=== PATIENT | male | born 1955 | race Caucasian/White ===

== ENCOUNTER 2023-04-24 08:08 | Day surgery (SDC) | payer OTHER, SELFPAY ==
[2023-04-24 08:24] VITALS: BP 100/82; PULSE 66; RESP 16; O2SAT 96
[2023-04-24] MEDS: BESIFLOXACIN HCL 100 DROP DROPS.SUSP OP ×4 (08:33→08:53)
[2023-04-24] MEDS: PHENYLEPHRINE HCL 2.5% OP SOL 40 DROP/2 ML BOTTLE OP ×4 (08:34→08:54)
[2023-04-24] MEDS: DIAZEPAM 5 MG TABLET PO (08:34)
[2023-04-24] MEDS: TROPICAMIDE 1% OP SOL 300 DROP/15 ML BOTTLE OP ×4 (08:34→08:54)
[2023-04-24] MEDS: CYCLOPENTOLATE HCL 1% OP SOL 40 DROP/2 ML BOTTLE OP ×4 (08:34→08:54)
[2023-04-24] MEDS: LIDOCAINE 2% JELLY 10 ML UR (09:55)
[2023-04-24] MEDS: BETADINE POVIDONE-IODINE 5% OP SOL 30 ML BOTTLE OP (09:55)
[2023-04-24 09:59] VITALS: BP 91/76; PULSE 102; RESP 18; O2SAT 98
--- NOTE | 2023-04-24 10:00 | OP_ITS ---
OPERATION DATE: ??04/24/2023 SURGEON:? Pedro Patel M.D. PREOPERATIVE DIAGNOSIS:? Nuclear sclerotic cataract right eye. POSTOPERATIVE DIAGNOSIS:? Nuclear sclerotic cataract right eye. PROCEDURE:? Cataract extraction with intraocular lens placement for the right eye. ANESTHESIA:? Topical. ESTIMATED BLOOD LOSS:? Zero. COMPLICATIONS:? None. PROCEDURE:? The patient was brought to the operating room in supine position.? After proper identification, the right eye was prepped and draped in a sterile ophthalmic fashion.? A paracentesis was created at the 11 o'clock position.? Approximately 1 cc of unpreserved Xylocaine was injected into the anterior chamber followed by Amvisc Plus.? Using a 2.6 mm Keratome blade, a clear corneal incision was created at the 9 o'clock limbus.? A cystotome was then used to begin a curvilinear capsulorrhexis that was continued for 360 degrees with the Utrata forceps.? BSS on a 26 gauge cannula was injected beneath the anterior capsule to hydrodissect as well as hydrodelineate the lens.? After ensuring mobility, phacoemulsification was performed in a tozhnaw-fje-denbxf-type fashion.? After all nuclear material had been removed from the eye, IA was introduced and all residual cortical material was cleaned up.? Additional Amvisc Plus was injected into the posterior bag and a lens model MX60, 21.5 diopters was then injected and dialed into position.? After ensuring centration, IA was reintroduced into the anterior chamber and all residual Amvisc Plus was removed from the eye.?? BSS on a 30 gauge cannula was injected into the stroma of both the clear corneal incision as well as the paracentesis to hydrate the wounds.? Additional BSS was injected into the anterior chamber to pressurize the eye at approximately 20 to 22 mmHg by finger tension.? 0.1 cc of antibiotic was injected into the anterior chamber and Weck-Guadalupe sponges were used to check the wounds to be watertight.? One drop of Apraclonidine and one drop of prednisolone acetate were placed into the eye and a shield was placed over top. The patient was then sent to the postoperative area in satisfactory condition to follow up the following day for postoperative care. [facility]
[2023-04-24] MEDS: HYALURONATE SODIUM 16 MG/ML SYRINGE EYE-RIGHT (10:04)
[2023-04-24] MEDS: LIDOCAINE HCL 1% PF 20 MG/2 ML VIAL 1 ML INJ (10:05)
[2023-04-24] MEDS: PREDNISOLONE ACETATE OP 1% SUSP 100 DROPS/5 ML 1 DROP OP (10:07)
[2023-04-24] MEDS: APRACLONIDINE HCL 100 DROP/5 ML BOTTLE OP (10:07)
[2023-04-24] MEDS: PHENYLEPHRINE/KETOROLAC 1-0.3% ML VIAL 4 ML IRR (10:07)
[2023-04-24 10:13] VITALS: BP 99/78; PULSE 95; RESP 20; O2SAT 100
== END 2023-04-24 10:25 | disposition home or self-care (01) ==
PROVIDERS: PCP Internal Medicine; Visit Provider Ophthalmology
PROC: (CPT 66984; principal; 2023-04-24 09:30)
DX: H25.11 Age-related nuclear cataract, right eye (principal); I10 Essential (primary) hypertension; E78.00 Pure hypercholesterolemia, unspecified; I25.10 Atherosclerotic heart disease of native coronary artery without angina pectoris; Z79.01 Long term (current) use of anticoagulants; Z79.899 Other long term (current) drug therapy
CPT/HCPCS: 66984; V2630

== ENCOUNTER 2023-06-05 08:35 | Outpatient (OUT) | payer OTHER, SELFPAY ==
--- NOTE | 2023-06-05 08:51 | MR_ITS ---
The [address] [address] Patient Name: CHEYANNE FLORES MRN: [id number] date: 1955 Sex: M Assigned Patient Location: MRI Current Patient Location: Accession/Order Number: [id number] Exam Date: 06/05/2023 09:55 Report Date: 06/06/2023 07:20 At the request of: MELL PICKETT Procedure: MR head/brain wo con EXAMINATION: MR head/brain wo con HISTORY: Memory Loss R41.3 COMPARISON: No relevant comparison available. TECHNIQUE: A variety of imaging planes and parameters were utilized for visualization of suspected pathology. Images were performed without contrast. FINDINGS: CEREBRUM: No edema, hemorrhage, mass, acute infarction, or inappropriate atrophy. CEREBELLUM: No edema, hemorrhage, mass, acute infarction, or inappropriate atrophy. BRAINSTEM: No edema, hemorrhage, mass, acute infarction, or inappropriate atrophy. CSF SPACES: Ventricles, cisterns, and sulci are appropriate for age. No hydrocephalus, subarachnoid hemorrhage, or mass. SKULL: No mass or other significant visible lesion. SINUSES: Limited views demonstrate no significant mucosal thickening or fluid. ORBITS: Limited views are unremarkable. OTHER: Negative. MR/MR head/brain wo con IMPRESSION: 1. No abnormal or suspicious findings to account for patient's symptoms. 2. Age consistent mild atrophy. Electronically authenticated by: ALEX DAWN Date: 06/06/2023 07:20
--- NOTE | 2023-06-05 08:52 | US_ITS ---
[address] [address] Patient Name: CHEYANNE FLORES MRN: [id number] date: 1955 Sex: M Assigned Patient Location: MRI Current Patient Location: MRI Accession/Order Number: [id number] Exam Date: 06/05/2023 10:45 Report Date: 06/05/2023 14:30 At the request of: MELL PICKETT Procedure: US carotid duplex BI EXAMINATION: US carotid duplex BI HISTORY: Atrial Fibrillation I48.19 , hypertension, hypercholesterolemia COMPARISON: No relevant comparison available. TECHNIQUE: Duplex Doppler ultrasound analysis of carotid and vertebral arteries. . Bilateral carotid arterial duplex examination was performed using B-mode, color flow and spectral analysis. Carotid stenosis is reported according to validated velocity parameters, similar to NASCET criteria. FINDINGS: RIGHT CAROTID ARTERY: No visible stenosis or significant plaque. RIGHT VERTEBRAL: Antegrade flow. Subclavian: PSV: 62.8 cm/s EDV: 0.0 cm/s CCA: Prox: PSV: 63.8 cm/s EDV: 12.9 cm/s Mid: PSV: 55.9 cm/s EDV: 18.1 cm/s Distal: PSV: 53.3 cm/s EDV: 16.8 cm/s BULB: PSV: 34.8 cm/s EDV: 8.6 cm/s ICA: Prox: PSV: 52.3 cm/s EDV: 18.2 cm/s Mid: PSV: 61.0 cm/s EDV: 25.2 cm/s Distal: PSV: 62.7 cm/s EDV: 27.8 cm/s ECA: PSV: 77.4 cm/s EDV: 9.5 cm/s VERTEBRAL: PSV: 24.3 cm/s EDV: 12.1 cm/s ICA/CCA ratio: PSV: 1.2 EDV: 1.7 LEFT CAROTID ARTERY: Mild atherosclerotic plaque within bulb and proximal external carotid artery without significant stenosis. LEFT VERTEBRAL: Antegrade flow. Subclavian: PSV: 74.1 cm/s EDV: 0.0 cm/s CCA: Prox: PSV: 85.4 cm/s EDV: 22.4 cm/s Mid: PSV: 61.2 cm/s EDV: 24.1 cm/s Distal: PSV: 56.3 cm/s EDV: 16.0 cm/s BULB: PSV: 40.2 cm/s EDV: 16.0 cm/s ICA: Prox: PSV: 53.1 cm/s EDV: 27.3 cm/s Mid: PSV: 66.0 cm/s EDV: 27.3 cm/s Distal: PSV: 80.6 cm/s EDV: 37.0 cm/s ECA: PSV: 58.0 cm/s EDV: 0.0 cm/s VERTEBRAL: PSV: 31.3 cm/s EDV: 13.0 cm/s ICA/CCA ratio: PSV: 1.4 EDV: 2.3 US/US carotid duplex BI IMPRESSION: 1. Irregular heartbeat throughout the study. 2. 0-49% flow stenosis and mild atherosclerotic plaque within the left bulb/proximal ECA. 3. Unremarkable right carotid arteries. Electronically authenticated by: ALEX DAWN Date: 06/05/2023 14:30
== END 2023-06-05 08:36 | disposition home or self-care (01) ==
LOC: MRI 08:37
PROVIDERS: PCP Internal Medicine; Visit Provider Internal Medicine
DX: I48.19 Other persistent atrial fibrillation (principal); R41.3 Other amnesia; R68.89 Other general symptoms and signs; R09.89 Other specified symptoms and signs involving the circulatory and respiratory systems
CPT/HCPCS: 70551; 93880

== ENCOUNTER 2023-11-12 11:38 | Outpatient (OUT) | payer OTHER, SELFPAY ==
[2023-11-12 12:19] LABS: Estimated Average Glucose 140 mg/dL; Glycohemoglobin A1C 6.5 % (4.5-6.2)
[2023-11-12 12:27] LABS: Anion Gap 13.3; Calcium 8.9 mg/dL (8.5-10.1); Carbon Dioxide 29.5 mmol/L (21.0-32.0); Chloride 100 mmol/L (98-107); Estimated GFR (African America 58 (>=60); Estimated GFR (Non-African Ame 48 (>=60); Glucose 114 mg/dL (74-106); Potassium 3.8 mmol/L (3.5-5.1); Sodium 139 mmol/L (136-145)
== END 2023-11-12 11:39 | disposition home or self-care (01) ==
LOC: LAB 11:41
PROVIDERS: PCP Internal Medicine; Visit Provider Internal Medicine
DX: I50.22 Chronic systolic (congestive) heart failure (principal); I42.8 Other cardiomyopathies; E11.65 Type 2 diabetes mellitus with hyperglycemia
CPT/HCPCS: 36415; 80048; 83036; 83880

== ENCOUNTER 2024-02-09 11:41 | Outpatient (OUT) | payer OTHER, SELFPAY ==
--- OUTSIDE RECORDS SUMMARY | 2024-02-09 12:05 | XMS_ITS | CCD ---
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 Name Role Phone Anibal Gonzales Unavailable Unavailable Unavailable Cheyanne Knowles II Referring Unav ailable Flaco LIN, Cheyanne De Leon Attending Unav ailable Anibal Gonzales Primary Care Unavailabl e Anibal Gonzales Primary Care Unavaileileen e McGuinjusten LIN, Cheyanne De Leon Referring Unav ailable Flaco LIN, Cheyanne De Leon Attending Unav ailable Anibal Gonzales Unavailable CHRISTIAN, DR MONTE Attending Unavailable CHRISTIAN, DR MONTE Admitting Unavailable CHRISTIAN, DR MONTE Primary Care Unavailable CHRISTIAN, DR MONTE Consulting Unavailable CHRISTIAN, DR MONTE Attending Unavailable CHRISTIAN, DR MONTE Admitting Unavailable CHRISTIAN, DR MONTE Primary Care Unavailable CHRISTIAN, DR MONTE Consulting Unavailable CHRISTIAN, DR MONTE Consulting Unavailable CHRISTIAN, DR MONTE Attending Unavailable CHRISTIAN, DR MONTE Admitting Unavailable CHRISTIAN, DR MONTE Primary Care Unavailable ZIEBSHAE, DR ALEX Luis Consulting Unavailable CHRISTIAN, DR MONTE Primary Care Unavailable RASHEEDA SANCHEZ Admitting Unavailable RASHEEDA SANCHEZ Attending Unavailable Anibal Gonzales DO Primary Care Provider CHEYANNE KNOWLES Attending Unavailable ANIBAL GONZALES Primary Care Unavailable Medications Current Medications Medication Drug Class(es) Dates Sig (Normalized) Sig (Original) allopurinol 300 mg oral tablet (20 sources) Xanthine Oxidase Inhibitor Allopurinol 300 mg TAKE ONE TABLET BY MOUTH ONCE DAILY Orally Once a day for 90 days Active apixaban 5 mg oral tablet (20 sources) Factor Xa Inhibitor Start: 12-02-2023 End: 12-01-2024 take 1 tablet by mouth twice daily apixaban (Eliquis) 5 mg tablet Indications: Paroxysmal atrial fibrillation (CMS/HCC) Take 1 tablet (5 mg) by mouth 2 times a day. 180 tablet 3 12/02/2023 12/01/2024 Active atorvastatin 20 mg oral tablet (20 sources) HMG-CoA Reductase Inhibitor Start: 12-02-2023 End: 12-01-2024 take 1 tablet by mouth once daily at bedtime atorvastatin (Lipitor) 20 mg tablet Indications: Mixed hyperlipidemia Take 1 tablet (20 mg) by mouth once daily at bedtime. 90 tablet 3 12/02/2023 12/01/2024 Active furosemide 20 mg oral tablet (20 sources) Loop Diuretic Start: 12-02-2023 End: 12-01-2024 take 1 tablet by mouth once daily furosemide (Lasix) 20 mg tablet Indications: Primary hypertension Take 1 tablet (20 mg) by mouth once daily. 90 tablet 3 12/02/2023 12/01/2024 Active Start: 05-01-2023 take 1 tablet by gena th every twenty-four hours Furosemide 40 MG 1 tablet Orally Once a day for 90 days Apr, Active Start: 05-01-2023 take 1 tablet by gena th every other day Furosemide 40 MG 1 tablet Orally every other day Apr, Active take 1 tablet by mouth twice suzy ly Furosemide 20 MG Oral Tablet TAKE 1 TABLETS TWICE DAILY Quantity: 0 Refills: 0 Ordered: 06-Dec-2022 DO Active take 1 tablet by gena th every twenty-four hours Furosemide 40 MG 1 tablet Orally Once a day for 30 days stop furosemide 20 Active losartan potassium 25 mg oral tablet (20 sources) Angiotensin 2 Receptor Carlos Start: 01-06-2023 take 1 tablet by mouth every twenty-four hours Losartan Potassium 25 MG 1 tablet Orally Once a day for 90 days Dec, Active Start: 12-06-2022 End: 12-01-2024 take 1 tablet by mouth once daily losartan (Cozaar) 50 mg tablet Indications: Primary hypertension Take 1 tablet (50 mg) by mouth once daily. 90 tablet 3 12/02/2023 12/01/2024 Active 24 hr metoprolol succinate 50 mg extended release oral tablet (20 sources) beta-Adrenergic Carlos Start: 05-01-2023 take 1 tablet by mouth every twenty-four hours Metoprolol Succinate ER 200 MG 1 tablet Orally Once a day Apr, Active Start: 01-08-2023 End: 12-01-2024 take 1 tablet by mouth once daily metoprolol succinate XL (Toprol-XL) 50 mg 24 hr tablet Indications: Paroxysmal atrial fibrillation (CMS/HCC) , Primary hypertension Take 1 tablet (50 mg) by mouth once daily. 90 tablet 3 12/02/2023 12/01/2024 Active Start: 01-08-2023 Metoprolol Suc cinate ER 100 MG 2 Orally Once a day Stop Metoprolol 50 15 Dec, 2022 Active potassium chloride 10 meq extended release oral tablet (20 sources) Start: 12-03-2022 End: 12-01-2024 take 1 tablet by mouth once daily potassium chloride CR 10 mEq ER tablet Indications: Non-ischemic cardiomyopathy (CMS/HCC) , Paroxysmal atrial fibrillation (CMS/HCC) , Primary hypertension Take 1 tablet (10 mEq) by mouth once daily. Do not crush, chew, or split. 90 tablet 3 12/02/2023 12/01/2024 Active spironolactone 25 mg oral tablet (20 sources) Aldosterone Antagonist Start: 09-24-2021 End: 12-01-2024 take 1 tablet by mouth once daily spironolactone (Aldactone) 25 mg tablet Indications: Primary hypertension Take 1 tablet (25 mg) by mouth once daily. 90 tablet 3 12/02/2023 12/01/2024 Active Completed/Discontinued Medications Medication Drug Class(es) Dates Sig (Normalized) Sig (Original) amiodarone hydrochloride 400 mg oral tablet (4 sources) Antiarrhythmic take 1 tablet by mouth once daily Amiodarone HCl - 400 MG Oral Tablet TAKE 1 TABLET DAILY. Quantity: 0 Refills: 0 Ordered: 24-Sep-2021 DO Active lisinopril 5 mg oral tablet (9 sources) Angiotensin Converting Enzyme Inhibitor take 0.5 tablet by mouth once daily Lisinopril 5 MG Oral Tablet TAKE 1/2 TABLET DAILY. Quantity: 45 Refills: 3 Ordered: 15-Apr-2022 Cheyanne Knowles MD Active take 1 tablet by mouth once sid y Lisinopril 5 MG Oral Tablet TAKE 1 TABLET DAILY. Quantity: 0 Refills: 0 Ordered: 24-Sep-2021 DO Active Problems Active Problems Problem Classification Problem Date Documented Da te Episodic/Chronic Cardiac dysrhythmias (20 sources) Persistent atrial fibrillation; 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: [Atrial fibrillation] Onset: 11-12-2023 12-02-2023 Chronic Chronic kidney disease (20 sources) Chronic kidney disease stage 3A ; 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: [Stage 3a chronic kidney disease] Chronic Congestive heart failure; nonhypertensive (20 sources) Chronic systolic heart failure; 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: [Chronic systolic (congestive) heart failure] Onset: 11-08-2022 Chronic Diabetes mellitus with complications (20 sources) Hyperglycemia due to type 2 diabetes mellitus; 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: [Type 2 diabetes mellitus with hyperglycemia] Onset: 04-12-2023 Chronic Diabetes mellitus without complication (20 sources) Type 2 diabetes mellitus; 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: [Diabetes mellitus without mention of complication, type II or unspecified type, not stated as uncontrolled] Onset: 11-12-2023 11-12-2023 Chronic Disorders of lipid metabolism (20 sources) Hyperlipidemia; 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: [Other and unspecified hyperlipidemia] Onset: 04-12-2023 Chronic Essential hypertension (20 sources) Hypertensive disorder; 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: [Unspecified essential hypertension] Onset: 11-12-2023 Chronic Fluid and electrolyte disorders (1 source) Hypokalemia Episodic Gout and other crystal arthropathies (20 sources) Primary gout; 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: [Idiopathic gout, unspecified site] Chronic Hyperplasia of prostate (20 sources) Benign prostatic hyperplasia; 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: [Hypertrophy (benign) of prostate without urinary obstruction and other lower urinary tract symptom (LUTS)] Onset: 11-12-2023 Chronic Hypertension with complications and secondary hypertension (4 sources) Hypertensive heart and chronic kidney disease with heart failure and stage 1 through stage 4 chronic kidney disease, or unspecified chronic kidney disease; 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: [HTN HRT CKD W/HF STAGE 1-4/UNS CKD] Onset: 04-08-2023 Chronic Other diseases of veins and lymphatics (10 sources) Venous hypertension of lower limb; 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: [Chronic venous hypertension (idiopathic) with inflammation of bilateral lower extremity] Chronic Other diseases of veins and lymphatics (20 sources) Peripheral venous insufficiency; 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: [Venous insufficiency (chronic) (peripheral)] Episodic Other diseases of veins and lymphatics (4 sources) Venous insufficiency (chronic) (peripheral) Episodic Other lower respiratory disease (7 sources) Dyspnea; 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: [Other respiratory abnormalities] Episodic Other nutritional; endocrine; and metabolic disorders (14 sources) Body mass index 40+ - severely obese; 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: [Morbid obesity] Chronic Other nutritional; endocrine; and metabolic disorders (20 sources) Morbid obesity; 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: [Morbid (severe) obesity due to excess calories] Chronic Other nutritional; endocrine; and metabolic disorders (2 sources) Morbid (severe) obesity due to excess calories Chronic Other screening for suspected conditions (not mental disorders or infectious disease) (3 sources) Encounter for screening for malignant neoplasm of prostate; 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: [ENC SCREEN MALIG NEOPLASM PROSTATE] Onset: 04-12-2023 Episodic Marycruz-; endo-; and myocarditis; cardiomyopathy (except that caused by tuberculosis or sexually transmitted disease) (20 sources) Cardiomyopathy; 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: [Other primary cardiomyopathies] Onset: 11-12-2023 Chronic Residual codes; unclassified (20 sources) Obstructive sleep apnea syndrome; 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: [Obstructive sleep apnea (adult)(pediatric)] Onset: 11-12-2023 11-12-2023 Chronic Residual codes; unclassified (3 sources) Obstructive sleep apnea (adult) (pediatric) Chronic Residual codes; unclassified (7 sources) Amnesia; 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: [Other amnesia] Episodic Residual codes; unclassified (1 source) Other amnesia Episodic Residual codes; unclassified (1 source) Other general symptoms and signs Episodic Screening and history of mental health and substance abuse codes (12 sources) Ex-smoker; 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: [Personal history of tobacco use] Episodic Comment on above: quit smoking approx 40 years ago; Past or Other Problems Problem Classification Problem Date Documented Da te Episodic/Chronic Chronic kidney disease (6 sources) Chronic kidney disease; 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: [CHRONIC KIDNEY DISEASE STAGE 3A] Onset: 04-12-2023 Immunizations and screening for infectious disease (12 sources) Patient encounter status; 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: [Other specified vaccination] Resolved: 12-06-2022 Episodic Other lower respiratory disease (5 sources) H/O: respiratory disease; 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: [Personal history of other diseases of respiratory system] Resolved: 04-12-2022 Episodic Unclassified (13 sources) Other persistent atrial fibrillation; 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: [OTHR PERSISTENT ATRIAL FIBRILLATION] Onset: 01-10-2023 Unclassified (1 source) Onset: 12-02-2023 12-02-2023 Results Test Name Value Interpretation Reference Range Facility B-Type Natriuretic Peptideon 04-08-2023 B-Type Natriuretic Peptide see note [facility] Other B-Type Natriuretic Peptide 3094.0 pg/ml Critically high <=900.0 pg/ml [facility] Other BNPon 04-08-2023 Natriuretic peptide B (Bld) [Mass/Vol] 3094.0 pg/mL Critically high <=900.0 [facility] Comment on above: Performed By: #### B MP, BNP, LIPID #### [facility] [address] [address] [address] Braxton Aly Basic Metabolic Panelon 03-24 Calcium [Mass/Vol] 8.9330904 mg/dL 8.5-10 .1 mg/dL [facility] Other CO2 [Moles/Vol] 34.60836400 mmol/L Critically high 21. 0-32.0 mmol/L [facility] Other Creatinine [Mass/Vol] 1.57952168 mg/dL Critically high 0.70-1.30 mg/dL [facility] Other Potassium [Moles/Vol] 4.87976835 mmol/L 3.5-5.1 mmol/L [facility] Other Urea nitrogen [Mass/Vol] 25.5673992 mg/dL Critically high 7.0-18.0 mg/dL [facility] Other Basic Metabolic Panel 140 mmol/L 136-145 mmol/L [facility] Other Basic Metabolic Panel 148 mg/dL Critically high 74-106 mg/dL [facility] Other Basic Metabolic Panel 40 mL/min/1.73m2 Critically low >=60 mL/min/1.73m2 [facility] Other Basic Metabolic Panel 49 mL/min/1.73m2 Critically low >=60 mL/min/1.73m2 [facility] Other CBC AUTO DIFFon 04-08-2023 BASO # 0.1 103/ul Normal 0.0-0.1 [facility] Comment on above: Performed By: #### C BC #### [facility] [address] [place] [address] Dr. Braxton Aly Basophils/100 WBC (Bld) 0.6 % Normal 0.2-2.0 [facility] Comment on above: Performed By: #### C BC #### [facility] [address] [place] [address] Dr. Braxton Aly EO # 0.1 103/ul Normal 0.0-0.7 [facility] Comment on above: Performed By: #### C BC #### [facility] [address] [place] [address] Dr. Braxton Aly Eosinophils/100 WBC (Bld) 1.3 % Normal 0.9-7.0 [facility] Comment on above: Performed By: #### C BC #### [facility] [address] [place] [address] Dr. Braxton Aly Erythrocyte distribution width (RBC) [Ratio] 14.6 % Normal 11.0-15.0 [facility] Comment on above: Performed By: #### C BC #### [facility] [address] [place] [address] Dr. Braxton Aly Hematocrit (Bld) [Volume fraction] 44.2 % Normal 42.0-54.0 [facility] Comment on above: Performed By: #### C BC #### [facility] [address] [place] [address] Dr. Braxton Aly Hemoglobin (Bld) [Mass/Vol] 13.5 g/dL Critically low 14.0-18.0 [facility] Comment on above: Performed By: #### C BC #### [facility] [address] [place] [address] Dr. Braxton Aly IG # 0.03 10e3/ul Normal 0.00-0.03 [facility] Comment on above: Performed By: #### C BC #### [facility] [address] [place] [address] Dr. Braxton Aly IG % 0.3 % Normal 0.0-0.5 [facility] Comment on above: Performed By: #### C BC #### [facility] [address] [place] [address] Dr. Braxton Aly LYMPH # 1.3 103/ul Normal 1.2-3.8 [facility] Comment on above: Performed By: #### C BC #### [facility] [address] [place] [address] Dr. Braxton Aly Lymphocytes/100 WBC (Bld) 15.0 % Critically low 20.5-60.0 [facility] Comment on above: Performed By: #### C BC #### [facility] [address] [place] [address] Dr. Braxton Aly MANUAL DIFF REQ NO Normal [facility] Comment on above: Performed By: #### C BC #### [facility] [address] [place] [address] Dr. Braxton Aly MCH (RBC) [Entitic mass] 29.1 pg Normal 25.9-34.0 [facility] Comment on above: Performed By: #### C BC #### [facility] [address] [place] [address] Dr. Braxton Aly MCHC (RBC) [Mass/Vol] 30.5 g/dL Normal 29.9-35.2 [facility] Comment on above: Performed By: #### C BC #### [facility] [address] [place] [address] Dr. Braxton Aly MCV (RBC) [Entitic vol] 95.3 fL Critically high 80.0-94.0 [facility] Comment on above: Performed By: #### C BC #### [facility] [address] [place] [address] Dr. Braxton Aly MONO # 0.6 103/ul Normal 0.3-0.8 [facility] Comment on above: Performed By: #### C BC #### [facility] [address] [place] [address] Dr. Braxton Aly Monocytes/100 WBC (Bld) 6.7 % Normal 1.7-12.0 [facility] Comment on above: Performed By: #### C BC #### [facility] [address] [place] [address] Dr. Braxton Aly NEUT # 6.7 103/ul Critically high 1.4-6.5 [facility] Comment on above: Performed By: #### C BC #### [facility] [address] [address] [address] Braxton Aly Neutrophils/100 WBC (Bld) 76.1 % Critically high 43.0-75.0 [facility] Comment on above: Performed By: #### C BC #### [facility] [address] [address] [address] Braxton Aly Platelet mean volume (Bld) [Entitic vol] 9.4 fL Critically low 9.5-13.5 [facility] Comment on above: Performed By: #### C BC #### [facility] [address] [place] [address] Dr. Braxton Aly PLT 272 103/ul Normal 150-450 [facility] Comment on above: Performed By: #### C BC #### [facility] [address] [address] [address] Braxton Aly RBC 4.64 106/ul Critically low 4.70-6.10 [facility] Comment on above: Performed By: #### C BC #### [facility] [address] [address] [address] Braxton Aly WBC 8.8 103/ul Normal 4.0-11.0 [facility] Comment on above: Performed By: #### C BC #### [facility] [address] [address] [address] Braxton Aly Complete Blood Count and Dif diony 04-08-2023 Anisocytosis Ql (Bld) [facility] Other Basophilic stippling LM Ql (Bld) [facility] Other RBC morphology finding Nom (Bld) [facility] Other GLYCOHEMOGLOBIN A1Con 2022 ADA RECOMMENDATION SEE BELOW Normal [facility] Comment on above: Result Comment: ADA RECOMMENDED LIMIT 4.0 - 6.0 ADA THERAPEUTIC TARGET < 7.0 ACTION SUGGESTED > 7.0 Performed By: #### A 1C #### [facility] [address] [place], [place] [address] Dr. Braxton Aly Glucose [Mass/Vol] 143 mg/dL Normal [facility] Comment on above: Performed By: #### A 1C #### [facility] [address] [place], [place] [address] Dr. Braxton Aly HbA1c (Bld) [Mass fraction] 6.6 % Critically high 4.5-6.2 [facility] Comment on above: Performed By: #### A 1C #### [facility] [id number] Braxton Aly Hemoglobin A1C ([facility])on 0 04-08-2023 Hemoglobin A1C ([facility]) [facility] Other LIPID PROFILEon 04-08-2023 CHOL-HDL RATIO NORM SEE BELOW Normal [facility] Comment on above: Result Comment: 3.3 - 4.4 LOW RISK 4.4 - 7.1 AVERAGE RISK 7.1 - 11.0 MODERATE RISK >11.0 HIGH RISK Performed By: #### B MP, BNP, LIPID #### [facility] [address] [address] [address] Braxton Aly Cholesterol [Mass/Vol] 119 mg/dL <=200 mg/dL [facility] Comment on above: Performed By: #### B MP, BNP, LIPID #### [facility] [address] [address] [address] Braxton Aly Cholesterol in HDL [Mass/Vol] 36 mg/dL Critically low 40-60 mg/dL [facility] Comment on above: Performed By: #### B MP, BNP, LIPID #### [facility] [address] [address] [address] Braxton Aly Cholesterol in LDL [Mass/Vol] 67.8 mg/dL Normal [facility] Comment on above: Performed By: #### B MP, BNP, LIPID #### [facility] [address] [address] [address] Braxton Aly Cholesterol.total/Ch olesterol in HDL [Mass ratio] 3.3 {ratio} [facility] Comment on above: Performed By: #### B MP, BNP, LIPID #### [facility] [address] [address] [address] Braxton Aly HDL NORMAL > or = 60 mg/dl - LOW CARDIOVASCULAR RISK <40 mg/dl - HIGH CARDIOVASCULAR RISK Normal [facility] Comment on above: Performed By: #### B MP, BNP, LIPID #### [facility] [address] [address] [address] Braxton Aly LDL CALC NORMAL SEE BELOW Normal [facility] Comment on above: Result Comment: <100 mg/dl OPTIMAL 100 - 129 mg/dl NEAR OR ABOVE OPTIMAL 130 - 159 mg/dl BORDERLINE HIGH 160 - 189 mg/dl HIGH >190 mg/dl VERY HIGH Performed By: #### B MP, BNP, LIPID #### [facility] [address] [place] [address] Dr. Braxton Aly Triglyceride [Mass/Vol] 76 mg/dL <=150 mg/dL [facility] Comment on above: Performed By: #### B MP, BNP, LIPID #### [facility] [address] [address] [address] Braxton Aly VLDL CALC 15.2 mg/dL Normal [facility] Comment on above: Performed By: #### B MP, BNP, LIPID #### [facility] [address] [address] [address] Braxton Aly Lipid Panelon 04-08-2023 Lipid Panel > or = 60 mg/dl - LOW CARDIOVASCULAR RISK <40 mg/dl - HIGH CARDIOVASCULAR RISK [facility] Other Lipid Panel SEE BELOW [facility] Other Lipid Panel 67.8 mg/dL [facility] Other Lipid Panel 15.2 mg/dL [facility] Other PROF CHEM 8 (BAS METB)on Anion gap [Moles/Vol] 9.4 mmol/L [facility] Comment on above: Performed By: #### B MP, BNP, LIPID #### [facility] [address] [address] [address] Braxton Aly Calcium [Mass/Vol] 8.9 mg/dL Normal 8.5-10.1 [facility] Comment on above: Performed By: #### B MP, BNP, LIPID #### [facility] [address] [address] [address] Braxton Aly Chloride [Moles/Vol] 100 mmol/L 98-107 mmol/L [facility] Comment on above: Performed By: #### B MP, BNP, LIPID #### [facility] [address] [address] [address] Braxton Aly CO2 [Moles/Vol] 34.7 mmol/L Critically high 21.0-32.0 [facility] Comment on above: Performed By: #### B MP, BNP, LIPID #### [facility] [address] [place] [address] Dr. Braxton Aly Creatinine [Mass/Vol] 1.71 mg/dL Critically high 0.70-1.30 [facility] Comment on above: Performed By: #### B MP, BNP, LIPID #### [facility] [address] [address] [address] Braxton Aly EGFR-AF UGANDAN 49 mL/min/1.73m2 Critically low >=60 [facility] Comment on above: Performed By: #### B MP, BNP, LIPID #### [facility] [address] [address] [address] Braxton Aly EGFR-NON AF UGANDAN 40 mL/min/1.73m2 Critically low >=60 [facility] Comment on above: Performed By: #### B MP, BNP, LIPID #### [facility] [address] [address] [address] Braxton Aly Glucose [Mass/Vol] 148 mg/dL Critically high 74-106 [facility] Comment on above: Performed By: #### B MP, BNP, LIPID #### [facility] [address] [address] [address] Braxton Aly Potassium [Moles/Vol] 4.1 mmol/L Normal 3.5-5.1 [facility] Comment on above: Performed By: #### B MP, BNP, LIPID #### [facility] [address] [address] [address] Braxton Aly Sodium [Moles/Vol] 140 mmol/L Normal 136-145 [facility] Comment on above: Performed By: #### B MP, BNP, LIPID #### [facility] [address] [address] [address] Braxton Aly Urea nitrogen [Mass/Vol] 25.0 mg/dL Critically high 7.0-18.0 [facility] Comment on above: Performed By: #### B MP, BNP, LIPID #### [facility] [address] [address] [address] Braxton Aly Urea nitrogen/Creatinine [Mass ratio] 14.6 mg/mg [facility] Comment on above: Performed By: #### B MP, BNP, LIPID #### [facility] [address] [address] [address] Braxton Aly Basic Metabolic Panelon 12-25 Calcium [Mass/Vol] 8.4052945 mg/dL 8.5-10 .1 mg/dL [facility] Other CO2 [Moles/Vol] 31.73714136 mmol/L 21.0-3 2.0 mmol/L [facility] Other Creatinine [Mass/Vol] 1.04621628 mg/dL Critically high 0.70-1.30 mg/dL [facility] Other Potassium [Moles/Vol] 3.56457960 mmol/L Critically low 3.5-5.1 mmol/L [facility] Other Urea nitrogen [Mass/Vol] 15.4941336 mg/dL 7.0-18.0 mg/dL [facility] Other Basic Metabolic Panel see note [facility] Other Basic Metabolic Panel 141 mmol/L 136-145 mmol/L [facility] Other Basic Metabolic Panel 157 mg/dL Critically high 74-106 mg/dL [facility] Other Basic Metabolic Panel 52 mL/min/1.73m2 Critically low >=60 mL/min/1.73m2 [facility] Other Basic Metabolic Panel >60 mL/min/1.73m2 >=60 mL/min/1.73m2 [facility] Other Anion gap [Moles/Vol] 11.6 mmol/L Normal [place] [facility] Other Comment on above: Performed By: #### B MP #### [facility] [address] [place] [address] Dr. Braxton Aly Chloride [Moles/Vol] 101 mmol/L Normal 98-107 [facility] Other Comment on above: Performed By: #### B MP #### [facility] [address] [place] [address] Dr. Braxton Aly Urea nitrogen/Creatinine [Mass ratio] 11.0 mg/mg Normal [place] [facility] Other Comment on above: Performed By: #### B MP #### [facility] [address] [place] [address] Dr. Braxton Aly PROF CHEM 8 (BAS METB)on Calcium [Mass/Vol] 8.8 mg/dL Normal 8.5-10.1 [facility] Comment on above: Performed By: #### B MP #### [facility] [address] [place] [address] Dr. Braxton Aly CO2 [Moles/Vol] 31.7 mmol/L Normal 21.0-32.0 [facility] Comment on above: Performed By: #### B MP #### [facility] [address] [place] [address] Dr. Braxton Aly Creatinine [Mass/Vol] 1.36 mg/dL Critically high 0.70-1.30 [facility] Comment on above: Performed By: #### B MP #### [facility] [address] [place] [address] Dr. Braxton Aly EGFR-AF UGANDAN >60 Normal >=60 [facility] Comment on above: Performed By: #### B MP #### [facility] [address] [place], [place] [address] Dr. Braxton Aly EGFR-NON AF UGANDAN 52 mL/min/1.73m2 Critically low >=60 [facility] Comment on above: Performed By: #### B MP #### [facility] [address] [address] [address] Braxton Aly Glucose [Mass/Vol] 157 mg/dL Critically high 74-106 T [facility] Comment on above: Performed By: #### B MP #### [facility] [address] [address] [address] Braxton Aly Potassium [Moles/Vol] 3.3 mmol/L Critically low 3.5-5.1 [facility] Comment on above: Performed By: #### B MP #### [facility] [address] [address] [address] Braxton Aly Sodium [Moles/Vol] 141 mmol/L Normal 136-145 [facility] Comment on above: Performed By: #### B MP #### [facility] [id number] Braxton Aly Urea nitrogen [Mass/Vol] 15.0 mg/dL Normal 7.0-18.0 [facility] Comment on above: Performed By: #### B MP #### [facility] [id number] Braxton Aly Office Visit (Cardiology)on 12-06-2022 Follow-up visit Diagnoses/Problems Assessed Hyperlipidemia (272.4) (E78.5) Hypertension (401.9) (I10) Non-ischemic cardiomyopathy (425.4) (I42.8) Paroxysmal atrial fibrillation (427.31) (I48.0) Type 2 diabetes mellitus (250.00) (E11.9) Morbid obesity with BMI of 45.0-49.9, adult (278.01,V85.42) (E66.01,Z68.42) Former smoker (V15.82) (Z87.891) quit smoking approx 40 years ago Orders Hypertension Start: Losartan Potassium 50 MG Oral Tablet; TAKE 1 TABLET DAILY Morbid obesity with BMI of 45.0-49.9, adult Healthy Weight Tips; Status:Complete - Retrospective Authorization; Done: 06Dec2022 Some eating tips that can help you lose weight.; Status:Complete - Retrospective Authorization; Done: 06Dec2022 SocHx: Former smoker Tobacco Use Screening; Status:Complete; Done: 06Dec2022 Unlinked Stop: Lisinopril 10 MG Oral Tablet Patient Instructions Please bring all medicines, vitamins, and herbal supplements with you when you come to the office. Prescriptions will not be filled unless you are compliant with your follow up appointments or have a follow up appointment scheduled as per instruction of your physician. Refills should be requested at the time of your visit. Follow up in 1 year. Chief Complaint CHEYANNE GIBBS is being seen for 9-12 month follow up. History of Present Illness Returns in follow-up of problems as noted. In the interim he has done well. Control and/or management of hyperlipidemia and hypertension is reviewed and control is adequate and appropriate. We note increased body mass index and the merits of diet exercise and weight loss and its favorable impact on his blood pressure as well as diabetes mellitus was advocated he understands our recommendation. He believes he has had no paroxysms of atrial fibrillation and auscultation demonstrates a regular rhythm. He is protected against stroke because he is on antithrombotic therapy because of all the above we suggest continued therapy as before without change. We did emphasize on warm them on occasion the merits of diet and weight loss. Active Problems Problems BPH (benign prostatic hyperplasia) (600.00) (N40.0) Former smoker (V15.82) (Z87.891) quit smoking approx 40 years ago Hyperlipidemia (272.4) (E78.5) Hypertension (401.9) (I10) Non-ischemic cardiomyopathy (425.4) (I42.8) KOFI on CPAP (327.23,V46.8) (G47.33,Z99.89) Paroxysmal atrial fibrillation (427.31) (I48.0) Type 2 diabetes mellitus (250.00) (E11.9) Past Medical History Problems History of Encounter for immunization (V03.89) (Z23) History of dyspnea (V12.69) (Z87.898) Resolved Date: 12 Apr 2022 Current Meds Medication NameInstruction Allopurinol 300 MG Oral TabletTAKE 1 TABLET DAILY. Atorvastatin Calcium 20 MG Oral TabletTAKE 1 TABLET AT BEDTIME Eliquis 5 MG Oral TabletTake 1 tablet twice daily Furosemide 20 MG Oral TabletTAKE 1 TABLETS TWICE DAILY Lisinopril 10 MG Oral TabletTAKE 1 TABLET DAILY DIRECTED. Metoprolol Succinate ER 50 MG Oral Tablet Extended Release 24 H[place] 1 1/2 tablet daily. Potassium Chloride ER 10 MEQ Oral Tablet Extended ReleaseTAKE 1 TABLET DAILY WITH FOOD. Spironolactone 25 MG Oral TabletTAKE ONE TABLET BY MOUTH DAILY Patient brought in medication bottles. Kymberly Nova MA Allergies Medication No Known Drug Allergies Recorded By: Mariana Caro; 09/21/2021 12:43:20 PM Social History Problems Caffeine use (V49.89) (Z78.9) soda Former smoker (V15.82) (Z87.891) quit smoking approx 40 years ago No alcohol use No illicit drug use Review of Systems Constitutional: not feeling tired. Cardiovascular: no intermittent leg claudication and as noted in HPI. Respiratory: no cough and no shortness of breath. Gastrointestinal: no change in bowel habits and no blood in stools. Integumentary: no skin rashes. Neurological: no seizures and no frequent falls. All other systems have been reviewed and are negative for complaint. Vitals Vital Signs Recorded: 06Dec2022 08:23AM Heart Rate60, R Radial Teufgpbc431, RUE, Sitting Ljwozoqml62, RUE, Sitting Height5 ft 9 in Wxglhe443 lb BMI Nlfqbwonyj04.81 kg/m2 BSA Calculated2.51 Tobacco Useb) No PHQ-2 #1. Over the last 2 weeks have you felt down, depressed or hopeless? (If yes, answer PHQ-9 below)No PHQ-2 #2. Over the last 2 weeks have you felt little interest or pleasure in doing things? (If yes, answer PHQ-9 below)No Falls Screening (Age 18+)a) No falls within the last year Physical Exam Constitutional: alert and in no acute distress. Eyes: no erythema, swelling or discharge from the eye . Neck: neck is supple, symmetric, trachea midline, no masses and no thyromegaly . Pulmonary: no increased work of breathing or signs of respiratory distress and lungs clear to auscultation. Cardiovascular: carotid pulses 2+ bilaterally with no bruit , JVP was normal, no thrills , regular rhythm, normal S1 and S2, no murmurs , pedal pulses 2+ bilaterally and no edema . Abdomen: abdomen (more content not included)... Normal [employer] Tobacco Screening.on 023 Adult depression screening assessment No MP-Cardiolo gy-S [place] 250 DO Work Phone: Fall risk assessment a) No falls within the last year SA[facility] [place] 250 DO Work Phone: Tobacco use status CPHS b) No OL-Yjqajuypdl-U [place] 250 DO Work Phone: BNPon 11-08-2022 Natriuretic peptide B (Bld) [Mass/Vol] 2323.0 pg/mL Critically high <=900.0 [facility] Comment on above: Performed By: #### B DIRECTOR OF SOCIAL SERVICES, BMP #### [facility] [address] [place] [address] Dr. Braxton Aly PROF CHEM 8 (BAS METB)on Anion gap [Moles/Vol] 7.5 mmol/L Normal [facility] Comment on above: Performed By: #### B DIRECTOR OF SOCIAL SERVICES, BMP #### [facility] [address] [place] [address] Dr. Braxton Aly Calcium [Mass/Vol] 8.8 mg/dL Normal 8.5-10.1 [facility] Comment on above: Performed By: #### B DIRECTOR OF SOCIAL SERVICES, BMP #### [facility] [address] [place] [address] Dr. Braxton Aly Chloride [Moles/Vol] 100 mmol/L Normal 98-107 [facility] Comment on above: Performed By: #### B DIRECTOR OF SOCIAL SERVICES, BMP #### [facility] [address] [place] [address] Dr. Braxton Aly CO2 [Moles/Vol] 37.5 mmol/L Critically high 21.0-32.0 [facility] Comment on above: Performed By: #### B DIRECTOR OF SOCIAL SERVICES, BMP #### [facility] [address] [address] [address] Braxton Aly Creatinine [Mass/Vol] 1.38 mg/dL Critically high 0.70-1.30 [facility] Comment on above: Performed By: #### B DIRECTOR OF SOCIAL SERVICES, BMP #### [facility] [address] [place] [address] Dr. Braxton Aly EGFR-AF UGANDAN >60 Normal >=60 [facility] Comment on above: Performed By: #### B DIRECTOR OF SOCIAL SERVICES, BMP #### [facility] [address] [address] [address] Braxton Aly EGFR-NON AF UGANDAN 51 mL/min/1.73m2 Critically low >=60 [facility] Comment on above: Performed By: #### B DIRECTOR OF SOCIAL SERVICES, BMP #### [facility] [address] [place] [address] Dr. Braxton Aly Glucose [Mass/Vol] 141 mg/dL Critically high 74-106 T [facility] Comment on above: Performed By: #### B DIRECTOR OF SOCIAL SERVICES, BMP #### [facility] [address] [place] [address] Dr. Braxton Aly Potassium [Moles/Vol] 3.0 mmol/L Critically low 3.5-5.1 [facility] Comment on above: Performed By: #### B DIRECTOR OF SOCIAL SERVICES, BMP #### [facility] [address] [place] [address] Dr. Braxton Aly Sodium [Moles/Vol] 142 mmol/L Normal 136-145 [facility] Comment on above: Performed By: #### B DIRECTOR OF SOCIAL SERVICES, BMP #### [facility] [address] [place] [address] Dr. Braxton Aly Urea nitrogen [Mass/Vol] 16.0 mg/dL Normal 7.0-18.0 [facility] Comment on above: Performed By: #### B DIRECTOR OF SOCIAL SERVICES, BMP #### [facility] [address] [place] [address] Dr. Braxton Aly Urea nitrogen/Creatinine [Mass ratio] 11.6 mg/mg Normal [facility] Comment on above: Performed By: #### B DIRECTOR OF SOCIAL SERVICES, BMP #### [facility] [id number] Braxton Aly XR CHEST 2 Von 11-08-2022 XR CHEST 2 V EXAMINATION: XR CHEST 2 V HISTORY: Systolic heart failure ; acute shortness of breath COMPARISON: XR chest 07/19/2021 FINDINGS: LUNGS: Unexpanded lungs with mild opacity blunting the right lateral costophrenic angle. VASCULATURE: No increased pulmonary vasculature. PLEURA: No pneumothorax, effusion, or pleural thickening. CARDIAC: Partially obscuring by diaphragms; cannot assess size. MEDIASTINUM: No visible mass or adenopathy. BONES: No fracture or visible bone lesion. OTHER: Negative. IMPRESSION: 1. Low lung volume examination with mild right basilar infiltrates versus small pleural effusion. Electronically authenticated by: ALEX DAWN Date: 2022-11-08 13:38 Normal [facility] Office Visit (Cardiology)on 04-12-2022 Follow-up visit Diagnoses/Problems Assessed Hyperlipidemia (272.4) (E78.5) Hypertension (401.9) (I10) Non-ischemic cardiomyopathy (425.4) (I42.8) Type 2 diabetes mellitus (250.00) (E11.9) Morbid obesity with BMI of 40.0-44.9, adult (278.01,V85.41) (E66.01,Z68.41) Former smoker (V15.82) (Z87.891) quit smoking approx 40 years ago Paroxysmal atrial fibrillation (427.31) (I48.0) Orders Morbid obesity with BMI of 40.0-44.9, adult Healthy Weight Tips; Status:Complete - Retrospective Authorization; Done: 12Apr2022 Non-ischemic cardiomyopathy Changed: From Lisinopril 5 MG Oral Tablet TAKE 1 TABLET DAILY To Lisinopril 5 MG Oral Tablet TAKE 1/2 TABLET DAILY SocHx: Former smoker Tobacco Use Screening; Status:Complete; Done: 12Apr2022 Patient Instructions By signing my name below, Katelyn Ravi RN,Scribe Please bring all medicines, vitamins, and herbal supplements with you when you come to the office. Prescriptions will not be filled unless you are compliant with your follow up appointments or have a follow up appointment scheduled as per instruction of your physician. Refills should be requested at the time of your visit. Follow up in [9 ] months Chief Complaint CHEYANNE GIBBS is being seen for Follow up Echo results. History of Present Illness attended cousins in [place] Patient returns in follow-up of problems as noted. He is doing well from a cardiac standpoint. He has no manifestations of heart failure and/or cardiomyopathy such as orthopnea PND or dyspnea with exertion. He has no edema or JVD. Treatment of risk factors including hyperlipidemia and hypertension are reviewed as well as diabetes and they are all adequately managed. He has had no recurrent paroxysms of atrial fibrillation and is adequately protected with anticoagulant therapy because of this we suggest continued therapy as before. We did emphasize the merits of diet exercise and weight loss and he understands our recommendation. Surgical History Problems History of Appendectomy History of Cardioversion History of Cataract surgery History of Colonoscopy 2020 History of Knee replacement History of Tonsillectomy Past Medical History Problems History of dyspnea (V12.69) (Z87.09) Resolved Date: 12 Apr 2022 Current Meds Medication NameInstruction Allopurinol 300 MG Oral TabletTAKE 1 TABLET DAILY. Atorvastatin Calcium 20 MG Oral TabletTAKE 1 TABLET AT BEDTIME Eliquis 5 MG Oral TabletTake 1 tablet twice daily Furosemide 20 MG Oral TabletTAKE 1 TABLET DAILY. Lisinopril 5 MG Oral TabletTAKE 1 TABLET DAILY. Metoprolol Succinate ER 50 MG Oral Tablet Extended Release 24 HourTAKE 1 TABLET DAILY. Spironolactone 25 MG Oral TabletTAKE 1 TABLET DAILY. Allergies Medication No Known Drug Allergies Recorded By: Mariana Caro; 09/21/2021 12:43:20 PM Social History Problems Caffeine use (V49.89) (Z78.9) soda Former smoker (V15.82) (Z87.891) quit smoking approx 40 years ago No alcohol use No illicit drug use Review of Systems Constitutional: not feeling tired. Eyes: no eyesight problems. ENT: no hearing loss and no nosebleeds. Cardiovascular: no intermittent leg claudication and as noted in HPI. Respiratory: no chronic cough and no shortness of breath. Gastrointestinal: no change in bowel habits and no blood in stools. Genitourinary: no urinary frequency and no hematuria. Skin: no skin rashes. Neurological: no seizures and no frequent falls. Psychiatric: no depression and not suicidal. All other systems have been reviewed and are negative for complaint. Vitals Vital Signs Recorded: 12Apr2022 01:22PM Heart Rate60, R Radial Tbkhakhs626, LUE, Sitting Qpqshmhvn33, LUE, Sitting Height5 ft 9 in Roebgg614 lb BMI Kruvefrzod66.75 kg/m2 BSA Calculated2.46 Tobacco Useb) No PHQ-2 #1. Over the last 2 weeks have you felt down, depressed or hopeless? (If yes, answer PHQ-9 below)No PHQ-2 #2. Over the last 2 weeks have you felt little interest or pleasure in doing things? (If yes, answer PHQ-9 below)No Fall Screeninga) No falls within the last year Physical Exam Constitutional: alert and in no acute distress. Eyes: no erythema, swelling or discharge from the eye . Neck: neck is supple, symmetric, trachea midline, no masses and no thyromegaly . Pulmonary: no increased work of breathing or signs of respiratory distress and lungs clear to auscultation. Cardiovascular: carotid pulses 2+ bilaterally with no bruit , JVP was normal, no thrills , regular rhythm, normal S1 and S2, no murmurs , pedal pulses 2+ bilaterally and no edema . Abdomen: abdomen non-tender, no masses and no hepatomegaly . Skin: skin warm and dry, normal skin turgor . Psychiatric judgment and insight is normal and oriented to person, place and time . Signatures Electronically signed by : Cheyanne Knowles MD; Apr 12 2022 2:25PM EST (Author) [employer] Tobacco Screening.on 022 Adult depression screening assessment No [facility] [employer] 250 DO Work Phone: Fall risk assessment a) No falls within the last year [facility] [employer] 250 DO Work Phone: Tobacco use status CP b) No [facility] 250 DO Work Phone: Echocardiogramon 03-18-[address], [address] [place] [address] TRANSTHORACIC ECHOCARDIOGRAM REPORT Patient Name: CHEYANNE Virgen Physician: Mel Knowles MD Study Date: 03/18/2022 Referring Physician: Mel KNOWLES MRN/PID: [id number] PCP: Anibal Gonzales Accession/Order#: [id number] Department Location: [facility] Date of : 1955 Fellow: Gender: M Nurse: Admit Date: [employer] Pinner: Makenna John RDCS, RVT Height: 175.26 cm CC Report to: Weight: 138.35 kg Study Type: Echocardiogram BSA: 2.47 m2 Blood Pressure: 112 /70 mmHg Diagnosis/ICD: 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; 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 Indication: Diabetes, Dyspnea, HTN, Hyperlipidemia, Former Smoker, Morbid Obesity Procedure/CPT: Echo Complete w Full [id number] Study Detail: The following Echo studies were performed: 2D, M-Mode, Doppler and color flow. Optison used as a contrast agent for endocardial border definition. Total contrast used for this procedure was 0.7 mL via IV push. PHYSICIAN INTERPRETATION: Left Ventricle: The left ventricular systolic function is low normal. There are no regional wall motion abnormalities. The left ventricular cavity size is normal. The left ventricular septal wall thickness is mildly increased. There is normal left ventricular posterior wall thickness. Spectral Doppler shows an impaired relaxation pattern of left ventricular diastolic filling. Left Atrium: The left atrium is normal in size. Right Ventricle: The right ventricle is normal in size. There is normal right ventricular global systolic function. Right Atrium: The right atrium is normal in size. Aortic Valve: The aortic valve appears structurally normal. There is no evidence of aortic valve regurgitation. The peak instantaneous gradient of the aortic valve is 3.8 mmHg. The mean gradient of the aortic valve is 2.0 mmHg. Mitral Valve: The mitral valve is normal in structure. There is no evidence of mitral valve regurgitation. Tricuspid Valve: The tricuspid valve was not well visualized. No evidence of tricuspid regurgitation. Pulmonic Valve: The pulmonic valve is not well visualized. There is no indication of pulmonic valve regurgitation. Pericardium: There is no pericardial effusion noted. Aorta: The aortic root is normal. CONCLUSIONS: 1. The left ventricular systolic function is low normal. 2. Spectral Doppler shows an impaired relaxation pattern of left ventricular diastolic filling. QUANTITATIVE DATA SUMMARY: 2D MEASUREMENTS: Normal Ranges: Ao Root d: 3.00 cm (2.0-3.7cm) LAs: 3.30 cm (2.7-4.0cm) IVSd: 1.20 cm (0.6-1.1cm) LVPWd: 0.90 cm (0.6-1.1cm) LVIDd: 4.70 cm (3.9-5.9cm) LVIDs: 3.60 cm LV Mass Index: 71.1 g/m2 LV % FS 23.4 % LV DIASTOLIC FUNCTION: Normal Ranges: MV Peak E: 1.13 m/s (0.7-1.2 m/s) MITRAL VALVE: Normal Ranges: MV Vmax: 1.13 m/s (<1.3m/s) MV peak P.1 mmHg (<5mmHg) MV mean P.3 mmHg (<48mmHg) AORTIC VALVE: Normal Ranges: AoV Vmax: 0.97 m/s (<1.7m/s) AoV Peak P.8 mmHg (<20mmHg) AoV Mean P.0 mmHg (1.7-11.5mmHg) LVOT Max Marty: 0.63 m/s (<1.1m/s) AoV VTI: 17.30 cm (18-25cm) LVOT VTI: 9.31 cm LVOT Diameter: 2.20 cm (1.8-2.4cm) AoV Area, VTI: 2.05 cm2 (2.5-5.5cm2) AoV Area,Vmax: 2.46 cm2 (2.5-4.5cm2) AoV Dimensionless Index: 0.54 PULMONIC VALVE: Normal Ranges: PV Max Marty: 0.6 m/s (0.6-0.9m/s) PV Max P.3 mmHg 16032 Cheyanne Knowles MD Electronically signed on 03/18/2022 at 5:02:50 PM Final Normal [facility] Tobacco Screening.on 022 Fall risk assessment b) One or more falls in the last year [facility] [employer] 250 DO Work Phone: Tobacco use status CP b) No [facility] 250 DO Work Phone: ECG 12 lead ECGon 11-07-2021 ECG 12 lead ECG [facility] Main [address] [address] Electrocardiograph Report Signed Patient: Cheaynne Gibbs MR#: [id number] : 1955 Acct:[id number] Age/Sex: 66 / M ADM Date: 11/07/21 Loc: EL Room: Type: [facility] Attending Dr: Cheyanne Knowles MD Ordering Provider: Cheyanne Knowles MD Date of Service: 11/07/21 ECG/ECG 12 lead ECG: Pre-cardioversion rhythm assessment Copies to: Test Reason : Blood Pressure : / mmHG Vent. Rate : 096 BPM Atrial Rate : 340 BPM P-R Int : 000 ms QRS Dur : 080 ms QT Int : 368 ms P-R-T Axes : 000 041 030 degrees QTc Int : 464 ms Atrial fibrillation Abnormal ECG When compared with ECG of 12-SEP-2021 09:06, Atrial fibrillation has replaced Sinus rhythm Nonspecific T wave abnormality no longer evident in Anterolateral leads QT has shortened Confirmed by PARDEEP GREEN MD ([id number]) on 11/07/2021 9:55:55 PM Referred By: Electronically Signed By:PARDEEP GREEN MD Transcribed By: MUS Signed By Pardeep Green MD 1474 Normal [facility] ECG post procedureon ECG post procedure [facility] Main [address] [address] Electrocardiograph Report Signed Patient: Cheyanne Gibbs MR#: [id number] : 1955 Acct:[id number] Age/Sex: 66 / M ADM Date: 11/07/21 Loc: EL Room: Type: [facility] Attending Dr: Cheyanne Knowles MD Ordering Provider: Cheyanne Knowles MD Date of Service: 11/07/21/ ECG/ECG post procedure: post cardioversion Copies to: Test Reason : Blood Pressure : 104/068 mmHG Vent. Rate : 062 BPM Atrial Rate : 062 BPM P-R Int : 190 ms QRS Dur : 080 ms QT Int : 442 ms P-R-T Axes : 030 037 037 degrees QTc Int : 448 ms Sinus rhythm with premature atrial complexes Otherwise normal ECG When compared with ECG of 07-NOV-2021 07:50, (Unconfirmed) Sinus rhythm has replaced Atrial fibrillation Vent. rate has decreased BY 34 BPM Confirmed by PARDEEP GREEN MD ([id number]) on 11/07/2021 9:56:10 PM Referred By: Electronically Signed By:PARDEEP GREEN MD Transcribed By: MUS Signed By Padreep Green MD 2156 Normal [facility] Electrolyteson 11-07-2021 Chloride [Moles/Vol] 98 mmol/L Normal 95-114 [facility] Comment on above: Performed By: #### L YTES #### [facility] [address] [place] [address] CO2 [Moles/Vol] 31.8 mmol/L High 22.0-30.0 [facility] Comment on above: Result Comment: PERF ORMED BY: [facility] [address] [place] [address] PATHOLOGIST FLY MAKER SARA GROSSMAN M.D. Performed By: #### L YTES #### [facility] [address] [id number] [facility] Potassium [Moles/Vol] 4.1 mmol/L Normal 3.5-5.1 [facility] Comment on above: Performed By: #### L YTES #### [facility] [address] [place], [place] [id number] [facility] Sodium [Moles/Vol] 138 mmol/L Normal 136-146 [facility] Comment on above: Performed By: #### L YTES #### [facility] [address] [place] [address] No Panel Informationon 11-07 31.8\S\31.8 above high threshold 22.0-30.0 [facility] 250 DO Work Phone: Comment on above: PERFORMED BY:[facility] [facility] H[facility]ITALJess[place], [place] [id number] MEDICAL DIRECTORSARA GROSSMAN M.D. 98\S\98 Normal 95-114 [facility] 250 DO Work Phone: 4.1\S\4.1 Normal 3.5-5.1 -[facility] [employer] 250 DO Work Phone: 138\S\138 Normal 136-146 -[facility] 250 DO Work Phone: COVID-19 Antigenon 1 COVID-19 Antigen Healthcare Worker?: N Kym Reference -- Kym Reference Negative SARS-CoV+SARS-CoV-2 (COVID-19) Ag [Presence] in Respiratory specimen by Rapid immunoassay Negative for SARS Antigen by ROMEL COVID19 Blank Space Kym Disclaimer Negative results, from patients with symptom Kym Disclaimer onset beyond five days, should be treated as Kym Disclaimer presumptive and confirmation with a molecular Kym Disclaimer assay, if necessary, for patient management, Kym Disclaimer may be performed. Negative results do not rule Kym Disclaimer out COVID-19 and should not be used as the sole Kym Disclaimer basis for treatment or patient management Kym Disclaimer decisions, including infection control decisions. Kym Disclaimer Negative results should be considered in the Kym Disclaimer context of a patient's recent exposures, history Kym Disclaimer and the presence of clinical signs and symptoms Kym Disclaimer consistent with COVID-19. COVID19 Blank Space Kym Disclaimer The Kym SARS Antigen ROMEL does not differentiate Kym Disclaimer between SARS-CoV and SARS-CoV-2. COVID19 Blank Space Kym Disclaimer This test was developed and its performance Kym Disclaimer characteristic determined by [employer] and Kym Disclaimer validated at [facility]. This Kym Disclaimer test has not been FDA cleared or approved. This Kym Disclaimer test has been authorized by FDA under an Emergency Use Kym Disclaimer Authorization (EUA). This test has been validated Kym Disclaimer in accordance with the FDA's Guidance Document (Policy Kym Disclaimer for Diagnostics Testing in Laboratories Certified to Kym Disclaimer Perform High Complexity Testing under CLIA prior to Kym Disclaimer Emergency Use Authorization for Coronavirus Kym Disclaimer is during the Public Health Emergency) Kym Disclaimer issued on February 24, 2020. This test is only authorized Kym Disclaimer for the duration of time the declaration that Kym Disclaimer circumstances exist justifying the authorization of Kym Disclaimer the emergency use of in vitro diagnostic tests for Kym Disclaimer detection of SARS-CoV-2 virus and/or diagnosis of Kym Disclaimer COVID-19 infection under section 564(b)(1) of the Kym Disclaimer Act, 21 U.S.C. 360bbb-3(b)(1), unless the Kym Disclaimer authorization is terminated or revoked sooner. PERFORMED BY: [facility] [address] [place] [address] PATHOLOGIST FLY MAKER SARA GROSSMAN M.D. [facility] Comment on above: Performed By: #### C OVID-19 KYM, SOFIANEG #### [facility] [address] Laboratory - Microbiology an d Antimicrobial susceptibilityon 11-05-2021 SARS-CoV-2 (COVID-19) RNA NILAM+probe Ql (Unsp spec) MP-[facility] 250 DO Work Phone: No Panel Informationon 11-05 Negative Normal Negative -[facility] 250 DO Work Phone: Comment on above: This is a duplicate Kym SARS Antigen (ROMEL) result to be used for statistical tracking purpose only.PERFORMED BY:[facility] [facility] [facility] [place] [phone] MEDICAL DIRECTORSARA GROSSMAN M.D. Kym Ag Negativeon 11-05-20 21 Kym Ag Negative Negative Normal Negative [facility] Comment on above: Result Comment: This is a duplicate Kym SARS Antigen (ROMEL) result to be used for statistical tracking purpose only. PERFORMED BY: [facility] [address] [place] [address] PATHOLOGIST FLY MAKER SARA GROSSMAN M.D. Performed By: #### C OVID-19 KYM, SOFIANEG #### [address] Amiodarone (Cordarone), Seru mon 09-24-2021 Amiodarone, Serum 586 ng/mL Low [id number] [facility] Comment on above: Order Comment: PT IS NON FASTING Performed By: #### B MP #### [address] #### AMIODARONE #### [facility] , Noramiodarone, Serum 478 ng/mL Normal . [facility] Comment on above: Order Comment: PT IS NON FASTING Result Comment: Note : To convert from ng/ml to ug/ml, divide the result by 1000. Reference range (amiodarone): 1.00-2.50 ug/mL. This test was developed and its performance characteristics determined by [facility]. It has not been cleared or approved by the Food and Drug Administration. Performed at: [facility] [employer] [address] [place] [address] [id number] Outside Medical Sales Representative: Adina Reis [facility], Phone: [phone] PERFORMED BY: [address] [place] [id number] PATHOLOGIST FLY MAKER SARA GROSSMAN M.D. Performed By: #### B MP #### [address] #### AMIODARONE #### [facility] , Basic Metabolic Panelon 11-0 Calcium [Mass/Vol] 8.5 mg/dL Normal 8.2-10.2 [facility] Comment on above: Order Comment: PT IS NON FASTING Result Comment: PERF ORMED BY: [place] [address] PATHOLOGIST FLY MAKER SARA GROSSMAN M.D. Performed By: #### B MP #### [facility] [address] [place] [address] #### AMIODARONE #### [facility] , Chloride [Moles/Vol] 100 mmol/L Normal 95-114 [facility] Comment on above: Order Comment: PT IS NON FASTING Performed By: #### B MP #### [facility] [address] [place] [address] #### AMIODARONE #### [facility] , CO2 [Moles/Vol] 31.6 mmol/L High 22.0-30.0 [facility] Comment on above: Order Comment: PT IS NON FASTING Performed By: #### B MP #### [facility] [address] [place] [address] #### AMIODARONE #### [facility] , Creatinine [Mass/Vol] 1.51 mg/dL High 0.64-1.27 [facility] Comment on above: Order Comment: PT IS NON FASTING Performed By: #### B MP #### [facility] [address] [place] [address] [place] #### AMIODARONE #### [facility] , Estimated GFR ( Yaima 56 Normal [facility] Comment on above: Order Comment: PT IS NON FASTING Result Comment: GFR estimated reference range: According to KDOQI guidelines, <60 ml/min/1.73m2 is sufficient to diagnose a patient with chronic kidney disease. Performed By: #### B MP #### [facility] [address] [place] [address] #### AMIODARONE #### [facility] , Estimated GFR (Non- Am 46 Normal [facility] Comment on above: Order Comment: PT IS NON FASTING Performed By: #### B MP #### [address] #### AMIODARONE #### [facility] , Glucose [Mass/Vol] 124 mg/dL High 70-100 [facility] Comment on above: Order Comment: PT IS NON FASTING Result Comment: [facility] Glucose Reference Range is dependent on time and content of last meal. Glucose of more than 200 mg/dL in a nonstressed, ambulatory subject supports the diagnosis of Diabetes Mellitus. ADA recommended reference range Performed By: #### B MP #### [address] #### AMIODARONE #### [facility] , Potassium [Moles/Vol] 4.2 mmol/L Normal 3.5-5.1 [facility] Comment on above: Order Comment: PT IS NON FASTING Performed By: #### B MP #### [facility] [address] [place] [address] #### AMIODARONE #### [facility] , Sodium [Moles/Vol] 141 mmol/L Normal 136-146 [facility] Comment on above: Order Comment: PT IS NON FASTING Performed By: #### B MP #### [facility] [address] [place] [address] [place] #### AMIODARONE #### [facility] , Urea nitrogen [Mass/Vol] 20 mg/dL Normal 9-23 [facility] Comment on above: Order Comment: PT IS NON FASTING Performed By: #### B MP #### [facility] [address] [place] [address] [place] #### AMIODARONE #### [facility] , IO EKG Electrocardiogram- 12 Leadon 11-01-2021 IO EKG Electrocardiogram- 12 Lead See Scanned Document -[facility] 250 DO Work Phone: No Panel Informationon 09-24 8.5\S\8.5 Normal 8.2-10.2 [facility] 250 DO Work Phone: Comment on above: PERFORMED BY:[place] [address] [address] [place], [place] [phone] MEDICAL DIRECTORSARA GROSSMAN M.D. 31.6\S\31.6 above high threshold 22.0-30.0 [facility] 250 DO Work Phone: 100\S\100 Normal 95-114 [facility] 250 DO Work Phone: 4.2\S\4.2 Normal 3.5-5.1 [facility] 250 DO Work Phone: 141\S\141 Normal 136-146 [facility] 250 DO Work Phone: 56\S\56 Normal [facility] 250 DO Work Phone: Comment on above: GFR estimated refere nce range: According to KDOQI guidelines, <60 ml/min/1.73m2 is sufficient to diagnose a patient with chronic kidney disease. 46\S\46 Normal [facility] 250 DO Work Phone: 1.51\S\1.51 above high threshold 0.64-1.27 [facility] 250 DO Work Phone: 20\S\20 Normal 9-23 [facility] 250 DO Work Phone: 124\S\124 above high threshold 70-100 [facility] 250 DO Work Phone: Comment on above: Random Glucose Refer ence Range is dependent on time and content of last meal. Glucose of more than 200 mg/dL in a nonstressed, ambulatory subject supports the diagnosis of Diabetes Mellitus. ADA recommended reference range 478\S\478 Normal . [facility] 250 DO Work Phone: Comment on above: Note: To convert fro m ng/ml to ug/ml, divide the result by 1000. Reference range (amiodarone): 1.00-2.50 ug/mL. This test was developed and its performance characteristics determined by [employer]. It has not been cleared or approved by the Food and Drug Administration. Performed at: [facility] [address] [place] [address] [id number] Outside Medical Sales Representative: Adina Reis [facility], Phone: [phone] BY:[address] [phone] MEDICAL DIRECTORSARA GROSSMAN M.D. 586\S\586 below low threshold [phone] [facility] Reppler DO Work Phone: Tobacco Screening.on 021 Fall risk assessment a) No falls within the last year [facility] 250 DO Work Phone: Tobacco use status CPHS b) No [facility] 250 DO Work Phone: ECG 12 lead ECGon 09-12-2021 ECG 12 lead ECG [facility] Main [facility] [address] [place] [address] Electrocardiograph Report Signed Patient: Cheyanne Gibbs MR#: [id number] : 1955 Acct:[id number] Age/Sex: 66 / M ADM Date: 09/12/21 Loc: Room: Type: [facility] Attending Dr: Cheyanne Knowles MD Ordering Provider: Cheyanne Knowles MD Date of Service: 09/12/21 ECG/ECG 12 lead ECG: Pre-cardioversion rhythm assessment Copies to: Test Reason : Blood Pressure : / mmHG Vent. Rate : 109 BPM Atrial Rate : 113 BPM P-R Int : 000 ms QRS Dur : 078 ms QT Int : 278 ms P-R-T Axes : 000 048 023 degrees QTc Int : 374 ms Atrial fibrillation with rapid ventricular response Low voltage QRS Nonspecific T wave abnormality Abnormal ECG No previous ECGs available Confirmed by BRIDGER HEADLEY MD ([id number]) on 09/12/2021 10:12:19 AM Referred By: Electronically Signed By:BRIDGER HEADLEY MD Transcribed By: MUS Signed By Bridger Headley MD 1 1012 [facility] ECG post procedureon 021 ECG post procedure [facility] Main [facility] [address] [place] [address] Electrocardiograph Report Signed Patient: Cheyanne Gibbs MR#: [id number] : 1955 Acct:[id number] Age/Sex: 66 / M ADM Date: 09/12/21 Loc: Room: Type: [facility] Attending Dr: Cheyanne Knowles MD Ordering Provider: Cheyanne Knowles MD Date of Service: 09/12/21/ ECG/ECG post procedure: post cardioversion Copies to: Test Reason : Blood Pressure : 099/060 mmHG Vent. Rate : 066 BPM Atrial Rate : 066 BPM P-R Int : 184 ms QRS Dur : 078 ms QT Int : 498 ms P-R-T Axes : 034 043 017 degrees QTc Int : 522 ms Sinus rhythm with occasional premature ventricular complexes and premature atrial complexes Low voltage QRS Nonspecific T wave abnormality Abnormal ECG When compared with ECG of 12-SEP-2021 08:07, Sinus rhythm has replaced Atrial fibrillation Vent. rate has decreased BY 43 BPM QT has lengthened Confirmed by BRIDGER HEADLEY MD ([id number]) on 09/13/2021 9:53:40 AM Referred By: Electronically Signed By:BRIDGER HEADLEY MD Transcribed By: MUS Signed By Bridger Headley MD 1 0953 [facility] Electrolyteson 09-12-2021 Chloride [Moles/Vol] 100 mmol/L Normal 95-114 [facility] Comment on above: Performed By: #### L YTES #### [facility] [address] [place] [id number] [place] CO2 [Moles/Vol] 32.1 mmol/L High 22.0-30.0 [facility] Comment on above: Result Comment: PERF ORMED BY: [facility] [address] [place] [address] PATHOLOGIST FLY MAKER SARA GROSSMAN M.D. Performed By: #### L YTES #### [facility] [address] Potassium [Moles/Vol] 4.5 mmol/L Normal 3.5-5.1 [facility] Comment on above: Performed By: #### L YTES #### [facility] [address] Sodium [Moles/Vol] 140 mmol/L Normal 136-146 [facility] Comment on above: Performed By: #### L YTES #### [facility] [address] No Panel Informationon 09-12 [facility] 250 DO Work Phone: 32.1\S\32.1 above high threshold 22.0-30.0 [facility] 250 DO Work Phone: Comment on above: PERFORMED BY:[facility] [place] [address] [id number] MEDICAL DIRECTORSARA GROSSMAN M.D. 100\S\100 Normal 95-114 [facility] 250 DO Work Phone: 4.5\S\4.5 Normal 3.5-5.1 [facility] 250 DO Work Phone: 140\S\140 Normal 136-146 [facility] 250 DO Work Phone: COVID-19 FRMCon 09-10-2021 SARS-CoV-2 (COVID-19) RNA NILAM+probe Ql (Unsp spec) Negative Normal Negative [facility] Comment on above: Order Comment: Healt hcare Worker?: N Result Comment: Testing for SARS-CoV-2 by RT-PCR This test was developed and its performance characteristics determined by [employer] and validated at the [facility]. This test has not been FDA cleared or approved. This test has been authorized by FDA under an Emergency Use Authorization (EUA). This test has been validated in accordance with the FDA's Guidance Document (Policy for Diagnostics Testing in Laboratories Certified to Perform High Complexity Testing under CLIA prior to Emergency Use Authorization for Coronavirus Disease-2019 during the Public Health Emergency) issued on February 24, 2020. This test is only authorized for the duration of time the declaration that circumstances exist justifying the authorization of the emergency use of in vitro diagnostic tests for detection of SARS-CoV-2 virus and/or diagnosis of COVID-19 infection under section 564(b)(1) of the Act, 21 U.S.C. 360bbb-3(b)(1), unless the authorization is terminated or revoked sooner. PERFORMED BY: [place] [address] PATHOLOGIST FLY MAKER SARA GROSSMAN M.D. Performed By: #### C OVID 19 [facility] #### [address] Vital Signs Date Time Vital Sign Value Performing Clinician Facility 12-02-2023 10:36-0500 Body height 177.8 cm Cheyanne Knowles MD Work Phone: [facility] 12-02-2023 10:36-0500 Body mass index (BMI) [Ratio] 47.35 kg/m2 Cheyanne Knowles MD Work Phone: [facility] 12-02-2023 10:36-0500 Body weight 149.69 kg Cheyanne Knowles MD Work Phone: [facility] 12-02-2023 10:36-0500 Diastolic blood pressure 74 mm[Hg] Cheyanne Knowles MD Work Phone: [facility] 12-02-2023 10:36-0500 Heart rate 64 /min Cheyanne Knowles MD Work Phone: [facility] 12-02-2023 10:36-0500 Systolic blood pressure 112 mm[Hg] Cheyanne Knowles MD Work Phone: [facility] 07-08-2023 13:45-0400 Body height 172.72 cm Anibal Ball Other [facility] Other 07-08-2023 13:45-0400 Body mass index (BMI) [Ratio] 49.11 kg/m2 Anibal Ball Other [facility] Other 07-08-2023 13:45-0400 Body weight 146.51 kg Anibal Ball Other [facility] Other 07-08-2023 13:45-0400 Diastolic blood pressure 69 mm[Hg] Anibal Ball Other [facility] Other 07-08-2023 13:45-0400 Respiratory rate 20 /min Anibal Ball Other [facility] Other 07-08-2023 13:45-0400 Systolic blood pressure 93 mm[Hg] Anibal Ball Other [facility] Other 05-15-2023 10:18-0400 Body height 172.72 cm Anibal Ball Other [facility] Other 05-15-2023 10:18-0400 Body mass index (BMI) [Ratio] 50.02 kg/m2 Anibal Ball Other [facility] Other 05-15-2023 10:18-0400 Body weight 149.23 kg Anibal Ball Other [facility] Other 05-15-2023 10:18-0400 Diastolic blood pressure 75 mm[Hg] Anibal Ball Other [facility] Other 05-15-2023 10:18-0400 Systolic blood pressure 114 mm[Hg] Anibal Ball Other [facility] Other 04-07-2023 10:30-0400 Body height 172.72 cm Anibal Ball Other [facility] Other 04-07-2023 10:30-0400 Body mass index (BMI) [Ratio] 50.54 kg/m2 Anibal Ball Other [facility] Other 04-07-2023 10:30-0400 Body weight 150.78 kg Anibal Ball Other [facility] Other 04-07-2023 10:30-0400 Diastolic blood pressure 64 mm[Hg] Anibal Ball Other [facility] Other 04-07-2023 10:30-0400 Respiratory rate 12 /min Anibal Ball Other [facility] Other 04-07-2023 10:30-0400 Systolic blood pressure 91 mm[Hg] Anibal Ball Other [facility] Other 04-07-2023 09:30-0400 Body height 172.72 cm Anibal Ball Other [facility] Other 04-07-2023 09:30-0400 Body mass index (BMI) [Ratio] 50.54 kg/m2 Anibal Ball Other [facility] Other 04-07-2023 09:30-0400 Body weight 150.78 kg Anibal Ball Other [facility] Other 04-07-2023 09:30-0400 Diastolic blood pressure 64 mm[Hg] Anibal Ball Other [facility] Other 04-07-2023 09:30-0400 Respiratory rate 12 /min Anibal Ball Other [facility] Other 04-07-2023 09:30-0400 Systolic blood pressure 91 mm[Hg] Anibal Ball Other [facility] Other 01-06-2023 11:30-0500 Body height 172.72 cm Anibal Ball Other [facility] Other 01-06-2023 11:30-0500 Body mass index (BMI) [Ratio] 49.93 kg/m2 Anibal Ball Other [facility] Other 01-06-2023 11:30-0500 Body weight 148.96 kg Anibal Ball Other [facility] Other 01-06-2023 11:30-0500 Diastolic blood pressure 76 mm[Hg] Anibal Ball Other [facility] Other 01-06-2023 11:30-0500 Respiratory rate 16 /min Anibal Ball Other [facility] Other 01-06-2023 11:30-0500 Systolic blood pressure 122 mm[Hg] Anibal Ball Other [facility] Other 12-06-2022 08:23-0500 Body height 175.26 cm Anibal E Ball Work Phone: [facility]Opsldjgdas-Eeiihc [place] 250 DO Work Phone: 12-06-2022 08:23-0500 Body mass index (BMI) [Ratio] 46.81 kg/m2 Anibal E Ball Work Phone: [facility]-Hihbkzqqml-Bewqcb [place] 250 DO Work Phone: 12-06-2022 08:23-0500 Body surface area Derived from formula 2.51 m2 Anibal E Ball Work Phone: AK-Kugzzkmnxt-Wfkdde [place] 250 DO Work Phone: 12-06-2022 08:23-0500 Body weight 143.79 kg Anibal E Ball Work Phone: XW-Jllylscznu-Ewonmj [place] 250 DO Work Phone: 12-06-2022 08:23-0500 Diastolic blood pressure 62 mm[Hg] Anibal E Ball Work Phone: MV-Muypzsflal-Vhvtrk elvis 250 DO Work Phone: 12-06-2022 08:23-0500 Heart rate 60 /min Anibal E Ball Work Phone: VP-Ptrpnwwtij-Yrifeh [place]vis 250 DO Work Phone: 12-06-2022 08:23-0500 Systolic blood pressure 110 mm[Hg] Anibal Melendez Ball Work Phone: RS-Eqnikvwgqz-Fqspab [place]vis 250 DO Work Phone: 12-05-2022 11:30-0500 Body height 172.72 cm Anibal Ball Other [facility] Other 12-05-2022 11:30-0500 Body mass index (BMI) [Ratio] 48.32 kg/m2 Anibal Ball Other [facility] Other 12-05-2022 11:30-0500 Body weight 144.15 kg Anibal Ball Other [facility] Other 12-05-2022 11:30-0500 Diastolic blood pressure 72 mm[Hg] Anibal Ball Other [employer] Other 01-12-2023 11:30-0500 Respiratory rate 16 /min Anibal Ball Other [facility] [employer] Other 12-05-2022 11:30-0500 Systolic blood pressure 122 mm[Hg] Anibal Ball Other [facility] Other 04-12-2022 13:22-0400 Body height 175.26 cm Anibal E Ball Work Phone: [facility] 250 DO Work Phone: 04-12-2022 13:22-0400 Body mass index (BMI) [Ratio] 44.75 kg/m2 Anibal E Ball Work Phone: [facility] 250 DO Work Phone: 04-12-2022 13:22-0400 Body surface area Derived from formula 2.46 m2 Anibal E Ball Work Phone: [facility] 250 DO Work Phone: 04-12-2022 13:22-0400 Body weight 137.44 kg Anibal E Ball Work Phone: [facility] 250 DO Work Phone: 04-12-2022 13:22-0400 Diastolic blood pressure 70 mm[Hg] Anibal E Ball Work Phone: [facility] 250 DO Work Phone: 04-12-2022 13:22-0400 Heart rate 60 /min Anibal E Ball Work Phone: [facility] 250 DO Work Phone: 04-12-2022 13:22-0400 Systolic blood pressure 110 mm[Hg] Anibal E Ball Work Phone: [facility] 250 DO Work Phone: 03-18-2022 08:45-0400 60 1 Anibal E Ball Work Phone: [facility] 250A [place] Work Phone: Comment on above: [id number] 12-03-2021 11:02-0500 Body height 175.26 cm Anibal E Ball Work Phone: [facility] 250 DO Work Phone: 12-03-2021 11:02-0500 Body mass index (BMI) [Ratio] 45.04 kg/m2 Anibal E Ball Work Phone: [facility] 250 DO Work Phone: 12-03-2021 11:02-0500 Body surface area Derived from formula 2.47 m2 Anibal E Ball Work Phone: [facility] 250 DO Work Phone: 12-03-2021 11:02-0500 Body weight 138.35 kg Anibal E Ball Work Phone: [facility] 250 DO Work Phone: 12-03-2021 11:02-0500 Diastolic blood pressure 68 mm[Hg] Anibal E Ball Work Phone: [facility] 250 DO Work Phone: 12-03-2021 11:02-0500 Heart rate 91 /min Anibal E Ball Work Phone: [facility] 250 DO Work Phone: 12-03-2021 11:02-0500 Systolic blood pressure 109 mm[Hg] Anibal E Ball Work Phone: [facility] 250 DO Work Phone: 09-24-2021 10:36-0400 Body height 175.26 cm Anibal E Ball Work Phone: [facility] 250 DO Work Phone: 09-24-2021 10:36-0400 Body mass index (BMI) [Ratio] 52.57 kg/m2 Anibal Gonzales Work Phone: [facility] [employer] 250 DO Work Phone: 09-24-2021 10:36-0400 Body surface area Derived from formula 2.64 m2 Anibal Gonzales Work Phone: [facility] 250 DO Work Phone: 09-24-2021 10:36-0400 Body weight 161.48 kg Anibal Gonzales Work Phone: [facility] 250 DO Work Phone: 09-24-2021 10:36-0400 Diastolic blood pressure 70 mm[Hg] Anibal Gonzales Work Phone: [facility] [employer] 250 DO Work Phone: 09-24-2021 10:36-0400 Heart rate 130 /min Anibal Gonzales Work Phone: [facility] [employer] 250 DO Work Phone: 09-24-2021 10:36-0400 Systolic blood pressure 104 mm[Hg] Anibal Gonzales Work Phone: [facility] [employer] 250 DO Work Phone: Encounters Encounter Date Encounter Type Care Provider Facility Start: 12-11-2023 End: 12-11-2023 ambulatory Anibal Gonzales Other [facility] [employer] Other Start: 12-11-2023 Telephone encounter [facility] Start: 12-02-2023 End: 12-02-2023 ambulatory CHEYANNE KNOWLES [facility] Start: 12-02-2023 End: 12-02-2023 Office outpatient visit 25 minutes Cheyanne Knowles MD Work Phone: [facility] Comment on above: Non-ischemic cardiom yopathy (CMS/HCC) (Primary Dx); Paroxysmal atrial fibrillation (CMS/HCC); Primary hypertension; Mixed hyperlipidemia Start: 09-04-2023 End: 09-04-2023 ambulatory Anibal Gonzales Other [employer] Other Start: 09-04-2023 Telephone encounter Anibal Gonzales [facility] Start: 07-09-2023 Rx Renewal Anibal London l Work Phone: [facility] 250 DO Work Phone: Start: 07-08-2023 End: 07-08-2023 ambulatory Anibal Gonzales Other [employer] Other Start: 07-08-2023 Office outpatient vi sit 25 minutes Anibal Gonzales [facility] Start: 06-06-2023 End: 06-06-2023 ambulatory Anibal Gonzales Other [facility] Other Start: 06-06-2023 Telephone encounter Anibal Gonzales [facility] Start: 05-15-2023 End: 05-15-2023 ambulatory Anibal Gonzales Other [facility] Other Start: 05-15-2023 Telephone encounter Anibal Gonzales [facility] Start: 05-07-2023 End: 05-07-2023 ambulatory Anibal Gonzales Other [facility] Other Start: 05-07-2023 Telephone encounter Anibal Gonzales [facility] Start: 04-25-2023 End: 04-25-2023 ambulatory Anibal Gonzales Other [facility] Other Start: 04-25-2023 Telephone encounter Anibal Gonzales [facility] Start: 04-24-[address] ANIBAL GONZALES Facili ty:[facility] Start: 04-08-2023 End: 04-09-[address] ANIBAL GONZALES Facility:[facility] Start: 04-07-2023 End: 04-07-2023 ambulatory Anibal Gonzales Other [employer] Other Start: 04-07-2023 Patient encounter procedure Anibal Gonzales [facility] Start: 02-24-2023 End: 02-24-2023 ambulatory Anibal Gonzales Other [facility] Other Start: 02-24-2023 Telephone encounter Anibal JONES [facility] Start: 02-11-2023 End: 02-11-2023 ambulatory Anibal Gonzales Other [facility] Other Start: 02-11-2023 Telephone encounter Anibal JONES [facility] Start: 01-10-2023 Telephone encounter Anibal JONES [facility] Start: 01-10-2023 End: 01-11-[address] ANIBAL GONZALES [facility] Other Start: 01-08-2023 End: 01-08-2023 ambulatory Anibal Gonzales Other [employer] Other Start: 01-08-2023 Telephone encounter Anibal JONES [facility] Start: 01-06-2023 End: 01-06-2023 ambulatory Anibal Gonzales Other [employer] Other Start: 01-06-2023 Office outpatient vi sit 25 minutes Anibal Gonzales [facility] Start: 12-25-2022 End: 12-25-2022 ambulatory Anibal Gonzales Other [employer] Other Start: 12-25-2022 Telephone encounter Anibal JONES [facility] Start: 12-06-2022 ambulatory Cheyanne Knowles II Facility: Start: 12-06-2022 Office outpatient vi sit 25 minutes Anibal Gonzales Work Phone: [facility] 250 DO Work Phone: Start: 12-05-2022 End: 12-05-2022 ambulatory Anibal Gonzales Other [employer] Other Start: 12-05-2022 Office outpatient vi sit 25 minutes Anibal Gonzales [facility] Start: 12-03-2022 End: 12-03-2022 ambulatory Anibal Gonzales Other [facility] [employer] Other Start: 12-03-2022 Telephone encounter [facility] Start: 11-08-2022 End: 11-09-[address] ANIBAL GONZALES Facility: Start: 08-07-2022 Rx Renewal Anibal felder Work Phone: [facility] DO Work Phone: Start: 04-12-2022 Office outpatient vi sit 25 minutes Anibal Gonzales Work Phone: [facility] DO Work Phone: Start: 04-12-2022 ambulatory Anibal Gonzales Facility: Start: 03-18-2022 Patient encounter procedure Anibal Gonzales Work Phone: [facility] [place] Work Phone: Start: 12-03-2021 Office outpatient vi sit 25 minutes Anibal Gonzales Work Phone: [facility] 250 DO Work Phone: Start: 11-07-2021 Chart Update Anibal felder Work Phone: [facility] DO Work Phone: Start: 10-05-2021 Chart Update Anibal felder Work Phone: [facility] DO Work Phone: Start: 09-24-2021 Chart Update Anibal felder Work Phone: [facility] 250 DO Work Phone: Start: 09-24-2021 Patient encounter procedure Anibal Gonzales Work Phone: [facility] DO Work Phone: Start: 09-14-2021 Chart Update Cheyanne campuzano MD Work Phone: [facility] DO Work Phone: Start: 09-13-2021 Chart Update Cheyanne campuzano MD Work Phone: [facility] DO Work Phone: Procedures Date Procedure Procedure Detail Performing Clinician Start: 04-08-2023 End: 04-08-[address] ANIBAL GONZALES Comment on above: Performed By: #### [facility] #### [facility] [address] [place] [address] Dr. Braxton Aly Start: 03-18-2022 Echocardiography Benjam in E Ball Work Phone: Appendectomy Anibal Gonzales Work Phone: Arthroplasty of knee Benjami n E Ball Work Phone: Cardioversion Anibal E Bal l Work Phone: Cataract surgery Anibal E Christian Work Phone: Colonoscopy Anibal E Christian Work Phone: Comment on above: 2020; Tonsillectomy Anibal E Bal l Work Phone: Plan of Treatment Date Care Activity Detail Author Start: 12-14-2024 End: 12-14-2024 Patient encounter procedure 12/14/2024 10:40 AM EST Office Visit [facility] [address] [address] Cheyanne Knowles MD 703 [facility] [address], [address] [address] [facility] Start: 12-02-2023 FUV, Provider: Cheyanne Knowles, Status: Pen, Time: 10:40 AM FUV, Provider: Cheyanne Knowles, Status: Pen, Time: 10:40 AM [facility]lo-Nsclc[facility] y 250 DO Work Phone: Start: 07-25-2023 Influenza vaccination Influenza Vaccine (#1) [facility] Start: 11-29-2022 FUV, Provider: Cheyanne Knowles, Status: Pen, Time: 2:40 PM FUV, Provider: Cheyanne Knowles, Status: Pen, Time: 2:40 PM -[facility] DO Work Phone: Start: 04-12-2022 FUV, Provider: Cheyanne Knowles, Status: Pen, Time: 1:30 PM FUV, Provider: Cheyanne Knowles, Status: Pen, Time: 1:30 PM -[facility] 250 DO Work Phone: Start: 12-03-2021 FUV, Provider: Cheyanne Knowles, Status: Pen, Time: 11:20 AM FUV, Provider: Cheyanne Knowles, Status: Pen, Time: 11:20 AM -[facility] 250 DO Work Phone: Start: 11-05-2021 FUV, Provider: Cheyanne Knowles, Status: Pen, Time: 8:00 AM FUV, Provider: Cheyanne Knowles, Status: Pen, Time: 8:00 AM -[facility] 250 DO Work Phone: Start: 09-24-2021 FUV, Provider: Cheyanne Knowles, Status: Pen, Time: 10:20 AM FUV, Provider: Cheyanne Knowles, Status: Pen, Time: 10:20 AM -[facility] 250 DO Work Phone: Start: 06-07-2021 COVID-19 Vaccine (2 - Booster for Sandor series) COVID-19 Vaccine (2 - Booster for Sandor series) [facility] Start: 2020 Abdominal aortic aneurysm screening Abdominal Aortic Aneurysm (AAA) Screening [facility] Start: 2005 Zoster Vaccines (1 of 2) Zoster Vaccines (1 of 2) [facility] Start: 1977 DTaP/Tdap/Td Vaccines (1 - Tdap) DTaP/Tdap/Td Vaccines (1 - Tdap) [facility] Start: 1974 Urine screening for protein Diabetes: Urine Protein Screening [facility] Start: 1973 Hepatitis C screening Hepatitis C Screening [facility] Start: 1965 Diabetic foot examination Diabetes: Foot Exam [facility] Start: 1965 Glaucoma screening Diabetes: Retinopathy Screening [facility] Start: 1961 Pneumococcal Vaccine: 65+ Years (1 - PCV) Pneumococcal Vaccine: 65+ Years (1 - PCV) [facility] Start: 1955 Hemoglobin A1c measurement Diabetes: Hemoglobin A1C [facility] Start: 1955 Lipid panel Lipid Panel [facility] Start: 1955 Medicare Annual Wellness Visit Medicare Annual Wellness Visit (AWV) [facility] Start: 1955 Screening for malignant neoplasm of colon [facility] Immunizations Immunization Date Immunization Notes Care Provider Fa cility 04-18-2021 COVID-19 Vaccine Sandor - Documentation Purposes Only Aniabl Gonzales Other [facility] [employer] Other 04-12-2021 Sandor COVID-19 Vaccine 0.5 ML Intramuscular Suspension Anibal Gonzales Work Phone: -[facility] 250 DO Work Phone: Comment on above: Series: Payers Date Payer Category Payer Unknown 2021 Unknown [id number] 1959 Medicare [id number] 1955 Unknown [id number] [id number] 1955 Unknown [id number] 2.16. [id number] 1955 Unknown [id number] 2.16.84 [id number] 1955 Unknown [id number] 2.16.84 [id number] 1955 Unknown [id number] 2.16.84 [id number] 1955 Unknown [id number] 2.16.84 [id number] 1955 Unknown [id number] 2.16.8 [id number] Social History Date Type Detail Facility Start: 12-02-2023 No alcohol use No alcohol use -[facility] 250 DO Work Phone: Comment on above: quit smoking approx 40 years ago; soda; Start: 12-02-[address] [facility] [employer] Other Start: 12-02-2023 Tobacco smoking status NHIS Ex-smoker [facility] History of tobacco use Current smoker [facility] Work Phone: History of tobacco use Cigarette Smoker [facility] Work Phone: Start: 12-02-2023 Tobacco use and exposure Smokeless tobacco non-user [facility] Work Phone: Start: 12-02-2023 Alcohol intake Ex-drinker (finding) [facility] Work Phone: Start: 1955 [facility] Start: 11-22-2023 End: 12-02-2023 Exposure to SARS-CoV-2 (event) Not sure [facility] Clinical Notes 09-12-2021 to 12-11-2023 Note Date & Type Note Facility 12-11-2023 Evaluation note Encounter Date Diagnosis Assessment Notes Nov, Atrial fibrillation, persistent (ICD-10 - I48.19) Nov, Hyperlipidemia type II (ICD-10 - E78.01) Nov, Chronic HFrEF (heart failure with reduced ejection fraction) (ICD-10 - I50.22) Echo: LVEF 25-30%, Mild MR,and AI, RVSP - 2020 [facility] [employer] Other 01-09-2024 History of Present illness Narrative* Cheyanne Knowles MD - 12/02/2023 10:40 AM EST Subjective Cheyanne Gibbs is a 68 y.o. male Chief Complaint Annual Exam HPI Episodes of cough syncope Patient returns in follow-up of problems as noted. In the interim he is done well and he denies orthopnea PND or dyspnea on exertion. On rare occasions he has intractable coughing with a sensation ofimpending syncope and or near syncope. No injury. No other episodes of lightheadedness or dizzinessunder any other circumstances. In regards to his atrial arrhythmia it appears adequately addressed with anticoagulant therapy and rate control. Today he is in sinus rhythm. Other matters including hypertension and hyperlipidemia appear adequately addressed and because of this no adjustments are made. Review of Systems All other systems reviewed and are negative. Visit Vitals BP 112/74 (BP Location: Left arm, Patient Position: Sitting) Pulse 64 Ht 1.778 m (5' 10 ) Wt 150 kg (330 lb) BMI 47.35 kg/m Smoking Status Former BSA 2.72 m Objective Physical Exam Constitutional: Appearance: Normal appearance. He is normal weight. HENT: Nose: Nose normal. Neck: Vascular: No carotid bruit. Cardiovascular: Rate and Rhythm: Normal rate. Pulses: Normal pulses. Heart sounds: Normal heart sounds. Pulmonary: Effort: Pulmonary effort is normal. Abdominal: General: Bowel sounds are normal. Palpations: Abdomen is soft. Genitourinary: Rectum: Normal. Musculoskeletal: General: Normal range of motion. Cervical back: Normal range of motion. Right lower leg: No edema. Left lower leg: No edema. Skin: General: Skin is warm and dry. Neurological: General: No focal deficit present. Mental Status: He is alert. Psychiatric: Mood and Affect: Mood normal. Behavior: Behavior normal. Thought Content: Thought content normal. Judgment: Judgment normal. Current Medications Current Outpatient Medications: allopurinol (Zyloprim) 300 mg tablet, Take 1 tablet (300 mg) by mouth once daily., Disp: , Rfl: apixaban (Eliquis) 5 mg tablet, Take 1 tablet (5 mg) by mouth 2 times a day., Disp: , Rfl: atorvastatin (Lipitor) 20 mg tablet, Take 1 tablet (20 mg) by mouth once daily at bedtime., Disp: ,Rfl: furosemide (Lasix) 20 mg tablet, Take 1 tablet (20 mg) by mouth once daily., Disp: , Rfl: losartan (Cozaar) 50 mg tablet, Take 1 tablet (50 mg) by mouth once daily., Disp: , Rfl: metoprolol succinate XL (Toprol-XL) 50 mg 24 hr tablet, Take 1 tablet (50 mg) by mouth once daily.,Disp: , Rfl: potassium chloride CR 10 mEq ER tablet, Take 1 tablet (10 mEq) by mouth once daily. Do not crush, chew, or split., Disp: , Rfl: spironolactone (Aldactone) 25 mg tablet, Take 1 tablet (25 mg) by mouth once daily., Disp: , Rfl: Assessment/Plan 1. Non-ischemic cardiomyopathy (CMS/HCC) Functional class I and no manifestations of dyspnea orthopnea or PND. Recent assessment of ejectionfraction was normal 2. Paroxysmal atrial fibrillation (CMS/HCC) No recurrence clinically or on by examination. He is protected with anticoagulant therapy. 3. Primary hypertension Good control on current therapy. Review demonstrates no need for changes. 4. Mixed hyperlipidemia Good control on current therapy. Review demonstrates no need for changes. Scribe Attestation By signing my name below, I, Dulce MARTÍNEZ , Scribe attest that this documentation has been prepared under the direction and in the presence of Ava Knowles MD. [facility] Work Phone: 1(638) 477-478501-09-2024 Instructions* Patient Instructions* Jordan Quiñonez MA - 12/02/2023 10:40 AM EST Please bring all medicines, vitamins, and herbal supplements with you when you come to the office. Prescriptions will not be filled unless you are compliant with your follow up appointments or have a follow up appointment scheduled as per instruction of your physician. Refills should be requested at the time of your visit. [facility] Work Phone: 1(619) 177-397508-15-2023 Evaluation note* Encounter Date Diagnosis Assessment Notes Treatment Notes Treatment Clinical Notes Jun, Nonischemic cardiomyopathy (ICD-10 - I42.8) Continue healthy, low fat diet. Instructed on daily weights and to notify office w/ unexpected increase in weight > 3lbs/day. Light exercise daily: walking, biking Jun, Chronic HFrEF (heart failure with reduced ejection fraction) (ICD-10 - I50.22) Instructed on low salt diet, exercise and daily weights. Instructed to notify office for any unexpected weight gain > 3lbs and/or increased dyspnea, difficulty breathing during sleep, worsening lower extremity swelling, chest pain or lightheadedness. Reviewed GDMT w/ beta blockers, RAMAKRISHNA/ARB/ARNI, MRA Jun, Type 2 diabetes mellitus with hyperglycemia, without long-term current use of insulin (ICD-10 - E11.65) This patient is following a comprehensive diabetic treatment plan. They are checking their feet daily for calluses and nonhealing ulcers. They are being seen for yearly dilated eye examinations. Goals: SBP less than 130, LDL less than 100, FBS less than 140, AC and A1C less than 7%. They are checking their BS daily, will which are reviewed at the office visit. Continue regular routine monitoring of A1C,] Microalbumin, Dilated eye exam and Foot exam Jun, Primary hypertension (ICD-10 - I10) This patient is instructed to consume a healthy, low-fat, low-salt diet. They are also encouraged to continue exercise to achieve/maintain a normal BMI. Jun, Hyperlipidemia type II (ICD-10 - E78.01) Instructed on diet and exercise with continued statin therapy.Discussed the beneficial effects of lowering cholesterol in reducing the risk for cerebrovascular and cardiovascular disease. Jun, Stage 3a chronic kidney disease (ICD-10 - N18.31) The patient is instructed on adequate control of hypertension and diabetes, if appropriate. They are also educated on the associated risks of NSAIDs and PPI use with kidney disease. They were instructed on adequate fluid balance and to avoid dehydration. Jun, Obstructive sleep apnea (adult) (pediatric) (ICD-10 - G47.33) This patient is aware of the benefits associated with KOFI: With continued use, the patient reduces the risk for AZ, CVA, HTN, cardiac dysrhythmias and sudden cardiac deaths.The patient is also aware of the association between KOFI and morning headaches, daytime somnolence, fatigue and obesity, which also has been improved with continued use.The patient is compliant with treatment, wearing the equipment every night for greater than 4 hours.The patient is instructed to continue use of the CPAP for KOFI treatment. Jun, Chronic venous insufficiency (ICD-10 - I87.2) Avoid salt and elevate lower extremities, support stockings, inspect legs and feet daily for blisters and ulcerations. [employer] Other 06-14-2023 Evaluation note* Encounter Date Diagnosis Assessment Notes Treatment Notes Treatment Clinical Notes Apr, Atrial fibrillation, persistent (ICD-10 - I48.19) [employer] Other 06-02-2023 Evaluation note* Encounter Date Diagnosis Assessment Notes Treatment Notes Treatment Clinical Notes Apr, Atrial fibrillation, persistent (ICD-10 - I48.19) [employer] Other 05-15-2023 Evaluation note* Encounter Date Diagnosis Assessment Notes Treatment Notes Treatment Clinical Notes March, Medicare annual wellness visit, subsequent (ICD-10 - Z00.00) Personalized health advice was given to the beneficiary including a written plan for screenings discussed and provided. Advanced care planning reviewed and/or information given as requested. Additional counseling was provided here today in regards to, [ ]. The above visit was performed by [ ], under direct supervision of [ ]. Document reviewed and amended by provider signed below. Healthy diet and exercise. Reviewed age-appropriate preventive testing recommended. March, Dilated cardiomyopathy (ICD-10 - I42.0) Low salt diet, exercise and keep active. Daily weights and monitor edema March, Chronic HFrEF (heart failure with reduced ejection fraction) (ICD-10 - I50.22) Optimize GDMT - BB, ARB, MRA and diuretic. - holding on SGLT-2 for now. March, Essential (primary) hypertension (ICD-10 - I10) This patient is instructed to consume a healthy, low-fat, low-salt diet. They are also encouraged to continue exercise to achieve/maintain a normal BMI. March, Hyperlipidemia type II (ICD-10 - E78.01) Instructed on diet and exercise with continued statin therapy.Discussed the beneficial effects of lowering cholesterol in reducing the risk for cerebrovascular and cardiovascular disease. March, Stage 3a chronic kidney disease (ICD-10 - N18.31) The patient is instructed on adequate control of hypertension and diabetes, if appropriate. They are also educated on the associated risks of NSAIDs and PPI use with kidney disease. They were instructed on adequate fluid balance and to avoid dehydration. March, Atrial fibrillation, persistent (ICD-10 - I48.19) This patient is rate controlled. This patient is anticoagulated to prevent thromboembolic events. They are maintaining regular scheduled appts with their naturalist. Tachycardic w/o symptoms of lightheadedeness. Continues BAEZ w/ cough. No bleeding complications March, Benign prostatic hyperplasia with lower urinary tract symptoms (ICD-10 - N40.1) Symptoms tolerable March, Type 2 diabetes mellitus with hyperglycemia, without long-term current use of insulin (ICD-10 - E11.65) Healthy diet, keep active, weight loss. A1C every 6 mo. March, Chronic venous insufficiency (ICD-10 - I87.2) Avoid salt and elevate lower extremities, support stockings, inspect legs and feet daily for blisters and ulcerations. March, Screening PSA (prostate specific antigen) (ICD-10 - Z12.5) [employer] Other 02-17-2023 Evaluation note* Encounter Date Diagnosis Assessment Notes Treatment Notes Treatment Clinical Notes Dec, Hypokalemia (ICD-10 - E87.6) [employer] Other 02-15-2023 Evaluation note* Encounter Date Diagnosis Assessment Notes Treatment Notes Treatment Clinical Notes Dec, Dilated cardiomyopathy (ICD-10 - I42.0) [employer] Other 02-15-2023 Evaluation note* Encounter Date Diagnosis Assessment Notes Treatment Notes Treatment Clinical Notes Dec, Atrial fibrillation, persistent (ICD-10 - I48.19) [employer] Other 02-13-2023 Evaluation note* Encounter Date Diagnosis Assessment Notes Treatment Notes Treatment Clinical Notes Dec, Dilated cardiomyopathy (ICD-10 - I42.0) Continue GDMT for now. His weight has increased, instructed on salt restriction. May have gained body weight w/o water weight. Dec, Chronic systolic heart failure (ICD-10 - I50.22) Continue GDMT: - change Toprol to Coreg? - continue ARB - continue MRA - consider SGLT-2 Daily weights, increase diuretic for > 3lbs weight gain, increased edema or SOB Dec, Type 2 diabetes mellitus with hyperglycemia, without long-term current use of insulin (ICD-10 - E11.65) This patient is following a comprehensive diabetic treatment plan. They are checking their feet daily for calluses and nonhealing ulcers. They are being seen for yearly dilated eye examinations. Goals: SBP less than 130, LDL less than 100, FBS less than 140, AC and A1C less than 7%. They are checking their BS daily, will which are reviewed at the office visit. Dec, Stage 3a chronic kidney disease (ICD-10 - N18.31) The patient is instructed on adequate control of hypertension and diabetes, if appropriate. They are also educated on the associated risks of NSAIDs and PPI use with kidney disease. They were instructed on adequate fluid balance and to avoid dehydration. Dec, Atrial fibrillation, persistent (ICD-10 - I48.19) This patient is in NSR or rate controlled. This patient is anticoagulated to prevent thromboembolic events. They are maintaining regular scheduled appts with their naturalist. Dec, Obstructive sleep apnea (adult) (pediatric) (ICD-10 - G47.33) This patient is aware of the benefits associated with KOFI: With continued use, the patient reduces the risk for AZ, CVA, HTN, cardiac dysrhythmias and sudden cardiac deaths.The patient is also aware of the association between KOFI and morning headaches, daytime somnolence, fatigue and obesity, which also has been improved with continued use.The patient is compliant with treatment, wearing the equipment every night for greater than 4 hours.The patient is instructed to continue use of the CPAP for KOFI treatment. Dec, Morbid (severe) obesity due to excess calories (ICD-10 - E66.01) This patient has been instructed on a low-fat, high-fiber diet. They are instructed to reduce calories, portion sizes and snacks. It is recommended that they exercise for 30 minutes, 3-5 times weekly. Dec, Chronic venous insufficiency (ICD-10 - I87.2) Avoid salt and elevate lower extremities, support stockings, inspect legs and feet daily for blisters and ulcerations. [employer] Other 01-12-2023 Evaluation note* Encounter Date Diagnosis Assessment Notes Treatment Notes Treatment Clinical Notes Nov, Dilated cardiomyopathy (ICD-10 - I42.0) Continue w/ goal directed medical therapy: - Metoprolol, Lisinopril, Aldactone - continue to monitor weights daily w/ instructions to take additional diuretic for > 3lbs weight gain f/u Cardiology Nov, Heart failure with reduced ejection fraction (ICD-10 - I50.20) Continue GDMT. f/u Cardiology, requires improved rate control - instructed to increase Metoprolol to 75mg qd Nov, Atrial fibrillation, persistent (ICD-10 - I48.19) Rate control not adequate, titrate BB until resting HR < 80. AC w/ DOAC to prevent thromboembolic events. 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 They are checking their feet daily for calluses and nonhealing ulcers. They are being seen for yearly dilated eye examinations. Goals: SBP less than 130, LDL less than 100, FBS less than 140, AC and A1C less than 7%. They are checking their BS daily, will which are reviewed at the office visit. A1C: <7% Nov, Stage 3a chronic kidney disease (ICD-10 - N18.31) The patient is instructed on adequate control of hypertension and diabetes, if appropriate. They are also educated on the associated risks of NSAIDs and PPI use with kidney disease. They were instructed on adequate fluid balance and to avoid dehydration. Nov, Obstructive sleep apnea (adult) (pediatric) (ICD-10 - G47.33) This patient is aware of the benefits associated with KOFI: With continued use, the patient reduces the risk for AZ, CVA, HTN, cardiac dysrhythmias and sudden cardiac deaths. The patient is also aware of the association between KOFI and morning headaches, daytime somnolence, fatigue and obesity, which also has been improved with continued use. The patient is compliant with treatment, wearing the equipment every night for greater than 4 hours. The patient is instructed to continue use of the CPAP for KOFI treatment. Nov, Essential (primary) hypertension (ICD-10 - I10) This patient is instructed to consume a healthy, low-fat, low-salt diet. They are also encouraged to continue exercise to achieve/maintain a normal BMI. Nov, Morbid (severe) obesity due to excess calories (ICD-10 - E66.01) This patient has been instructed on a low-fat, high-fiber diet. They are instructed to reduce calories, portion sizes and snacks. It is recommended that they exercise for 30 minutes, 3-5 times weekly. [employer] Other 10-20-2021 [id number]:[facility] [place] [facility] 250 DO Work Phone: 1(123) 145-368910-20-2021 [id number]:[facility] Procedure [facility] 250 DO Work Phone: 1(379) 542-215110-20-2021 [id number]:[facility] [place] Procedure [facility] 250 DO Work Phone: 1(105) 885-542310-20-2021 [id number]:[facility] -[facility] [facility] DO Work Phone: Evaluation noteNo InformationNosouthpo[facility] AMVONET Other Evaluation noteEZMove Other Evaluation note* Diagnosis Non-ischemic cardiomyopathy (CMS/HCC)- Primary Other primary cardiomyopathies Paroxysmal atrial fibrillation (CMS/HCC) Atrial fibrillation Primary hypertension Unspecified essential hypertension Mixed hyperlipidemia documented in this encounter [facility] Work Phone: History general Narrative - Reported* Type Description Date Medical History cardiomyopathy Medical History hypokalemia Medical History heart failure with reduced eject ion fraction Medical History morbid obesity Medical History hype 2 diabetes Medical History obstructive sleep apnea Medical History hypertension Medical History hyperlipidemia Medical History chronic venous hyper tension with inflammation involving both sides Medical History persistent atrial fibrillation Medical History benign prostatic hyperplasia wit h nocturia Medical History chronic systolic heart failure Medical History idiopathic gout Surgical History APPENDECTOMY Surgical History ARTHROSCOPY Surgical History LEFT TKA Surgical History COLONOSCOPY Hospitalization History SEE SURGICAL HX [facility] [employer] Other History [facility] - [facility] Other History general [facility]ative - [facility] Other History of Present illness Narrative* Patient returns for follow-up of problems as noted. He states she is doing well. Unfortunately wentthat he is out of rhythm again. Despite aggressive amiodarone loading and several cardioversions wecannot maintain sinus rhythm. I advised him that his only other option would be ablation therapy and this was explained in detail and he is not interested because he states basically he cannot tell if and/or when he is out of rhythm. I concur with his assessment of the situation. * He does note, though, significant improvement in his aerobic capacity and sense of wellbeing since consultation. He is now on guideline directed therapy and although there may be further opportunity for improvement such as switching to carvedilol and/or the addition of an SGLT2 inhibitor we suggest for now he continue current therapy as is but stop amiodarone because it has no benefit in all risk. The reason for this was explained and he understands and agrees to do so. * I suggested we reassess his ejection fraction in the spring and make final recommendations regarding management of his cardiomyopathy including the possibility of device implantation if in fact his ejection fraction does not improve [facility] DO Work Phone: History of Present illness Narrative* Patient returns for follow-up of problems as noted. He states she is doing well. Unfortunately wentthat he is out of rhythm again. Despite aggressive amiodarone loading and several cardioversions wecannot maintain sinus rhythm. I advised him that his only other option would be ablation therapy and this was explained in detail and he is not interested because he states basically he cannot tell if and/or when he is out of rhythm. I concur with his assessment of the situation. * He does note, though, significant improvement in his aerobic capacity and sense of wellbeing since consultation. He is now on guideline directed therapy and although there may be further opportunity for improvement such as switching to carvedilol and/or the addition of an SGLT2 inhibitor we suggest for now he continue current therapy as is but stop amiodarone because it has no benefit in all risk. The reason for this was explained and he understands and agrees to do so. * I suggested we reassess his ejection fraction in the spring and make final recommendations regarding management of his cardiomyopathy including the possibility of device implantation if in fact his ejection fraction does not improve [facility] Work Phone: History of Present illness Narrative* attended cousins in [place] * Patient returns in follow-up of problems as noted. He is doing well from a cardiac standpoint. He has no manifestations of heart failure and/or cardiomyopathy such as orthopnea PND or dyspnea with exertion. He has no edema or JVD. Treatment of risk factors including hyperlipidemia and hypertension a re reviewed as well as diabetes and they are all adequately managed. He has had no recurrent paroxysms of atrial fibrillation and is adequately protected with anticoagulant therapy because of this wesuggest continued therapy as before. We did emphasize the merits of diet exercise and weight loss and he understands our recommendation. [facility] 250 DO Work Phone: History of Present illness Narrative* attended [employer] [facility] in [place] * Patient returns in follow-up of problems as noted. He is doing well from a cardiac standpoint. He has no manifestations of heart failure and/or cardiomyopathy such as orthopnea PND or dyspnea with exertion. He has no edema or JVD. Treatment of risk factors including hyperlipidemia and hypertension a re reviewed as well as diabetes and they are all adequately managed. He has had no recurrent paroxysms of atrial fibrillation and is adequately protected with anticoagulant therapy because of this wesuggest continued therapy as before. We did emphasize the merits of diet exercise and weight loss and he understands our recommendation. [facility] 600 DO Work Phone: History of Present illness NarrativeReturns in follow- up of problems as noted. In the interim he has done well. Control and/or management of hyperlipidemia and hypertension is reviewed and control is adequate and appropriate. We note increased body mass index and the merits of diet exercise and weight loss and its favorable impact onhis blood pressure as well as diabetes mellitus was advocated he understands our recommendation. He believes he has had no paroxysms of atrial fibrillation and auscultation demonstrates a regular rhythm. He is protected against stroke because he is on antithrombotic therapy because of all the abovewe suggest continued therapy as before without change. We did emphasize on warm them on occasion the merits of diet and weight loss.[facility] DO Work Phone: Reason for referral (narrative)* Consultation (Routine) - Authorized Specialty Diagnoses / Procedures Referred By Contac t Referred To Contact Cardiology Diagnoses Non-ischemic cardiomyopathy (CMS/HCC) Paroxysmal atrial fibrillation (CMS/HCC) Primary hypertension Mixed hyperlipidemia Procedures Follow Up In Cardiology Cheyanne Knowles MD [facility] [address], [address] [address] Cheyanne Knowles MD [address] [place], [place] [address]er [facility] [address], [address] [address] Referral ID Status Reason Start Date Expiration Date V isits Requested Visits Authorized [id number] Authorized 12/02/2023 12/01/2024 1 1 [facility] Work Phone: Chief Complaint Follow up DCC.HCEYANNE GIBBS is being seen for DCC F/U.CHEYANNE GIBBS is being seen for DCC F/U.CHEYANNE GIBBS is being seen for Follow up Echo results.CHEYANNE GIBBS is being seen for Follow up Echo results.CHEYANNE GIBBS is being seen for 9-12 month follow up. Family History Unknown Family Member Name Dates Details Family history of congestive heart failure: Mother(V17.49, Z82.49) Status:Active Family history of malignant neoplasm: Mother(V16.9, Z80.9) Status:Active Unknown Family Member Name Dates Details Family history of congestive heart failure: Mother(V17.49, Z82.49) Status:Active Family history of malignant neoplasm: Mother(V16.9, Z80.9) Status:Active Unknown Family Member Name Dates Details Family history of congestive heart failure: Mother(V17.49, Z82.49) Status:Active Family history of malignant neoplasm: Mother(V16.9, Z80.9) Status:Active Unknown Family Member Name Dates Details Family history of congestive heart failure: Mother(V17.49, Z82.49) Status:Active Family history of malignant neoplasm: Mother(V16.9, Z80.9) Status:Active Unknown Family Member Name Dates Details Family history of congestive heart failure: Mother(V17.49, Z82.49) Status:Active Family history of malignant neoplasm: Mother(V16.9, Z80.9) Status:Active Unknown Family Member Name Dates Details Family history of malignant neoplasm: Mother(V16.9, Z80.9) Status:Active Family history of congestive heart failure: Mother(V17.49, Z82.49) Status:Active Unknown Family Member Name Dates Details Family history of congestive heart failure: Mother(V17.49, Z82.49) Status:Active Family history of malignant neoplasm: Mother(V16.9, Z80.9) Status:Active Unknown Family Member Name Dates Details Family history of congestive heart failure: Mother(V17.49, Z82.49) Status:Active Family history of malignant neoplasm: Mother(V16.9, Z80.9) Status:Active Unknown Family Member Name Dates Details Family history of congestive heart failure: Mother(V17.49, Z82.49) Status:Active Family history of malignant neoplasm: Mother(V16.9, Z80.9) Status:Active Unknown Family Member Name Dates Details Family history of congestive heart failure: Mother(V17.49, Z82.49) Status:Active Family history of malignant neoplasm: Mother(V16.9, Z80.9) Status:Active Unknown Family Member Name Dates Details Family history of congestive heart failure: Mother(V17.49, Z82.49) Status:Active Family history of malignant neoplasm: Mother(V16.9, Z80.9) Status:Active Unknown Family Member Name Dates Details Family history of congestive heart failure: Mother(V17.49, Z82.49) Status:Active Family history of malignant neoplasm: Mother(V16.9, Z80.9) Status:Active Summary Purpose Advance Directives No Advanced Directives Records FoundNo Advanced Directives Records FoundNo Advanced Directives Records FoundNo Advanced Directives Records FoundNo Advanced Directives Records FoundNo Advanced Directives Records Found Additional Source Comments (unrecognized sect ion and content) No Status Records FoundNo Status Records FoundNo Status Records FoundNo Status Records FoundNo Status Records FoundNo Status Records Found INFORMATION SOURCE (unrecogn ized section and content) DATE CREATED AUTHOR 12/18/2021 [facility] DATE CREATED AUTHOR AUTHOR'S ORGANIZ ATION 03/22/2022 [facility] DATE CREATED AUTHOR AUTHOR'S ORGANIZ ATION 12/06/2022 [employer] DATE CREATED AUTHOR AUTHOR'S ORGANIZ ATION 12/10/2022 [facility] [place] [facility] DATE CREATED AUTHOR AUTHOR'S ORGANIZ ATION 05/02/2023 [facility] DATE CREATED AUTHOR AUTHOR'S ORGANIZ ATION 12/06/2023 [facility] REASON FOR VISIT (unrecogniz ed section and content) New Pharmacy-Prescriptions Reason Comments Annual Exam Care Teams (unrecognized sec tion and content) 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 This clinical summary was aggregated from multiple sources. Caution should be exercised in using it in the provision of clinical care. This summary normalizes information from multiple sources, and as a consequence, information in this document may materially change the coding, format and clinical context of patient data. In addition, data may be omitted in some cases. CLINICAL DECISIONS SHOULD BE BASED ON THE PRIMARY CLINICAL RECORDS. [facility] [employer] [facility] provides no warranty or guarantee of the accuracy or completeness of information in this document.
[2024-02-09 12:30] LABS: Basophils Absolute Auto 0.1 10^3/uL (0.0-0.1); Basophils Percent Auto 0.6 % (0.2-2.0); Eosinophils Absolute Auto 0.1 10^3/uL (0.0-0.7); Eosinophils Percent Auto 1.1 % (0.9-7.0); Hematocrit 40.9 % (42.0-54.0); Hemoglobin 12.2 g/dL (14.0-18.0); Immature Granulocytes Abs Auto 0.03 10^3/uL (0.00-0.03); Immature Granulocytes Pct Auto 0.3 % (0.0-0.5); Lymphocytes Absolute Auto 1.3 10^3/uL (1.2-3.8); Lymphocytes Percent Auto 11.7 % (20.5-60.0); Mean Corpuscular HGB Conc 29.8 g/dL (29.9-35.2); Mean Corpuscular Hemoglobin 28.4 pg (25.9-34.0); Mean Corpuscular Volume 95.3 fL (80.0-94.0); Mean Platelet Volume 10.3 fL (9.5-13.5); Monocytes Absolute Auto 0.9 10^3/uL (0.3-0.8); Monocytes Percent Auto 8.1 % (1.7-12.0); Neutrophils Absolute Auto 8.5 10^3/uL (1.4-6.5); Neutrophils Percent Auto 78.2 % (43.0-75.0); Platelet Count 328 10^3/uL (150-450); Red Blood Count 4.29 10^6/uL (4.70-6.10); Red Cell Distribution Width 13.6 % (11.0-15.0); White Blood Count 10.9 10^3/uL (4.0-11.0)
[2024-02-09 12:56] LABS: Alanine Aminotransferase 19 U/L (16-63); Albumin Globulin Ratio 0.7; Albumin Level 2.8 g/dL (3.4-5.0); Alkaline Phosphatase 107 U/L (46-116); Anion Gap 13.8; Aspartate Amino Transferase 14 U/L (15-37); BUN Creatinine Ratio 11.2; Bilirubin Total 0.9 mg/dL (0.2-1.0); C Reactive Protein 2.52 mg/dL (<=0.50); Calcium 8.9 mg/dL (8.5-10.1); Carbon Dioxide 26.7 mmol/L (21.0-32.0); Chloride 103 mmol/L (98-107); Estimated GFR (African America >60 (>=60); Estimated GFR (Non-African Ame >60 (>=60); Globulin 4.1 g/dL; Glucose 102 mg/dL (74-106); Potassium 3.5 mmol/L (3.5-5.1); Sodium 140 mmol/L (136-145); Total Protein 6.9 g/dL (6.4-8.2)
== END 2024-02-09 11:42 | disposition home or self-care (01) ==
LOC: LAB 11:44
PROVIDERS: PCP Internal Medicine; Visit Provider Internal Medicine
DX: R19.7 Diarrhea, unspecified (principal); N18.31 Chronic kidney disease, stage 3a; I10 Essential (primary) hypertension; E11.65 Type 2 diabetes mellitus with hyperglycemia
CPT/HCPCS: 36415; 80053; 85025; 86140

== ENCOUNTER 2024-02-10 12:45 | Outpatient (REF) | payer OTHER, SELFPAY ==
[2024-02-10 15:59] LABS: C. Difficile PCR NEGATIVE (NEGATIVE)
== END 2024-02-10 12:46 | disposition home or self-care (01) ==
LOC: LAB 12:45
PROVIDERS: PCP Internal Medicine; Visit Provider Internal Medicine
DX: R19.7 Diarrhea, unspecified (principal); N18.31 Chronic kidney disease, stage 3a; E11.65 Type 2 diabetes mellitus with hyperglycemia; I12.9 Hypertensive chronic kidney disease with stage 1 through stage 4 chronic kidney disease, or unspecified chronic kidney disease
CPT/HCPCS: 87045; 87046; 87427; 87493

== ENCOUNTER 2024-05-07 08:35 | Outpatient (OUT) | payer OTHER, SELFPAY ==
--- OUTSIDE RECORDS SUMMARY | 2024-05-07 08:48 | XMS_ITS ---
Patient Summarization (C-CDA 2.1 CCD) Created on: May 07, 2024 Cheyanne Gibbs : 1955 Sex: Male Author Organization Sample organization Care Team Providers [facility] Name Role Phone Anibal Gonzales Unavailable Unavailable Unavailable Cheyanne Knowles II Referring Unav ailable McGuinn II, Cheyanne De Leon Attending Unav ailable Anibal Gonzales Primary Care Unavailabl e Anibal Gonzales Primary Care Unavailabl e McGuinjusten II, Cheyanne De Leon Referring Unav ailable Rosieuinn II, Cheyanne De Leon Attending Unav ailable Anibal [...] Unavailable CHRISTIAN, DR MONTE Primary Care Unavailable ZIEBSHEA, DR ALEX Luis Consulting Unavailable CHRISTIAN, DR MONTE Primary Care Unavailable ZACAR, RASHEEDA Admitting Unavailable RASHEEDA SANCHEZ Attending Unavailable Anibal Gonzales DO Primary Care Provider CHEYANNE KNOWLES Attending Unavailable ANIBAL GONZALES Primary Care Unavailable Encounters Encounter Date Encounter Type Care Provider Facility Start: 05-06-2024 End: 05-06-2024 ambulatory [facility] Work Phone: Start: 05-06-2024 End: 05-06-2024 Patient encounter procedure [facility] Work Phone: Start: 02-10-2024 Non-patient / Non-visit [facility] Work Phone: Start: 02-09-2024 Non-patient / Non-visit [facility] Work Phone: Start: 02-06-2024 End: 02-06-2024 ambulatory [facility] Work Phone: Start: 02-06-2024 End: 02-06-2024 Patient encounter procedure [facility] Work Phone: Start: 12-11-2023 End: 12-11-2023 ambulatory Anibal Gonzales Other [facility] [employer] Other Start: 12-11-2023 Telephone encounter Anibal JONES [facility] Start: 12-02-2023 End: 12-02-2023 ambulatory CHEYANNE KNOWLES [facility] Start: 12-02-2023 End: 12-02-2023 Office outpatient visit 25 minutes Cheyanne Knowles MD Work Phone: [facility] Comment on above: Non-ischemic cardiom yopathy (CMS/HCC) (Primary Dx); Paroxysmal atrial fibrillation (CMS/HCC); Primary hypertension; Mixed hyperlipidemia Start: 09-04-2023 End: 09-04-2023 ambulatory Anibal Gonzales Other [facility] [employer] Other Start: 09-04-2023 Telephone encounter Anibal JONES [facility] Start: 07-09-2023 Rx Renewal Anibal felder Work Phone: [facility] DO Work Phone: Start: 07-08-2023 End: 07-08-2023 ambulatory Anibal Gonzales Other [employer] Other Start: 07-08-2023 Office outpatient vi sit 25 minutes Anibal Gonzales [facility] Start: 06-06-2023 End: 06-06-2023 ambulatory Anibal Gonzales Other [place] [employer] Other Start: 06-06-2023 Telephone encounter Anibal JONES [facility] Start: 05-15-2023 End: 05-15-2023 ambulatory Anibal Gonzales Other [employer] Other Start: 05-15-2023 Telephone encounter Anibal Gonzales [facility] Start: 05-07-2023 End: 05-07-2023 ambulatory Anibal Gonzales Other [employer] Other Start: 05-07-2023 Telephone encounter Anibal Gonzales [facility] Start: 04-25-2023 End: 04-25-2023 ambulatory Anibal Gonzales Other [employer] Other Start: 04-25-2023 Telephone encounter Anibal Gonzales [facility] Start: 04-24-[address] ANIBAL GONZALES Facili ty:[facility] Start: 04-08-2023 End: 04-09-[address] ANIBAL GONZALES Facility:[facility] Start: 04-07-2023 End: 04-07-2023 ambulatory Anibal Gonzales Other [employer] Other Start: 04-07-2023 Patient encounter procedure Anibal Gonzales [facility] Start: 02-24-2023 End: 02-24-2023 ambulatory Anibal Christian Other [employer] Other Start: 02-24-2023 Telephone encounter Anibal Gonzales [facility] Start: 02-11-2023 End: 02-11-2023 ambulatory Anibal Gonzales Other [employer] Other Start: 02-11-2023 Telephone encounter Anibal Christian [facility] Start: 01-10-2023 Telephone encounter Anibal Gonzales [facility] Start: 01-10-2023 End: 01-11-[address] ANIBAL GONZALES [employer] Other Start: 01-08-2023 End: 01-08-2023 ambulatory Anibal Gonzales Other [employer] Other Start: 01-08-2023 Telephone encounter Anibal Gonzales [facility] Start: 01-06-2023 End: 01-06-2023 ambulatory Anibal Gonzales Other [employer] Other Start: 01-06-2023 Office outpatient vi sit 25 minutes Anibal Gonzales [facility] Start: 12-25-2022 End: 12-25-2022 ambulatory Anibal Gonzales Other [employer] Other Start: 12-25-2022 Telephone encounter Anibal JONES Lexus Gonzales [facility] Start: 12-06-2022 ambulatory Cheyanne Jensen april Knowles II Facility: Start: 12-06-2022 Office outpatient vi sit 25 minutes Anibal Gonzales Work Phone: [facility] 250 DO Work Phone: Start: 12-05-2022 End: 12-05-2022 ambulatory Anibal Gonzales Other [employer] Other Start: 12-05-2022 Office outpatient vi sit 25 minutes Anibal Gonzales [facility] Start: 12-03-2022 End: 12-03-2022 ambulatory Anibal Gonzales Other [employer] Other Start: 12-03-2022 Telephone encounter Anibal JONES [facility] Start: 11-08-2022 End: 11-09-[address] ANIBAL GONZALES Facility: Start: 08-07-2022 Rx Renewal Anibal felder Work Phone: [facility] DO Work Phone: Start: 04-12-2022 Office outpatient vi sit 25 minutes Anibal Gonzales Work Phone: [facility] DO Work Phone: Start: 04-12-2022 ambulatory Anibal Gonzales Facility: Start: 03-18-2022 Patient encounter procedure Anibal Gonzales Work Phone: [facility] [place] Work Phone: Start: 12-03-2021 Office outpatient vi sit 25 minutes Anibal Gonzales Work Phone: [facility] DO Work Phone: Start: 11-07-2021 Chart Update Anibal felder Work Phone: [facility] DO Work Phone: Start: 10-05-2021 Chart Update Anibal felder Work Phone: [facility] DO Work Phone: Start: 09-24-2021 Chart Update Anibal felder Work Phone: [facility] DO Work Phone: Start: 09-24-2021 Patient encounter procedure Anibal Gonzales Work Phone: [facility] DO Work Phone: Start: 09-14-2021 Chart Update Cheyanne campuzano MD Work Phone: [facility] DO Work Phone: Start: 09-13-2021 Chart Update Cheyanne campuzano MD Work Phone: [facility] DO Work Phone: Immunizations Immunization Date Immunization Notes Care Provider Bruce good 04-18-2021 COVID-19 Vaccine Brad ssen - Documentation Purposes Only Anibal Gonzales Other [facility] 04-12-2021 Sandor COVID-19 Vac cine 0.5 ML Intramuscular Suspension Anibal Gonzales Work Phone: [facility] DO Work Phone: Comment on above: Series: Medications Current Medications Medication Drug Class(es) Dates Sig (Normalized) Sig (Original) allopurinol 300 mg oral tablet (20 sources) Xanthine Oxidase Inhibitor Start: 10-07-2017 take 300 mg by mouth once daily Allopurinol Active 300 MG PO Daily October 07, 2017 1:00am apixaban 5 mg oral tablet (20 sources) Factor Xa Inhibitor Start: 09-11-2021 End: 12-01-2024 take 1 tablet by mouth twice daily Apixaban (Eliquis) 5 mg Tablet Active 5 MG PO Twice daily September 11, 2021 12:00am atorvastatin 20 mg oral tablet (20 sources) HMG-CoA Reductase Inhibitor Start: 10-07-2017 End: 12-01-2024 take 20 mg by mouth once daily Atorvastatin Active 20 MG PO Daily October 07, 2017 1:00am furosemide 20 mg oral tablet (20 sources) Loop Diuretic Start: 02-04-2024 take 40 mg by mouth once daily Furosemide Active 40 MG PO Daily February 04, 2024 3:17pm Start: 05-01-2023 take 1 tablet by gena th every twenty-four hours Furosemide 40 MG 1 tablet Orally Once a day for 90 days Apr, Active Start: 05-01-2023 take 1 tablet by gena th every other day Furosemide 40 MG 1 tablet Orally every other day Apr, Active Start: 09-11-2021 End: 12-01-2024 take 20 mg by mouth once daily Furosemide Discontinued 20 MG PO Daily September 11, 2021 12:00am February 04, 2024 3:20pm take 1 tablet by gena th twice daily Furosemide 20 MG Oral Tablet TAKE 1 TABLETS TWICE DAILY Quantity: 0 Refills: 0 Ordered: 06-Dec-2022 DO Active take 1 tablet by gena th every twenty-four hours Furosemide 40 MG 1 tablet Orally Once a day for 30 days stop furosemide 20 Active losartan potassium 25 mg oral tablet (20 sources) Angiotensin 2 Receptor Carlos Start: 05-06-2024 take 25 mg by mouth once daily Losartan Active 25 MG PO Daily May 06, 2024 12:00am Start: 01-06-2023 take 1 tablet by gena th every twenty-four hours Losartan Potassium 25 MG [...] oral tablet (20 sources) beta-Adrenergic Carlos Start: 02-04-2024 take 200 mg by mouth once daily Metoprolol Succinate Active 200 MG PO Daily February 04, 2024 3:18pm Start: 05-01-2023 take 1 tablet by gena th every twenty-four hours Metoprolol Succinate ER 200 MG 1 tablet Orally Once a day Apr, Active Start: 01-08-2023 Metoprolol Suc cinate ER 100 MG 2 Orally Once a day Stop Metoprolol 50 15 Dec, 2022 Active Start: 09-11-2021 End: 12-01-2024 take 50 mg by mouth once daily Metoprolol Succinate Di scontinued 50 MG PO Daily September 11, 2021 12:00am February 04, 2024 3:20pm potassium chloride 10 meq extended release oral tablet (20 sources) Start: 12-03-2022 End: 12-01-2024 take 10 mEq by mouth once daily Potassium Chloride Active 10 MEQ PO Daily May 06, 2024 12:00am spironolactone 25 mg oral tablet (20 sources) Aldosterone Antagonist Start: 09-24-2021 End: 12-01-2024 take 25 mg by mouth once daily Spironolactone Active 25 MG PO Daily November 06, 2021 1:00am Completed/Discontinued Medications Medication Drug Class(es) Dates Sig (Normalized) Sig (Original) amiodarone hydrochloride 400 mg oral tablet (6 sources) Antiarrhythmic Start: 09-11-2021 End: 02-04-2024 take 400 mg by mouth once daily Amiodarone Discontinued 400 MG PO Daily September 11, 2021 12:00am February 04, 2024 3:17pm carvedilol 12.5 mg oral tablet (2 sources) alpha-Adrenergic Carlos, beta-Adrenergic Carlos Start: 10-07-2017 End: 09-12-2021 take 12.5 mg by mouth once daily Carvedilol Discontinued 12.5 MG PO Daily October 07, 2017 1:00am September 12, 2021 8:25am lisinopril 5 mg oral tablet (11 sources) Angiotensin Converting Enzyme Inhibitor Start: 09-11-2021 End: 02-04-2024 take 5 mg by mouth once daily Lisinopril Discontinued 5 MG PO Daily September 11, 2021 12:00am February 04, 2024 3:17pm take 0.5 tablet by mouth once da raina Lisinopril 5 MG Oral Tablet TAKE 1/2 TABLET DAILY. Quantity: 45 Refills: 3 Ordered: 15-Apr-2022 Cheyanne Knowles MD Active Payers Date Payer Category Payer Unknown 2021 Unknown [id number] 1959 Medicare [id number] 1955 Unknown [id number] 1955 Unknown [id number] 2.16. [id number] 1955 Unknown [id number] 2.16.84 [id number] 1955 Unknown [id number] 2.16.84 [id number] 1955 Unknown [id number] 2.16.84 [id number] 1955 Unknown [id number] 2.16.84 [id number] 1955 Unknown [id number] [id number] Self-pay Self Pay [id number] Unknown [employer] [id number] Plan of Treatment Date Care Activity Detail Author Start: 12-14-2024 End: 12-14-2024 Patient encounter procedure 12/14/2024 10:40 AM EST Office Visit [facility] [address] [facility] [address] [place] [address] Cheyanne Knowles MD [address] [facility] [address] [place] [address] [facility] Start: 12-02-2023 FUV, Provider: Cheyanne Knowles, Status: Pen, Time: 10:40 AM FUV, Provider: Cheyanne Knowles, Status: Pen, Time: 10:40 AM [id number] 250 DO Work Phone: Start: 07-25-2023 Influenza vaccination Influenza Vaccine (#1) [facility] Start: 11-29-2022 FUV, Provider: Cheyanne Knowles, Status: Pen, Time: 2:40 PM FUV, Provider: Cheyanne Knowles, Status: Pen, Time: 2:40 PM [facility] Work Phone: Start: 04-12-2022 FUV, Provider: Cheyanne Knowles, Status: Pen, Time: 1:30 PM FUV, Provider: Cheyanne Knowles, Status: Pen, Time: 1:30 PM [facility] DO Work Phone: Start: 12-03-2021 FUV, Provider: Cheyanne Knowles, Status: Pen, Time: 11:20 AM FUV, Provider: Cheyanne Knowles, Status: Pen, Time: 11:20 AM [facility] DO Work Phone: Start: 11-05-2021 FUV, Provider: Cheyanne Knowles, Status: Pen, Time: 8:00 AM FUV, Provider: Cheyanne Knowles, Status: Pen, Time: 8:00 AM [facility] DO Work Phone: Start: 09-24-2021 FUV, Provider: Cheyanne Knowles, Status: Pen, Time: 10:20 AM FUV, Provider: Cheyanne Knowles, Status: Pen, Time: 10:20 AM [facility] DO Work Phone: Start: 06-07-2021 COVID-19 Vaccine (2 - Booster for Sandor series) COVID-19 Vaccine (2 - Booster for Sandor series) [facility] Start: 2020 Abdominal aortic aneurysm screening Abdominal Aortic Aneurysm (AAA) Screening [facility] Start: 2005 Zoster Vaccines (1 of 2) Zoster Vaccines (1 of 2) [facility] Start: 1977 DTaP/Tdap/Td Vaccines (1 - Tdap) DTaP/Tdap/Td Vaccines (1 - Tdap) [facility] Start: 1974 Urine screening for protein Diabetes: Urine Protein Screening [facility] Start: 1973 Hepatitis C screening Hepatitis C Screening [facility] Start: 1965 Diabetic foot examination Diabetes: Foot Exam [facility] Start: 1965 Glaucoma screening Diabetes: Retinopathy Screening [facility] Start: 1961 Pneumococcal Vaccine: 65+ Years (1 - PCV) Pneumococcal Vaccine: 65+ Years (1 - PCV) [facility] Start: 1955 Hemoglobin A1c measurement Diabetes: Hemoglobin A1C [facility] Start: 1955 Lipid panel Lipid Panel [facility] Start: 1955 Medicare Annual Wellness Visit Medicare Annual Wellness Visit (AWV) [facility] Start: 1955 Screening for malignant neoplasm of colon [facility] Bacteria identified in Stool by Culture [facility] Comprehensive metabo lic 1999 panel - Serum or Plasma [facility] Comprehensive metabo lic 1999 panel - Serum or Plasma [facility] Microalbumin [Mass/volume] in Urine [facility] Problems Active Problems Problem Classification Problem Date Documented Da te Episodic/Chronic Cardiac dysrhythmias (20 sources) Persistent atrial fibrillation; 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: [Atrial fibrillation] Onset: 11-12-2023 12-02-2023 Chronic Chronic kidney disease (20 sources) Chronic kidney disease stage 3A ; 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: [Stage 3a chronic kidney disease] 02-04-2024 Chronic Congestive heart failure; nonhypertensive (20 sources) [...] W/HF STAGE 1-4/UNS CKD] Onset: 04-08-2023 Chronic Immunizations and screening for infectious disease (15 sources) Patient encounter status; 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: [Other specified vaccination] Resolved: 12-06-2022 10-07-2017 Episodic Other diseases of veins and lymphatics (10 sources) Venous hypertension of lower limb; 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: [Chronic venous hypertension (idiopathic) with inflammation of bilateral lower extremity] Chronic Other diseases of veins and lymphatics (20 sources) Peripheral venous insufficiency; 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: [Venous insufficiency (chronic) (peripheral)] 02-04-2024 Episodic Other diseases of veins and lymphatics (7 sources) Venous insufficiency (chronic) (peripheral); 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: [Venous (peripheral) insufficiency, unspecified] Episodic Other gastrointestinal disorders (2 sources) Diarrhea; 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: [Diarrhea, unspecified] 02-06-2024 Episodic Other gastrointestinal disorders (1 source) Diarrhea, unspecified; 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: [Diarrhea] 02-06-2024 Episodic Other lower respiratory disease (7 sources) Dyspnea; 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: [Other respiratory abnormalities] Episodic Other nutritional; endocrine; and metabolic disorders (16 sources) Body mass index 40+ - severely obese; 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: [Morbid obesity] 02-04-2024 Chronic Other nutritional; endocrine; and metabolic disorders (20 sources) Morbid obesity; 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: [Morbid (severe) obesity due to excess calories] Chronic Other nutritional; endocrine; and metabolic disorders (2 sources) Morbid (severe) obesity due to excess calories Chronic Other screening for suspected conditions (not mental disorders or infectious disease) (4 sources) Encounter for screening for malignant neoplasm of prostate; 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: [Screening for malignant neoplasms of prostate] Onset: 04-12-2023 Episodic Marycruz-; endo-; and myocarditis; cardiomyopathy (except that caused by tuberculosis or sexually transmitted disease) (20 sources) Cardiomyopathy; 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: [Other primary cardiomyopathies] Onset: 11-12-2023 Chronic Residual codes; unclassified (20 sources) Obstructive sleep apnea syndrome; 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: [Obstructive sleep apnea (adult)(pediatric)] Onset: 11-12-2023 11-12-2023 Chronic Residual codes; unclassified (6 sources) Obstructive sleep apnea (adult) (pediatric); 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: [Obstructive sleep apnea (adult)(pediatric)] Chronic Residual codes; unclassified (7 sources) Amnesia; [...] [CHRONIC KIDNEY DISEASE STAGE 3A] Onset: 04-12-2023 Other lower respiratory disease (5 sources) H/O: respiratory disease; 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: [Personal history of other diseases of respiratory system] Resolved: 04-12-2022 Episodic Unclassified (13 sources) Other persistent atrial fibrillation; 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: [OTHR PERSISTENT ATRIAL FIBRILLATION] Onset: 01-10-2023 Unclassified (1 source) Onset: 12-02-2023 12-02-2023 Procedures Date Procedure Procedure Detail Performing Clinician Start: 02-10-2024 E coli Shiga Toxin EIA Start: 02-10-2024 Salmonella/Shigella Screen Start: 04-08-2023 End: 04-08-[address] ANIBAL GONZALES Comment on above: Performed By: #### P [facility] #### [facility] [address] [address] [address] Braxton Aly Start: 03-18-2022 Echocardiography Benjam in E Ball Work Phone: Appendectomy Anibal E Ball Work Phone: Arthroplasty of knee Benjami n E Ball Work Phone: Cardioversion Anibal E Bal l Work Phone: Cataract surgery Anibal E Ball Work Phone: Colonoscopy Anibal E Ball Work Phone: Comment on above: 2020; Tonsillectomy Anibal Melendez Bal l Work Phone: Results Test Name Value Interpretation Reference Range Facility No Panel Informationon 02-09 Clostridium difficile (PCR)(LAB) Negative NEGATIVE [facility] Miscellaneous Test Comment See comment [facility] Comment on above: Specimen Source: ST - Stool - Stool - 700.100 Stool Campylobacter Culture Res 1 See comment [facility] Comment on above: [facility], No Panel InformationOrdered By: Anibal Gonzales on 02-10-2024 E coli Shiga Toxin EIA Fi [facility] Salmonella/Shigella Screen [facility] Basophils Auto (Bld) [#/Vol] on 02-09-2024 Basophils (Bld) [#/Vol] 0.1 10 3/uL 0.0-0.1 [facility] Basophils/100 WBC Auto (Bld) on 02-09-2024 Basophils/100 WBC (Bld) 0.6 % 0.2-2.0 [facility] Eosinophils/100 WBC Auto (Bl d)on 02-09-2024 Eosinophils/100 WBC (Bld) 1.1 % 0.9-7.0 [facility] Erythrocyte distribution wid th Auto (RBC) [Ratio]on 02-09-2024 Erythrocyte distribution width (RBC) [Ratio] 13.6 % 11.0-15.0 [facility] Estimated glomerular filtrat ion rate (GFR) non- Americanon 02-09-2024 GFR/1.73 sq M.predicted among non-blacks MDRD (S/P/Bld) [Vol rate/Area] mL/min/{1.73_m2} >=60 [facility] Globulin Calc (S) [Mass/Vol] on 02-09-2024 Globulin (S) [Mass/Vol] 4.1 g/dL [facility] Hematocrit Auto (Bld) [Volum e fraction]on 02-09-2024 Hematocrit (Bld) [Volume fraction] 40.9 % 42.0-54.0 [facility] Hemoglobin [Mass/volume] in Bloodon 02-09-2024 Hemoglobin (Bld) [Mass/Vol] 12.2 g/dL 14.0-18.0 [facility] Laboratory - Chemistry and C hemistry - challengeon 02-09-2024 Albumin [Mass/Vol] 2.8 g/dL 3.4-5.0 [facility] ALP [Catalytic activity/Vol] 107 U/L 46-116 [facility] ALT [Catalytic activity/Vol] 19 U/L 16-63 [facility] AST [Catalytic activity/Vol] 14 U/L 15-37 [facility] Bilirubin [Mass/Vol] 0.9 mg/dL 0.2-1.0 [facility] Calcium [Mass/Vol] 8.9 mg/dL 8.5-10.1 [facility] Chloride [Moles/Vol] 103 mmol/L 98-107 [facility] CO2 [Moles/Vol] 26.7 mmol/L 21.0-32.0 [facility] Creatinine [Mass/Vol] 1.07 mg/dL 0.70-1.30 [facility] GFR/1.73 sq M.predicted MDRD (S/P/Bld) [Vol rate/Area] mL/min/{1.73_m2} >=60 [facility] Glucose [Mass/Vol] 102 mg/dL 74-106 [facility] Potassium [Moles/Vol] 3.5 mmol/L 3.5-5.1 [facility] Protein [Mass/Vol] 6.9 g/dL 6.4-8.2 [facility] Sodium [Moles/Vol] 140 mmol/L 136-145 [facility] Urea nitrogen [Mass/Vol] 12.0 mg/dL 7.0-18.0 [facility] Urea nitrogen/Creatinine [Mass ratio] 11.2 mg/mg [facility] - Hematology and Cell countson 02-09-2024 Immature granulocytes/100 WBC (Bld) 0.3 % 0.0-0.5 [facility] Leukocytes [#/volume] correc delmi for nucleated erythrocytes in Blood by Automated counon 02-09-2024 WBC corrected for nucl RBC Auto (Bld) [#/Vol] 10.9 10 3/uL 4.0-11.0 [facility] Lymphocytes Auto (Bld) [#/Vo l]on 02-09-2024 Lymphocytes (Bld) [#/Vol] 1.3 10 3/uL 1.2-3.8 [facility] Lymphocytes/100 WBC Auto (Bl d)on 02-09-2024 Lymphocytes/100 WBC (Bld) 11.7 % 20.5-60.0 [facility] MCH Auto (RBC) [Entitic mass ]on 02-09-2024 MCH (RBC) [Entitic mass] 28.4 pg 25.9-34.0 [facility] MCHC Auto (RBC) [Mass/Vol]on 02-09-2024 MCHC (RBC) [Mass/Vol] 29.8 g/dL 29.9-35.2 [facility] MCV Auto (RBC) [Entitic vol] on 02-09-2024 MCV (RBC) [Entitic vol] 95.3 fL 80.0-94.0 [facility] Monocytes Auto (Bld) [#/Vol] on 02-09-2024 Monocytes (Bld) [#/Vol] 0.9 10 3/uL 0.3-0.8 [facility] Monocytes/100 WBC Auto (Bld) on 02-09-2024 Monocytes/100 WBC (Bld) 8.1 % 1.7-12.0 [facility] Neutrophils Auto (Bld) [#/Vo l]on 02-09-2024 Neutrophils (Bld) [#/Vol] 8.5 10 3/uL 1.4-6.5 [facility] Neutrophils/100 WBC Auto (Bl d)on 02-09-2024 Neutrophils/100 WBC (Bld) 78.2 % 43.0-75.0 [facility] No Panel Informationon 02-08 C-Reactive Protein, Quantitative 2.52 mg/dL <=0.50 [facility] Eosinophils # (Auto) 0.1 10 3/uL 0.0-0.7 [facility] Immature Granulocyte # (Auto) 0.03 10 3/uL 0.00-0.03 [facility] Platelet mean volume Auto (B ld) [Entitic vol]on 02-09-2024 Platelet mean volume (Bld) [Entitic vol] 10.3 fL 9.5-13.5 [facility] Platelets Auto (Bld) [#/Vol] on 02-09-2024 Platelets (Bld) [#/Vol] 328 10 3/uL 150-450 [facility] RBC Auto (Bld) [#/Vol]on RBC (Bld) [#/Vol] 4.29 10 6/uL 4.70-6.10 [facility] Serum or plasma albumin/glob ulin mass ratioon 02-09-2024 Albumin/Globulin [Mass ratio] 0.7 {ratio} [facility] Serum or plasma anion gap de terminationon 02-09-2024 Anion gap [Moles/Vol] 13.8 mmol/L [facility] B-Type Natriuretic Peptideon 04-08-2023 B-Type Natriuretic Peptide see note [employer] Other B-Type Natriuretic Peptide 3094.0 pg/ml Critically high <=900.0 pg/ml [employer] [facility] [employer] Other BNPon 04-08-2023 Natriuretic peptide B (Bld) [Mass/Vol] 3094.0 pg/mL Critically high <=900.0 [facility] Comment on above: Performed By: #### B MP, BNP, LIPID #### [facility] [address] [place] [address] Dr. Braxton Aly Basic Metabolic Panelon 03-24 Calcium [Mass/Vol] 8.0612499 mg/dL 8.5-10 .1 mg/dL [employer] Other CO2 [Moles/Vol] 34.81425687 mmol/L Critically high 21. 0-32.0 mmol/L [employer] Other Creatinine [Mass/Vol] 1.50345709 mg/dL Critically high 0.70-1.30 mg/dL [employer] Other Potassium [Moles/Vol] 4.42080322 mmol/L 3 .5-5.1 mmol/L [employer] Other Urea nitrogen [Mass/Vol] 25.7052697 mg/dL Critically high 7.0-18.0 mg/dL [employer] Other Basic Metabolic Panel 140 mmol/L 136-14 5 mmol/L [employer] Other Basic Metabolic Panel 148 mg/dL Critically high 74-106 mg /dL [employer] Other Basic Metabolic Panel 40 mL/min/1.73m2 Critically low >=60 mL/min/1.73m 2 [employer] Other Basic Metabolic Panel 49 mL/min/1.73m2 Critically low >=60 mL/min/1.73m 2 [employer] Other CBC AUTO DIFFon 04-08-2023 BASO # 0.1 103/ul Normal 0.0-0.1 [facility] Comment on above: Performed By: #### C BC #### [facility] [address] [address] [address] Braxton Aly Basophils/100 WBC (Bld) 0.6 % Normal 0.2-2.0 [facility] Comment on above: Performed By: #### C BC #### [facility] [address] [address] [address] Braxton Aly EO # 0.1 103/ul Normal 0.0-0.7 [facility] Comment on above: Performed By: #### C BC #### [facility] [address] [place] [address] Dr. Braxton Aly Eosinophils/100 WBC (Bld) 1.3 % Normal 0.9-7.0 [facility] Comment on above: Performed By: #### C BC #### [facility] [address] [place] [address] Dr. Braxton Aly Erythrocyte distribution width (RBC) [Ratio] 14.6 % Normal 11.0-15.0 [facility] Comment on above: Performed By: #### C BC #### [facility] [address] [place] [address] Dr. Braxton Aly Hematocrit (Bld) [Volume fraction] 44.2 % Normal 42.0-54.0 [facility] Comment on above: Performed By: #### C BC #### [facility] [address] [place] [address] Dr. Braxton Aly Hemoglobin (Bld) [Mass/Vol] 13.5 g/dL Critically low 14.0-18.0 [facility] Comment on above: Performed By: #### C BC #### [facility] [address] [place] [address] Dr. Braxton Aly IG # 0.03 10e3/ul Normal 0.00-0.03 [facility] Comment on above: Performed By: #### C BC #### [facility] [address] [place] [address] Dr. Braxton Aly IG % 0.3 % Normal 0.0-0.5 [facility] Comment on above: Performed By: #### C BC #### [facility] [address] [place] [address] Dr. Braxton Aly LYMPH # 1.3 103/ul Normal 1.2-3.8 [facility] Comment on above: Performed By: #### C BC #### [facility] [address] [place] [address] Dr. Braxton Aly Lymphocytes/100 WBC (Bld) 15.0 % Critically low 20.5-60.0 [facility] Comment on above: Performed By: #### C BC #### [facility] [address] [place] [address] Dr. Braxton Aly MANUAL DIFF REQ NO Normal [facility] Comment on above: Performed By: #### C BC #### [facility] [address] [place] [address] Dr. Braxton Aly MCH (RBC) [Entitic mass] 29.1 pg Normal 25.9-34.0 [facility] Comment on above: Performed By: #### C BC #### [facility] [address] [place] [address] Dr. Braxton Aly MCHC (RBC) [Mass/Vol] 30.5 g/dL Normal 29.9-35.2 [facility] Comment on above: Performed By: #### C BC #### [facility] [address] [place] [address] Dr. Braxton Aly MCV (RBC) [Entitic vol] 95.3 fL Critically high 80.0-94.0 [facility] Comment on above: Performed By: #### C BC #### [facility] [address] [place] [address] Dr. Braxton Aly MONO # 0.6 103/ul Normal 0.3-0.8 [facility] Comment on above: Performed By: #### C BC #### [facility] [address] [place] [address] Dr. Braxton Aly Monocytes/100 WBC (Bld) 6.7 % Normal 1.7-12.0 [facility] Comment on above: Performed By: #### C BC #### [facility] [address] [place] [address] Dr. Braxton Aly NEUT # 6.7 103/ul Critically high 1.4-6.5 [facility] Comment on above: Performed By: #### C BC #### [facility] [address] [place] [address] Dr. Braxton Aly Neutrophils/100 WBC (Bld) 76.1 % Critically high 43.0-75.0 [facility] Comment on above: Performed By: #### C BC #### [facility] [address] [address] [address] Braxton Aly Platelet mean volume (Bld) [Entitic vol] 9.4 fL Critically low 9.5-13.5 [facility] Comment on above: Performed By: #### C BC #### [facility] [address] [address] [address] Braxton Aly PLT 272 103/ul Normal 150-450 [facility] Comment on above: Performed By: #### C BC #### [facility] [address] [address] [address] Braxton Aly RBC 4.64 106/ul Critically low 4.70-6.10 [facility] Comment on above: Performed By: #### C BC #### [facility] [address] [address] [address] Braxton Aly WBC 8.8 103/ul Normal 4.0-11.0 [facility] Comment on above: Performed By: #### C BC #### [facility] [address] [address] [address] Braxton Aly Complete Blood Count and Dif diony 04-08-2023 Anisocytosis Ql (Bld) [facility] [employer] Other Basophilic stippling LM Ql (Bld) [facility] [employer] Other RBC morphology finding Nom (Bld) [facility] [employer] Other GLYCOHEMOGLOBIN A1Con 2022 ADA RECOMMENDATION SEE BELOW Normal [facility] Comment on above: Result Comment: ADA RECOMMENDED LIMIT 4.0 - 6.0 ADA THERAPEUTIC TARGET < 7.0 ACTION SUGGESTED > 7.0 Performed By: #### A 1C #### [facility] [address] [place] [address] Dr. Braxton Aly Glucose [Mass/Vol] 143 mg/dL Normal [facility] Comment on above: Performed By: #### A 1C #### [facility] [address] [address] [address] Braxton Aly HbA1c (Bld) [Mass fraction] 6.6 % Critically high 4.5-6.2 [facility] Comment on above: Performed By: #### A 1C #### [facility] [address] [address] [address] Braxton Aly Hemoglobin A1C ([facility])on 0 04-08-2023 Hemoglobin A1C ([facility]) [employer] Other LIPID PROFILEon 04-08-2023 CHOL-HDL RATIO NORM SEE BELOW Normal [facility] Comment on above: Result Comment: 3.3 - 4.4 LOW RISK 4.4 - 7.1 AVERAGE RISK 7.1 - 11.0 MODERATE RISK >11.0 HIGH RISK Performed By: #### B MP, BNP, LIPID #### [facility] [address] [place] [address] Dr. Braxton Aly Cholesterol [Mass/Vol] 119 mg/dL <=200 mg/dL T [facility] Comment on above: Performed By: #### B MP, BNP, LIPID #### [facility] [address] [place] [address] Dr. Braxton Aly Cholesterol in HDL [Mass/Vol] 36 mg/dL Critically low 40-60 mg/dL [facility] Comment on above: Performed By: #### B MP, BNP, LIPID #### [facility] [address] [place] [address] Dr. Braxton Aly Cholesterol in LDL [Mass/Vol] 67.8 mg/dL Normal [facility] Comment on above: Performed By: #### B MP, BNP, LIPID #### [facility] [address] [place] [address] Dr. Braxton Aly Cholesterol.total/Chol esterol in HDL [Mass ratio] 3.3 {ratio} [facility] Comment on above: Performed By: #### B MP, BNP, LIPID #### [facility] [address] [place] [address] Dr. Braxton Aly HDL NORMAL > or = 60 mg/dl - LOW CARDIOVASCULAR RISK <40 mg/dl - HIGH CARDIOVASCULAR RISK Normal [facility] Comment on above: Performed By: #### B MP, BNP, LIPID #### [facility] [address] [address] [address] Braxton Aly LDL CALC NORMAL SEE BELOW Normal [facility] Comment on above: Result Comment: <100 mg/dl OPTIMAL 100 - 129 mg/dl NEAR OR ABOVE OPTIMAL 130 - 159 mg/dl BORDERLINE HIGH 160 - 189 mg/dl HIGH >190 mg/dl VERY HIGH Performed By: #### B MP, BNP, LIPID #### [facility] [address] [address] [address] Braxton Aly Triglyceride [Mass/Vol] 76 mg/dL <=150 mg/dL [facility] Comment on above: Performed By: #### B MP, BNP, LIPID #### [facility] [address] [address] [address] Braxton Aly VLDL CALC 15.2 mg/dL Normal [facility] Comment on above: Performed By: #### B MP, BNP, LIPID #### [facility] [address] [address] [address] Braxton Aly Lipid Panelon 04-08-2023 Lipid Panel > or = 60 mg/dl - LOW CARDIOVASCULAR RISK <40 mg/dl - HIGH CARDIOVASCULAR RISK [employer] Other Lipid Panel SEE BELOW [employer] Other Lipid Panel 67.8 mg/dL [employer] Other Lipid Panel 15.2 mg/dL [employer] Other PROF CHEM 8 (BAS METB)on Anion gap [Moles/Vol] 9.4 mmol/L [facility] Comment on above: Performed By: #### B MP, BNP, LIPID #### [facility] [address] [address] [address] Braxton Aly Calcium [Mass/Vol] 8.9 mg/dL Normal 8.5-10.1 [facility] Comment on above: Performed By: #### B MP, BNP, LIPID #### [facility] [address] [address] [address] Braxton Aly Chloride [Moles/Vol] 100 mmol/L 98-107 mmol/L [facility] Comment on above: Performed By: #### B MP, BNP, LIPID #### [facility] [address] [place] [address] Dr. Braxton Aly CO2 [Moles/Vol] 34.7 mmol/L Critically high 21.0-32.0 [facility] Comment on above: Performed By: #### B MP, BNP, LIPID #### [facility] [address] [place] [address] Dr. Braxton Aly Creatinine [Mass/Vol] 1.71 mg/dL Critically high 0.70-1.30 [facility] Comment on above: Performed By: #### B MP, BNP, LIPID #### [facility] [address] [place] [address] Dr. Braxton Aly EGFR-AF BRAZILIAN 49 mL/min/1.73m2 Critically low >=60 [facility] Comment on above: Performed By: #### B MP, BNP, LIPID #### [facility] [address] [place] [address] Dr. Braxton Aly EGFR-NON AF BRAZILIAN 40 mL/min/1.73m2 Critically low >=60 [facility] Comment on above: Performed By: #### B MP, BNP, LIPID #### [facility] [address] [place] [address] Dr. Braxton Aly Glucose [Mass/Vol] 148 mg/dL Critically high 74-106 T [facility] Comment on above: Performed By: #### B MP, BNP, LIPID #### [facility] [address] [place] [address] Dr. Braxton Aly Potassium [Moles/Vol] 4.1 mmol/L Normal 3.5-5.1 [facility] Comment on above: Performed By: #### B MP, BNP, LIPID #### [facility] [address] [place] [address] Dr. Braxton Aly Sodium [Moles/Vol] 140 mmol/L Normal 136-145 [facility] Comment on above: Performed By: #### B MP, BNP, LIPID #### [facility] [address] [place], [place] [address] Dr. Braxton Ayl Urea nitrogen [Mass/Vol] 25.0 mg/dL Critically high 7.0-18.0 [facility] Comment on above: Performed By: #### B MP, BNP, LIPID #### [facility] [address] [place], [place] [address] Dr. Braxton Aly Urea nitrogen/Creatinine [Mass ratio] 14.6 mg/mg [facility] Comment on above: Performed By: #### B MP, BNP, LIPID #### [facility] [address] [place], [place] [address] Dr. Braxton Aly Basic Metabolic Panelon 12-25 Anion gap [Moles/Vol] 11.6 mmol/L Normal No [facility] [employer] Other Comment on above: Performed By: #### B MP #### [facility] [address] [place], [place] [address] Dr. Braxton Aly Calcium [Mass/Vol] 8.9188915 mg/dL 8.5-10 .1 mg/dL [employer] Other Chloride [Moles/Vol] 101 mmol/L Normal 98-107 [facility] [employer] Other Comment on above: Performed By: #### B MP #### [facility] [id number] Braxton Aly CO2 [Moles/Vol] 31.02526647 mmol/L 21.0-3 2.0 mmol/L [employer] Other Creatinine [Mass/Vol] 1.63875964 mg/dL Critically high 0.70-1.30 mg/dL [employer] Other Potassium [Moles/Vol] 3.04482677 mmol/L Critically low 3.5-5.1 mmol/L [employer] Other Urea nitrogen [Mass/Vol] 15.6567457 mg/dL 7.0-18.0 mg/dL [employer] Other Urea nitrogen/Creatinine [Mass ratio] 11.0 mg/mg Normal [facility] [employer] Other Comment on above: Performed By: #### B MP #### [facility] [address] [address] [address] Braxton Aly Basic Metabolic Panel see note Nor [employer] Other Basic Metabolic Panel 141 mmol/L 136-14 5 mmol/L [facility] [employer] Other Basic Metabolic Panel 157 mg/dL Critically high 74-106 mg /dL [facility] [employer] Other Basic Metabolic Panel 52 mL/min/1.73m2 Critically low >=60 mL/min/1.73m [address] [facility] [employer] Other Basic Metabolic Panel >60 mL/min/1.73m2 > =60 mL/min/1.73m [address] [facility] [employer] Other PROF CHEM 8 (BAS METB)on Calcium [Mass/Vol] 8.8 mg/dL Normal 8.5-10.1 [facility] Comment on above: Performed By: #### B MP #### [facility] [address] [address] [address] Braxton Aly CO2 [Moles/Vol] 31.7 mmol/L Normal 21.0-32.0 [facility] Comment on above: Performed By: #### B MP #### [facility] [address] [address] [address] Braxton Aly Creatinine [Mass/Vol] 1.36 mg/dL Critically high 0.70-1.30 [facility] Comment on above: Performed By: #### B MP #### [facility] [address] [address] [address] Braxton Aly EGFR-AF BRAZILIAN >60 Normal >=60 [facility] Comment on above: Performed By: #### B MP #### [facility] [address] [address] [address] Braxton Aly EGFR-NON AF BRAZILIAN 52 mL/min/1.73m2 Critically low >=60 [facility] Comment on above: Performed By: #### B MP #### [facility] [address] [place], [place] [address] Dr. Braxton Aly Glucose [Mass/Vol] 157 mg/dL Critically high 74-106 T [facility] Comment on above: Performed By: #### B MP #### [facility] [address] [place], [place] [address] Dr. Braxton Aly Potassium [Moles/Vol] 3.3 mmol/L Critically low 3.5-5.1 [facility] Comment on above: Performed By: #### B MP #### [facility] [address] [place], [place] [address] Dr. Braxton Aly Sodium [Moles/Vol] 141 mmol/L Normal 136-145 [facility] Comment on above: Performed By: #### B MP #### [facility] [address] [place], [place] [address] Dr. Braxton Aly Urea nitrogen [Mass/Vol] 15.0 mg/dL Normal 7.0-18.0 [facility] Comment on above: Performed By: #### B MP #### [facility] [address] [place], [place] [address] Dr. Braxton Aly Office Visit (Cardiology)on 12-06-2022 [...] Former smoker Tobacco Use Screening; Status:Complete; Done: [id number] Unlinked Stop: Lisinopril 10 MG Oral Tablet [...] Recorded: 06Dec2022 08:23AM Heart Rate60, R Radial Cgkktpcc531, RUE, Sitting Xuzdqyuby31, RUE, Sitting Height5 ft 9 in Cjcrmy142 lb BMI Aykcwehsng37.81 kg/m2 BSA Calculated2.51 Tobacco Useb) No PHQ-2 [...] Abdomen: abdomen (more content not included)... Normal [employer] Tobacco Screening.on 023 Adult depression screening assessment No MP-Cardiolo gy-S [place] 250 DO Work Phone: Fall risk assessment a) No falls within the last year XA-Kbefddnpyq-C [place] 250 DO Work Phone: Tobacco use status CPHS b) No VZ-Vyvpftpzni-E [place] 250 DO Work Phone: BNPon 11-08-2022 Natriuretic peptide B (Bld) [Mass/Vol] 2323.0 pg/mL Critically high <=900.0 [facility] Comment on above: Performed By: #### B NURSING STAFF DEVELOPMENT COORDINATOR, BMP #### [facility] [address] [place] [address] Dr. Braxton Aly PROF CHEM 8 (BAS METB)on Anion gap [Moles/Vol] 7.5 mmol/L Normal [facility] Comment on above: Performed By: #### B NURSING STAFF DEVELOPMENT COORDINATOR, BMP #### [facility] [address] [place] [address] Dr. Braxton Aly Calcium [Mass/Vol] 8.8 mg/dL Normal 8.5-10.1 [facility] Comment on above: Performed By: #### B NURSING STAFF DEVELOPMENT COORDINATOR, BMP #### [facility] [address] [address] [address] Braxton Aly Chloride [Moles/Vol] 100 mmol/L Normal 98-107 [facility] Comment on above: Performed By: #### B NURSING STAFF DEVELOPMENT COORDINATOR, BMP #### [facility] [address] [address] [address] Braxton Aly CO2 [Moles/Vol] 37.5 mmol/L Critically high 21.0-32.0 [facility] Comment on above: Performed By: #### B NURSING STAFF DEVELOPMENT COORDINATOR, BMP #### [facility] [address] [address] [address] Braxton Aly Creatinine [Mass/Vol] 1.38 mg/dL Critically high 0.70-1.30 [facility] Comment on above: Performed By: #### B NURSING STAFF DEVELOPMENT COORDINATOR, BMP #### [facility] [address] [place] [address] Dr. Braxton Aly EGFR-AF BRAZILIAN >60 Normal >=60 [facility] Comment on above: Performed By: #### B NURSING STAFF DEVELOPMENT COORDINATOR, BMP #### [facility] [address] [address] [address] Braxton Aly EGFR-NON AF BRAZILIAN 51 mL/min/1.73m2 Critically low >=60 [facility] Comment on above: Performed By: #### B NURSING STAFF DEVELOPMENT COORDINATOR, BMP #### [facility] [address] [address] [address] Braxton Aly Glucose [Mass/Vol] 141 mg/dL Critically high 74-106 [facility] Comment on above: Performed By: #### B NURSING STAFF DEVELOPMENT COORDINATOR, BMP #### [facility] [address] [address] [address] Braxton Aly Potassium [Moles/Vol] 3.0 mmol/L Critically low 3.5-5.1 [facility] Comment on above: Performed By: #### B NURSING STAFF DEVELOPMENT COORDINATOR, BMP #### [facility] [address] [address] [address] Braxton Aly Sodium [Moles/Vol] 142 mmol/L Normal 136-145 [facility] Comment on above: Performed By: #### B NURSING STAFF DEVELOPMENT COORDINATOR, BMP #### [facility] [address] [address] [address] Braxton Aly Urea nitrogen [Mass/Vol] 16.0 mg/dL Normal 7.0-18.0 [facility] Comment on above: Performed By: #### B NURSING STAFF DEVELOPMENT COORDINATOR, BMP #### [facility] [address] [address] [address] Braxton Aly Urea nitrogen/Creatinine [Mass ratio] 11.6 mg/mg Normal [facility] Comment on above: Performed By: #### B NURSING STAFF DEVELOPMENT COORDINATOR, BMP #### [facility] [address] [address] [address] Braxton Aly XR CHEST 2 Von [...] ALEX DAWN Date: 2022-11-08 13:38 Normal [facility] Office Visit (Cardiology)on 04-12-2022 Follow-up visit [...] Patient Instructions By signing my name below, IKatelyn RN,Scribe Please bring all medicines, vitamins, and [...] History of Present Illness attended cousins in [place] Patient returns in follow-up of problems as [...] negative for complaint. Vitals Vital Signs Recorded: [id number] 01:22PM Heart Rate60, R Radial Bndghoqw025, LUE, Sitting Xvxbjtkzr82, LUE, Sitting Height5 ft 9 in Sfawds570 lb BMI Cduihegody62.75 kg/m2 BSA Calculated2.46 Tobacco Useb) No PHQ-2 [...] Apr 12 2022 2:25PM EST (Author) Normal [employer] Tobacco Screening.on 022 Adult depression screening assessment No [facility] [employer] 250 DO Work Phone: Fall risk assessment a) No falls within the last year [facility] 250 DO Work Phone: Tobacco use status CPHS b) No [facility] [employer] 250 DO Work Phone: Echocardiogramon 03-18-[address], [place] [address] TRANSTHORACIC ECHOCARDIOGRAM REPORT Patient Name: CHEYANNE GIBBS Reading Physician: [id number] Knowles MD Study Date: 03/18/2022 Referring Physician: Mel KNOWLES MRN/PID: [id number] PCP: Anibal Gonzales Accession/Order#: [id number] Department Location: [facility] Date of : 1955 Fellow: Gender: M Nurse: Admit Date: Daycare Director: Makenna John RDCS, RVT Height: 175.26 cm CC Report to: Weight: 138.35 kg Study Type: Echocardiogram BSA: 2.47 m2 Blood Pressure: 112 /70 mmHg Diagnosis/ICD: 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; 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 Indication: Diabetes, Dyspnea, HTN, Hyperlipidemia, Former Smoker, Morbid Obesity Procedure/CPT: Echo Complete w Full Doppler-[id number] Study Detail: The following Echo studies were [...] 0.6 m/s (0.6-0.9m/s) PV Max P.3 mmHg [id number] Cheyanne Knowles MD Electronically signed on 03/18/2022 at 5:02:50 PM Final Normal [facility] Tobacco Screening.on 022 Fall risk assessment b) One or more falls in the last year [facility] 250 DO Work Phone: Tobacco use status [facility] b) No [facility] 250 DO Work Phone: ECG 12 lead ECGon 11-07-2021 ECG 12 lead ECG [facility] [address] [address] Electrocardiograph Report Signed Patient: Cheyanne Gibbs MR#: [id number] : 1955 Acct:[id number] Age/Sex: 66 / M ADM Date: 11/07/21 Loc: Room: Type: [facility] Attending Dr: Cheyanne Knowles MD Ordering Provider: [...] has shortened Confirmed by PARDEEP GREEN MD ([id number]) on 11/07/2021 9:55:55 PM Referred By: Electronically Signed By:PARDEEP GREEN MD Transcribed By: MUS Signed By Pardeep Green MD [address] [facility] ECG post procedureon ECG post procedure [facility] [place] [place] [address] Electrocardiograph Report Signed Patient: Cheyanne Gibbs MR#: [id number] : 1955 Acct:[id number] Age/Sex: 66 / M ADM Date: 11/07/21 Loc: Room: Type: [facility] Attending Dr: Cheyanne Knowlse MD Ordering Provider: Cheyanne Knowles MD Date [...] 34 BPM Confirmed by PARDEEP GREEN MD ([id number]) on 11/07/2021 9:56:10 PM Referred By: Electronically Signed By:PARDEEP GREEN MD Transcribed By: MUS Signed By Pardeep Green MD [address] [facility] Electrolyteson 11-07-2021 Chloride [Moles/Vol] 98 mmol/L Normal 95-114 [facility] Comment on above: Performed By: #### L YTES #### [facility] [address] CO2 [Moles/Vol] 31.8 mmol/L High 22.0-30.0 [facility] Comment on above: Result Comment: PERF ORMED BY: [facility] [address] [place] [address] PATHOLOGIST ELECTRO MECHANICAL DESIGNER SARA GROSSMAN M.D. Performed By: #### L YTES #### [facility] [address] Potassium [Moles/Vol] 4.1 mmol/L Normal 3.5-5.1 [facility] Comment on above: Performed By: #### L YTES #### [facility] [address] Sodium [Moles/Vol] 138 mmol/L Normal 136-146 [facility] Comment on above: Performed By: #### L YTES #### [facility] [address] No Panel Informationon 11-07 31.8\S\31.8 above high threshold 22.0-30.0 [facility] 250 DO Work Phone: Comment on above: PERFORMED BY:[facility] [facility] [place] [phone] MEDICAL DIRECTORSARA GROSSMAN M.D. 98\S\98 Normal 95-114 [facility] 250 DO Work Phone: 4.1\S\4.1 Normal 3.5-5.1 [facility] 250 DO Work Phone: 138\S\138 Normal 136-146 [facility] 250 DO Work Phone: COVID-19 Antigenon 1 [...] its performance Kym Disclaimer characteristic determined by [employer] and Kym Disclaimer validated at [facility]. This Kym Disclaimer test has not [...] Kym Disclaimer Emergency Use Authorization for Coronavirus Ykm Disclaimer iseas during the Public Health Emergency) Kym Disclaimer [...] is terminated or revoked sooner. PERFORMED BY: [facility] [address] [place] [address] PATHOLOGIST ELECTRO MECHANICAL DESIGNER SARA GROSSMAN M.D. Normal [facility] Comment on above: Performed By: #### C OVID-19 KYM, SOFIANEG #### [place] [id number] [facility] Laboratory - Microbiology an d Antimicrobial susceptibilityon 11-05-2021 SARS-CoV-2 (COVID-19) RNA NILAM+probe Ql (Unsp spec) [facility] 250 DO Work Phone: No Panel Informationon 11-05 Negative Normal Negative [facility] 250 DO Work Phone: Comment on above: This is a duplicate [employer] SARS Antigen (ROMEL) result to be used for statistical tracking purpose only.PERFORMED BY:[address] [place], [place] [phone] MEDICAL DIRECTORSARA GROSSMAN M.D. Kym Ag Negativeon 11-05-20 21 Kym Ag Negative Negative Normal Negative [facility] Comment on above: Result Comment: This is a duplicate Kym SARS Antigen (ROMEL) result to be used for statistical tracking purpose only. PERFORMED BY: [place] [address] PATHOLOGIST ELECTRO MECHANICAL DESIGNER SARA GROSSMAN M.D. Performed By: #### C OVID-19 KYM, SOFIANEG #### [address] Amiodarone (Cordarone), Seru mon 09-24-2021 Amiodarone, Serum 586 ng/mL Low 8519-2044 [facility] Comment on above: Order Comment: PT IS NON FASTING Performed By: #### B MP #### [address] #### AMIODARONE #### [facility] , Noramiodarone, Serum 478 ng/mL Normal . [facility] Comment on above: Order Comment: PT IS NON FASTING Result Comment: Note : To convert from ng/ml to ug/ml, divide the result by 1000. Reference range (amiodarone): 1.00-2.50 ug/mL. This test was developed and its performance characteristics determined by [facility]. It has not been cleared or approved by the Food and Drug Administration. Performed at: [employer] [address] [id number] Salesperson Neckties: Adina Reis [facility], Phone: [phone] PERFORMED BY: [place] [address] PATHOLOGIST ELECTRO MECHANICAL DESIGNER SARA GROSSMAN M.D. Performed By: #### B MP #### [address] #### AMIODARONE #### [facility] , Basic Metabolic Panelon 11-0 Calcium [Mass/Vol] 8.5 mg/dL Normal 8.2-10.2 [facility] Comment on above: Order Comment: PT IS NON FASTING Result Comment: PERF ORMED BY: [place] [address] PATHOLOGIST ELECTRO MECHANICAL DESIGNER SARA GROSSMAN M.D. Performed By: #### B MP #### [facility] [address] [place] [address] #### AMIODARONE #### [facility] , Chloride [Moles/Vol] 100 mmol/L Normal 95-114 [facility] Comment on above: Order Comment: PT IS NON FASTING Performed By: #### B MP #### [facility] [address] [place] [address] #### AMIODARONE #### [facility] , CO2 [Moles/Vol] 31.6 mmol/L High 22.0-30.0 [facility] Comment on above: Order Comment: PT IS NON FASTING Performed By: #### B MP #### [facility] [address] [place] [address] #### AMIODARONE #### [facility] , Creatinine [Mass/Vol] 1.51 mg/dL High 0.64-1.27 [facility] Comment on above: Order Comment: PT IS NON FASTING Performed By: #### B MP #### [facility] [address] [place] [address] #### AMIODARONE #### [facility] , Estimated GFR ( Yaima 56 [facility] Comment on above: Order Comment: PT IS NON FASTING Result Comment: GFR estimated reference range: According to KDOQI guidelines, <60 ml/min/1.73m2 is sufficient to diagnose a patient with chronic kidney disease. Performed By: #### B MP #### [facility] [address] [place] [address] [place] #### AMIODARONE #### [facility] , Estimated GFR (Non- Am 46 [facility] Comment on above: Order Comment: PT IS NON FASTING Performed By: #### B MP #### [facility] [address] [place] [address] [place] #### AMIODARONE #### [facility] , Glucose [Mass/Vol] 124 mg/dL High 70-100 [facility] Comment on above: Order Comment: PT IS NON FASTING Result Comment: [place] Glucose Reference Range is dependent on time and content of last meal. Glucose of more than 200 mg/dL in a nonstressed, ambulatory subject supports the diagnosis of Diabetes Mellitus. ADA recommended reference range Performed By: #### B MP #### [facility] [address] [place] [address] [place] #### AMIODARONE #### [facility] , Potassium [Moles/Vol] 4.2 mmol/L Normal 3.5-5.1 [facility] Comment on above: Order Comment: PT IS NON FASTING Performed By: #### B MP #### [facility] [address] [place] [address] #### AMIODARONE #### [facility] , Sodium [Moles/Vol] 141 mmol/L Normal 136-146 [facility] Comment on above: Order Comment: PT IS NON FASTING Performed By: #### B MP #### [facility] [address] [place] [address] [place] #### AMIODARONE #### [facility] , Urea nitrogen [Mass/Vol] 20 mg/dL Normal 9-23 [facility] Comment on above: Order Comment: PT IS NON FASTING Performed By: #### B MP #### [facility] [address] [place] [address] [place] #### AMIODARONE #### [facility] , IO EKG Electrocardiogram- 12 Leadon 09-24-2021 IO EKG Electrocardiogram- 12 Lead See Scanned Document -[facility] [address] DO Work Phone: No Panel Informationon 09-24 8.5\S\8.5 Normal 8.2-10.2 -[facility] DO Work Phone: Comment on above: PERFORMED BY:[facility] [place] [phone] MEDICAL DIRECTORSARA GROSSMAN M.D. 31.6\S\31.6 above high threshold 22.0-30.0 [facility] 250 DO Work Phone: 100\S\100 Normal 95-114 [facility] 250 DO Work Phone: 4.2\S\4.2 Normal 3.5-5.1 [facility] 250 DO Work Phone: 141\S\141 Normal 136-146 [facility] 250 DO Work Phone: 56\S\56 Normal [facility] 250 DO Work Phone: Comment on above: GFR estimated refere nce range: According to KDOQI guidelines, <60 ml/min/1.73m2 is sufficient to diagnose a patient with chronic kidney disease. 46\S\46 Normal [facility] 250 DO Work Phone: 1.51\S\1.51 above high threshold 0.64-1.27 [facility] 250 DO Work Phone: 20\S\20 Normal 9-23 [facility] 250 DO Work Phone: 124\S\124 above high threshold 70-100 [facility] 250 DO Work Phone: Comment on above: Random Glucose Refer ence Range is dependent on time and content of last meal. Glucose of more than 200 mg/dL in a nonstressed, ambulatory subject supports the diagnosis of Diabetes Mellitus. ADA recommended reference range 478\S\478 Normal . [facility] DO Work Phone: Comment on above: Note: To convert fro m ng/ml to ug/ml, divide the result by 1000. Reference range (amiodarone): 1.00-2.50 ug/mL. This test was developed and its performance characteristics determined by [employer]. It has not been cleared or approved by the Food and Drug Administration. Performed at: [employer] [address] [id number] Salesperson Neckties: Adina Reis [facility], Phone: [phone] BY:[address] [phone] MEDICAL DIRECTORSARA GROSSMAN M.D. 586\S\586 below low threshold 2216-4859 [facility] 250 DO Work Phone: Tobacco Screening.on 021 Fall risk assessment a) No falls within the last year [facility] 250 DO Work Phone: Tobacco use status CPHS b) No [facility] 250 DO Work Phone: ECG 12 lead ECGon 09-12-2021 ECG 12 lead ECG [facility] [place] [address] [place] [id number] Electrocardiograph Report Signed Patient: Cheyanne Gibbs MR#: [id number] : 1955 Acct:[id number] Age/Sex: 66 / M ADM Date: 09/12/21 Loc: Room: Type: [facility] Attending Dr: Cheyanne Knowles MD Ordering Provider: [...] Signed By Bridger Headley MD 1 1012 [facility] ECG post procedureon 021 ECG post procedure [facility] [address] [place] [address] [place] [address] Electrocardiograph Report Signed Patient: Cheyanne Gibbs MR#: [id number] : 1955 Acct:[id number] Age/Sex: 66 / M ADM Date: 09/12/21 Loc: Room: Type: [facility] Attending Dr: Cheyanne Knowles MD Ordering Provider: [...] has lengthened Confirmed by BRIDGER HEADLEY MD ([facility]) on 09/13/2021 9:53:40 AM Referred By: Electronically Signed By:BRIDGER HEADLEY MD Transcribed By: MUS Signed By Bridger Headley MD 1 0953 [facility] Electrolyteson 09-12-2021 Chloride [Moles/Vol] 100 mmol/L Normal 95-114 [facility] Comment on above: Performed By: #### L TAMIKOES #### [address] CO2 [Moles/Vol] 32.1 mmol/L High 22.0-30.0 [facility] Comment on above: Result Comment: PERF ORMED BY: [facility] [address] [place] [address] PATHOLOGIST ELECTRO MECHANICAL DESIGNER SARA GROSSMAN M.D. Performed By: #### L YTES #### [facility] [address] [place] [id number] [facility] Potassium [Moles/Vol] 4.5 mmol/L Normal 3.5-5.1 [facility] Comment on above: Performed By: #### L YTES #### [facility] [address] [place] [id number] [facility] Sodium [Moles/Vol] 140 mmol/L Normal 136-146 [facility] Comment on above: Performed By: #### L YTES #### [facility] [address] [place] [id number] [facility] No Panel Informationon 09-12 [facility] 250 DO Work Phone: 32.1\S\32.1 above high threshold 22.0-30.0 [facility] 250 DO Work Phone: Comment on above: PERFORMED BY:[facility] [place] [address] [phone] MEDICAL DIRECTORSARA GROSSMAN M.D. 100\S\100 Normal 95-114 [facility] 250 DO Work Phone: 4.5\S\4.5 Normal 3.5-5.1 [facility] 250 DO Work Phone: 140\S\140 Normal 136-146 [facility] 250 DO Work Phone: COVID-19 FRMCon 09-10-2021 SARS-CoV-2 (COVID-19) RNA NILAM+probe Ql (Unsp spec) Negative Normal Negative [facility] Comment on above: Order Comment: Healt hcare Worker?: N Result Comment: Testing for SARS-CoV-2 by RT-PCR This test was developed and its performance characteristics determined by [employer] and validated at the [facility]. This test has not been FDA [...] is terminated or revoked sooner. PERFORMED BY: [place] [address] PATHOLOGIST ELECTRO MECHANICAL DESIGNER SARA GROSSMAN M.D. Performed By: #### C OVID 19 [facility] #### [address] Social History Date Type Detail Facility Start: 02-04-2024 Tobacco smoking status [facility] Never smoked tobacco (finding) [facility] Start: 12-02-2023 No alcohol use No alcohol use -[place] [address] DO Work Phone: Comment on above: quit smoking approx 40 years ago; soda; Start: 12-02-2023 Sex Assigned At [facility] [employer] Other Start: 12-02-2023 Tobacco smoking status NHIS Ex-smoker [facility] Start: 12-02-2023 Tobacco use and exposure Smokeless tobacco non-user [facility] Work Phone: Start: 12-02-2023 Alcohol intake Ex-drinker (finding) [facility] Work Phone: Start: 11-22-2023 End: 12-02-2023 Exposure to SARS-CoV-2 (event) Not sure [facility] Start: 1955 Sex Assigned At Not on file [facility] Work Phone: Start: 1955 Sex Assigned At Male F [facility] History of tobacco use Current smoker [facility] Work Phone: History of tobacco use Cigarette Smoker [facility] Work Phone: Vital Signs Date Time Vital Sign Value Performing Clinician Facility 05-06-2024 11:02-0400 Body height 172.72 cm [facility] 05-06-2024 11:02-0400 Body mass index (BMI) [Ratio] 46 kg/m2 [facility] 05-06-2024 11:02-0400 Body weight 137.49 kg [facility] 05-06-2024 11:02-0400 Diastolic blood pressure 68 mm[Hg] [facility] 05-06-2024 11:02-0400 Heart rate 106 /min [facility] 05-06-2024 11:02-0400 Respiratory rate 16 /min [facility] 05-06-2024 11:02-0400 Systolic blood pressure 93 mm[Hg] [facility] 02-06-2024 11:12-0400 Body height 172.72 cm [facility] 02-06-2024 11:12-0400 Body mass index (BMI) [Ratio] 48.8 kg/m2 [facility] 02-06-2024 11:12-0400 Body weight 145.6 kg [facility] 02-06-2024 11:12-0400 Diastolic blood pressure 75 mm[Hg] [facility] 02-06-2024 11:12-0400 Heart rate 92 /min [facility] 02-06-2024 11:12-0400 Respiratory rate 16 /min [facility] 02-06-2024 11:12-0400 Systolic blood pressure 124 mm[Hg] [facility] 12-02-2023 10:36-0500 Body height 177.8 cm Cheyanne Knowles MD Work Phone: [facility] 12-02-2023 10:36-0500 Body mass index (BMI) [Ratio] 47.35 kg/m2 Cheyanne Knowles MD Work Phone: [facility] 12-02-2023 10:36-0500 Body weight 149.69 kg Cheyanne Knowles MD Work Phone: [facility] 12-02-2023 10:36-0500 Diastolic blood pressure 74 mm[Hg] Cheyanne Knowles MD Work Phone: [facility] 12-02-2023 10:36-0500 Heart rate 64 /min Cheyanne Knowles MD Work Phone: [facility] 12-02-2023 10:36-0500 Systolic blood pressure 112 mm[Hg] Cheyanne Knowles MD Work Phone: [facility] 07-08-2023 13:45-0400 Body height 172.72 cm Anibal Ball Other [employer] Other 07-08-2023 13:45-0400 Body mass index (BMI) [Ratio] 49.11 kg/m2 Anibal Ball Other [employer] Other 07-08-2023 13:45-0400 Body weight 146.51 kg Anibal Ball Other [employer] Other 07-08-2023 13:45-0400 Diastolic blood pressure 69 mm[Hg] Anibal Ball Other [employer] Other 07-08-2023 13:45-0400 Respiratory rate 20 /min Anibal Ball Other [employer] Other 07-08-2023 13:45-0400 Systolic blood pressure 93 mm[Hg] Anibal Ball Other [employer] Other 05-15-2023 10:18-0400 Body height 172.72 cm Anibal Ball Other [employer] Other 05-15-2023 10:18-0400 Body mass index (BMI) [Ratio] 50.02 kg/m2 Anibal Ball Other [employer] Other 05-15-2023 10:18-0400 Body weight 149.23 kg Anibal Ball Other [employer] Other 05-15-2023 10:18-0400 Diastolic blood pressure 75 mm[Hg] Anibal Ball Other [employer] Other 05-15-2023 10:18-0400 Systolic blood pressure 114 mm[Hg] Anibal Ball Other [employer] Other 04-07-2023 10:30-0400 Body height 172.72 cm Anibal Ball Other [employer] Other 04-07-2023 10:30-0400 Body mass index (BMI) [Ratio] 50.54 kg/m2 Anibal Ball Other [employer] Other 04-07-2023 10:30-0400 Body weight 150.78 kg Anibal Ball Other [employer] Other 04-07-2023 10:30-0400 Diastolic blood pressure 64 mm[Hg] Anibal Ball Other [employer] Other 04-07-2023 10:30-0400 Respiratory rate 12 /min Anibal Ball Other [employer] Other 04-07-2023 10:30-0400 Systolic blood pressure 91 mm[Hg] Anibal Ball Other [employer] Other 01-06-2023 11:30-0500 Body height 172.72 cm Anibal Ball Other [employer] Other 01-06-2023 11:30-0500 Body mass index (BMI) [Ratio] 49.93 kg/m2 Anibal Ball Other [employer] Other 01-06-2023 11:30-0500 Body weight 148.96 kg Anibal Ball Other [employer] Other 01-06-2023 11:30-0500 Diastolic blood pressure 76 mm[Hg] Anibal Ball Other [employer] Other 01-06-2023 11:30-0500 Respiratory rate 16 /min Anibal Ball Other [employer] Other 01-06-2023 11:30-0500 Systolic blood pressure 122 mm[Hg] Anibal Ball Other [employer] Other 12-06-2022 08:23-0500 Body height 175.26 cm Anibal E Ball Work Phone: [facility] [place] 250 DO Work Phone: 12-06-2022 08:23-0500 Body mass index (BMI) [Ratio] 46.81 kg/m2 Anibal E Ball Work Phone: [facility] [place] 250 DO Work Phone: 12-06-2022 08:23-0500 Body surface area Derived from formula 2.51 m2 Anibal E Ball Work Phone: [facility]jlsk[facility]dc[facility] [place] 250 DO Work Phone: 12-06-2022 08:23-0500 Body weight 143.79 kg Anibal E Ball Work Phone: TC-Zqwkunugrw-S[facility] [place] 250 DO Work Phone: 12-06-2022 08:23-0500 Diastolic blood pressure 62 mm[Hg] Anibal E Ball Work Phone: AE[facility]Feqmninroy-Naum[facility] [place] 250 DO Work Phone: 12-06-2022 08:23-0500 Heart rate 60 /min Anibal E Ball Work Phone: Y[facility]Fucadplyiw-Ncbymn [place] 250 DO Work Phone: 12-06-2022 08:23-0500 Systolic blood pressure 110 mm[Hg] Anibal E Ball Work Phone: [facility]-Citvqrlmoi-Fhhwsi [place] 250 DO Work Phone: 12-05-2022 11:30-0500 Body height 172.72 cm Anibal Ball Other [employer] Other 12-05-2022 11:30-0500 Body mass index (BMI) [Ratio] 48.32 kg/m2 Anibal Ball Other [employer] Other 12-05-2022 11:30-0500 Body weight 144.15 kg Anibal Ball Other [facility] [employer] Other 12-05-2022 11:30-0500 Diastolic blood pressure 72 mm[Hg] Anibal Ball Other [facility] [employer] Other 12-05-2022 11:30-0500 Respiratory rate 16 /min Anibal Ball Other [place] [employer] Other 12-05-2022 11:30-0500 Systolic blood pressure 122 mm[Hg] Anibal Ball Other [place] [employer] Other 04-12-2022 13:22-0400 Body height 175.26 cm Anibal E Ball Work Phone: [facility] 250 DO Work Phone: 04-12-2022 13:22-0400 Body mass index (BMI) [Ratio] 44.75 kg/m2 Anibal E Ball Work Phone: [facility] 250 DO Work Phone: 04-12-2022 13:22-0400 Body surface area Derived from formula 2.46 m2 Anibal E Ball Work Phone: [facility] 250 DO Work Phone: 04-12-2022 13:22-0400 Body weight 137.44 kg Anibal E Ball Work Phone: [facility] 250 DO Work Phone: 04-12-2022 13:22-0400 Diastolic blood pressure 70 mm[Hg] Anibal E Ball Work Phone: [facility] 250 DO Work Phone: 04-12-2022 13:22-0400 Heart rate 60 /min Anibal E Ball Work Phone: [facility] 250 DO Work Phone: 04-12-2022 13:22-0400 Systolic blood pressure 110 mm[Hg] Anibal E Ball Work Phone: [facility] 250 DO Work Phone: 03-18-2022 08:45-0400 60 1 Anibal E Ball Work Phone: [facility] [address] [place] Work Phone: Comment on above: [id number] 12-03-2021 11:02-0500 Body height 175.26 cm Anibal E Ball Work Phone: [facility] 250 DO Work Phone: 12-03-2021 11:02-0500 Body mass index (BMI) [Ratio] 45.04 kg/m2 Anibal E Ball Work Phone: [facility] 250 DO Work Phone: 12-03-2021 11:02-0500 Body surface area Derived from formula 2.47 m2 Anibal E Ball Work Phone: [facility] 250 DO Work Phone: 12-03-2021 11:02-0500 Body weight 138.35 kg Anibal E Ball Work Phone: [facility] 250 DO Work Phone: 12-03-2021 11:02-0500 Diastolic blood pressure 68 mm[Hg] Anibal E Ball Work Phone: [facility] 250 DO Work Phone: 12-03-2021 11:02-0500 Heart rate 91 /min Anibal E Ball Work Phone: [facility] 250 DO Work Phone: 12-03-2021 11:02-0500 Systolic blood pressure 109 mm[Hg] Anibal E Ball Work Phone: [facility] 250 DO Work Phone: 09-24-2021 10:36-0400 Body height 175.26 cm Anibal E Ball Work Phone: [facility] [employer] 250 DO Work Phone: 09-24-2021 10:36-0400 Body mass index (BMI) [Ratio] 52.57 kg/m2 Anibal E Ball Work Phone: [facility] 250 DO Work Phone: 09-24-2021 10:36-0400 Body surface area Derived from formula 2.64 m2 Anibal E Ball Work Phone: [facility] 250 DO Work Phone: 09-24-2021 10:36-0400 Body weight 161.48 kg Anibal E Ball Work Phone: [facility] 250 DO Work Phone: 09-24-2021 10:36-0400 Diastolic blood pressure 70 mm[Hg] Anibal E Ball Work Phone: [facility] [employer] 250 DO Work Phone: 09-24-2021 10:36-0400 Heart rate 130 /min Anibal Gonzales Work Phone: [facility] 250 DO Work Phone: 09-24-2021 10:36-0400 Systolic blood pressure 104 mm[Hg] Anibal Gonzales Work Phone: [facility]dala 250 DO Work Phone: Clinical Notes 09-12-2021 to 12-11-2023 Note Date & Type Note Facility 12-11-2023 Evaluation note Encounter Date Diagnosis Assessment Notes Nov, Atrial fibrillation, persistent (ICD-10 - I48.19) Nov, Hyperlipidemia type II (ICD-10 - E78.01) Nov, Chronic HFrEF (heart failure with reduced ejection fraction) (ICD-10 - I50.22) Echo: LVEF 25-30%, Mild MR,and AI, RVSP normal - 2020 [employer] Other 01-09-2024 History of Present illness Narrative* [...] Scribe Attestation By signing my name below, IDulce LPN , [place] attest that this documentation has been prepared under the direction and in the presence of Ava Knowles MD. [facility] Work Phone: 1(249) 744-341701-09-2024 Instructions* Patient Instructions* Jordan Quiñonez MA - [...] time of your visit. [facility] Work Phone: 1(837) 501-488208-15-2023 Evaluation note* Encounter Date Diagnosis Assessment Notes [...] use, the patient reduces the risk for ID, CVA, HTN, cardiac dysrhythmias and sudden cardiac [...] and feet daily for blisters and ulcerations. [employer] Other 06-14-2023 Evaluation note* Encounter Date Diagnosis Assessment Notes Treatment Notes Treatment Clinical Notes Apr, Atrial fibrillation, persistent (ICD-10 - I48.19) [employer] Other 06-02-2023 Evaluation note* Encounter Date Diagnosis Assessment Notes Treatment Notes Treatment Clinical Notes Apr, Atrial fibrillation, persistent (ICD-10 - I48.19) [employer] Other 05-15-2023 Evaluation note* Encounter Date Diagnosis [...] are maintaining regular scheduled appts with their box spinner. Tachycardic w/o symptoms of lightheadedeness. Continues BAEZ [...] PSA (prostate specific antigen) (ICD-10 - Z12.5) [employer] Other 02-17-2023 Evaluation note* Encounter Date Diagnosis Assessment Notes Treatment Notes Treatment Clinical Notes Dec, Hypokalemia (ICD-10 - E87.6) [employer] Other 02-15-2023 Evaluation note* Encounter Date Diagnosis Assessment Notes Treatment Notes Treatment Clinical Notes Dec, Dilated cardiomyopathy (ICD-10 - I42.0) [employer] Other 02-15-2023 Evaluation note* Encounter Date Diagnosis Assessment Notes Treatment Notes Treatment Clinical Notes Dec, Atrial fibrillation, persistent (ICD-10 - I48.19) [employer] Other 02-13-2023 Evaluation note* Encounter Date Diagnosis [...] are maintaining regular scheduled appts with their box spinner. Dec, Obstructive sleep apnea (adult) (pediatric) (ICD-10 - G47.33) This patient is aware of the benefits associated with KOFI: With continued use, the patient reduces the risk for ID, CVA, HTN, cardiac dysrhythmias and sudden cardiac [...] and feet daily for blisters and ulcerations. [employer] Other 01-12-2023 Evaluation note* Encounter Date Diagnosis [...] 2 diabetes mellitus with hyperglycemia, unspecified whether senior care insulin use (ICD-10 - E11.65) This patient [...] use, the patient reduces the risk for ID, CVA, HTN, cardiac dysrhythmias and sudden cardiac [...] exercise for 30 minutes, 3-5 times weekly. [employer] Other 10-20-2021 [id number]:[facility] ECG Post Procedure -[facility] 250 DO Work Phone: 1(737) 180-382610-20-2021 [id number]:[facility] ECG Post Procedure -[facility] 250 DO Work Phone: 1(134) 987-147410-20-2021 [id number]:[facility] ECG Post Procedure -[facility] 250 DO Work Phone: 1(236) 693-538610-20-2021 [id number]:[facility] ECG Post Procedure -[facility] 250 DO Work Phone: Evaluation noteNo InformationNochildren[facility] [employer] Other Evaluation [employer] Other Evaluation note* Diagnosis Non-ischemic cardiomyopathy (CMS/HCC)- Primary Other primary cardiomyopathies Paroxysmal atrial fibrillation (CMS/HCC) Atrial fibrillation Primary hypertension Unspecified essential hypertension Mixed hyperlipidemia documented in this encounter [facility] Work Phone: Evaluation note* Diagnosis Onset Date Resolution Status Atrial fibrillation, persistent acute Chronic HFrEF (heart failure with reduced ejection fraction) acute Chronic venous insufficiency acute Nonischemic cardiomyopathy a cute Obstructive sleep apnea (adult) (pediatric) acute Primary hypertension acute Stage 3a chronic kidney disease acute Type 2 diabetes mellitus with hyperglycemia acute [facility] Work Phone: Evaluation note* Diagnosis Onset Date Resolution Status Atrial fibrillation, persistent acute Chronic HFrEF (heart failure with reduced ejection fraction) acute Chronic venous insufficiency acute Diarrhea acute Nonischemic cardiomyopathy a cute Obstructive sleep apnea (adult) (pediatric) acute Primary hypertension acute Stage 3a chronic kidney disease acute Type 2 diabetes mellitus with hyperglycemia acute Atrial fibrillation, persistent acute Chronic HFrEF (heart failure with reduced ejection fraction) acute Chronic venous insufficiency acute Nonischemic cardiomyopathy a cute Obstructive sleep apnea (adult) (pediatric) acute Primary hypertension acute Screening PSA (prostate specific antigen) acute Stage 3a chronic kidney disease acute Type 2 diabetes mellitus with hyperglycemia acute Medicare annual wellness visit, subsequent noneactive [facility] Work Phone: History general Narrative - Reported* [...] History COLONOSCOPY Hospitalization History SEE SURGICAL HX [facility] [employer] Other History [facility] - [facility] [employer] Other History [facility] - [facility] [employer] Other History of Present illness Narrative* Patient [...] fact his ejection fraction does not improve [facility] 250 DO Work Phone: History [...] fact his ejection fraction does not improve [facility] Work Phone: History of Present illness Narrative* attended [place] in [place] * Patient returns in follow-up of problems [...] weight loss and he understands our recommendation. -[facility] 250 DO Work Phone: History of Present illness Narrative* [facility] [place] * Patient returns in follow-up of problems [...] weight loss and he understands our recommendation. -[employer] 600 DO Work Phone: History of Present [...] occasion the merits of diet and weight loss.[id number] 250 DO Work Phone: Reason for referral (narrative)* Consultation (Routine) - Authorized Specialty Diagnoses / Procedures Referred By Contac t Referred To Contact Cardiology Diagnoses Non-ischemic cardiomyopathy (CMS/HCC) Paroxysmal atrial fibrillation (CMS/HCC) Primary hypertension Mixed hyperlipidemia Procedures Follow Up In Cardiology Cheyanne Knowles MD [address] [place] [address], [address] [address] Cheyanne Knowles MD [address] [place] [address], [address] [address] Referral ID Status Reason Start Date Expiration Date V isits Requested Visits Authorized [id number] Authorized 12/02/2023 12/01/2024 1 1 [facility] Work Phone: Chief Complaint Follow up [facility].CHEYANNE GIBBS is being seen for [facility] F/U.CHEYANNE GIBBS is being seen for [facility] F/U.CHEYANNE GIBBS is being seen for Follow [...] Mother(V16.9, Z80.9) Status:Active Summary Purpose Advance Directives Advance Directive Response Recorded Date/ Time Advance Directives No September 12:38pm Chief Complaint and Reason for Visit Chief Complaint 3 month follow up Reason for Visit Atrial fibrillation, persistent Chronic HFrEF (heart failure with reduced ejection fraction) Chronic venous insufficiency Nonischemic cardiomyopathy Obstructive sleep apnea (adult) (pediatric) Primary hypertension Stage 3a chronic kidney disease Type 2 diabetes mellitus with hyperglycemia Chief Complaint 3 month follow up 3 month follow up Reason for Visit Atrial fibrillation, persistent Chronic HFrEF (heart failure with reduced ejection fraction) Chronic venous insufficiency Diarrhea Nonischemic cardiomyopathy Obstructive sleep apnea (adult) (pediatric) Primary hypertension Stage 3a chronic kidney disease Type 2 diabetes mellitus with hyperglycemia Atrial fibrillation, persistent Chronic HFrEF (heart failure with reduced ejection fraction) Chronic venous insufficiency Nonischemic cardiomyopathy Obstructive sleep apnea (adult) (pediatric) Primary hypertension Screening PSA (prostate specific antigen) Stage 3a chronic kidney disease Type 2 diabetes mellitus with hyperglycemia Medicare annual wellness visit, subsequent Additional Source Comments (unrecognized sect ion and content) No Status Records FoundNo Status Records FoundNo Status Records FoundNo Status Records FoundNo Status Records FoundNo Status Records Found INFORMATION SOURCE (unrecogn ized section and content) DATE CREATED AUTHOR 12/18/2021 [facility] DATE CREATED AUTHOR AUTHOR'S ORGANIZ ATION 03/22/2022 [facility] DATE CREATED AUTHOR AUTHOR'S ORGANIZ ATION 12/06/2022 [employer] DATE CREATED AUTHOR AUTHOR'S ORGANIZ ATION 12/10/2022 [facility] DATE CREATED AUTHOR AUTHOR'S ORGANIZ ATION 05/02/2023 [facility] DATE CREATED AUTHOR AUTHOR'S ORGANIZ ATION 12/06/2023 [facility] REASON FOR VISIT (unrecogniz ed section and content) Reason Comments Annual Exam Care Teams (unrecognized sec tion and content) [facility] Specialty Start Date End Date Anibal Gonzales [place] [address] PCP - General Internal Medicine 12/02/23 Team Status: Active Member Role Status Dates Anibal Gonzales DO Primary Care Provider Active Team Status: Inactive Member Role Status Dates Anibal Gonzales DO Primary Care Provide r, Attending Provider Active Start: February 06, 2024 End: February 06, 2024 Team Status: Active Member Role Status Dates Anibal Gonzales DO Primary Care Provide r, Attending Provider Active Start: February 09, 2024 Team Status: Active Member Role Status Dates Anibal Gonzales , Primary Care Provide r, Attending Provider Active Start: February 10, 2024 Team Status: Inactive Member Role Status Dates Anibal Gonzales , Primary Care Provide r, Attending Provider Active Start: May 06, 2024 End: May 06, 2024 Goals (unrecognized section and content) Goals may be documented in a n alternate section FOR RECORDS PERTAINING TO PATIENTS WHO ARE [...] BE BASED ON THE PRIMARY CLINICAL RECORDS. [facility] [employer] [facility]. provides no warranty or guarantee of the accuracy or completeness of information in this document.
[2024-05-07 09:26] LABS: Basophils Absolute Auto 0.1 10^3/uL (0.0-0.1); Basophils Percent Auto 0.6 % (0.2-2.0); Eosinophils Absolute Auto 0.1 10^3/uL (0.0-0.7); Eosinophils Percent Auto 1.2 % (0.9-7.0); Hematocrit 43.4 % (42.0-54.0); Hemoglobin 12.9 g/dL (14.0-18.0); Immature Granulocytes Abs Auto 0.03 10^3/uL (0.00-0.03); Immature Granulocytes Pct Auto 0.3 % (0.0-0.5); Lymphocytes Absolute Auto 1.2 10^3/uL (1.2-3.8); Lymphocytes Percent Auto 11.9 % (20.5-60.0); Mean Corpuscular HGB Conc 29.7 g/dL (29.9-35.2); Mean Corpuscular Hemoglobin 27.3 pg (25.9-34.0); Mean Corpuscular Volume 91.8 fL (80.0-94.0); Mean Platelet Volume 9.6 fL (9.5-13.5); Monocytes Absolute Auto 0.7 10^3/uL (0.3-0.8); Monocytes Percent Auto 6.9 % (1.7-12.0); Neutrophils Absolute Auto 7.6 10^3/uL (1.4-6.5); Neutrophils Percent Auto 79.1 % (43.0-75.0); Platelet Count 334 10^3/uL (150-450); Red Blood Count 4.73 10^6/uL (4.70-6.10); Red Cell Distribution Width 14.8 % (11.0-15.0); White Blood Count 9.6 10^3/uL (4.0-11.0)
[2024-05-07 09:42] LABS: Estimated Average Glucose 140 mg/dL; Glycohemoglobin A1C 6.5 % (4.5-6.2)
[2024-05-07 09:47] LABS: Alanine Aminotransferase 14 U/L (16-63); Albumin Globulin Ratio 0.7; Alkaline Phosphatase 104 U/L (46-116); Aspartate Amino Transferase 12 U/L (15-37); BUN Creatinine Ratio 11.3; Bilirubin Total 1.1 mg/dL (0.2-1.0); Calcium 9.1 mg/dL (8.5-10.1); Chloride 100 mmol/L (98-107); Chol HDL Ratio 3.3; Cholesterol 118 mg/dL (<=200); Estimated GFR (African America >60 (>=60); Estimated GFR (Non-African Ame 50 (>=60); Globulin 4.5 g/dL; Glucose 107 mg/dL (74-106); HDL Cholesterol 36 mg/dL (40-60); Sodium 138 mmol/L (136-145); Total Protein 7.5 g/dL (6.4-8.2); Triglycerides 88 mg/dL (<=150); VLDL CHOLESTEROL 17.6 mg/dL
[2024-05-07 10:34] LABS: Prostate Specific Antigen Scrn 0.25 ng/mL (<=4.00)
[2024-05-07 12:48] LABS: Microalbumin Urine Random 21.2 mg/dL (<=30.0)
== END 2024-05-07 08:36 | disposition home or self-care (01) ==
LOC: LAB 08:39
PROVIDERS: PCP Internal Medicine; Visit Provider Internal Medicine
DX: E78.01 Familial hypercholesterolemia (principal); I48.19 Other persistent atrial fibrillation; E11.65 Type 2 diabetes mellitus with hyperglycemia; I50.22 Chronic systolic (congestive) heart failure; I87.2 Venous insufficiency (chronic) (peripheral); I11.0 Hypertensive heart disease with heart failure; Z12.5 Encounter for screening for malignant neoplasm of prostate
CPT/HCPCS: 36415; 80053; 80061; 82043; 83036; 85025; G0103

== ENCOUNTER 2024-06-08 09:20 | Outpatient (OUT) | payer OTHER, SELFPAY ==
--- OUTSIDE RECORDS SUMMARY | 2024-06-08 09:26 | XMS_ITS | CCD ---
Author Organization [facility] Care Team Providers Care Director Of Retail Analytics Name Role Phone Anibal Gonzales Unavailable Unavailable Unavailable Cheyanne Knowles II Referring Unav ailable McGuinn II, Cheyanne De Leon Attending Unav ailable Anibal Gonzales Primary Care Unavailabl e Anibal Gonzales Primary Care Unavailabl e Rosieuinjusten II, Cheyanne De Leon Referring Unav ailable McGuinn DELIA, Cheyanne De Leon Attending Unav Anibal Linares Unavailable CHRISTIAN, DR MONTE Attending Unavailable CHRISTIAN, [...] Unavailable CHRISTIAN, DR MONTE Primary Care Unavailable ZIEBER, DR ALEX Luis Consulting Unavailable CHRISTIAN, DR MONTE Primary Care Unavailable ZAHLSHEA, RASHEEDA Admitting Unavailable ZACAR, RASHEEDA Attending Unavailable Anibal Gonzales DO Primary Care [...] 3 Ordered: 15-Apr-2022 Cheyanne Knowles MD Active Problems Active Problems Problem Classification Problem [...] Informationon 02-09 Clostridium difficile (PCR)(LAB) Negative NEGATIVE [facility] Miscellaneous Test Comment See comment [facility] Comment on above: Specimen Source: ST - Stool - Stool - 700.100 Stool Campylobacter Culture Res 1 See comment [facility] Comment on above: [facility], No Panel InformationOrdered By: Anibal Gonzales on 02-10-2024 E coli Shiga Toxin EIA [facility] Salmonella/Shigella Screen [facility] Basophils Auto (Bld) [#/Vol] on 02-09-2024 Basophils (Bld) [#/Vol] 0.1 10 3/uL 0.0-0.1 [facility] Basophils/100 WBC Auto (Bld) on 02-09-2024 Basophils/100 WBC (Bld) 0.6 % 0.2-2.0 [facility] Eosinophils/100 WBC Auto (Bl d)on 02-09-2024 Eosinophils/100 WBC (Bld) 1.1 % 0.9-7.0 [facility] Erythrocyte distribution wid th Auto (RBC) [Ratio]on 02-09-2024 Erythrocyte distribution width (RBC) [Ratio] 13.6 % 11.0-15.0 [facility] Estimated glomerular filtrat ion rate (GFR) non- Americanon 02-09-2024 GFR/1.73 sq M.predicted among non-blacks MDRD (S/P/Bld) [Vol rate/Area] mL/min/{1.73_m2} >=60 [facility] Globulin Calc (S) [Mass/Vol] on 02-09-2024 Globulin (S) [Mass/Vol] 4.1 g/dL [facility] Hematocrit Auto (Bld) [Volum e fraction]on 02-09-2024 Hematocrit (Bld) [Volume fraction] 40.9 % 42.0-54.0 [facility] Hemoglobin [Mass/volume] in Bloodon 02-09-2024 Hemoglobin (Bld) [Mass/Vol] 12.2 g/dL 14.0-18.0 [facility] Laboratory - Chemistry and C hemistry - challengeon 02-09-2024 Albumin [Mass/Vol] 2.8 g/dL 3.4-5.0 [facility] ALP [Catalytic activity/Vol] 107 U/L 46-116 [facility] ALT [Catalytic activity/Vol] 19 U/L 16-63 [facility] AST [Catalytic activity/Vol] 14 U/L 15-37 [facility] Bilirubin [Mass/Vol] 0.9 mg/dL 0.2-1.0 [facility] Calcium [Mass/Vol] 8.9 mg/dL 8.5-10.1 [facility] Chloride [Moles/Vol] 103 mmol/L 98-107 [facility] CO2 [Moles/Vol] 26.7 mmol/L 21.0-32.0 [facility] Creatinine [Mass/Vol] 1.07 mg/dL 0.70-1.[address] [facility] GFR/1.73 sq M.predicted MDRD (S/P/Bld) [Vol rate/Area] mL/min/{1.73_m2} >=60 [facility] Glucose [Mass/Vol] 102 mg/dL 74-106 [facility] Potassium [Moles/Vol] 3.5 mmol/L 3.5-5.[address] [facility] Protein [Mass/Vol] 6.9 g/dL 6.4-8.2 [facility] Sodium [Moles/Vol] 140 mmol/L 136-145 [facility] Urea nitrogen [Mass/Vol] 12.0 mg/dL 7.0-18.0 [facility] Urea nitrogen/Creatinine [Mass ratio] 11.2 mg/mg [facility] Laboratory - Hematology and Cell countson 02-09-2024 Immature granulocytes/100 WBC (Bld) 0.3 % 0.0-0.5 [facility] Leukocytes [#/volume] correc delmi for nucleated erythrocytes in Blood by Automated counon 02-09-2024 WBC corrected for nucl RBC Auto (Bld) [#/Vol] 10.9 10 3/uL 4.0-11.0 [facility] Lymphocytes Auto (Bld) [#/Vo l]on 02-09-2024 Lymphocytes (Bld) [#/Vol] 1.3 10 3/uL 1.2-3.8 [facility] Lymphocytes/100 WBC Auto (Bl d)on 02-09-2024 Lymphocytes/100 WBC (Bld) 11.7 % 20.5-60.0 [facility] MCH Auto (RBC) [Entitic mass ]on 02-09-2024 MCH (RBC) [Entitic mass] 28.4 pg 25.9-34.0 [facility] MCHC Auto (RBC) [Mass/Vol]on 02-09-2024 MCHC (RBC) [Mass/Vol] 29.8 g/dL 29.9-35.[address] [facility] MCV Auto (RBC) [Entitic vol] on 02-09-2024 MCV (RBC) [Entitic vol] 95.3 fL 80.0-94.0 [facility] Monocytes Auto (Bld) [#/Vol] on 02-09-2024 Monocytes (Bld) [#/Vol] 0.9 10 3/uL 0.3-0.8 [facility] Monocytes/100 WBC Auto (Bld) on 02-09-2024 Monocytes/100 WBC (Bld) 8.1 % 1.7-12.0 [facility] Neutrophils Auto (Bld) [#/Vo l]on 02-09-2024 Neutrophils (Bld) [#/Vol] 8.5 10 3/uL 1.4-6.5 [facility] Neutrophils/100 WBC Auto (Bl d)on 02-09-2024 Neutrophils/100 WBC (Bld) 78.2 % 43.0-75.0 [facility] No Panel Informationon 02-08 C-Reactive Protein, Quantitative 2.52 mg/dL <=0.50 [facility] Eosinophils # (Auto) 0.1 10 3/uL 0.0-0.[address] [facility] Immature Granulocyte # (Auto) 0.03 10 3/uL 0.00-0.03 [facility] Platelet mean volume Auto (B ld) [Entitic vol]on 02-09-2024 Platelet mean volume (Bld) [Entitic vol] 10.3 fL 9.5-13.5 [facility] Platelets Auto (Bld) [#/Vol] on 02-09-2024 Platelets (Bld) [#/Vol] 328 10 3/uL 150-450 [facility] RBC Auto (Bld) [#/Vol]on RBC (Bld) [#/Vol] 4.29 10 6/uL 4.70-6.10 [facility] Serum or plasma albumin/glob ulin mass ratioon 02-09-2024 Albumin/Globulin [Mass ratio] 0.7 {ratio} [facility] Serum or plasma anion gap de terminationon 02-09-2024 Anion gap [Moles/Vol] 13.8 mmol/L [facility] B-Type Natriuretic Peptideon 04-08-2023 B-Type Natriuretic Peptide see note [employer] Other B-Type Natriuretic Peptide 3094.0 pg/ml Critically high <=900.0 pg/ml [employer] Other BNPon 04-08-2023 Natriuretic peptide B (Bld) [Mass/Vol] 3094.0 pg/mL Critically high <=900.0 [facility] Comment on above: Performed By: #### B MP, BNP, LIPID #### [facility] [address] [address] [address] Braxton Aly Basic Metabolic Panelon 03-24 Calcium [Mass/Vol] 8.5068339 mg/dL 8.5-10 .1 mg/dL [employer] Other CO2 [Moles/Vol] 34.77668312 mmol/L Critically high 21. 0-32.0 mmol/L [employer] Other Creatinine [Mass/Vol] 1.23055512 mg/dL Critically high 0.70-1.30 mg/dL [employer] Other Potassium [Moles/Vol] 4.24266130 mmol/L 3 .5-5.1 mmol/L [employer] Other Urea nitrogen [Mass/Vol] 25.2501498 mg/dL Critically high 7.0-18.0 mg/dL [employer] Other Basic Metabolic Panel 140 mmol/L 136-14 5 mmol/L [employer] Other Basic Metabolic Panel 148 mg/dL Critically high 74-106 mg /dL [employer] Other Basic Metabolic Panel 40 mL/min/1.73m2 Critically low >=60 mL/min/1.73m 2 [employer] Other Basic Metabolic Panel 49 mL/min/1.73m2 Critically low >=60 mL/min/1.73m 2 [employer] Other CBC AUTO DIFFon 04-08-2023 BASO # 0.1 103/ul Normal 0.0-0.1 [facility] Comment on above: Performed By: #### C BC #### [facility] [address] [place] [address] Dr. Braxton Aly Basophils/100 WBC (Bld) 0.6 % Normal 0.2-2.0 [facility] Comment on above: Performed By: #### C BC #### [facility] [address] [place] [address] Dr. Braxton Aly EO # 0.1 103/ul Normal 0.0-0.7 [facility] Comment on above: Performed By: #### C BC #### [facility] [address] [place] [address] Dr. Braxton Aly Eosinophils/100 WBC (Bld) 1.3 % Normal 0.9-7.0 [facility] Comment on above: Performed By: #### C BC #### [facility] [address] [place] [address] Dr. Braxton Aly Erythrocyte distribution width (RBC) [Ratio] 14.6 % Normal 11.0-15.0 [facility] Comment on above: Performed By: #### C BC #### [facility] [address] [place] [address] Dr. Braxton Aly Hematocrit (Bld) [Volume fraction] 44.2 % Normal 42.0-54.0 [facility] Comment on above: Performed By: #### C BC #### [facility] [address] [place] [address] Dr. Braxton Aly Hemoglobin (Bld) [Mass/Vol] 13.5 g/dL Critically low 14.0-18.0 [facility] Comment on above: Performed By: #### C BC #### [facility] [address] [place] [address] Dr. Braxton Aly IG # 0.03 10e3/ul Normal 0.00-0.03 [facility] Comment on above: Performed By: #### C BC #### [facility] [address] [place] [address] Dr. Braxton Aly IG % 0.3 % Normal 0.0-0.5 [facility] Comment on above: Performed By: #### C BC #### [facility] [address] [place] [address] Dr. Braxton Aly LYMPH # 1.3 103/ul Normal 1.2-3.8 [facility] Comment on above: Performed By: #### C BC #### [facility] [address] [place] [address] Dr. Braxton Aly Lymphocytes/100 WBC (Bld) 15.0 % Critically low 20.5-60.0 [facility] Comment on above: Performed By: #### C BC #### [facility] [address] [place] [address] Dr. Braxton Aly MANUAL DIFF REQ NO Normal [facility] Comment on above: Performed By: #### C BC #### [facility] [address] [place] [address] Dr. Braxton Aly MCH (RBC) [Entitic mass] 29.1 pg Normal 25.9-34.0 [facility] Comment on above: Performed By: #### C BC #### [facility] [address] [address] [address] Braxton Aly MCHC (RBC) [Mass/Vol] 30.5 g/dL Normal 29.9-35.2 [facility] Comment on above: Performed By: #### C BC #### [facility] [address] [address] [address] Braxton Aly MCV (RBC) [Entitic vol] 95.3 fL Critically high 80.0-94.0 [facility] Comment on above: Performed By: #### C BC #### [facility] [address] [address] [address] Braxton Aly MONO # 0.6 103/ul Normal 0.3-0.8 [facility] Comment on above: Performed By: #### C BC #### [facility] [address] [address] [address] Braxton Aly Monocytes/100 WBC (Bld) 6.7 % Normal 1.7-12.0 [facility] Comment on above: Performed By: #### C BC #### [facility] [address] [address] [address] Braxton Aly NEUT # 6.7 103/ul Critically high 1.4-6.5 [facility] Comment on above: Performed By: #### C BC #### [facility] [address] [address] [address] Braxton Aly Neutrophils/100 WBC (Bld) 76.1 % Critically high 43.0-75.0 [facility] Comment on above: Performed By: #### C BC #### [facility] [address] [address] [address] Braxton Aly Platelet mean volume (Bld) [Entitic vol] 9.4 fL Critically low 9.5-13.5 [facility] Comment on above: Performed By: #### C BC #### [facility] [address] [address] [address] Braxton Aly PLT 272 103/ul Normal 150-450 [facility] Comment on above: Performed By: #### C BC #### [facility] [address] [address] [address] Braxton Aly RBC 4.64 106/ul Critically low 4.70-6.10 [facility] Comment on above: Performed By: #### C BC #### [facility] [address] [address] [address] Braxton Aly WBC 8.8 103/ul Normal 4.0-11.0 [facility] Comment on above: Performed By: #### C BC #### [facility] [address] [address] [address] Braxton Aly Complete Blood Count and Dif diony 04-08-2023 Anisocytosis Ql (Bld) [facility] [employer] Other Basophilic stippling LM Ql (Bld) [place] Other RBC morphology finding Nom (Bld) [place] Other GLYCOHEMOGLOBIN A1Con 2022 ADA RECOMMENDATION SEE BELOW Normal [facility] Comment on above: Result Comment: ADA RECOMMENDED LIMIT 4.0 - 6.0 ADA THERAPEUTIC TARGET < 7.0 ACTION SUGGESTED > 7.0 Performed By: #### A 1C #### [facility] [address] [place] [address] Dr. Braxton Aly Glucose [Mass/Vol] 143 mg/dL Normal [facility] Comment on above: Performed By: #### A 1C #### [facility] [address] [address] [address] Braxton Aly HbA1c (Bld) [Mass fraction] 6.6 % Critically high 4.5-6.2 [facility] Comment on above: Performed By: #### A 1C #### [facility] [address] [address] [address] Braxton Aly Hemoglobin A1C ([facility])on 0 04-08-2023 Hemoglobin A1C ([facility]) [place] Other LIPID PROFILEon 04-08-2023 CHOL-HDL RATIO NORM SEE BELOW Normal [facility] Comment on above: Result Comment: 3.3 - 4.4 LOW RISK 4.4 - 7.1 AVERAGE RISK 7.1 - 11.0 MODERATE RISK >11.0 HIGH RISK Performed By: #### B MP, BNP, LIPID #### [facility] [address] [address] [address] Braxton Aly Cholesterol [Mass/Vol] 119 mg/dL <=200 mg/dL [facility] Comment on above: Performed By: #### B MP, BNP, LIPID #### [facility] [address] [place] [address] Dr. Braxton Aly Cholesterol in HDL [Mass/Vol] 36 mg/dL Critically low 40-60 mg/dL [facility] Comment on above: Performed By: #### B MP, BNP, LIPID #### [facility] [address] [place] [address] Dr. Braxton Aly Cholesterol in LDL [Mass/Vol] 67.8 mg/dL Normal [facility] Comment on above: Performed By: #### B MP, BNP, LIPID #### [facility] [address] [place] [address] Dr. Braxton Aly Cholesterol.total/Chol esterol in HDL [Mass ratio] 3.3 {ratio} [facility] Comment on above: Performed By: #### B MP, BNP, LIPID #### [facility] [address] [place] [address] Dr. Braxton Aly HDL NORMAL > or = 60 mg/dl - LOW CARDIOVASCULAR RISK <40 mg/dl - HIGH CARDIOVASCULAR RISK Normal [facility] Comment on above: Performed By: #### B MP, BNP, LIPID #### [facility] [address] [place] [address] Dr. Braxton Aly LDL CALC NORMAL SEE BELOW Normal [facility] Comment on above: Result Comment: <100 mg/dl OPTIMAL 100 - 129 mg/dl NEAR OR ABOVE OPTIMAL 130 - 159 mg/dl BORDERLINE HIGH 160 - 189 mg/dl HIGH >190 mg/dl VERY HIGH Performed By: #### B MP, BNP, LIPID #### [facility] [address] [place] [address] Dr. Braxton Aly Triglyceride [Mass/Vol] 76 mg/dL <=150 mg/dL [facility] Comment on above: Performed By: #### B MP, BNP, LIPID #### [facility] [address] [place] [address] Dr. Braxton Aly VLDL CALC 15.2 mg/dL Normal [facility] Comment on above: Performed By: #### B MP, BNP, LIPID #### [facility] [address] [address] [address] Braxton Aly Lipid Panelon 04-08-2023 Lipid Panel > or = 60 mg/dl - LOW CARDIOVASCULAR RISK <40 mg/dl - HIGH CARDIOVASCULAR RISK [employer] Other Lipid Panel SEE BELOW [employer] Other Lipid Panel 67.8 mg/dL [employer] Other Lipid Panel 15.2 mg/dL [employer] Other PROF CHEM 8 (BAS METB)on Anion gap [Moles/Vol] 9.4 mmol/L [facility] Comment on above: Performed By: #### B MP, BNP, LIPID #### [facility] [address] [place] [address] Dr. Braxton Aly Calcium [Mass/Vol] 8.9 mg/dL Normal 8.5-10.1 [facility] Comment on above: Performed By: #### B MP, BNP, LIPID #### [facility] [address] [address] [address] Braxton Aly Chloride [Moles/Vol] 100 mmol/L 98-107 mmol/L [facility] Comment on above: Performed By: #### B MP, BNP, LIPID #### [facility] [address] [place] [address] Dr. Braxton Aly CO2 [Moles/Vol] 34.7 mmol/L Critically high 21.0-32.0 [facility] Comment on above: Performed By: #### B MP, BNP, LIPID #### [facility] [address] [place] [address] Dr. Braxton Aly Creatinine [Mass/Vol] 1.71 mg/dL Critically high 0.70-1.30 [facility] Comment on above: Performed By: #### B MP, BNP, LIPID #### [facility] [address] [address] [address] Braxton Aly EGFR-AF CANADIAN 49 mL/min/1.73m2 Critically low >=60 [facility] Comment on above: Performed By: #### B MP, BNP, LIPID #### [facility] [address] [place] [address] Dr. Braxton Aly EGFR-NON AF CANADIAN 40 mL/min/1.73m2 Critically low >=60 [facility] Comment on above: Performed By: #### B MP, BNP, LIPID #### [facility] [address] [place] [address] Dr. Braxton Aly Glucose [Mass/Vol] 148 mg/dL Critically high 74-106 [facility] Comment on above: Performed By: #### B MP, BNP, LIPID #### [facility] [address] [place] [address] Dr. Braxton Aly Potassium [Moles/Vol] 4.1 mmol/L Normal 3.5-5.1 [facility] Comment on above: Performed By: #### B MP, BNP, LIPID #### [facility] [address] [place] [address] Dr. Braxton Aly Sodium [Moles/Vol] 140 mmol/L Normal 136-145 [facility] Comment on above: Performed By: #### B MP, BNP, LIPID #### [facility] [address] [place] [address] Dr. Braxton Aly Urea nitrogen [Mass/Vol] 25.0 mg/dL Critically high 7.0-18.0 [facility] Comment on above: Performed By: #### B MP, BNP, LIPID #### [facility] [address] [address] [address] Braxton Aly Urea nitrogen/Creatinine [Mass ratio] 14.6 mg/mg [facility] Comment on above: Performed By: #### B MP, BNP, LIPID #### [facility] [address] [address] [address] Braxton Aly Basic Metabolic Panelon 12-25 Calcium [Mass/Vol] 8.7433390 mg/dL 8.5-10 .1 mg/dL [employer] Other CO2 [Moles/Vol] 31.07933383 mmol/L 21.0-3 2.0 mmol/L [employer] Other Creatinine [Mass/Vol] 1.82777162 mg/dL Critically high 0.70-1.30 mg/dL [employer] Other Potassium [Moles/Vol] 3.25250959 mmol/L Critically low 3.5-5.1 mmol/L [employer] Other Urea nitrogen [Mass/Vol] 15.4622538 mg/dL 7.0-18.0 mg/dL [employer] Other Basic Metabolic Panel see note [facility] [employer] Other Basic Metabolic Panel 141 mmol/L 136-14 5 mmol/L [employer] Other Basic Metabolic Panel 157 mg/dL Critically high 74-106 mg /dL [employer] Other Basic Metabolic Panel 52 mL/min/1.73m2 Critically low >=60 mL/min/1.73m 2 [employer] Other Basic Metabolic Panel >60 mL/min/1.73m2 > =60 mL/min/1.73m 2 [employer] Other Anion gap [Moles/Vol] 11.6 mmol/L Normal No [facility] [employer] Other Comment on above: Performed By: #### B MP #### [facility] [address] [address] [address] Braxton Aly Chloride [Moles/Vol] 101 mmol/L Normal 98-107 [facility] [employer] Other Comment on above: Performed By: #### B MP #### [facility] [id number] Braxton Aly Urea nitrogen/Creatinine [Mass ratio] 11.0 mg/mg Normal [employer] Other Comment on above: Performed By: #### B MP #### [facility] [address] [address] [address] Braxton Aly PROF CHEM 8 (BAS METB)on Calcium [Mass/Vol] 8.8 mg/dL Normal 8.5-10.1 [facility] Comment on above: Performed By: #### B MP #### [facility] [address] [address] [address] Braxton Aly CO2 [Moles/Vol] 31.7 mmol/L Normal 21.0-32.0 [facility] Comment on above: Performed By: #### B MP #### [facility] [address] [address] [address] Braxton Aly Creatinine [Mass/Vol] 1.36 mg/dL Critically high 0.70-1.30 [facility] Comment on above: Performed By: #### B MP #### [facility] [address] [address] [address] Braxton Aly EGFR-AF CANADIAN >60 Normal >=60 [facility] Comment on above: Performed By: #### B MP #### [facility] [address] [address] [address] Braxton Aly EGFR-NON AF CANADIAN 52 mL/min/1.73m2 Critically low >=60 [facility] Comment on above: Performed By: #### B MP #### [facility] [id number] Braxton Aly Glucose [Mass/Vol] 157 mg/dL Critically high 74-106 [facility] Comment on above: Performed By: #### B MP #### [facility] [address] [address] [address] Braxton Aly Potassium [Moles/Vol] 3.3 mmol/L Critically low 3.5-5.1 [facility] Comment on above: Performed By: #### B MP #### [facility] [address] [place], [place] [address] Dr. Braxton Aly Sodium [Moles/Vol] 141 mmol/L Normal 136-145 [facility] Comment on above: Performed By: #### B MP #### [facility] [address] [place], [place] [address] Dr. Braxton Aly Urea nitrogen [Mass/Vol] 15.0 mg/dL Normal 7.0-18.0 [facility] Comment on above: Performed By: #### B MP #### [facility] [address] [place], [place] [address] Dr. Braxton Aly Office Visit (Cardiology)on 12-06-2022 [...] Recorded: 06Dec2022 08:23AM Heart Rate60, R Radial [id number], RUE, Sitting [id number], RUE, Sitting Height5 ft 9 in Nrbcob520 lb BMI Yqpirisbmz54.81 kg/m2 BSA Calculated2.51 Tobacco Useb) No PHQ-2 [...] Abdomen: abdomen (more content not included)... Normal [employer] Tobacco Screening.on 023 Adult depression screening assessment No MP-Cardiolo gy-[place] 250 DO Work Phone: Fall risk assessment a) No falls within the last year QM-Vkiyelcckt-[place] 250 DO Work Phone: Tobacco use status CPHS b) No VI-Xbqwilkxac-F [place] 250 DO Work Phone: BNPon 11-08-2022 Natriuretic peptide B (Bld) [Mass/Vol] 2323.0 pg/mL Critically high <=900.0 [facility] Comment on above: Performed By: #### B VEST TAILOR, BMP #### [facility] [address] [address] [address] Braxton Aly PROF CHEM 8 (BAS METB)on Anion gap [Moles/Vol] 7.5 mmol/L Normal [facility] Comment on above: Performed By: #### B VEST TAILOR, BMP #### [facility] [address] [place] [address] Dr. Braxton Aly Calcium [Mass/Vol] 8.8 mg/dL Normal 8.5-10.1 [facility] Comment on above: Performed By: #### B VEST TAILOR, BMP #### [facility] [address] [place] [address] Dr. Braxton Aly Chloride [Moles/Vol] 100 mmol/L Normal 98-107 [facility] Comment on above: Performed By: #### B VEST TAILOR, BMP #### [facility] [address] [place] [address] Dr. Braxton Aly CO2 [Moles/Vol] 37.5 mmol/L Critically high 21.0-32.0 [facility] Comment on above: Performed By: #### B VEST TAILOR, BMP #### [facility] [address] [place] [address] Dr. Braxton Aly Creatinine [Mass/Vol] 1.38 mg/dL Critically high 0.70-1.30 [facility] Comment on above: Performed By: #### B VEST TAILOR, BMP #### [facility] [address] [place] [address] Dr. Barxton Aly EGFR-AF CANADIAN >60 Normal >=60 [facility] Comment on above: Performed By: #### B VEST TAILOR, BMP #### [facility] [address] [place] [address] Dr. Braxton Aly EGFR-NON AF CANADIAN 51 mL/min/1.73m2 Critically low >=60 [facility] Comment on above: Performed By: #### B VEST TAILOR, BMP #### [facility] [address] [place] [address] Dr. Braxton Aly Glucose [Mass/Vol] 141 mg/dL Critically high 74-106 [facility] Comment on above: Performed By: #### B VEST TAILOR, BMP #### [facility] [address] [place] [address] [address] Braxton Aly Potassium [Moles/Vol] 3.0 mmol/L Critically low 3.5-5.1 [facility] Comment on above: Performed By: #### B VEST TAILOR, BMP #### [facility] [address] [place] [address] Dr. Braxton Aly Sodium [Moles/Vol] 142 mmol/L Normal 136-145 [facility] Comment on above: Performed By: #### B VEST TAILOR, BMP #### [facility] [address] [place] [address] Dr. Braxton Aly Urea nitrogen [Mass/Vol] 16.0 mg/dL Normal 7.0-18.0 [facility] Comment on above: Performed By: #### B VEST TAILOR, BMP #### [facility] [address] [place] [address] Dr. Braxton Aly Urea nitrogen/Creatinine [Mass ratio] 11.6 mg/mg Normal [facility] Comment on above: Performed By: #### B VEST TAILOR, BMP #### [facility] [address] [place] [address] Dr. Braxton Aly XR CHEST 2 Von [...] ALEX DAWN Date: 2022-11-08 13:38 Normal [facility] Office Visit (Cardiology)on 04-12-2022 Follow-up visit [...] Echo results. [facility] [place] Patient returns in follow-up of problems as [...] negative for complaint. Vitals Vital Signs Recorded: [id number] 01:22PM Heart Rate60, R Radial Xsdkarjo162, LUE, Sitting Qxwyhbjts84, LUE, Sitting Height5 ft 9 in Wymgei366 lb BMI Dpesxxzjpz34.75 kg/m2 BSA Calculated2.46 Tobacco Useb) No PHQ-2 [...] Apr 12 2022 2:25PM EST (Author) Normal [facility] Tobacco Screening.on 022 Adult depression screening assessment No [facility] [employer] 250 DO Work Phone: Fall risk assessment a) No falls within the last year [facility] 250 DO Work Phone: Tobacco use status CPHS b) No [facility] DO Work Phone: Echocardiogramon 03-18-[address], [place] [address] TRANSTHORACIC ECHOCARDIOGRAM REPORT Patient Name: CHEYANNE GIBBS Reading Physician: [id number] Knowles MD Study Date: 03/18/2022 Referring Physician: Mel KNOWLES MRN/PID: [id number] PCP: Anibal Gonzales Accession/Order#: [id number] Department Location: [facility] Date of : 1955 Fellow: Gender: M Nurse: Admit Date: Security Specialist: Makenna John [facility], [facility] Height: 175.26 cm CC Report to: Weight: 138.35 kg Study Type: Echocardiogram BSA: 2.47 m2 Blood Pressure: 112 /70 mmHg Diagnosis/ICD: 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; 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 Indication: Diabetes, Dyspnea, HTN, Hyperlipidemia, Former Smoker, Morbid Obesity Procedure/CPT: Echo Complete w Full Doppler-[id number] Study Detail: The following Echo studies were [...] 0.6 m/s (0.6-0.9m/s) PV Max P.3 mmHg [id number] Cheyanne Knowles MD Electronically signed on 03/18/2022 at 5:02:50 PM Final Normal [facility] Tobacco Screening.on 022 Fall risk assessment b) One or more falls in the last year [facility] 250 DO Work Phone: Tobacco use status CPHS b) No [facility] 250 DO Work Phone: ECG 12 lead ECGon 11-07-2021 ECG 12 lead ECG [facility] [address] [place] [address] [place] [address] Electrocardiograph Report Signed Patient: Cheyanne Gibbs MR#: [id number] 2832 : 1955 Acct:[id number] Age/Sex: 66 / M ADM Date: 11/07/21 Loc: Room: Type: [facility] Attending Dr: Cheyanne Knowles MD Ordering Provider: [...] MUS Signed By Pardeep Green MD [address] [facility] ECG post procedureon ECG post procedure [facility] [address] [place] [address] [place] [address] Electrocardiograph Report Signed Patient: Cheyanne Gibbs MR#: [id number] 2832 : 1955 Acct:[id number] Age/Sex: 66 / M ADM Date: 11/07/21 Loc: Room: Type: [facility] Attending Dr: Cheyanne Knowles MD Ordering Provider: [...] MUS Signed By Pardeep Green MD [address] [facility] Electrolyteson 11-07-2021 Chloride [Moles/Vol] 98 mmol/L Normal 95-114 [facility] Comment on above: Performed By: #### L TAMIKOES #### [address] CO2 [Moles/Vol] 31.8 mmol/L High 22.0-30.0 [facility] Comment on above: Result Comment: PERF ORMED BY: [facility] [address] [place] [address] PATHOLOGIST PLASMA TABLE OPERATOR SARA GROSSMAN M.D. Performed By: #### L YTES #### [facility] [address] [place] [id number] [facility] Potassium [Moles/Vol] 4.1 mmol/L Normal 3.5-5.[address] [facility] Comment on above: Performed By: #### L YTES #### [facility] [address] [place] [id number] [facility] Sodium [Moles/Vol] 138 mmol/L Normal 136-146 [facility] Comment on above: Performed By: #### L YTES #### [facility] [address] No Panel Informationon 11-07 31.8\S\31.8 above high threshold 22.0-30.0 [facility] 250 DO Work Phone: Comment on above: PERFORMED BY:[facility] [place] [address] [id number] MEDICAL DIRECTORSARA GROSSMAN M.D. 98\S\98 Normal 95-114 [facility] 250 DO Work Phone: 4.1\S\4.1 Normal 3.5-5.1 [facility] 250 DO Work Phone: 138\S\138 Normal 136-146 [facility] 250 DO Work Phone: COVID-19 Antigenon 1 [...] its performance Kym Disclaimer characteristic determined by [employer] and Kym Disclaimer validated at [facility]. This Kym Disclaimer test has not been [...] Emergency Use Authorization for Coronavirus Kym Disclaimer iseas during the Public Health Emergency) [...] is terminated or revoked sooner. PERFORMED BY: [facility] [address] [facility] [place] [address] PATHOLOGIST PLASMA TABLE OPERATOR SARA GROSSMAN M.D. Normal [facility] Comment on above: Performed By: #### C OVID-19 KYM, SOFIANEG #### [facility] [address] [place] [address] Laboratory - Microbiology an d Antimicrobial susceptibilityon 11-05-2021 SARS-CoV-2 (COVID-19) RNA NILAM+probe Ql (Unsp spec) -[facility] 250 DO Work Phone: No Panel Informationon 11-05 Negative Normal Negative [facility] 250 DO Work Phone: Comment on above: This is a duplicate Kym SARS Antigen (ROMEL) result to be used for statistical tracking purpose only.PERFORMED BY:[facility] [facility] [place] [id number] MEDICAL DIRECTORSARA GROSSMAN M.D. Kym Ag Negativeon 11-05-20 21 Kym Ag Negative Negative Normal Negative [facility] Comment on above: Result Comment: This is a duplicate Kym SARS Antigen (ROMEL) result to be used for statistical tracking purpose only. PERFORMED BY: [facility] [address] [facility] [place] [address] PATHOLOGIST PLASMA TABLE OPERATOR SARA GROSSMAN M.D. Performed By: #### C OVID-19 KYM, SOFIANEG #### [facility] [address] [place] [address] [facility] Amiodarone (Cordarone), Seru mon 09-24-2021 Amiodarone, Serum 586 ng/mL Low [id number] [facility] Comment on above: Order Comment: PT IS NON FASTING Performed By: #### B MP #### [address] #### AMIODARONE #### [facility] , Noramiodarone, Serum 478 ng/mL Normal . [facility] Comment on above: Order Comment: PT IS NON FASTING Result Comment: Note : To convert from ng/ml to ug/ml, divide the result by 1000. Reference range (amiodarone): 1.00-2.50 ug/mL. This test was developed and its performance characteristics determined by [facility]. It has not been cleared or approved by the Food and Drug Administration. Performed at: [facility] [address] [id number] Slot Technician: Adina Reis [facility], Phone: [phone] PERFORMED BY: [place] [address] PATHOLOGIST PLASMA TABLE OPERATOR SARA GROSSMAN M.D. Performed By: #### B MP #### [address] #### AMIODARONE #### [facility] , Basic Metabolic Panelon 11-0 Calcium [Mass/Vol] 8.5 mg/dL Normal 8.2-10.2 [facility] Comment on above: Order Comment: PT IS NON FASTING Result Comment: PERF ORMED BY: [place] [address] PATHOLOGIST PLASMA TABLE OPERATOR SARA GROSSMAN M.D. Performed By: #### B MP #### [facility] [address] [place] [address] [place] #### AMIODARONE #### [facility] , Chloride [Moles/Vol] 100 mmol/L Normal 95-114 [facility] Comment on above: Order Comment: PT IS NON FASTING Performed By: #### B MP #### [address] #### AMIODARONE #### [facility] , CO2 [Moles/Vol] 31.6 mmol/L High 22.0-30.0 [facility] Comment on above: Order Comment: PT IS NON FASTING Performed By: #### B MP #### [facility] [address] [place] [address] #### AMIODARONE #### [facility] , Creatinine [Mass/Vol] 1.51 mg/dL High 0.64-1.[address] [facility] Comment on above: Order Comment: PT IS NON FASTING Performed By: #### B MP #### [address] #### AMIODARONE #### [facility] , Estimated GFR ( Yaima 56 [facility] Comment on above: Order Comment: PT IS NON FASTING Result Comment: GFR estimated reference range: According to KDOQI guidelines, <60 ml/min/1.73m2 is sufficient to diagnose a patient with chronic kidney disease. Performed By: #### B MP #### [facility] [address] [place] [address] #### AMIODARONE #### [facility] , Estimated GFR (Non- Am 46 [facility] Comment on above: Order Comment: PT IS NON FASTING Performed By: #### B MP #### [address] #### AMIODARONE #### [facility] , Glucose [Mass/Vol] 124 mg/dL High 70-100 [facility] Comment on above: Order Comment: PT IS NON FASTING Result Comment: [place] om Glucose Reference Range is dependent on time and content of last meal. Glucose of more than 200 mg/dL in a nonstressed, ambulatory subject supports the diagnosis of Diabetes Mellitus. ADA recommended reference range Performed By: #### B MP #### [address] [place] [address] [place] #### AMIODARONE #### [facility] , Potassium [Moles/Vol] 4.2 mmol/L Normal 3.5-5.[address] [facility] Comment on above: Order Comment: PT IS NON FASTING Performed By: #### B MP #### [facility] [address] [place] [address] [place] #### AMIODARONE #### [facility] , Sodium [Moles/Vol] 141 mmol/L Normal 136-146 [facility] Comment on above: Order Comment: PT IS NON FASTING Performed By: #### B MP #### [facility] [address] [place] [address] [place] #### AMIODARONE #### [facility] , Urea nitrogen [Mass/Vol] 20 mg/dL Normal 9-23 [facility] Comment on above: Order Comment: PT IS NON FASTING Performed By: #### B MP #### [facility] [address] [place] [address] [place] #### AMIODARONE #### [facility] , IO EKG Electrocardiogram- 12 Leadon 09-24-2021 IO EKG Electrocardiogram- 12 Lead See Scanned Document [facility] 250 DO Work Phone: No Panel Informationon 09-24 8.5\S\8.5 Normal 8.2-10.2 [facility] 250 DO Work Phone: Comment on above: PERFORMED BY:[place] [address] [address] [place], [place] [id number] MEDICAL DIRECTORSARA GROSSMAN M.D. 31.6\S\31.6 above high threshold 22.0-30.0 [facility] 250 DO Work Phone: 100\S\100 Normal 95-114 [facility] 250 DO Work Phone: 4.2\S\4.2 Normal 3.5-5.1 [facility] 250 DO Work Phone: 141\S\141 Normal 136-146 [facility] 250 DO Work Phone: 56\S\56 Normal [facility] 250 DO Work Phone: Comment on above: GFR estimated refere nce range: According to KDOQI guidelines, <60 ml/min/1.73m2 is sufficient to diagnose a patient with chronic kidney disease. 46\S\46 Normal [facility] 250 DO Work Phone: 1.51\S\1.51 above high threshold 0.64-1.27 [facility] 250 DO Work Phone: 20\S\20 Normal 9-23 [facility] 250 DO Work Phone: 124\S\124 above high threshold 70-100 [facility] 250 DO Work Phone: Comment on above: Random Glucose Refer ence Range is dependent on time and content of last meal. Glucose of more than 200 mg/dL in a nonstressed, ambulatory subject supports the diagnosis of Diabetes Mellitus. ADA recommended reference range 478\S\478 Normal . [facility] 250 DO Work Phone: Comment on above: Note: To convert fro m ng/ml to ug/ml, divide the result by 1000. Reference range (amiodarone): 1.00-2.50 ug/mL. This test was developed and its performance characteristics determined by [employer] [facility] [employer]. It has not been cleared or approved by the Food and Drug Administration. Performed at: [facility] [address] [id number] Slot Technician: Adina Reis [facility], Phone: [phone] BY:[place] [address] [address] [place], [place] [id number] MEDICAL DIRECTORSARA GROSSMAN M.D. 586\S\586 below low threshold [id number] [facility] 250 DO Work Phone: Tobacco Screening.on 021 Fall risk assessment a) No falls within the last year [facility] 250 DO Work Phone: Tobacco use status CPHS b) No [facility] 250 DO Work Phone: ECG 12 lead ECGon 09-12-2021 ECG 12 lead ECG [facility] Main [address] [address] Electrocardiograph Report Signed Patient: Cheyanne Gibbs MR#: [id number] 2832 : 1955 Acct:[id number] Age/Sex: 66 / M ADM Date: 09/12/21 Loc: Room: Type: [facility] Attending Dr: Cheyanne Knowles MD Ordering Provider: [...] Signed By Bridger Headley MD 1 1012 Normal [facility] ECG post procedureon 021 ECG post procedure [facility] Main [address] [address] Electrocardiograph Report Signed Patient: Cheyanne Gibbs MR#: [id number] 2832 : 1955 Acct:[id number] Age/Sex: 66 / M ADM Date: 09/12/21 Loc: Room: Type: [facility] Attending Dr: Cheyanne Knowles MD Ordering Provider: [...] Signed By Bridger Headley MD 1 0953 Normal [facility] Electrolyteson 09-12-2021 Chloride [Moles/Vol] 100 mmol/L Normal 95-114 [facility] Comment on above: Performed By: #### L YTES #### [facility] [address] [place] [address] CO2 [Moles/Vol] 32.1 mmol/L High 22.0-30.0 [facility] Comment on above: Result Comment: PERF ORMED BY: [place] [address] PATHOLOGIST PLASMA TABLE OPERATOR SARA GROSSMAN M.D. Performed By: #### L YTES #### [facility] [address] [place] [address] Potassium [Moles/Vol] 4.5 mmol/L Normal 3.5-5.[address] [facility] Comment on above: Performed By: #### L YTES #### [facility] [address] [place] [address] [place] Sodium [Moles/Vol] 140 mmol/L Normal 136-146 [facility] Comment on above: Performed By: #### L YTES #### [facility] [address] [place] [address] [facility] No Panel Informationon 09-12 [facility] 250 DO Work Phone: 32.1\S\32.1 above high threshold 22.0-30.0 [facility] 250 DO Work Phone: Comment on above: PERFORMED BY:[facility] [facility], [place] [phone] MEDICAL DIRECTORSARA GROSSMAN M.D. 100\S\100 Normal 95-114 [place] [address] DO Work Phone: 4.5\S\4.5 Normal 3.5-5.1 [facility] 250 DO Work Phone: 140\S\140 Normal 136-146 [facility] 250 DO Work Phone: COVID-19 FRMCon 09-10-2021 SARS-CoV-2 (COVID-19) RNA NILAM+probe Ql (Unsp spec) Negative Normal Negative [facility] Comment on above: Order Comment: Healt hcare Worker?: N Result Comment: Testing for SARS-CoV-2 by RT-PCR This test was developed and its performance characteristics determined by [employer] and validated at the [facility]. This test has not been FDA cleared [...] is terminated or revoked sooner. PERFORMED BY: [facility] [address] [place] [id number] PATHOLOGIST PLASMA TABLE OPERATOR SARA GROSSMAN M.D. Performed By: #### C OVID 19 [facility] #### [place] [id number] [facility] Vital Signs Date Time Vital Sign Value Performing Clinician Facility 05-06-2024 11:02-0400 Body height 172.72 cm [facility] 05-06-2024 11:02-0400 Body mass index (BMI) [Ratio] 46 kg/m2 [facility] 05-06-2024 11:02-0400 Body weight 137.49 kg [facility] 05-06-2024 11:02-0400 Diastolic blood pressure 68 mm[Hg] [facility] 05-06-2024 11:02-0400 Heart rate 106 /min [facility] 05-06-2024 11:02-0400 Respiratory rate 16 /min [facility] 05-06-2024 11:02-0400 Systolic blood pressure 93 mm[Hg] [facility] 02-06-2024 11:12-0400 Body height 172.72 cm [facility] 02-06-2024 11:12-0400 Body mass index (BMI) [Ratio] 48.8 kg/m2 [facility] 02-06-2024 11:12-0400 Body weight 145.6 kg [facility] 02-06-2024 11:12-0400 Diastolic blood pressure 75 mm[Hg] [facility] 02-06-2024 11:12-0400 Heart rate 92 /min [facility] 02-06-2024 11:12-0400 Respiratory rate 16 /min [facility] 02-06-2024 11:12-0400 Systolic blood pressure 124 mm[Hg] [facility] 12-02-2023 10:36-0500 Body height 177.8 cm Cheyanne Knowles MD Work Phone: [facility] 12-02-2023 10:36-0500 Body mass index (BMI) [Ratio] 47.35 kg/m2 Cheyanne Knowles MD Work Phone: [facility] 12-02-2023 10:36-0500 Body weight 149.69 kg Cheyanne Knowles MD Work Phone: [facility] 12-02-2023 10:36-0500 Diastolic blood pressure 74 mm[Hg] Cheyanne Knowles MD Work Phone: [facility] 12-02-2023 10:36-0500 Heart rate 64 /min Cheyanne Knowles MD Work Phone: [facility] 12-02-2023 10:36-0500 Systolic blood pressure 112 mm[Hg] Cheyanne Knowles MD Work Phone: [facility] 07-08-2023 13:45-0400 Body height 172.72 cm Anibal Ball Other [employer] Other 07-08-2023 13:45-0400 Body mass index (BMI) [Ratio] 49.11 kg/m2 Anibal Ball Other [employer] Other 07-08-2023 13:45-0400 Body weight 146.51 kg Anibal Ball Other [employer] Other 07-08-2023 13:45-0400 Diastolic blood pressure 69 mm[Hg] Anibal Ball Other [employer] Other 07-08-2023 13:45-0400 Respiratory rate 20 /min Anibal Ball Other [employer] Other 07-08-2023 13:45-0400 Systolic blood pressure 93 mm[Hg] Anibal Ball Other [employer] Other 05-15-2023 10:18-0400 Body height 172.72 cm Anibal Ball Other [employer] Other 05-15-2023 10:18-0400 Body mass index (BMI) [Ratio] 50.02 kg/m2 Anibal Ball Other [employer] Other 05-15-2023 10:18-0400 Body weight 149.23 kg Anibal Ball Other [employer] Other 05-15-2023 10:18-0400 Diastolic blood pressure 75 mm[Hg] Anibal Ball Other [employer] Other 05-15-2023 10:18-0400 Systolic blood pressure 114 mm[Hg] Anibal Ball Other [employer] Other 04-07-2023 10:30-0400 Body height 172.72 cm Anibal Ball Other [employer] Other 04-07-2023 10:30-0400 Body mass index (BMI) [Ratio] 50.54 kg/m2 Anibal Ball Other [employer] Other 04-07-2023 10:30-0400 Body weight 150.78 kg Anibal Ball Other [employer] Other 04-07-2023 10:30-0400 Diastolic blood pressure 64 mm[Hg] Anibal Ball Other [employer] Other 04-07-2023 10:30-0400 Respiratory rate 12 /min Anibal Ball Other [employer] Other 04-07-2023 10:30-0400 Systolic blood pressure 91 mm[Hg] Anibal Ball Other [employer] Other 04-07-2023 09:30-0400 Body height 172.72 cm Anibal Ball Other [employer] Other 04-07-2023 09:30-0400 Body mass index (BMI) [Ratio] 50.54 kg/m2 Anibal Ball Other [employer] Other 04-07-2023 09:30-0400 Body weight 150.78 kg Anibal Ball Other [employer] Other 04-07-2023 09:30-0400 Diastolic blood pressure 64 mm[Hg] Anibal Ball Other [employer] Other 04-07-2023 09:30-0400 Respiratory rate 12 /min Anibal Ball Other [employer] Other 04-07-2023 09:30-0400 Systolic blood pressure 91 mm[Hg] Anibal Ball Other [employer] Other 01-06-2023 11:30-0500 Body height 172.72 cm Anibal Ball Other [employer] Other 01-06-2023 11:30-0500 Body mass index (BMI) [Ratio] 49.93 kg/m2 Anibal Ball Other [employer] Other 01-06-2023 11:30-0500 Body weight 148.96 kg Anibal Ball Other [employer] Other 01-06-2023 11:30-0500 Diastolic blood pressure 76 mm[Hg] Anibal Ball Other [employer] Other 01-06-2023 11:30-0500 Respiratory rate 16 /min Anibal Ball Other [employer] Other 01-06-2023 11:30-0500 Systolic blood pressure 122 mm[Hg] Anibal Ball Other [employer] Other 12-06-2022 08:23-0500 Body height 175.26 cm Anibal E Ball Work Phone: CG[facility]Hthnxb[facility]jkf-Ireacp [place] 250 DO Work Phone: 12-06-2022 08:23-0500 Body mass index (BMI) [Ratio] 46.81 kg/m2 Anibal E Ball Work Phone: LT-Eyeeabxgma-Byivdr [place] 250 DO Work Phone: 12-06-2022 08:23-0500 Body surface area Derived from formula 2.51 m2 Anibal E Ball Work Phone: QD-Mxzdwclnoa-Shpvfi [place] 250 DO Work Phone: 12-06-2022 08:23-0500 Body weight 143.79 kg Anibal E Ball Work Phone: CM-Wifutgwrvn-[place] 250 DO Work Phone: 12-06-2022 08:23-0500 Diastolic blood pressure 62 mm[Hg] Anibal E Ball Work Phone: KY-Ebcivlcmzt-Zfkxxh [place] 250 DO Work Phone: 12-06-2022 08:23-0500 Heart rate 60 /min Anibal E Ball Work Phone: FP-Dfmakboeqm-Pfzjce [place] 250 DO Work Phone: 12-06-2022 08:23-0500 Systolic blood pressure 110 mm[Hg] Anibal E Ball Work Phone: MP-Xvaakfetih-Mzxdsn [place] 250 DO Work Phone: 12-05-2022 11:30-0500 Body height 172.72 cm Anibal Ball Other [employer] Other 12-05-2022 11:30-0500 Body mass index (BMI) [Ratio] 48.32 kg/m2 Anibal Ball Other [employer] Other 12-05-2022 11:30-0500 Body weight 144.15 kg Anibal Ball Other [employer] Other 12-05-2022 11:30-0500 Diastolic blood pressure 72 mm[Hg] Anibal Ball Other [employer] Other 12-05-2022 11:30-0500 Respiratory rate 16 /min Anibal Ball Other [facility] [employer] Other 12-05-2022 11:30-0500 Systolic blood pressure 122 mm[Hg] Anibal Ball Other [facility] [employer] Other 04-12-2022 13:22-0400 Body height 175.26 cm Anibal E Ball Work Phone: [facility] 250 DO Work Phone: 04-12-2022 13:22-0400 Body mass index (BMI) [Ratio] 44.75 kg/m2 Anibal E Ball Work Phone: [facility] 250 DO Work Phone: 04-12-2022 13:22-0400 Body surface area Derived from formula 2.46 m2 Anibal E Ball Work Phone: [facility] 250 DO Work Phone: 04-12-2022 13:22-0400 Body weight 137.44 kg Anibal E Ball Work Phone: [facility] 250 DO Work Phone: 04-12-2022 13:22-0400 Diastolic blood pressure 70 mm[Hg] Anibal E Ball Work Phone: [facility] 250 DO Work Phone: 04-12-2022 13:22-0400 Heart rate 60 /min Anibal E Ball Work Phone: [facility] 250 DO Work Phone: 04-12-2022 13:22-0400 Systolic blood pressure 110 mm[Hg] Anibal E Ball Work Phone: [facility] 250 DO Work Phone: 03-18-2022 08:45-0400 60 1 Anibal E Ball Work Phone: [facility] [place] Work Phone: Comment on above: [id number] 12-03-2021 11:02-0500 Body height 175.26 cm Anibal E Ball Work Phone: [facility] 250 DO Work Phone: 12-03-2021 11:02-0500 Body mass index (BMI) [Ratio] 45.04 kg/m2 Anibal E Ball Work Phone: [facility] 250 DO Work Phone: 12-03-2021 11:02-0500 Body surface area Derived from formula 2.47 m2 Anibal E Ball Work Phone: [facility] 250 DO Work Phone: 12-03-2021 11:02-0500 Body weight 138.35 kg Anibal E Ball Work Phone: [facility] 250 DO Work Phone: 12-03-2021 11:02-0500 Diastolic blood pressure 68 mm[Hg] Anibal E Ball Work Phone: [facility] 250 DO Work Phone: 12-03-2021 11:02-0500 Heart rate 91 /min Anibal E Ball Work Phone: [facility] 250 DO Work Phone: 12-03-2021 11:02-0500 Systolic blood pressure 109 mm[Hg] Anibal E Ball Work Phone: [facility] 250 DO Work Phone: 09-24-2021 10:36-0400 Body height 175.26 cm Anibal E Ball Work Phone: [facility] 250 DO Work Phone: 09-24-2021 10:36-0400 Body mass index (BMI) [Ratio] 52.57 kg/m2 Anibal E Ball Work Phone: [facility] 250 DO Work Phone: 09-24-2021 10:36-0400 Body surface area Derived from formula 2.64 m2 Anibal E Ball Work Phone: [facility] 250 DO Work Phone: 09-24-2021 10:36-0400 Body weight 161.48 kg Anibal E Ball Work Phone: [facility] 250 DO Work Phone: 09-24-2021 10:36-0400 Diastolic blood pressure 70 mm[Hg] Anibal E Ball Work Phone: [facility] 250 DO Work Phone: 09-24-2021 10:36-0400 Heart rate 130 /min Anibal E Ball Work Phone: [facility] 250 DO Work Phone: 09-24-2021 10:36-0400 Systolic blood pressure 104 mm[Hg] Anibal E Ball Work Phone: [facility] 250 DO Work Phone: Encounters Encounter Date Encounter Type Care Provider Facility Start: 05-06-2024 End: 05-06-2024 [facility] Work Phone: Start: 05-06-2024 End: 05-06-2024 Patient encounter procedure [facility] Work Phone: Start: 02-10-2024 Non-patient / Non-visit [facility] Work Phone: Start: 02-09-2024 Non-patient / Non-visit [facility] Work Phone: Start: 02-06-2024 End: 02-06-2024 ambulatory [facility] Work Phone: Start: 02-06-2024 End: 02-06-2024 Patient encounter procedure [facility] Work Phone: Start: 12-11-2023 End: 12-11-2023 ambulatory Anibal Gonzales Other [facility] Other Start: 12-11-2023 Telephone encounter Anibal JONES [facility] Start: 12-02-2023 End: 12-02-2023 ambulatory CHEYANNE KNOWLES [facility] Start: 12-02-2023 End: 12-02-2023 Office outpatient visit 25 minutes Cheyanne Knowles MD Work Phone: [facility] Comment on above: Non-ischemic cardiom yopathy (CMS/HCC) (Primary Dx); Paroxysmal atrial fibrillation (CMS/HCC); Primary hypertension; Mixed hyperlipidemia Start: 09-04-2023 End: 09-04-2023 ambulatory Anibal Gonzales Other [facility] Other Start: 09-04-2023 Telephone encounter Anibal JONES [facility] Start: 07-09-2023 Rx Renewal Anibal felder Work Phone: [facility] 250 DO Work Phone: Start: 07-08-2023 End: 07-08-2023 ambulatory Anibal Gonzales Other [employer] Other Start: 07-08-2023 Office outpatient vi sit 25 minutes Anibal Christian [facility] Start: 06-06-2023 End: 06-06-2023 ambulatory Anibal Gonzales Other [employer] Other Start: 06-06-2023 Telephone encounter Anibal Gonzales [facility] Start: 05-15-2023 End: 05-15-2023 ambulatory Anibal Gonzales Other [employer] Other Start: 05-15-2023 Telephone encounter Anibal Gonzales [facility] Start: 05-07-2023 End: 05-07-2023 ambulatory Anibal Gonzales Other [employer] Other Start: 05-07-2023 Telephone encounter Anibal Gonzales [facility] Start: 04-25-2023 End: 04-25-2023 ambulatory Anibal Gonzales Other [employer] Other Start: 04-25-2023 Telephone encounter Anibal Gonzales [facility] Start: 04-24-[address] ANIBAL GONZALES Facili ty:[facility]1 Start: 04-08-2023 End: 04-09-[address] ANIBAL GONZALES Facility:[facility] Start: 04-07-2023 End: 04-07-2023 ambulatory Anibal Gonzales Other [employer] Other Start: 04-07-2023 Patient encounter procedure Anibal Gonzales [facility] Start: 02-24-2023 End: 02-24-2023 ambulatory Anibal Gonzales Other [employer] Other Start: 02-24-2023 Telephone encounter Anibal Christian [facility] Start: 02-11-2023 End: 02-11-2023 ambulatory Anibal Gonzales Other [employer] Other Start: 02-11-2023 Telephone encounter Anibal Ball [facility] Start: 01-10-2023 Telephone encounter Anibal Ball [facility] Start: 01-10-2023 End: 01-11-[address] ANIBAL GONZALES [facility] Other Start: 01-08-2023 End: 01-08-2023 ambulatory Anibal Gonzales Other [employer] Other Start: 01-08-2023 Telephone encounter Anibal JONES [facility] Start: 01-06-2023 End: 01-06-2023 ambulatory Anibal Gonzales Other [employer] Other Start: 01-06-2023 Office outpatient vi sit 25 minutes Anibal Gonzales [facility] Start: 12-25-2022 End: 12-25-2022 ambulatory Anibal Gonzales Other [employer] Other Start: 12-25-2022 Telephone encounter Anibal JONES [facility] Start: 12-06-2022 ambulatory Cheyanne Knowles II Facility: Start: 12-06-2022 Office outpatient vi sit 25 minutes Anibal Gonzales Work Phone: [facility] 250 DO Work Phone: Start: 12-05-2022 End: 12-05-2022 ambulatory Anibal Gonzales Other [employer] Other Start: 12-05-2022 Office outpatient vi sit 25 minutes Anibal Gonzales [facility] Start: 12-03-2022 End: 12-03-2022 ambulatory Anibal Gonzales Other [employer] Other Start: 12-03-2022 Telephone encounter Anibal JONES [facility] Start: 11-08-2022 End: 11-09-[address] ANIBAL GONZALES Facility:[facility]1 Start: 08-07-2022 Rx Renewal Anibal Melendez Bal l Work Phone: [facility] 250 DO Work Phone: Start: 04-12-2022 Office outpatient vi sit 25 minutes Anibal Gonzales Work Phone: [facility] DO Work Phone: Start: 04-12-2022 ambulatory Anibal Gonzales Facility: Start: 03-18-2022 Patient encounter procedure Anibal Gonzales Work Phone: [facility] [place] Work Phone: Start: 12-03-2021 Office outpatient vi sit 25 minutes Anibal Gonzales Work Phone: [facility] 250 DO Work Phone: Start: 11-07-2021 Chart Update Anibal Al London l Work Phone: [facility] 250 DO Work Phone: Start: 10-05-2021 Chart Update Anibal Al London l Work Phone: [facility] 250 DO Work Phone: Start: 09-24-2021 Chart Update Anibal Al felder Work Phone: [facility] 250 DO Work Phone: Start: 09-24-2021 Patient encounter procedure Anibal Gonzales Work Phone: [facility] 250 DO Work Phone: Start: 09-14-2021 Chart Update Cheyanne campuzano MD Work Phone: [facility] 250 DO Work Phone: Start: 09-13-2021 Chart Update Cheyanne campuzano MD Work Phone: [facility] 250 DO Work Phone: Procedures Date Procedure Procedure Detail Performing Clinician Start: 02-10-2024 E coli Shiga Toxin EIA Start: 02-10-2024 Salmonella/Shigella Screen Start: 04-08-2023 End: 04-08-[address] ANIBAL GONZALES Comment on above: Performed By: #### P [facility] #### [facility] [address] [address] [address] Braxton Aly Start: 03-18-2022 Echocardiography Benjam [...] procedure 12/14/2024 10:40 AM EST Office Visit [facility] [address] [address] Cheyanne Knowles MD 703 [facility] 2, [address] [address] [facility] Start: 12-02-2023 FUV, Provider: Cheyanne Knowles, Status: Pen, Time: 10:40 AM FUV, Provider: Cheyanne Knowles, Status: Pen, Time: 10:40 AM [id number] 250 DO Work Phone: Start: 07-25-2023 Influenza vaccination Influenza Vaccine (#1) [facility] Start: 11-29-2022 FUV, Provider: Cheyanne Knowles, Status: Pen, Time: 2:40 PM FUV, Provider: Cheyanne Knowles, Status: Pen, Time: 2:40 PM [facility] 250 DO Work Phone: Start: 04-12-2022 FUV, Provider: Cheyanne Knowles, Status: Pen, Time: 1:30 PM FUV, Provider: Cheyanne Knowles, Status: Pen, Time: 1:30 PM [facility] 250 DO Work Phone: Start: 12-03-2021 FUV, Provider: Cheyanne Knowles, Status: Pen, Time: 11:20 AM FUV, Provider: Cheyanne Knowles, Status: Pen, Time: 11:20 AM [facility] 250 DO Work Phone: Start: 11-05-2021 FUV, Provider: Cheyanne Knowles, Status: Pen, Time: 8:00 AM FUV, Provider: Cheyanne Knowles, Status: Pen, Time: 8:00 AM [facility] 250 DO Work Phone: Start: 09-24-2021 FUV, Provider: Cheyanne Knowles, Status: Pen, Time: 10:20 AM FUV, Provider: Cheyanne Knowles, Status: Pen, Time: 10:20 AM [facility] 250 DO Work Phone: Start: 06-07-2021 COVID-19 Vaccine (2 - Booster for Sandor series) COVID-19 Vaccine (2 - Booster for Sandor series) [facility] Start: 2020 Abdominal aortic aneurysm screening Abdominal Aortic Aneurysm (AAA) Screening [facility] Start: 2005 Zoster Vaccines (1 of 2) Zoster Vaccines (1 of 2) [facility] Start: 1977 DTaP/Tdap/Td Vaccines (1 - Tdap) DTaP/Tdap/Td Vaccines (1 - Tdap) [facility] Start: 1974 Urine screening for protein Diabetes: Urine Protein Screening [facility] Start: 1973 Hepatitis C screening Hepatitis C Screening [facility] Start: 1965 Diabetic foot examination Diabetes: Foot Exam [facility] Start: 1965 Glaucoma screening Diabetes: Retinopathy Screening [facility] Start: 1961 Pneumococcal Vaccine: 65+ Years (1 - PCV) Pneumococcal Vaccine: 65+ Years (1 - PCV) [facility] Start: 1955 Hemoglobin A1c measurement Diabetes: Hemoglobin A1C [facility] Start: 1955 Lipid panel Lipid Panel [facility] Start: 1955 Medicare Annual Wellness Visit Medicare Annual Wellness Visit (AWV) [facility] Start: 1955 Screening for malignant neoplasm of colon [facility] Bacteria identified in Stool by Culture [facility] Comprehensive metabo lic 1999 panel - Serum or Plasma [facility] Comprehensive metabo lic 1999 panel - Serum or Plasma [facility] Microalbumin [Mass/volume] in Urine [facility] Immunizations Immunization Date Immunization Notes Care Provider Fa cility 04-18-2021 COVID-19 Vaccine Brad ssen - Documentation Purposes Only Anibal Gonzales Other [facility] 04-12-2021 Sandor COVID-19 Vac cine 0.5 ML Intramuscular Suspension Anibal Gonzales Work Phone: -[facility] 250 DO Work Phone: Comment on above: Series: Payers Date Payer Category Payer Unknown 2021 Unknown [id number] 1959 Medicare [id number] 1955 Unknown [id number] 2.16. [id number] 1955 Unknown [id number] 2.16. [id number] 1955 Unknown [id number] 2.16.84 [id number] 1955 Unknown [id number] 2.16.84 [id number] 1955 Unknown [id number] 2.16.84 [id number] 1955 Unknown [id number] 2.16.84 [id number] 1955 Unknown [id number] 2.16.8 [id number] Self-pay Self Pay [id number] Unknown [id number] Unknown [employer] [id number] Social History Date Type Detail Facility Start: 12-02-2023 No alcohol use No alcohol use -Nor [facility] 250 DO Work Phone: Comment on above: quit smoking approx 40 years ago; soda; Start: 12-02-2023 Sex Assigned At [email or web address] [facility] [employer] Other Start: 12-02-2023 Tobacco smoking status NHIS Ex-smoker [facility] History of tobacco use Current smoker [facility] Work Phone: History of tobacco use Cigarette Smoker [facility] Work Phone: Start: 12-02-2023 Tobacco use and exposure Smokeless tobacco non-user [facility] Work Phone: Start: 12-02-2023 Alcohol intake Ex-drinker (finding) [facility] Work Phone: Start: 1955 [facility]igned [facility] Work Phone: Start: 11-22-2023 End: 12-02-2023 Exposure to SARS-CoV-2 (event) Not sure [facility] Start: 02-04-2024 Tobacco smoking status ILIS Never smoked tobacco (finding) [facility] Start: 1955 Sex Assigned At Male F [facility] Clinical Notes 09-12-2021 to 12-11-2023 Note Date & Type Note Facility 12-11-2023 Evaluation note Encounter Date Diagnosis Assessment Notes Nov, Atrial fibrillation, persistent (ICD-10 - I48.19) Nov, Hyperlipidemia type II (ICD-10 - E78.01) Nov, Chronic HFrEF (heart failure with reduced ejection fraction) (ICD-10 - I50.22) Echo: LVEF 25-30%, Mild MR,and AI, RVSP normal - 2020 [employer] Other 01-09-2024 History of Present illness Narrative* [...] Scribe Attestation By signing my name below, I Dulce TANYA , Scribe attest that this documentation has been prepared under the direction and in the presence of Ava Knowles MD. documented in this [facility] Work Phone: 1(585) 587-540601-09-2024 Instructions* Patient Instructions* Jordan Quiñonez MA - [...] time of your visit. [facility] Work Phone: [phone]) 822-811808-15-2023 Evaluation note* Encounter Date Diagnosis Assessment Notes [...] use, the patient reduces the risk for NH, CVA, HTN, cardiac dysrhythmias and sudden cardiac [...] and feet daily for blisters and ulcerations. 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 Tachycardic w/o symptoms of lightheadedeness. Continues BAEZ [...] PSA (prostate specific antigen) (ICD-10 - Z12.5) [employer] Other 02-17-2023 Evaluation note* Encounter Date Diagnosis Assessment Notes Treatment Notes Treatment Clinical Notes Dec, Hypokalemia (ICD-10 - E87.6) [employer] Other 02-15-2023 Evaluation note* Encounter Date Diagnosis Assessment Notes Treatment Notes Treatment Clinical Notes Dec, Dilated cardiomyopathy (ICD-10 - I42.0) [employer] Other 02-15-2023 Evaluation note* Encounter Date Diagnosis Assessment Notes Treatment Notes Treatment Clinical Notes Dec, Atrial fibrillation, persistent (ICD-10 - I48.19) [employer] Other 02-13-2023 Evaluation note* Encounter Date Diagnosis [...] are 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 Dec, Obstructive sleep apnea (adult) (pediatric) (ICD-10 - G47.33) This patient is aware of the benefits associated with KOFI: With continued use, the patient reduces the risk for NH, CVA, HTN, cardiac dysrhythmias and sudden cardiac [...] and feet daily for blisters and ulcerations. [employer] Other 01-12-2023 Evaluation note* Encounter Date Diagnosis [...] 2 diabetes mellitus with hyperglycemia, unspecified whether retirement insulin use (ICD-10 - E11.65) This patient [...] use, the patient reduces the risk for NH, CVA, HTN, cardiac dysrhythmias and sudden cardiac [...] exercise for 30 minutes, 3-5 times weekly. [employer] Other 10-20-2021 [id number]:[facility] ECG Post Procedure [facility] 250 DO Work Phone: 1(278) 532-674010-20-2021 [id number]:[facility] ECG Post Procedure [facility] 250 DO Work Phone: [phone]) 832-359510-20-2021 [id number]:[facility] ECG Post Procedure [facility] 250 DO Work Phone: [phone]) 998-834910-20-2021 [id number]:[facility] ECG Post Procedure [facility] 250 DO Work Phone: Evaluation noteNo [employer] Other Evaluation noteNoS[employer] Other Evaluation note* Diagnosis Non-ischemic cardiomyopathy (CMS/HCC)- Primary Other primary cardiomyopathies Paroxysmal atrial fibrillation (CMS/HCC) Atrial fibrillation Primary hypertension Unspecified essential hypertension Mixed hyperlipidemia documented in this encounter [facility] Work Phone: Evaluation note* Diagnosis Onset Date Resolution Status Atrial fibrillation, persistent acute Chronic HFrEF (heart failure with reduced ejection fraction) acute Chronic venous insufficiency acute Nonischemic cardiomyopathy a cute Obstructive sleep apnea (adult) (pediatric) acute Primary hypertension acute Stage 3a chronic kidney disease acute Type 2 diabetes mellitus with hyperglycemia acute [facility] Work Phone: Evaluation note* Diagnosis Onset Date [...] acute Medicare annual wellness visit, subsequent noneactive [facility] Work Phone: History general Narrative - Reported* [...] History COLONOSCOPY Hospitalization History SEE SURGICAL HX [facility] Other History general Narrative - [employer] Other History general Narrative - ReportedNo[employer] Other History of Present illness Narrative* Patient [...] fact his ejection fraction does not improve [facility] 250 DO Work Phone: History of Present [...] fact his ejection fraction does not improve [facility] Work Phone: History of Present illness Narrative* attended cousins in [place] * Patient returns in follow-up of problems [...] weight loss and he understands our recommendation. -[facility] 250 DO Work Phone: History of Present illness Narrative* attended cousins in [place] * Patient returns in follow-up of problems [...] weight loss and he understands our recommendation. -[facility] 600 DO Work Phone: History of Present [...] occasion the merits of diet and weight loss.[facility] 250 DO Work Phone: Reason for referral (narrative)* Consultation (Routine) - Authorized Specialty Diagnoses / Procedures Referred By Contac t Referred To Contact Cardiology Diagnoses Non-ischemic cardiomyopathy (CMS/HCC) Paroxysmal atrial fibrillation (CMS/HCC) Primary hypertension Mixed hyperlipidemia Procedures Follow Up In Cardiology [facility] 2, [address] [address] Cheyanne Knowles MD 70 Sonny Arriola [facility] 2, [address] [address] Referral ID Status Reason Start Date Expiration Date V isits Requested Visits Authorized [id number] Authorized 12/02/2023 12/01/2024 1 1 [facility] Work Phone: Chief Complaint Follow up DCC.CHEYANNE GIBBS is being seen for DCC F/U.CHEYANNE [...] section and content) DATE CREATED AUTHOR 12/18/2021 [facility] DATE CREATED AUTHOR AUTHOR'S ORGANIZ ATION 03/22/2022 [facility] DATE CREATED AUTHOR AUTHOR'S ORGANIZ ATION 12/06/2022 [employer] DATE CREATED AUTHOR AUTHOR'S ORGANIZ ATION 12/10/2022 [facility] DATE CREATED AUTHOR AUTHOR'S ORGANIZ ATION 05/02/2023 [facility] DATE CREATED AUTHOR AUTHOR'S ORGANIZ ATION 12/06/2023 [facility] REASON FOR VISIT (unrecogniz ed section and content) Reason Comments Annual Exam Care Teams (unrecognized sec tion and content) 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 Of Retail Analytics Relationship Specialty Start Date End Date Anibal Gonzales DO [address] [place] [address] PCP - General Internal Medicine 12/02/23 Team Status: Active Member Role Status Dates Anibal Gonzales , DO Primary Care Provider Active Team Status: Inactive Member Role Status Dates Anibal Gonzales DO Primary Care Provide r, Attending Provider Active Start: February 06, 2024 End: February 06, 2024 Team Status: Active Member Role Status Dates Anibal Gonzales , DO Primary Care Provide r, Attending Provider Active Start: February 09, 2024 Team Status: Active Member Role Status Dates Anibal Gonzales , DO Primary Care Provide r, Attending Provider Active Start: February 10, 2024 Team Status: Inactive Member Role Status Dates Anibal Gonzales , DO Primary Care Provide r, Attending Provider [...] BE BASED ON THE PRIMARY CLINICAL RECORDS. [facility] [employer] [facility]. provides no warranty or guarantee of the accuracy or completeness of information in this document.
[2024-06-08 09:39] LABS: Basophils Absolute Auto 0.1 10^3/uL (0.0-0.1); Basophils Percent Auto 0.6 % (0.2-2.0); Eosinophils Absolute Auto 0.1 10^3/uL (0.0-0.7); Eosinophils Percent Auto 1.2 % (0.9-7.0); Hematocrit 43.2 % (42.0-54.0); Hemoglobin 13.2 g/dL (14.0-18.0); Immature Granulocytes Abs Auto 0.04 10^3/uL (0.00-0.03); Immature Granulocytes Pct Auto 0.4 % (0.0-0.5); Lymphocytes Absolute Auto 0.9 10^3/uL (1.2-3.8); Lymphocytes Percent Auto 9.1 % (20.5-60.0); Mean Corpuscular HGB Conc 30.6 g/dL (29.9-35.2); Mean Corpuscular Hemoglobin 28.7 pg (25.9-34.0); Mean Corpuscular Volume 93.9 fL (80.0-94.0); Mean Platelet Volume 9.7 fL (9.5-13.5); Monocytes Absolute Auto 0.6 10^3/uL (0.3-0.8); Monocytes Percent Auto 5.8 % (1.7-12.0); Neutrophils Absolute Auto 8.6 10^3/uL (1.4-6.5); Neutrophils Percent Auto 82.9 % (43.0-75.0); Platelet Count 277 10^3/uL (150-450); Red Cell Distribution Width 15.1 % (11.0-15.0); White Blood Count 10.3 10^3/uL (4.0-11.0)
[2024-06-08 11:31] LABS: Percent Iron Saturation 16.7 %
== END 2024-06-08 09:21 | disposition home or self-care (01) ==
LOC: LAB 09:22
PROVIDERS: PCP Internal Medicine; Visit Provider Internal Medicine
DX: D64.9 Anemia, unspecified (principal)
CPT/HCPCS: 36415; 82607; 82728; 82746; 83540; 83550; 85025

== ENCOUNTER 2024-06-21 11:09 | Emergency (ER) | payer OTHER, SELFPAY ==
[2024-06-21 11:13] VITALS: BP 117/79; PULSE 113; TEMP 36.6; O2SAT 97; BMI 46.5
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
--- OUTSIDE RECORDS SUMMARY | 2024-06-21 11:41 | XMS_ITS | CCD ---
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 Eosinophils # (Auto) 0.1 10 3/uL 0.0-0.7 [facility] Immature Granulocyte # (Auto) 0.03 10 3/uL 0.00-0.03 [facility] Platelet mean volume Auto (B ld) [Entitic vol]on 02-09-2024 Platelet mean volume (Bld) [Entitic vol] 10.3 fL 9.5-13.5 [facility] Platelets Auto (Bld) [#/Vol] on 02-09-2024 Platelets (Bld) [#/Vol] 328 10 3/uL 150-450 [facility] RBC Auto (Bld) [#/Vol]on RBC (Bld) [#/Vol] 4.29 10 6/uL 4.70-6.10 [facility] Serum or plasma albumin/glob ulin mass ratioon 02-09-2024 Albumin/Globulin [Mass ratio] 0.7 {ratio} [facility] Serum or plasma anion gap de terminationon 02-09-2024 Anion gap [Moles/Vol] 13.8 mmol/L Fi [facility] B-Type Natriuretic Peptideon 04-08-2023 B-Type Natriuretic Peptide see note [facility] Other B-Type Natriuretic Peptide 3094.0 pg/ml Critically high <=900.0 pg/ml [facility] Other BNPon 04-08-2023 Natriuretic peptide B (Bld) [Mass/Vol] 3094.0 pg/mL Critically high <=900.0 [facility] Comment on above: Performed By: #### B MP, BNP, LIPID #### [facility] [address] [place] [address] Dr. Braxton Ayl Basic Metabolic Panelon 03-24 Calcium [Mass/Vol] 8.1178332 mg/dL 8.5-10 .1 mg/dL [facility] Other CO2 [Moles/Vol] 34.77841549 mmol/L Critically high 21. 0-32.0 mmol/L [facility] Other Creatinine [Mass/Vol] 1.40194640 mg/dL Critically high 0.70-1.30 mg/dL [facility] Other Potassium [Moles/Vol] 4.67062708 mmol/L 3 .5-5.1 mmol/L [facility] Other Urea nitrogen [Mass/Vol] 25.0883992 mg/dL Critically high 7.0-18.0 mg/dL [facility] Other Basic Metabolic Panel 140 mmol/L 136-14 5 mmol/L [facility] Other Basic Metabolic Panel 148 mg/dL Critically high 74-106 mg /dL [facility] Other Basic Metabolic Panel 40 mL/min/1.73m2 Critically low >=60 mL/min/1.73m 2 [facility] Other Basic Metabolic Panel 49 mL/min/1.73m2 Critically low >=60 mL/min/1.73m 2 [facility] Other CBC AUTO DIFFon 04-08-2023 BASO # 0.1 103/ul Normal 0.0-0.1 [facility] Comment on above: Performed By: #### C BC #### [facility] [address] [address] [address] Braxton Aly Basophils/100 WBC (Bld) 0.6 % Normal 0.2-2.0 [facility] Comment on above: Performed By: #### C BC #### [facility] [address] [address] [address] Braxton Aly EO # 0.1 103/ul Normal 0.0-0.7 [facility] Comment on above: Performed By: #### C BC #### [facility] [address] [address] [address] Braxton Aly Eosinophils/100 WBC (Bld) 1.3 % Normal 0.9-7.0 [facility] Comment on above: Performed By: #### C BC #### [facility] [address] [place] [address] Dr. Braxton Aly Erythrocyte distribution width (RBC) [Ratio] 14.6 % Normal 11.0-15.0 [facility] Comment on above: Performed By: #### C BC #### [facility] [address] [place] [address] Dr. Braxton Aly Hematocrit (Bld) [Volume fraction] 44.2 % Normal 42.0-54.0 [facility] Comment on above: Performed By: #### C BC #### [facility] [address] [place] [address] Dr. Braxton Aly Hemoglobin (Bld) [Mass/Vol] 13.5 g/dL Critically low 14.0-18.0 [facility] Comment on above: Performed By: #### C BC #### [facility] [address] [place] [address] Dr. Braxton Aly IG # 0.03 10e3/ul Normal 0.00-0.03 [facility] Comment on above: Performed By: #### C BC #### [facility] [address] [place] [address] Dr. Braxton Aly IG % 0.3 % Normal 0.0-0.5 [facility] Comment on above: Performed By: #### C BC #### [facility] [address] [place] [address] Dr. Braxton Aly LYMPH # 1.3 103/ul Normal 1.2-3.8 [facility] Comment on above: Performed By: #### C BC #### [facility] [address] [place] [address] Dr. Braxton Aly Lymphocytes/100 WBC (Bld) 15.0 % Critically low 20.5-60.0 [facility] Comment on above: Performed By: #### C BC #### [facility] [address] [place] [address] Dr. Braxton Aly MANUAL DIFF REQ NO Normal [facility] Comment on above: Performed By: #### C BC #### [facility] [address] [address] [address] Braxton Aly MCH (RBC) [Entitic mass] 29.1 pg Normal 25.9-34.0 [facility] Comment on above: Performed By: #### C BC #### [facility] [address] [address] [address] Braxton Aly MCHC (RBC) [Mass/Vol] 30.5 g/dL Normal 29.9-35.2 [facility] Comment on above: Performed By: #### C BC #### [facility] [address] [address] [address] Braxton Aly MCV (RBC) [Entitic vol] 95.3 fL Critically high 80.0-94.0 [facility] Comment on above: Performed By: #### C BC #### [facility] [address] [place] [address] Dr. Braxton Aly MONO # 0.6 103/ul Normal 0.3-0.8 [facility] Comment on above: Performed By: #### C BC #### [facility] [address] [place] [address] Dr. Braxton Aly Monocytes/100 WBC (Bld) 6.7 % Normal 1.7-12.0 [facility] Comment on above: Performed By: #### C BC #### [facility] [address] [place] [address] Dr. Braxton Aly NEUT # 6.7 103/ul Critically high 1.4-6.5 [facility] Comment on above: Performed By: #### C BC #### [facility] [address] [place] [address] Dr. Braxton Aly Neutrophils/100 WBC (Bld) 76.1 % Critically high 43.0-75.0 [facility] Comment on above: Performed By: #### C BC #### [facility] [address] [place] [address] Dr. Braxton Aly Platelet mean volume (Bld) [Entitic vol] 9.4 fL Critically low 9.5-13.5 [facility] Comment on above: Performed By: #### C BC #### [facility] [address] [address] [address] Braxton Aly PLT 272 103/ul Normal 150-450 [facility] Comment on above: Performed By: #### C BC #### [facility] [address] [address] [address] Braxton Aly RBC 4.64 106/ul Critically low 4.70-6.10 [facility] Comment on above: Performed By: #### C BC #### [facility] [address] [address] [address] Braxton Aly WBC 8.8 103/ul Normal 4.0-11.0 [facility] Comment on above: Performed By: #### C BC #### [facility] [address] [address] [address] Braxton Aly Complete Blood Count and Dif diony 04-08-2023 Anisocytosis Ql (Bld) [facility] [employer] Other Basophilic stippling LM Ql (Bld) [facility] [employer] Other RBC morphology finding Nom (Bld) [facility] [employer] Other GLYCOHEMOGLOBIN A1Con 2022 ADA RECOMMENDATION SEE BELOW Normal [facility] Comment on above: Result Comment: ADA RECOMMENDED LIMIT 4.0 - 6.0 ADA THERAPEUTIC TARGET < 7.0 ACTION SUGGESTED > 7.0 Performed By: #### A 1C #### [facility] [address] [address] [address] Braxton Aly Glucose [Mass/Vol] 143 mg/dL Normal [facility] Comment on above: Performed By: #### A 1C #### [facility] [address] [address] [address] Braxton Aly HbA1c (Bld) [Mass fraction] 6.6 % Critically high 4.5-6.2 [facility] Comment on above: Performed By: #### A 1C #### [facility] [address] [address] [address] Braxton Aly Hemoglobin A1C ([facility])on 0 04-08-2023 Hemoglobin A1C ([facility]) [facility] Other LIPID PROFILEon 04-08-2023 CHOL-HDL RATIO NORM SEE BELOW Normal [facility] Comment on above: Result Comment: 3.3 - 4.4 LOW RISK 4.4 - 7.1 AVERAGE RISK 7.1 - 11.0 MODERATE RISK >11.0 HIGH RISK Performed By: #### B MP, BNP, LIPID #### [facility] [address] [address] [address] Braxton Aly Cholesterol [Mass/Vol] 119 mg/dL <=200 mg/dL [facility] Comment on above: Performed By: #### B MP, BNP, LIPID #### [facility] [address] [address] [address] Braxton Aly Cholesterol in HDL [Mass/Vol] 36 mg/dL Critically low 40-60 mg/dL [facility] Comment on above: Performed By: #### B MP, BNP, LIPID #### [facility] [address] [address] [address] Braxton Aly Cholesterol in LDL [Mass/Vol] 67.8 mg/dL Normal [facility] Comment on above: Performed By: #### B MP, BNP, LIPID #### [facility] [address] [address] [address] Braxton Aly Cholesterol.total/Cho lesterol in HDL [Mass ratio] 3.3 {ratio} [facility] Comment on above: Performed By: #### B MP, BNP, LIPID #### [facility] [address] [address] [address] Braxton Aly HDL NORMAL > or = 60 mg/dl - LOW CARDIOVASCULAR RISK <40 mg/dl - HIGH CARDIOVASCULAR RISK Normal [facility] Comment on above: Performed By: #### B MP, BNP, LIPID #### [facility] [address] [place] [address] Dr. Braxton Aly LDL CALC NORMAL SEE BELOW Normal [facility] Comment on above: Result Comment: <100 mg/dl OPTIMAL 100 - 129 mg/dl NEAR OR ABOVE OPTIMAL 130 - 159 mg/dl BORDERLINE HIGH 160 - 189 mg/dl HIGH >190 mg/dl VERY HIGH Performed By: #### B MP, BNP, LIPID #### [facility] [address] [address] [address] Braxton Aly Triglyceride [Mass/Vol] 76 mg/dL <=150 mg/dL [facility] Comment on above: Performed By: #### B MP, BNP, LIPID #### [facility] [address] [address] [address] Braxton Aly VLDL CALC 15.2 mg/dL [facility] Comment on above: Performed By: #### B MP, BNP, LIPID #### [facility] [address] [address] [address] Braxton Aly Lipid Panelon 04-08-2023 Lipid Panel > or = 60 mg/dl - LOW CARDIOVASCULAR RISK <40 mg/dl - HIGH CARDIOVASCULAR RISK [employer] [facility] [employer] Other Lipid Panel SEE BELOW [facility] Other Lipid Panel 67.8 mg/dL [facility] Other Lipid Panel 15.2 mg/dL [employer] [facility] [employer] Other PROF CHEM 8 (BAS METB)on Anion gap [Moles/Vol] 9.4 mmol/L [facility] Comment on above: Performed By: #### B MP, BNP, LIPID #### [facility] [address] [address] [address] Braxton Aly Calcium [Mass/Vol] 8.9 mg/dL Normal 8.5-10.1 [facility] Comment on above: Performed By: #### B MP, BNP, LIPID #### [facility] [address] [address] [address] Braxton Aly Chloride [Moles/Vol] 100 mmol/L 98-107 mmol/L [facility] Comment on above: Performed By: #### B MP, BNP, LIPID #### [facility] [address] [address] [address] Braxton Aly CO2 [Moles/Vol] 34.7 mmol/L Critically high 21.0-32.0 [facility] Comment on above: Performed By: #### B MP, BNP, LIPID #### [facility] [address] [place] [address] Dr. Braxton Aly Creatinine [Mass/Vol] 1.71 mg/dL Critically high 0.70-1.30 [facility] Comment on above: Performed By: #### B MP, BNP, LIPID #### [facility] [address] [place] [address] Dr. Braxton Aly EGFR-AF CITIZEN [place] 49 mL/min/1.73m2 Critically low >=60 [facility] Comment on above: Performed By: #### B MP, BNP, LIPID #### [facility] [address] [place] [address] Dr. Braxton Aly EGFR-NON AF CITIZEN OF [place] 40 mL/min/1.73m2 Critically low >=60 [facility] Comment on above: Performed By: #### B MP, BNP, LIPID #### [facility] [address] [place] [address] Dr. Braxton Aly Glucose [Mass/Vol] 148 mg/dL Critically high 74-106 [facility] Comment on above: Performed By: #### B MP, BNP, LIPID #### [facility] [address] [place] [address] Dr. Braxton Aly Potassium [Moles/Vol] 4.1 mmol/L Normal 3.5-5.1 [facility] Comment on above: Performed By: #### B MP, BNP, LIPID #### [facility] [address] [place] [address] Dr. Braxton Aly Sodium [Moles/Vol] 140 mmol/L Normal 136-145 [facility] Comment on above: Performed By: #### B MP, BNP, LIPID #### [facility] [address] [place] [address] Dr. Braxton Aly Urea nitrogen [Mass/Vol] 25.0 mg/dL Critically high 7.0-18.0 [facility] Comment on above: Performed By: #### B MP, BNP, LIPID #### [facility] [address] [address] [address] Braxton Aly Urea nitrogen/Creatinine [Mass ratio] 14.6 mg/mg [facility] Comment on above: Performed By: #### B MP, BNP, LIPID #### [facility] [address] [address] [address] Braxton Aly Basic Metabolic Panelon 12-25 Calcium [Mass/Vol] 8.5374150 mg/dL 8.5-10 .1 mg/dL [facility] Other CO2 [Moles/Vol] 31.65597209 mmol/L 21.0-3 2.0 mmol/L [facility] Other Creatinine [Mass/Vol] 1.99564886 mg/dL Critically high 0.70-1.30 mg/dL [facility] Other Potassium [Moles/Vol] 3.59210512 mmol/L Critically low 3.5-5.1 mmol/L [facility] Other Urea nitrogen [Mass/Vol] 15.8793820 mg/dL 7.0-18.0 mg/dL [facility] Other Basic Metabolic Panel see note [employer] Other Basic Metabolic Panel 141 mmol/L 136-14 5 mmol/L [facility] Other Basic Metabolic Panel 157 mg/dL Critically high 74-106 mg /dL [facility] Other Basic Metabolic Panel 52 mL/min/1.73m2 Critically low >=60 mL/min/1.73m 2 [facility] Other Basic Metabolic Panel >60 mL/min/1.73m2 > =60 mL/min/1.73m 2 [facility] Other Anion gap [Moles/Vol] 11.6 mmol/L Normal No [facility] [employer] Other Comment on above: Performed By: #### B MP #### [facility] [address] [address] [address] Braxton Aly Chloride [Moles/Vol] 101 mmol/L Normal 98-107 [facility] [employer] Other Comment on above: Performed By: #### B MP #### [facility] [address] [address] [address] Braxton Aly Urea nitrogen/Creatinine [Mass ratio] 11.0 mg/mg Normal [facility] [employer] Other Comment on above: Performed By: #### B MP #### [facility] [address] [address] [address] Braxton Aly PROF CHEM 8 (BAS METB)on Calcium [Mass/Vol] 8.8 mg/dL Normal 8.5-10.1 [facility] Comment on above: Performed By: #### B MP #### [facility] [address] [address] [address] Braxton Aly CO2 [Moles/Vol] 31.7 mmol/L Normal 21.0-32.0 [facility] Comment on above: Performed By: #### B MP #### [facility] [address] [address] [address] Braxton Aly Creatinine [Mass/Vol] 1.36 mg/dL Critically high 0.70-1.30 [facility] Comment on above: Performed By: #### B MP #### [facility] [address] [address] [address] Braxton Aly EGFR-AF CITIZEN OF [place] >60 Normal >=60 [facility] Comment on above: Performed By: #### B MP #### [facility] [address] [address] [address] Braxton Aly EGFR-NON AF CITIZEN OF [place] 52 mL/min/1.73m2 Critically low >=60 [facility] Comment on above: Performed By: #### B MP #### [facility] [address] [address] [address] Braxton Aly Glucose [Mass/Vol] 157 mg/dL Critically high 74-106 [facility] Comment on above: Performed By: #### B MP #### [facility] [address] [place], [place] [address] Dr[address] Braxton Aly Potassium [Moles/Vol] 3.3 mmol/L Critically low 3.5-5.1 [facility] Comment on above: Performed By: #### B MP #### [facility] [address] [place], [place] [address] Dr. Braxton Aly Sodium [Moles/Vol] 141 mmol/L Normal 136-145 [facility] Comment on above: Performed By: #### B MP #### [facility] [address] [place], [place] [address] Dr. Braxton Aly Urea nitrogen [Mass/Vol] 15.0 mg/dL Normal 7.0-18.0 [facility] Comment on above: Performed By: #### B MP #### [facility] [address] [place], [place] [address] Dr. Braxton Aly Office Visit (Cardiology)on 12-06-2022 [...] Follow up in 1 year. Chief Complaint ROJAS GIBBS is being seen for 9-12 month [...] Recorded: 06Dec2022 08:23AM Heart Rate60, R Radial Potlsued640, RUE, Sitting Trlvpptna65, RUE, Sitting Height5 ft 9 in Cgommt953 lb BMI Bdhokudedj99.81 kg/m2 BSA Calculated2.51 Tobacco Useb) No PHQ-2 [...] a) No falls within the last year PZ-[id number]-H [place] [address] DO Work Phone: Tobacco use status CP b) No XJ-Vogomvbbby-I [place] 250 DO Work Phone: BNPon 11-08-2022 Natriuretic peptide B (Bld) [Mass/Vol] 2323.0 pg/mL Critically high <=900.0 [facility] Comment on above: Performed By: #### B SPECIALIST WOUND CARE, BMP #### [facility] [address] [address] [address] Braxton Aly PROF CHEM 8 (BAS METB)on Anion gap [Moles/Vol] 7.5 mmol/L Normal [facility] Comment on above: Performed By: #### B SPECIALIST WOUND CARE, BMP #### [facility] [address] [address] [address] Braxton Aly Calcium [Mass/Vol] 8.8 mg/dL Normal 8.5-10.1 [facility] Comment on above: Performed By: #### B SPECIALIST WOUND CARE, BMP #### [facility] [address] [place] [address] Dr. Braxton Aly Chloride [Moles/Vol] 100 mmol/L Normal 98-107 [facility] Comment on above: Performed By: #### B SPECIALIST WOUND CARE, BMP #### [facility] [address] [address] [address] Braxton Aly CO2 [Moles/Vol] 37.5 mmol/L Critically high 21.0-32.0 [facility] Comment on above: Performed By: #### B SPECIALIST WOUND CARE, BMP #### [facility] [address] [address] [address] Braxton Aly Creatinine [Mass/Vol] 1.38 mg/dL Critically high 0.70-1.30 [facility] Comment on above: Performed By: #### B SPECIALIST WOUND CARE, BMP #### [facility] [address] [place] [address] Dr. Braxton Aly EGFR-AF CITIZEN [place] >60 Normal >=60 [facility] Comment on above: Performed By: #### B SPECIALIST WOUND CARE, BMP #### [facility] [address] [address] [address] Braxton Aly EGFR-NON AF CITIZEN OF [place] 51 mL/min/1.73m2 Critically low >=60 [facility] Comment on above: Performed By: #### B SPECIALIST WOUND CARE, BMP #### [facility] [address] [address] [address] Braxton Aly Glucose [Mass/Vol] 141 mg/dL Critically high 74-106 [facility] Comment on above: Performed By: #### B SPECIALIST WOUND CARE, BMP #### [facility] [address] [address] [address] Braxton Aly Potassium [Moles/Vol] 3.0 mmol/L Critically low 3.5-5.1 [facility] Comment on above: Performed By: #### B SPECIALIST WOUND CARE, BMP #### [facility] [address] [address] [address] Braxton Aly Sodium [Moles/Vol] 142 mmol/L Normal 136-145 [facility] Comment on above: Performed By: #### B SPECIALIST WOUND CARE, BMP #### [facility] [address] [address] [address] Braxton Aly Urea nitrogen [Mass/Vol] 16.0 mg/dL Normal 7.0-18.0 [facility] Comment on above: Performed By: #### B SPECIALIST WOUND CARE, BMP #### [facility] [address] [address] [address] Braxton Aly Urea nitrogen/Creatinine [Mass ratio] 11.6 mg/mg Normal [facility] Comment on above: Performed By: #### B SPECIALIST WOUND CARE, BMP #### [facility] [address] [address] [address] Braxton Aly XR CHEST 2 Von [...] ALEX DAWN Date: 2022-11-08 13:38 Normal [facility] Office Visit (Cardiology)on 04-12-2022 Follow-up visit Diagnoses/Problems [...] up in [9 ] months Chief Complaint ROJAS GIBBS is being seen for Follow up [...] negative for complaint. Vitals Vital Signs Recorded: [id number] 01:22PM Heart Rate60, R Radial Xdwjzkib336, LUE, Sitting Awsgjymrl73, LUE, Sitting Height5 ft 9 in Xwaqpb127 lb BMI Fankctgjgh88.75 kg/m2 BSA Calculated2.46 Tobacco Useb) No PHQ-2 [...] time . Signatures Electronically signed by : Rojas Knowles MD; Apr 12 2022 2:25PM EST (Author) Normal [facility] Tobacco Screening.on 022 Adult depression screening assessment No [facility] 250 DO Work Phone: Fall risk assessment a) No falls within the last year [facility] 250 DO Work Phone: Tobacco use status CPHS b) No [facility] 250 DO Work Phone: Echocardiogramon 03-18-[address], [address] [place] [address] TRANSTHORACIC ECHOCARDIOGRAM REPORT Patient Name: ROJAS GIBBS Reading Physician: [id number] nKowles MD Study Date: 03/18/2022 Referring Physician: Mel KNOWLES MRN/PID: [id number] PCP: Anibal Gonzales Accession/Order#: [id number] Department Location: [facility] Date of : 1955 Fellow: Gender: M Nurse: Admit Date: [employer] Driver: Makenna John RD, T Height: 175.26 cm CC Report to: Weight: 138.35 kg Study Type: Echocardiogram BSA: 2.47 m2 Blood Pressure: 112 /70 mmHg Diagnosis/ICD: 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; 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 Indication: Diabetes, Dyspnea, HTN, Hyperlipidemia, Former Smoker, Morbid Obesity Procedure/CPT: Echo Complete w Full [id number] Study Detail: The following Echo studies were [...] AoV Mean P.0 mmHg (1.7-11.5mmHg) LVOT Max [place]: 0.63 m/s (<1.1m/s) AoV VTI: 17.30 cm (18-25cm) LVOT VTI: 9.31 cm LVOT Diameter: 2.20 cm (1.8-2.4cm) AoV Area, VTI: 2.05 cm2 (2.5-5.5cm2) AoV Area,Vmax: 2.46 cm2 (2.5-4.5cm2) AoV Dimensionless Index: 0.54 PULMONIC VALVE: Normal Ranges: PV Max Cynthia: 0.6 m/s (0.6-0.9m/s) PV Max P.3 mmHg [id number] Rojas Knowles MD Electronically signed on 03/18/2022 at 5:02:50 PM Final Normal [facility] Tobacco Screening.on 022 Fall risk assessment b) One or more fall s in the last year -[facility] 250 DO Work Phone: Tobacco use status CPHS b) No -[facility] 250 DO Work Phone: ECG 12 lead ECGon 11-07-2021 ECG 12 lead ECG [facility] [place] [address] Electrocardiograph Report Signed Patient: Rojas Gibbs MR#: [id number] : 1955 Acct:[id number] Age/Sex: 66 / M ADM Date: 11/07/21 Loc: Room: Type: [facility] Attending Dr: Rojas Knowles MD Ordering Provider: Rojas Knowles MD Date of Service: 11/07/21 ECG/ECG [...] MUS Signed By Pardeep Green MD 2[address] [facility] ECG post procedureon ECG post procedure [facility] [address] [place] [address] [place] [address] Electrocardiograph Report Signed Patient: Rojas Gibbs MR#: [id number] : 1955 Acct:[id number] Age/Sex: 66 / M ADM Date: 11/07/21 Loc: Room: Type: [facility] Attending Dr: Rojas Knowles MD Ordering Provider: Rojas Knowles MD Date of Service: 11/07/21/ ECG/ECG [...] MUS Signed By Pardeep Green MD 2[address] [facility] Electrolyteson 11-07-2021 Chloride [Moles/Vol] 98 mmol/L Normal 95-114 [facility] Comment on above: Performed By: #### L [facility] #### [address] CO2 [Moles/Vol] 31.8 mmol/L High 22.0-30.0 [facility] Comment on above: Result Comment: PERF ORMED BY: [facility] [address] [id number] PATHOLOGIST SINKER WINDER SARA GROSSMAN M.D. Performed By: #### L YTES #### [facility] [address] [id number] [facility] Potassium [Moles/Vol] 4.1 mmol/L Normal 3.5-5.1 [facility] Comment on above: Performed By: #### L YTES #### [facility] [address] Sodium [Moles/Vol] 138 mmol/L Normal 136-146 [facility] Comment on above: Performed By: #### L YTES #### [facility] [address] [id number] [place] No Panel Informationon 11-07 31.8\S\31.8 above high threshold 22.0-30.0 [facility] 250 DO Work Phone: Comment on above: PERFORMED BY:[facility] [place], [place] [id number] MEDICAL DIRECTORSARA GROSSMAN M.D. 98\S\98 Normal 95-114 [facility] 250 DO Work Phone: 4.1\S\4.1 Normal 3.5-5.1 [facility] 250 DO Work Phone: 138\S\138 Normal 136-146 [facility] 250 DO Work Phone: COVID-19 Antigenon 1 COVID-19 Antigen Healthcare Worker?: N Kym Reference Kym Reference Negative SARS-CoV+SARS-CoV-2 (COVID-19) Ag [Presence] [...] its performance Kym Disclaimer characteristic determined by [employer] and Kym Disclaimer validated at [facility]. This Kym Disclaimer test has not been [...] Emergency Use Authorization for Coronavirus Kym Disclaimer isease-2019 during the Public Health Emergency) Kym Disclaimer [...] is terminated or revoked sooner. PERFORMED BY: [facility] [address] [place] [address] PATHOLOGIST SINKER WINDER SARA GROSSMAN M.D. Normal [facility] Comment on above: Performed By: #### C OVID-19 KYM, SOFIANEG #### [address] [id number] [facility] Laboratory - Microbiology an d Antimicrobial susceptibilityon 11-05-2021 SARS-CoV-2 (COVID-19) RNA NILAM+probe Ql (Unsp spec) [facility] 250 DO Work Phone: No Panel Informationon 11-05 Negative Normal Negative [facility] 250 DO Work Phone: Comment on above: This is a duplicate Kym SARS Antigen (ROMEL) result to be used for statistical tracking purpose only.PERFORMED BY:[facility] [facility] [place] [phone] MEDICAL DIRECTORSARA GROSSMAN M.D. Kym Ag Negativeon 11-05-20 21 Kym Ag Negative Negative Normal Negative [facility] Comment on above: Result Comment: This is a duplicate Kym SARS Antigen (ROMEL) result to be used for statistical tracking purpose only. PERFORMED BY: [facility] [address] [place] [address] PATHOLOGIST SINKER WINDER SARA GROSSMAN M.D. Performed By: #### C OVID-19 KYM, SOFIANEG #### [address] Amiodarone (Cordarone), Seru mon 09-24-2021 Amiodarone, Serum 586 ng/mL Low 2753-1372 [facility] Comment on above: Order Comment: PT IS NON FASTING Performed By: #### B MP #### [address] #### AMIODARONE #### [facility] , Noramiodarone, Serum 478 ng/mL Normal . [facility] Comment on above: Order Comment: PT IS NON FASTING Result Comment: Note : To convert from ng/ml to ug/ml, divide the result by 1000. Reference range (amiodarone): 1.00-2.50 ug/mL. This test was developed and its performance characteristics determined by [facility]. It has not been cleared or approved by the Food and Drug Administration. Performed at: [facility] [address] [id number] A P Supervisor: Adina Reis [facility], Phone: [phone] PERFORMED BY: [place] [address] PATHOLOGIST SINKER WINDER SARA GROSSMAN M.D. Performed By: #### B MP #### [address] #### AMIODARONE #### [facility] , Basic Metabolic Panelon 11 Calcium [Mass/Vol] 8.5 mg/dL Normal 8.2-10.2 [facility] Comment on above: Order Comment: PT IS NON FASTING Result Comment: PERF ORMED BY: [place] [address] PATHOLOGIST SINKER WINDER SARA GROSSMAN M.D. Performed By: #### B MP #### [place] [address] [place] #### AMIODARONE #### [facility] , Chloride [Moles/Vol] 100 mmol/L Normal 95-114 [facility] Comment on above: Order Comment: PT IS NON FASTING Performed By: #### B MP #### [facility] [address] [place] [address] #### AMIODARONE #### [facility] , CO2 [Moles/Vol] 31.6 mmol/L High 22.0-30.0 [facility] Comment on above: Order Comment: PT IS NON FASTING Performed By: #### B MP #### [facility] [address] [place] [address] #### AMIODARONE #### [facility] , Creatinine [Mass/Vol] 1.51 mg/dL High 0.64-1.27 [facility] Comment on above: Order Comment: PT IS NON FASTING Performed By: #### B MP #### [facility] [address] [place] [address] #### AMIODARONE #### [facility] , Estimated GFR ( Yaima 56 [facility] Comment on above: Order Comment: PT IS NON FASTING Result Comment: GFR estimated reference range: According to KDOQI guidelines, <60 ml/min/1.73m2 is sufficient to diagnose a patient with chronic kidney disease. Performed By: #### B MP #### [facility] [address] [place] [address] [place] #### AMIODARONE #### [facility] , Estimated GFR (Non- Am 46 [facility] Comment on above: Order Comment: PT IS NON FASTING Performed By: #### B MP #### [facility] [address] [place] [address] [place] #### AMIODARONE #### [facility] , Glucose [Mass/Vol] 124 mg/dL High 70-100 [facility] Comment on above: Order Comment: PT IS NON FASTING Result Comment: [place] om Glucose Reference Range is dependent on time and content of last meal. Glucose of more than 200 mg/dL in a nonstressed, ambulatory subject supports the diagnosis of Diabetes Mellitus. ADA recommended reference range Performed By: #### B MP #### [facility] [address] [place] [address] [place] #### AMIODARONE #### [facility] , Potassium [Moles/Vol] 4.2 mmol/L Normal 3.5-5.1 [facility] Comment on above: Order Comment: PT IS NON FASTING Performed By: #### B MP #### [facility] [address] [place] [address] [place] #### AMIODARONE #### [facility] , Sodium [Moles/Vol] 141 mmol/L Normal 136-146 [facility] Comment on above: Order Comment: PT IS NON FASTING Performed By: #### B MP #### [facility] [address] [place] [address] [place] #### AMIODARONE #### [facility] , Urea nitrogen [Mass/Vol] 20 mg/dL Normal 9-23 [facility] Comment on above: Order Comment: PT IS NON FASTING Performed By: #### B MP #### [facility] [address] [place] [address] [place] #### AMIODARONE #### [facility] , IO EKG Electrocardiogram- 12 Leadon 09-24-2021 IO EKG Electrocardiogram- 12 Lead See Scanned Document [facility] 250 DO Work Phone: No Panel Informationon 09-24 8.5\S\8.5 Normal 8.2-10.2 [facility] 250 DO Work Phone: Comment on above: PERFORMED BY:[facility] [place] [address] [place], [place] [phone] MEDICAL DIRECTORSARA GROSSMAN M.D. 31.6\S\31.6 above high threshold 22.0-30.0 [facility] 250 DO Work Phone: 100\S\100 Normal 95-114 [facility] 250 DO Work Phone: 4.2\S\4.2 Normal 3.5-5.1 [facility] 250 DO Work Phone: 141\S\141 Normal 136-146 [facility] 250 DO Work Phone: 56\S\56 Normal [facility] 250 DO Work Phone: Comment on above: GFR estimated refere nce range: According to KDOQI guidelines, <60 ml/min/1.73m2 is sufficient to diagnose a patient with chronic kidney disease. 46\S\46 Normal [facility] Carter DO Work Phone: 1.51\S\1.51 above high threshold 0.64-1.27 [facility] Carter DO Work Phone: 20\S\20 Normal 9-23 [facility] Carter DO Work Phone: 124\S\124 above high threshold 70-100 [facility] Carter DO Work Phone: Comment on above: Random Glucose Refer ence Range is dependent on time and content of last meal. Glucose of more than 200 mg/dL in a nonstressed, ambulatory subject supports the diagnosis of Diabetes Mellitus. ADA recommended reference range 478\S\478 Normal . [facility] 250 DO Work Phone: Comment on above: Note: To convert fro m ng/ml to ug/ml, divide the result by 1000. Reference range (amiodarone): 1.00-2.50 ug/mL. This test was developed and its performance characteristics determined by [employer]. It has not been cleared or approved by the Food and Drug Administration. Performed at: [facility] [address] [id number] A P Supervisor: Adina Reis [facility], Phone: [phone] BY:[address] [phone] MEDICAL DIRECTORSARA GROSSMAN M.D. 586\S\586 below low threshold [phone] [facility] 250 DO Work Phone: Tobacco Screening.on 021 Fall risk assessment a) No falls within the last year [facility] 250 DO Work Phone: Tobacco use status CPHS b) No [facility] 250 DO Work Phone: ECG 12 lead ECGon 09-12-2021 ECG 12 lead ECG [address] [address] Electrocardiograph Report Signed Patient: Rojas Gibbs MR#: [id number] : 1955 Acct:[id number] Age/Sex: 66 / M ADM Date: 09/12/21 Loc: Room: Type: [facility] Attending Dr: Rojas Knowles MD Ordering Provider: Rojas Knowles MD Date of Service: 09/12/21 ECG/ECG [...] No previous ECGs available Confirmed by BRIDGER HEALDEY MD ([id number]) on 09/12/2021 10:12:19 AM Referred By: Electronically Signed By:BRIDGER HEADLEY MD Transcribed By: MUS Signed By Bridger Headley MD 1 1012 Normal [facility] ECG post procedureon 021 ECG post procedure [facility] [place] [address] Electrocardiograph Report Signed Patient: Rojas Gibbs MR#: [id number] 2832 : 1955 Acct:[id number] Age/Sex: 66 / M ADM Date: 09/12/21 Loc: Room: Type: [facility] Attending Dr: Rojas Knowles MD Ordering Provider: Rojas Knowles MD Date of Service: 09/12/21/ ECG/ECG [...] By Bridger Headley MD 1 0953 Normal [facility] Electrolyteson 09-12-2021 Chloride [Moles/Vol] 100 mmol/L Normal 95-114 [facility] Comment on above: Performed By: #### L JAYRO #### [facility] [address] [place] [address] CO2 [Moles/Vol] 32.1 mmol/L High 22.0-30.0 [facility] Comment on above: Result Comment: PERF ORMED BY: [place] [address] PATHOLOGIST SINKER WINDER SARA GROSSMAN M.D. Performed By: #### L YTES #### [facility] [address] [place] [address] Potassium [Moles/Vol] 4.5 mmol/L Normal 3.5-5.1 [facility] Comment on above: Performed By: #### L YTES #### [facility] [address] [id number] [facility] Sodium [Moles/Vol] 140 mmol/L Normal 136-146 [facility] Comment on above: Performed By: #### L YTES #### [facility] [address] [id number] [facility] No Panel Informationon 09-12 [facility] 250 DO Work Phone: 32.1\S\32.1 above high threshold 22.0-30.0 [facility] 250 DO Work Phone: Comment on above: PERFORMED BY:[facility] [place], [place] [phone] MEDICAL DIRECTORSARA GROSSMAN M.D. 100\S\100 Normal 95-114 [facility] 250 DO Work Phone: 4.5\S\4.5 Normal 3.5-5.1 [facility] 250 DO Work Phone: 140\S\140 Normal 136-146 [facility] 250 DO Work Phone: COVID-19 FRMCon 09-10-2021 SARS-CoV-2 (COVID-19) RNA NILAM+probe Ql (Unsp spec) Negative Normal Negative [facility] Comment on above: Order Comment: Healt hcare Worker?: N Result Comment: Testing for SARS-CoV-2 by RT-PCR This test was developed and its performance characteristics determined by [employer] and validated at the [facility]. This test has not been FDA cleared [...] is terminated or revoked sooner. PERFORMED BY: [facility] [address] [id number] PATHOLOGIST SINKER WINDER SARA GROSSMAN M.D. Performed By: #### C OVID 19 [facility] #### [facility] [address] [id number] [facility] Vital Signs Date Time Vital Sign Value Performing Clinician Facility 06-14-2024 18:17-0400 Hourly Rounding Mbanefo OJUKWU [facility] 06-14-2024 18:17-0400 Promise to Return Mbanefo OJUKWU [facility] 06-14-2024 17:00-0400 Hourly Rounding Mbanefo OJUKWU [facility] 06-14-2024 17:00-0400 Promise to Return Mbanefo OJUKWU [facility] 06-14-2024 16:44-0400 Hourly Rounding Mbanefo O[facility]UKWU [facility] 06-14-2024 16:44-0400 Promise to Return Mbanefo O[facility]UKWU [facility] 06-14-2024 15:08-0400 Heart rate 97 /min Mbanefo [facility] 06-14-2024 15:08-0400 SaO2% (BldA) [Mass fraction] 96 % Mbanefo [facility] 06-14-2024 15:08-0400 Respiratory rate 16 /min Mbanefo [facility] 06-14-2024 15:08-0400 Diastolic blood pressure 64 mm[Hg] Mbanefo [facility] 06-14-2024 15:08-0400 Mean blood pressure 76 mm[Hg] M[facility]efo [facility] 06-14-2024 15:08-0400 Systolic blood pressure 99 mm[Hg] Mbanefo [facility] 06-14-2024 15:07-0400 Body temperature 98.06 [degF] Mbanefo [facility] 06-14-2024 15:00-0400 Blood Pressure Location Mbanefo O[facility]UK[facility] 06-14-2024 11:20-0400 Heart rate 102 /min Mbanefo [facility] 06-14-2024 11:20-0400 SaO2% (BldA) [Mass fraction] 97 % [facility]efo [facility] 06-14-2024 11:19-0400 Diastolic blood pressure 73 mm[Hg] M[facility]efo [facility] 06-14-2024 11:19-0400 Mean blood pressure 82 mm[Hg] M[facility]efo [facility] 06-14-2024 11:19-0400 Systolic blood pressure 102 mm[Hg] [facility]efo [facility] 06-14-2024 11:19-0400 Body temperature 97.88 [degF] [facility] 06-14-2024 11:00-0400 Heart rate 70 /min [facility]o [facility] 06-14-2024 07:57-0400 Heart rate 69 /min [facility] 06-13-2024 23:20-0400 Body temperature 97.16 [degF] [facility]efo [facility] 06-13-2024 23:20-0400 Respiratory rate 18 /min M[facility]efo [facility] 06-13-2024 19:00-0400 Mean blood pressure 78 mm[Hg] Mbanefo [facility] 06-13-2024 18:10-0400 Blood Pressure Location Mbanefo [facility] 06-13-2024 18:10-0400 Mean blood pressure 71 mm[Hg] [facility]efo [facility] 06-13-2024 18:05-0400 Blood Pressure Location Mbanefo [facility] 06-13-2024 18:05-0400 Mean blood pressure 75 mm[Hg] [facility]efo [facility] 06-13-2024 17:20-0400 Respiratory rate 17 /min [facility] 06-13-2024 13:20-0400 Respiratory rate 16 /min [facility] 06-13-2024 10:07-0400 Heart rate 150 /min [facility] 06-13-2024 08:57-0400 Heart rate 160 /min [facility] 06-13-2024 08:10-0400 Respiratory rate 18 /min [facility] 06-12-2024 19:29-0400 Body temperature 97.88 [degF] [facility]efo [facility] 06-12-2024 19:28-0400 Mean blood pressure 76 mm[Hg] [facility]o [facility] 06-12-2024 19:00-0400 Respiratory rate 16 /min [facility]o [facility] 06-12-2024 18:13-0400 Heart rate 84 /min [facility]o [facility] 06-12-2024 14:16-0400 Heart rate 124 /min [facility]o [facility] 06-12-2024 12:01-0400 Heart rate 93 /min M[facility]efo [facility] 06-12-2024 11:50-0400 gluc 100 mg/dL Mbanefo [facility] 06-12-2024 11:50-0400 gluc Mbanefo [facility] 05-06-2024 11:02-0400 Body height 172.72 cm [facility] 05-06-2024 11:02-0400 Body mass index (BMI) [Ratio] 46 kg/m2 [facility] 05-06-2024 11:02-0400 Body weight 137.49 kg [facility] 05-06-2024 11:02-0400 Diastolic blood pressure 68 mm[Hg] [facility] 05-06-2024 11:02-0400 Heart rate 106 /min [facility] 05-06-2024 11:02-0400 Respiratory rate 16 /min [facility] 05-06-2024 11:02-0400 Systolic blood pressure 93 mm[Hg] [facility] 02-06-2024 11:12-0400 Body height 172.72 cm [facility] 02-06-2024 11:12-0400 Body mass index (BMI) [Ratio] 48.8 kg/m2 [facility] 02-06-2024 11:12-0400 Body weight 145.6 kg [facility] 02-06-2024 11:12-0400 Diastolic blood pressure 75 mm[Hg] [facility] 02-06-2024 11:12-0400 Heart rate 92 /min [facility] 02-06-2024 11:12-0400 Respiratory rate 16 /min [facility] 02-06-2024 11:12-0400 Systolic blood pressure 124 mm[Hg] [facility] 12-02-2023 10:36-0500 Body height 177.8 cm Rojas Knowles MD Work Phone: [facility] 12-02-2023 10:36-0500 Body mass index (BMI) [Ratio] 47.35 kg/m2 Rojas Knowles MD Work Phone: [facility] 12-02-2023 10:36-0500 Body weight 149.69 kg Rojas Knowles MD Work Phone: [facility] 12-02-2023 10:36-0500 Diastolic blood pressure 74 mm[Hg] Rojas Knowles MD Work Phone: [facility] 12-02-2023 10:36-0500 Heart rate 64 /min Rojas Knowles MD Work Phone: [facility] 12-02-2023 10:36-0500 Systolic blood pressure 112 mm[Hg] Rojas Knowles MD Work Phone: [facility] 07-08-2023 13:45-0400 Body height 172.72 cm Anibal Ball Other [facility] Other 07-08-2023 13:45-0400 Body mass index (BMI) [Ratio] 49.11 kg/m2 Anibal Ball Other [facility] Other 07-08-2023 13:45-0400 Body weight 146.51 kg Anibal Ball Other [facility] Other 07-08-2023 13:45-0400 Diastolic blood pressure 69 mm[Hg] Anibal Ball Other [facility] Other 07-08-2023 13:45-0400 Respiratory rate 20 /min Anibal Ball Other [facility] Other 07-08-2023 13:45-0400 Systolic blood pressure 93 mm[Hg] Anibal Ball Other [facility] Other 05-15-2023 10:18-0400 Body height 172.72 cm Anibal Ball Other [facility] Other 05-15-2023 10:18-0400 Body mass index (BMI) [Ratio] 50.02 kg/m2 Anibal Ball Other [facility] Other 05-15-2023 10:18-0400 Body weight 149.23 kg Anibal Ball Other [facility] Other 05-15-2023 10:18-0400 Diastolic blood pressure 75 mm[Hg] Anibal Ball Other [facility] Other 05-15-2023 10:18-0400 Systolic blood pressure 114 mm[Hg] Anibal Ball Other [facility] Other 04-07-2023 10:30-0400 Body height 172.72 cm Anibal Ball Other [facility] Other 04-07-2023 10:30-0400 Body mass index (BMI) [Ratio] 50.54 kg/m2 Anibal Ball Other [facility] Other 04-07-2023 10:30-0400 Body weight 150.78 kg Anibal Ball Other [facility] Other 04-07-2023 10:30-0400 Diastolic blood pressure 64 mm[Hg] Anibal Ball Other [facility] Other 04-07-2023 10:30-0400 Respiratory rate 12 /min Anibal Ball Other [facility] Other 04-07-2023 10:30-0400 Systolic blood pressure 91 mm[Hg] Anibal Ball Other [facility] Other 04-07-2023 09:30-0400 Body height 172.72 cm Anibal Ball Other [facility] Other 04-07-2023 09:30-0400 Body mass index (BMI) [Ratio] 50.54 kg/m2 Anibal Ball Other [facility] Other 04-07-2023 09:30-0400 Body weight 150.78 kg Anibal Ball Other [facility] Other 04-07-2023 09:30-0400 Diastolic blood pressure 64 mm[Hg] Anibal Ball Other [facility] Other 04-07-2023 09:30-0400 Respiratory rate 12 /min Anibal Ball Other [facility] Other 04-07-2023 09:30-0400 Systolic blood pressure 91 mm[Hg] Anibal Ball Other [facility] Other 01-06-2023 11:30-0500 Body height 172.72 cm Anibal Ball Other [facility] Other 01-06-2023 11:30-0500 Body mass index (BMI) [Ratio] 49.93 kg/m2 Anibal Ball Other [facility] Other 01-06-2023 11:30-0500 Body weight 148.96 kg Anibal Ball Other [facility] Other 01-06-2023 11:30-0500 Diastolic blood pressure 76 mm[Hg] Anibal Ball Other [facility] Other 01-06-2023 11:30-0500 Respiratory rate 16 /min Anibal Ball Other [facility] Other 01-06-2023 11:30-0500 Systolic blood pressure 122 mm[Hg] Anibal Ball Other [facility] Other 12-06-2022 08:23-0500 Body height 175.26 cm Anibal E Ball Work Phone: KD-Exixkhxvoh-Hplqpq [place] 250 DO Work Phone: 12-06-2022 08:23-0500 Body mass index (BMI) [Ratio] 46.81 kg/m2 Anibal E Ball Work Phone: TR-Ssoypraaxb-Mxszfe [place] 250 DO Work Phone: 12-06-2022 08:23-0500 Body surface area Derived from formula 2.51 m2 Anibal E Ball Work Phone: EC-Wyspxhdwiz-Qwknjt [place] 250 DO Work Phone: 12-06-2022 08:23-0500 Body weight 143.79 kg Anibal E Ball Work Phone: KM-Svuypsoghd-Mykuwl elvis 250 DO Work Phone: 12-06-2022 08:23-0500 Diastolic blood pressure 62 mm[Hg] Anibal E Ball Work Phone: WW-Masywxdbzg-Dhozih elvis 250 DO Work Phone: 12-06-2022 08:23-0500 Heart rate 60 /min Anibal E Ball Work Phone: QN-Ulcsvvlkos-Uhojme elvis 250 DO Work Phone: 12-06-2022 08:23-0500 Systolic blood pressure 110 mm[Hg] Anibal Melendez Ball Work Phone: CJ-Qeyaxkmmlb-Lslpej elvis 250 DO Work Phone: 12-05-2022 11:30-0500 Body height 172.72 cm Anibal Ball Other [facility] Other 12-05-2022 11:30-0500 Body mass index (BMI) [Ratio] 48.32 kg/m2 Anibal Ball Other [facility] Other 12-05-2022 11:30-0500 Body weight 144.15 kg Anibal Ball Other [facility] Other 12-05-2022 11:30-0500 Diastolic blood pressure 72 mm[Hg] Anibal Ball Other [facility] Other 12-05-2022 11:30-0500 Respiratory rate 16 /min Anibal Ball Other [facility] Other 12-05-2022 11:30-0500 Systolic blood pressure 122 mm[Hg] Anibal Ball Other [facility] Other 04-12-2022 13:22-0400 Body height 175.26 cm Anibal E Ball Work Phone: [facility] [employer] 250 DO Work Phone: 04-12-2022 13:22-0400 Body mass index (BMI) [Ratio] 44.75 kg/m2 Anibal E Ball Work Phone: [facility] [employer] 250 DO Work Phone: 04-12-2022 13:22-0400 Body surface area Derived from formula 2.46 m2 Anibal E Ball Work Phone: [facility] [employer] 250 DO Work Phone: 04-12-2022 13:22-0400 Body weight 137.44 kg Anibal E Ball Work Phone: [facility] [employer] 250 DO Work Phone: 04-12-2022 13:22-0400 Diastolic blood pressure 70 mm[Hg] Anibal E Ball Work Phone: [facility] [employer] 250 DO Work Phone: 04-12-2022 13:22-0400 Heart rate 60 /min Anibal E Ball Work Phone: [facility] [employer] 250 DO Work Phone: 04-12-2022 13:22-0400 Systolic blood pressure 110 mm[Hg] Anibal E Ball Work Phone: [facility] [employer] 250 DO Work Phone: 03-18-2022 08:45-0400 60 1 Anibal E Ball Work Phone: [facility] [address] [place] Work Phone: Comment on above: [id number] 12-03-2021 11:02-0500 Body height 175.26 cm Anibal E Ball Work Phone: [facility] 250 DO Work Phone: 12-03-2021 11:02-0500 Body mass index (BMI) [Ratio] 45.04 kg/m2 Anibal E Ball Work Phone: [facility] 250 DO Work Phone: 12-03-2021 11:02-0500 Body surface area Derived from formula 2.47 m2 Anibal E Ball Work Phone: [facility] 250 DO Work Phone: 12-03-2021 11:02-0500 Body weight 138.35 kg Anibal E Ball Work Phone: [facility] 250 DO Work Phone: 12-03-2021 11:02-0500 Diastolic blood pressure 68 mm[Hg] Anibal E Ball Work Phone: [facility] 250 DO Work Phone: 12-03-2021 11:02-0500 Heart rate 91 /min Anibal E Ball Work Phone: [facility] 250 DO Work Phone: 12-03-2021 11:02-0500 Systolic blood pressure 109 mm[Hg] Anibal E Ball Work Phone: [facility] 250 DO Work Phone: 09-24-2021 10:36-0400 Body height 175.26 cm Anibal E Ball Work Phone: [facility] 250 DO Work Phone: 09-24-2021 10:36-0400 Body mass index (BMI) [Ratio] 52.57 kg/m2 Anibal Gonzales Work Phone: [facility] 250 DO Work Phone: 09-24-2021 10:36-0400 Body surface area Derived from formula 2.64 m2 Anibal Gonzales Work Phone: [facility] 250 DO Work Phone: 09-24-2021 10:36-0400 Body weight 161.48 kg Anibal Gonzales Work Phone: [facility] 250 DO Work Phone: 09-24-2021 10:36-0400 Diastolic blood pressure 70 mm[Hg] Anibal Gonzales Work Phone: [facility] 250 DO Work Phone: 09-24-2021 10:36-0400 Heart rate 130 /min Anibal Gonzales Work Phone: [facility] 250 DO Work Phone: 09-24-2021 10:36-0400 Systolic blood pressure 104 mm[Hg] Anibal Gonzales Work Phone: [facility] [employer] 250 DO Work Phone: Encounters Encounter Date Encounter Type Care Provider Facility Start: 06-12-2024 End: 06-14-2024 ambulatory Quitajono CAROLINA [facility] Start: 06-12-2024 Emergency department patient visit Vaughn Rojas Facility:[facility] Start: 06-12-2024 End: 06-14-2024 Observation Zully [facility]ISPrincess [facility] Start: 05-06-2024 End: 05-06-2024 ambulatory [facility] Work Phone: Start: 05-06-2024 End: 05-06-2024 Patient encounter procedure [facility] Work Phone: Start: 02-10-2024 Non-patient / Non-visit [facility] Work Phone: Start: 02-09-2024 Non-patient [facility] Work Phone: Start: 02-06-2024 End: 02-06-2024 ambulatory [facility] Work Phone: Start: 02-06-2024 End: 02-06-2024 Patient encounter procedure [facility] Work Phone: Start: 12-11-2023 End: 12-11-2023 ambulatory Anibal Nieves Other [facility] Other Start: 12-11-2023 Telephone encounter Anibal JONES [facility] Start: 12-02-2023 End: 12-02-2023 ambulatory ROJAS KNOWLES [facility] Start: 12-02-2023 End: 12-02-2023 Office outpatient visit 25 minutes Rojas Knowles MD Work Phone: [facility] Comment on above: Non-ischemic cardiom yopathy (CMS/HCC) (Primary Dx); Paroxysmal atrial fibrillation (CMS/HCC); Primary hypertension; Mixed hyperlipidemia Start: 09-04-2023 End: 09-04-2023 ambulatory Anibal Nieves Other [facility] Other Start: 09-04-2023 Telephone encounter Anibal JONES [facility] Start: 07-09-2023 Rx Renewal Anibal felder Work Phone: [facility] 250 DO Work Phone: Start: 07-08-2023 End: 07-08-2023 ambulatory Anibal Nieves Other [facility] Other Start: 07-08-2023 Office outpatient vi sit 25 minutes Anibal Gonzales [facility] Start: 06-06-2023 End: 06-06-2023 ambulatory Anibal Gonzales Other [facility] Other Start: 06-06-2023 Telephone encounter Anibal Gonzales [facility] Start: 05-15-2023 End: 05-15-2023 ambulatory Anibal Nieves Other [facility] Other Start: 05-15-2023 Telephone encounter Anibal Gonzales [facility] Start: 05-07-2023 End: 05-07-2023 ambulatory Anibal Nieves Other [facility] Other Start: 05-07-2023 Telephone encounter Anibal Gonzales [facility] Start: 04-25-2023 End: 04-25-2023 ambulatory Anibal Gonzales Other [facility] Other Start: 04-25-2023 Telephone encounter Anibal Gonzales [facility] Start: 04-24-[address] ANIBAL GONZALES Facili ty:[facility] Start: 04-08-2023 End: 04-09-[address] ANIBAL GONZALES Facility:[facility] Start: 04-07-2023 End: 04-07-2023 ambulatory Anibal Gonzales Other [facility] Other Start: 04-07-2023 Patient encounter procedure Anibal Gonzales [facility] Start: 02-24-2023 End: 02-24-2023 ambulatory Anibal Gonzales Other [facility] Other Start: 02-24-2023 Telephone encounter Anibal Gonzales [facility] Start: 02-11-2023 End: 02-11-2023 ambulatory Anibal Gonzales Other [facility] Other Start: 02-11-2023 Telephone encounter Anibal Gonzales [facility] Start: 01-10-2023 Telephone encounter Anibal Gonzales [facility] Start: 01-10-2023 End: 01-11-[address] ANIBAL GONZALES [facility] Other Start: 01-08-2023 End: 01-08-2023 ambulatory Anibal Gonazles Other [facility] Other Start: 01-08-2023 Telephone encounter Anibal JONES [facility] Start: 01-06-2023 End: 01-06-2023 ambulatory Anibal Nieves Other [facility] Other Start: 01-06-2023 Office outpatient vi sit 25 minutes Anibal Gonzales [facility] Start: 12-25-2022 End: 12-25-2022 ambulatory Naibal Nieves Other [facility] Other Start: 12-25-2022 Telephone encounter Anibal JONES [facility] Start: 12-06-2022 ambulatory Rojas Knowles II Facility: Start: 12-06-2022 Office outpatient vi sit 25 minutes Anibal Gonzales Work Phone: [facility] 250 DO Work Phone: Start: 12-05-2022 End: 12-05-2022 ambulatory Anibal Gonzales Other [facility] Other Start: 12-05-2022 Office outpatient vi sit 25 minutes Anibal Gonzales [facility] Start: 12-03-2022 End: 12-03-2022 ambulatory Anibal Gonzales Other [facility] Other Start: 12-03-2022 Telephone encounter Anibal JONES [facility] Start: 11-08-2022 End: 11-09-[address] ANIBAL GONZALES Facility:[facility] Start: 08-07-2022 Rx Renewal Anibal Melendez Bal l Work Phone: [facility] 250 DO Work Phone: Start: 04-12-2022 Office outpatient vi sit 25 minutes Anibal Gonzales Work Phone: [facility] 250 DO Work Phone: Start: 04-12-2022 ambulatory Anibal Gonzales Facility: Start: 03-18-2022 Patient encounter procedure Anibal Melendez Nieves Work Phone: [facility] [address] [place] Work Phone: Start: 12-03-2021 Office outpatient vi sit 25 minutes Anibal Gonzales Work Phone: [facility] 250 DO Work Phone: Start: 11-07-2021 Chart Update Anibal felder Work Phone: [facility] 250 DO Work Phone: Start: 10-05-2021 Chart Update Anibal felder Work Phone: [facility] 250 DO Work Phone: Start: 09-24-2021 Chart Update Anibal felder Work Phone: [facility] 250 DO Work Phone: Start: 09-24-2021 Patient encounter procedure Anibal Melendez Nieves Work Phone: [facility] 250 DO Work Phone: Start: 09-14-2021 Chart Update Rojas campuzano MD Work Phone: [facility] 250 DO Work Phone: Start: 09-13-2021 Chart Update Rojas campuzano MD Work Phone: [facility] 250 DO Work Phone: Procedures Date Procedure Procedure Detail Performing Clinician Start: 02-10-2024 E coli Shiga Toxin EIA Start: 02-10-2024 Salmonella/Shigella Screen Start: 04-08-2023 End: 04-08-[address] ANIBAL GONZALES Comment on above: Performed By: #### P [facility] #### [facility] [address] [place] [address] Dr. Braxton Aly Start: 03-18-2022 Echocardiography Benjlexi Melendez Nieves Work Phone: Appendectomy Anibal E Nieves Work Phone: Arthroplasty of knee Benjami justen E Nieves Work Phone: Cardioversion Anibal felder Work Phone: Cataract surgery Anibal E Nieves Work Phone: Colonoscopy Anibal Gonzales Work Phone: Comment on above: 2020; Tonsillectomy Anibal felder Work Phone: Plan of Treatment Date Care Activity Detail Author Start: 12-14-2024 End: 12-14-2024 Patient encounter procedure 12/14/2024 10:40 AM EST Office Visit [facility] [address] [address] Rojas Knowles MD 703 [facility] [address], [address] [address] [facility] Start: 12-02-2023 FUV, Provider: Rojas Knowles, Status: Pen, Time: 10:40 AM FUV, Provider: Rojas Knowles, Status: Pen, Time: 10:40 AM [facility] 250 DO Work Phone: Start: 07-25-2023 Influenza vaccination Influenza Vaccine (#1) [facility] Start: 11-29-2022 FUV, Provider: Rojas Knowles, Status: Pen, Time: 2:40 PM FUV, Provider: Rojas Knowles, Status: Pen, Time: 2:40 PM -[facility] 250 DO Work Phone: Start: 04-12-2022 FUV, Provider: Rojas Knowles, Status: Pen, Time: 1:30 PM FUV, Provider: Rojas Knowles, Status: Pen, Time: 1:30 PM [facility] 250 DO Work Phone: Start: 12-03-2021 FUV, Provider: Rojas Knowles, Status: Pen, Time: 11:20 AM FUV, Provider: Rojas Knowles, Status: Pen, Time: 11:20 AM [facility] 250 DO Work Phone: Start: 11-05-2021 FUV, Provider: Rojas Knowles, Status: Pen, Time: 8:00 AM FUV, Provider: Rojas Knowles, Status: Pen, Time: 8:00 AM [facility] 250 DO Work Phone: Start: 09-24-2021 FUV, Provider: Rojas Knowles, Status: Pen, Time: 10:20 AM FUV, Provider: Rojas Knowles, Status: Pen, Time: 10:20 AM [facility] 250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
--- NOTE | 2024-06-21 12:14 | XR_ITS ---
The [address] [address] Patient Name: CHEYANNE FLORES MRN: [id number] date: 1955 Sex: M Assigned Patient Location: ER Current Patient Location: ER Accession/Order Number: [id number] Exam Date: 06/21/2024 12:50 Report Date: 06/21/2024 13:16 At the request of: CINDY SPEARS Procedure: XR hip LT min 2V PROCEDURE: XR hip LT min 2V HISTORY: Trauma COMPARISON: None. FINDINGS: BONES:Degenerative osteophyte along the superior rim of the acetabulum. No fracture, dislocation, or significant joint space narrowing. SOFT TISSUES:No visible soft tissue swelling. EFFUSION:None visible. OTHER: Negative. XR/XR hip LT min 2V IMPRESSION: 1. No acute bone abnormality. 2. Mild degenerative joint disease. Electronically authenticated by: ALEX DAWN Date: 06/21/2024 13:16
[2024-06-21 13:22] VITALS: PULSE 104; O2SAT 98
--- NOTE | 2024-06-21 14:02 | ECG_ITS ---
The [facility] Test Date: 2024-06-21 Pat Name: CHEYANNE FLORES Department: Room: - Gender: Male Live In Companion: : 1955 Requested By: [id number] Order Number: [id number] Reading MD: MELL PICKETT Measurements Intervals [place] Rate: 120 P: -49034 ND: -[id number] QRS: 38 QRSD: 70 T: -39 QT: 308 QTc: 379 Interpretive Statements 33875 Atrial fibrillation with rapid ventricular response [address] depression, probably digitalis effect [address] & Tw[place] abnormality, probably digitalis effect 8102 Low QRS voltage in chest leads 9140 abnormal rhythm ECG Electronically Signed On 06-21-2024 23:35:53 EDT by MELL PICKETT
== END 2024-06-21 13:37 | disposition home or self-care (01) ==
PROVIDERS: Emergency Provider Emergency Medicine Emergency Medical Services; PCP Internal Medicine
DX: S70.02XA Contusion of left hip, initial encounter (principal); S70.12XA Contusion of left thigh, initial encounter; V49.88XA Car occupant (driver) (passenger) injured in other specified transport accidents, initial encounter; Z87.891 Personal history of nicotine dependence; Z96.652 Presence of left artificial knee joint
CPT/HCPCS: 73502; 93005; 93971; 99284

== ENCOUNTER 2024-07-19 11:33 | Outpatient (OUT) | payer OTHER, SELFPAY ==
--- OUTSIDE RECORDS SUMMARY | 2024-07-19 11:53 | XMS_ITS | CCD ---
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 Eosinophils/100 WBC Auto (Bl d)on 05-07-2024 Eosinophils/100 WBC (Bld) 1.2 % 0.9-7.0 [facility] Erythrocyte distribution wid th Auto (RBC) [Ratio]on 05-07-2024 Erythrocyte distribution width (RBC) [Ratio] 14.8 % 11.0-15.0 [facility] Estimated glomerular filtrat ion rate (GFR) non- Americanon 05-07-2024 GFR/1.73 sq M.predicted among non-blacks MDRD (S/P/Bld) [Vol rate/Area] 50 mL/min/{1.73_m2} Low >=60 [facility] Globulin Calc (S) [Mass/Vol] on 05-07-2024 Globulin (S) [Mass/Vol] 4.5 g/dL [facility] Glucose mean value [Mass/vol ume] in Blood Estimated from glycated hemoglobinon 05-07-2024 Average glucose Estimated from glycated hemoglobin (Bld) [Mass/Vol] 140 mg/dL [facility] Hematocrit Auto (Bld) [Volum e fraction]on 05-07-2024 Hematocrit (Bld) [Volume fraction] 43.4 % 42.0-54.0 [facility] Hemoglobin [Mass/volume] in Bloodon 05-07-2024 Hemoglobin (Bld) [Mass/Vol] 12.9 g/dL Low 14.0-18.0 [facility] Laboratory - Chemistry and C hemistry - challengeon 05-07-2024 Albumin [Mass/Vol] 3.0 g/dL Low 3.4-5.0 [facility] ALP [Catalytic activity/Vol] 104 U/L 46-116 [facility] ALT [Catalytic activity/Vol] 14 U/L Low 16-63 [facility] AST [Catalytic activity/Vol] 12 U/L Low 15-37 [facility] Bilirubin [Mass/Vol] 1.1 mg/dL High 0.2-1.0 [facility] Calcium [Mass/Vol] 9.1 mg/dL 8.5-10.1 [facility] Chloride [Moles/Vol] 100 mmol/L 98-107 [facility] Cholesterol [Mass/Vol] 118 mg/dL <=200 [facility] Cholesterol in HDL [Mass/Vol] 36 mg/dL Low 40-60 [facility] Comment on above: > or =60 mg/dl - LOW CARDIOVASCULAR RISK<40 mg/dl - HIGH CARDIOVASCULAR RISK CO2 [Moles/Vol] 32.0 mmol/L 21.0-32.0 [facility] Creatinine [Mass/Vol] 1.41 mg/dL High 0.70-1.30 [facility] GFR/1.73 sq M.predicted MDRD (S/P/Bld) [Vol rate/Area] mL/min/{1.73_m2} >=60 [facility] Glucose [Mass/Vol] 107 mg/dL High 74-106 [facility] Potassium [Moles/Vol] 4.0 mmol/L 3.5-5.1 [facility] Protein [Mass/Vol] 7.5 g/dL 6.4-8.2 [facility] Sodium [Moles/Vol] 138 mmol/L 136-145 [facility] Triglyceride [Mass/Vol] 88 mg/dL <=150 [facility] Urea nitrogen [Mass/Vol] 16.0 mg/dL 7.0-18.0 [facility] Urea nitrogen/Creatinine [Mass ratio] 11.3 mg/mg [facility] Laboratory - Hematology and Cell countson 05-07-2024 HbA1c (Bld) [Mass fraction] 6.5 % High 4.5-6.2 [facility] Comment on above: ADA RECOMMENDED LIMI T 4.0 - 6.0ADA THERAPEUTIC TARGET < 7.0ACTION SUGGESTED> 7.0 Immature granulocytes/100 WBC (Bld) 0.3 % 0.0-0.5 [facility] Leukocytes [#/volume] correc delmi for nucleated erythrocytes in Blood by Automated counon 05-07-2024 WBC corrected for nucl RBC Auto (Bld) [#/Vol] 9.6 10 3/uL 4.0-11.0 [facility] Lymphocytes Auto (Bld) [#/Vo l]on 05-07-2024 Lymphocytes (Bld) [#/Vol] 1.2 10 3/uL 1.2-3.8 [facility] Lymphocytes/100 WBC Auto (Bl d)on 05-07-2024 Lymphocytes/100 WBC (Bld) 11.9 % Low 20.5-60.0 [facility] MCH Auto (RBC) [Entitic mass ]on 05-07-2024 MCH (RBC) [Entitic mass] 27.3 pg 25.9-34.0 [facility] MCHC Auto (RBC) [Mass/Vol]on 05-07-2024 MCHC (RBC) [Mass/Vol] 29.7 g/dL Low 29.9-35.2 [facility] MCV Auto (RBC) [Entitic vol] on 05-07-2024 MCV (RBC) [Entitic vol] 91.8 fL 80.0-94.0 [facility] Microalbumin [Mass/volume] i n Urineon 05-07-2024 Albumin DL <= 20 mg/L (U) [Mass/Vol] 21.2 mg/dL <=30.0 [facility] Monocytes Auto (Bld) [#/Vol] on 05-07-2024 Monocytes (Bld) [#/Vol] 0.7 10 3/uL 0.3-0.8 [facility] Monocytes/100 WBC Auto (Bld) on 05-07-2024 Monocytes/100 WBC (Bld) 6.9 % 1.7-12.0 [facility] Neutrophils Auto (Bld) [#/Vo l]on 05-07-2024 Neutrophils (Bld) [#/Vol] 7.6 10 3/uL High 1.4-6.5 [facility] Neutrophils/100 WBC Auto (Bl d)on 05-07-2024 Neutrophils/100 WBC (Bld) 79.1 % High 43.0-75.0 [facility] No Panel Informationon 05-07 Eosinophils # (Auto) 0.1 10 3/uL 0.0-0.7 [facility] Immature Granulocyte # (Auto) 0.03 10 3/uL 0.00-0.03 [facility] Prostate Specific Antigen Screen 0.25 ng/mL <=4.00 [facility] Platelet mean volume Auto (B ld) [Entitic vol]on 05-07-2024 Platelet mean volume (Bld) [Entitic vol] 9.6 fL 9.5-13.5 [facility] Platelets Auto (Bld) [#/Vol] on 05-07-2024 Platelets (Bld) [#/Vol] 334 10 3/uL 150-450 [facility] RBC Auto (Bld) [#/Vol]on RBC (Bld) [#/Vol] 4.73 10 6/uL 4.70-6.10 [facility] Serum or plasma albumin/glob ulin mass ratioon 05-07-2024 Albumin/Globulin [Mass ratio] 0.7 {ratio} [facility] Serum or plasma anion gap de terminationon 05-07-2024 Anion gap [Moles/Vol] 10.0 [facility] Serum or plasma total choles terol/high density lipoprotein (HDL) cholesterol mass christopher 05-07-2024 Cholesterol.total/Cho lesterol in HDL [Mass ratio] 3.3 {ratio} [facility] Comment on above: 3.3 - 4.4 LOW RISK4. 4 - 7.1 AVERAGE RISK7.1 - 11.0 MODERATE RISK>11.0 [facility] No Panel Informationon 02-09 Clostridium difficile (PCR)(LAB) Negative NEGATIVE [facility] Miscellaneous Test Comment See comment [facility] Comment on above: Specimen Source: ST - Stool - Stool - 700.100 Stool Campylobacter Culture Res 1 See comment [facility] Comment on above: [facility], No Panel InformationOrdered By: Anibal Gonzales on 02-10-2024 E coli Shiga Toxin EIA [facility] Salmonella/Shigella Screen [facility] Basophils Auto (Bld) [#/Vol] on 02-09-2024 Basophils (Bld) [#/Vol] 0.1 10 3/uL 0.0-0.1 [facility] Basophils/100 WBC Auto (Bld) on 02-09-2024 Basophils/100 WBC (Bld) 0.6 % 0.2-2.0 [facility] Eosinophils/100 WBC Auto (Bl d)on 02-09-2024 Eosinophils/100 WBC (Bld) 1.1 % 0.9-7.0 [facility] Erythrocyte distribution wid th Auto (RBC) [Ratio]on 02-09-2024 Erythrocyte distribution width (RBC) [Ratio] 13.6 % 11.0-15.0 [facility] Estimated glomerular filtrat ion rate (GFR) non- Americanon 02-09-2024 GFR/1.73 sq M.predicted among non-blacks MDRD (S/P/Bld) [Vol rate/Area] mL/min/{1.73_m2} >=60 [facility] Globulin Calc (S) [Mass/Vol] on 02-09-2024 Globulin (S) [Mass/Vol] 4.1 g/dL [facility] Hematocrit Auto (Bld) [Volum e fraction]on 02-09-2024 Hematocrit (Bld) [Volume fraction] 40.9 % 42.0-54.0 [facility] Hemoglobin [Mass/volume] in Bloodon 02-09-2024 Hemoglobin (Bld) [Mass/Vol] 12.2 g/dL 14.0-18.0 [facility] Laboratory - Chemistry and C hemistry - challengeon 02-09-2024 Albumin [Mass/Vol] 2.8 g/dL 3.4-5.0 [facility] ALP [Catalytic activity/Vol] 107 U/L 46-116 [facility] ALT [Catalytic activity/Vol] 19 U/L 16-63 [facility] AST [Catalytic activity/Vol] 14 U/L 15-37 [facility] Bilirubin [Mass/Vol] 0.9 mg/dL 0.2-1.0 [facility] Calcium [Mass/Vol] 8.9 mg/dL 8.5-10.1 [facility] Chloride [Moles/Vol] 103 mmol/L 98-107 [facility] CO2 [Moles/Vol] 26.7 mmol/L 21.0-32.0 [facility] Creatinine [Mass/Vol] 1.07 mg/dL 0.70-1.30 [facility] GFR/1.73 sq M.predicted MDRD (S/P/Bld) [Vol rate/Area] mL/min/{1.73_m2} >=60 [facility] Glucose [Mass/Vol] 102 mg/dL 74-106 [facility] Potassium [Moles/Vol] 3.5 mmol/L 3.5-5.1 [facility] Protein [Mass/Vol] 6.9 g/dL 6.4-8.2 [facility] Sodium [Moles/Vol] 140 mmol/L 136-145 [facility] Urea nitrogen [Mass/Vol] 12.0 mg/dL 7.0-18.0 [facility] Urea nitrogen/Creatinine [Mass ratio] 11.2 mg/mg [facility] Laboratory - Hematology and Cell countson 02-09-2024 Immature granulocytes/100 WBC (Bld) 0.3 % 0.0-0.5 [facility] Leukocytes [#/volume] correc delmi for nucleated erythrocytes in Blood by Automated counon 02-09-2024 WBC corrected for nucl RBC Auto (Bld) [#/Vol] 10.9 10 3/uL 4.0-11.0 [facility] Lymphocytes Auto (Bld) [#/Vo l]on 02-09-2024 Lymphocytes (Bld) [#/Vol] 1.3 10 3/uL 1.2-3.8 [facility] Lymphocytes/100 WBC Auto (Bl d)on 02-09-2024 Lymphocytes/100 WBC (Bld) 11.7 % 20.5-60.0 [facility] MCH Auto (RBC) [Entitic mass ]on 02-09-2024 MCH (RBC) [Entitic mass] 28.4 pg 25.9-34.0 [facility] MCHC Auto (RBC) [Mass/Vol]on 02-09-2024 MCHC (RBC) [Mass/Vol] 29.8 g/dL 29.9-35.2 [facility] MCV Auto (RBC) [Entitic vol] on 02-09-2024 MCV (RBC) [Entitic vol] 95.3 fL 80.0-94.0 [facility] Monocytes Auto (Bld) [#/Vol] on 02-09-2024 Monocytes (Bld) [#/Vol] 0.9 10 3/uL 0.3-0.8 [facility] Monocytes/100 WBC Auto (Bld) on 02-09-2024 Monocytes/100 WBC (Bld) 8.1 % 1.7-12.0 [facility] Neutrophils Auto (Bld) [#/Vo l]on 02-09-2024 Neutrophils (Bld) [#/Vol] 8.5 10 3/uL 1.4-6.5 [facility] Neutrophils/100 WBC Auto (Bl d)on 02-09-2024 Neutrophils/100 WBC (Bld) 78.2 % 43.0-75.0 [facility] No Panel Informationon 02-08 C-Reactive Protein, Quantitative 2.52 mg/dL <=0.50 [facility] Eosinophils # (Auto) 0.1 10 3/uL 0.0-0.7 [facility] Immature Granulocyte # (Auto) 0.03 10 3/uL 0.00-0.03 [facility] Platelet mean volume Auto (B ld) [Entitic vol]on 02-09-2024 Platelet mean volume (Bld) [Entitic vol] 10.3 fL 9.5-13.5 [facility] Platelets Auto (Bld) [#/Vol] on 02-09-2024 Platelets (Bld) [#/Vol] 328 10 3/uL 150-450 [facility] RBC Auto (Bld) [#/Vol]on RBC (Bld) [#/Vol] 4.29 10 6/uL 4.70-6.10 [facility] Serum or plasma albumin/glob ulin mass ratioon 02-09-2024 Albumin/Globulin [Mass ratio] 0.7 {ratio} [facility] Serum or plasma anion gap de terminationon 02-09-2024 Anion gap [Moles/Vol] 13.8 mmol/L [facility] B-Type Natriuretic Peptideon 04-08-2023 B-Type Natriuretic Peptide see note [facility] Other B-Type Natriuretic Peptide 3094.0 pg/ml Critically high <=900.0 pg/ml [facility] Other BNPon 04-08-2023 Natriuretic peptide B (Bld) [Mass/Vol] 3094.0 pg/mL Critically high <=900.0 [facility] Comment on above: Performed By: #### B MP, BNP, LIPID #### [facility] [address] [address] [address] Braxton Aly Basic Metabolic Panelon 03-24 Calcium [Mass/Vol] 8.1829763 mg/dL 8.5-10 .1 mg/dL [facility] Other CO2 [Moles/Vol] 34.86791645 mmol/L Critically high 21. 0-32.0 mmol/L [facility] Other Creatinine [Mass/Vol] 1.57038929 mg/dL Critically high 0.70-1.30 mg/dL [facility] Other Potassium [Moles/Vol] 4.13248355 mmol/L 3 .5-5.1 mmol/L [facility] Other Urea nitrogen [Mass/Vol] 25.2501421 mg/dL Critically high 7.0-18.0 mg/dL [facility] Other Basic Metabolic Panel 140 mmol/L 136-14 5 mmol/L [facility] Other Basic Metabolic Panel 148 mg/dL Critically high 74-106 mg /dL [facility] Other Basic Metabolic Panel 40 mL/min/1.73m2 Critically low >=60 mL/min/1.73m 2 [facility] Other Basic Metabolic Panel 49 mL/min/1.73m2 Critically low >=60 mL/min/1.73m 2 [facility] Other CBC AUTO DIFFon 04-08-2023 BASO # 0.1 103/ul Normal 0.0-0.1 [facility] Comment on above: Performed By: #### C BC #### [facility] [address] [place] [address] Dr. Braxton Aly Basophils/100 WBC (Bld) 0.6 % Normal 0.2-2.0 [facility] Comment on above: Performed By: #### C BC #### [facility] [address] [place] [address] Dr. Braxton Aly EO # 0.1 103/ul Normal 0.0-0.7 [facility] Comment on above: Performed By: #### C BC #### [facility] [address] [place] [address] Dr. Braxton Aly Eosinophils/100 WBC (Bld) 1.3 % Normal 0.9-7.0 [facility] Comment on above: Performed By: #### C BC #### [facility] [address] [place] [address] Dr. Braxton Aly Erythrocyte distribution width (RBC) [Ratio] 14.6 % Normal 11.0-15.0 [facility] Comment on above: Performed By: #### C BC #### [facility] [address] [place] [address] Dr. Braxton Aly Hematocrit (Bld) [Volume fraction] 44.2 % Normal 42.0-54.0 [facility] Comment on above: Performed By: #### C BC #### [facility] [address] [place] [address] Dr. Braxtno Aly Hemoglobin (Bld) [Mass/Vol] 13.5 g/dL Critically low 14.0-18.0 [facility] Comment on above: Performed By: #### C BC #### [facility] [address] [place] [address] Dr. Braxton Aly IG # 0.03 10e3/ul Normal 0.00-0.03 [facility] Comment on above: Performed By: #### C BC #### [facility] [address] [place] [address] Dr. Braxton Aly IG % 0.3 % Normal 0.0-0.5 [facility] Comment on above: Performed By: #### C BC #### [facility] [address] [address] [address] Braxton Aly LYMPH # 1.3 103/ul Normal 1.2-3.8 [facility] Comment on above: Performed By: #### C BC #### [facility] [address] [address] [address] Braxton Aly Lymphocytes/100 WBC (Bld) 15.0 % Critically low 20.5-60.0 [facility] Comment on above: Performed By: #### C BC #### [facility] [address] [place] [address] Dr. Braxton Aly MANUAL DIFF REQ NO Normal [facility] Comment on above: Performed By: #### C BC #### [facility] [address] [place] [address] Dr. Braxton Aly MCH (RBC) [Entitic mass] 29.1 pg Normal 25.9-34.0 [facility] Comment on above: Performed By: #### C BC #### [facility] [address] [place] [address] Dr. Braxton Aly MCHC (RBC) [Mass/Vol] 30.5 g/dL Normal 29.9-35.2 [facility] Comment on above: Performed By: #### C BC #### [facility] [address] [place] [address] Dr. Braxton Aly MCV (RBC) [Entitic vol] 95.3 fL Critically high 80.0-94.0 [facility] Comment on above: Performed By: #### C BC #### [facility] [address] [place] [address] Dr. Braxton Aly MONO # 0.6 103/ul Normal 0.3-0.8 [facility] Comment on above: Performed By: #### C BC #### [facility] [address] [place] [address] Dr. Braxton Aly Monocytes/100 WBC (Bld) 6.7 % Normal 1.7-12.0 [facility] Comment on above: Performed By: #### C BC #### [facility] [address] [address] [address] Braxton Aly NEUT # 6.7 103/ul Critically high 1.4-6.5 [facility] Comment on above: Performed By: #### C BC #### [facility] [id number] Braxton Aly Neutrophils/100 WBC (Bld) 76.1 % Critically high 43.0-75.0 [facility] Comment on above: Performed By: #### C BC #### [facility] [address] [address] [address] Braxton Aly Platelet mean volume (Bld) [Entitic vol] 9.4 fL Critically low 9.5-13.5 [facility] Comment on above: Performed By: #### C BC #### [facility] [address] [address] [address] Braxton Aly PLT 272 103/ul Normal 150-450 [facility] Comment on above: Performed By: #### C BC #### [facility] [address] [address] [address] Braxton Aly RBC 4.64 106/ul Critically low 4.70-6.10 [facility] Comment on above: Performed By: #### C BC #### [facility] [id number] Braxton Aly WBC 8.8 103/ul Normal 4.0-11.0 [facility] Comment on above: Performed By: #### C BC #### [facility] [address] [address] [address] Braxton Aly Complete Blood Count and Dif diony 04-08-2023 Anisocytosis Ql (Bld) [facility] [employer] Other Basophilic stippling LM Ql (Bld) [facility] [employer] Other RBC morphology finding Nom (Bld) [facility] [employer] Other GLYCOHEMOGLOBIN A1Con 2022 ADA RECOMMENDATION SEE BELOW Normal [facility] Comment on above: Result Comment: ADA RECOMMENDED LIMIT 4.0 - 6.0 ADA THERAPEUTIC TARGET < 7.0 ACTION SUGGESTED > 7.0 Performed By: #### A 1C #### [facility] [address] [address] [address] Braxton Aly Glucose [Mass/Vol] 143 mg/dL Normal [facility] Comment on above: Performed By: #### A 1C #### [facility] [address] [address] [address] Braxton Aly HbA1c (Bld) [Mass fraction] 6.6 % Critically high 4.5-6.2 [facility] Comment on above: Performed By: #### A 1C #### [facility] [address] [address] [address] Braxton Aly Hemoglobin A1C ([facility])on 0 04-08-2023 Hemoglobin A1C ([facility]) [facility] Other LIPID PROFILEon 04-08-2023 CHOL-HDL RATIO NORM SEE BELOW Normal [facility] Comment on above: Result Comment: 3.3 - 4.4 LOW RISK 4.4 - 7.1 AVERAGE RISK 7.1 - 11.0 MODERATE RISK >11.0 HIGH RISK Performed By: #### B MP, BNP, LIPID #### [facility] [address] [place] [address] Dr. Braxton Aly Cholesterol [Mass/Vol] 119 mg/dL <=200 mg/dL [facility] Comment on above: Performed By: #### B MP, BNP, LIPID #### [facility] [address] [place] [address] Dr. Braxton Aly Cholesterol in HDL [Mass/Vol] 36 mg/dL Critically low 40-60 mg/dL [facility] Comment on above: Performed By: #### B MP, BNP, LIPID #### [facility] [address] [place] [address] Dr. Braxton Aly Cholesterol in LDL [Mass/Vol] 67.8 mg/dL Normal [facility] Comment on above: Performed By: #### B MP, BNP, LIPID #### [facility] [address] [place] [address] Dr. Braxton Aly Cholesterol.total/Cho lesterol in HDL [Mass ratio] 3.3 {ratio} [facility] Comment on above: Performed By: #### B MP, BNP, LIPID #### [facility] [address] [address] [address] Braxton Aly HDL NORMAL > or = 60 mg/dl - LOW CARDIOVASCULAR RISK <40 mg/dl - HIGH CARDIOVASCULAR RISK Normal [facility] Comment on above: Performed By: #### B MP, BNP, LIPID #### [facility] [address] [address] [address] Braxton Aly LDL CALC NORMAL SEE BELOW Normal [facility] Comment on above: Result Comment: <100 mg/dl OPTIMAL 100 - 129 mg/dl NEAR OR ABOVE OPTIMAL 130 - 159 mg/dl BORDERLINE HIGH 160 - 189 mg/dl HIGH >190 mg/dl VERY HIGH Performed By: #### B MP, BNP, LIPID #### [facility] [address] [address] [address] Braxton Aly Triglyceride [Mass/Vol] 76 mg/dL <=150 mg/dL [facility] Comment on above: Performed By: #### B MP, BNP, LIPID #### [facility] [address] [address] [address] Braxton Aly VLDL CALC 15.2 mg/dL Normal [facility] Comment on above: Performed By: #### B MP, BNP, LIPID #### [facility] [address] [address] [address] Braxton Aly Lipid Panelon 04-08-2023 Lipid Panel > or = 60 mg/dl - LOW CARDIOVASCULAR RISK <40 mg/dl - HIGH CARDIOVASCULAR RISK [facility] Other Lipid Panel SEE BELOW [facility] Other Lipid Panel 67.8 mg/dL [facility] Other Lipid Panel 15.2 mg/dL [facility] Other PROF CHEM 8 (BAS METB)on Anion gap [Moles/Vol] 9.4 mmol/L [facility] Comment on above: Performed By: #### B MP, BNP, LIPID #### [facility] [address] [address] [address] Braxton Aly Calcium [Mass/Vol] 8.9 mg/dL Normal 8.5-10.1 [facility] Comment on above: Performed By: #### B MP, BNP, LIPID #### [facility] [address] [address] [address] Braxton Aly Chloride [Moles/Vol] 100 mmol/L 98-107 mmol/L [facility] Comment on above: Performed By: #### B MP, BNP, LIPID #### [facility] [address] [place] [address] Dr. Braxton Aly CO2 [Moles/Vol] 34.7 mmol/L Critically high 21.0-32.0 [facility] Comment on above: Performed By: #### B MP, BNP, LIPID #### [facility] [address] [place] [address] Dr. Braxton Aly Creatinine [Mass/Vol] 1.71 mg/dL Critically high 0.70-1.30 [facility] Comment on above: Performed By: #### B MP, BNP, LIPID #### [facility] [address] [place] [address] Dr. Braxton Aly EGFR-AF ETHIOPIAN 49 mL/min/1.73m2 Critically low >=60 [facility] Comment on above: Performed By: #### B MP, BNP, LIPID #### [facility] [address] [place] [address] Dr. Braxton Aly EGFR-NON AF ETHIOPIAN 40 mL/min/1.73m2 Critically low >=60 [facility] Comment on above: Performed By: #### B MP, BNP, LIPID #### [facility] [address] [place] [address] Dr. Braxton Aly Glucose [Mass/Vol] 148 mg/dL Critically high 74-106 [facility] Comment on above: Performed By: #### B MP, BNP, LIPID #### [facility] [address] [place] [address] Dr. Braxton Aly Potassium [Moles/Vol] 4.1 mmol/L Normal 3.5-5.1 [facility] Comment on above: Performed By: #### B MP, BNP, LIPID #### [facility] [address] [address] [address] Braxton Aly Sodium [Moles/Vol] 140 mmol/L Normal 136-145 [facility] Comment on above: Performed By: #### B MP, BNP, LIPID #### [facility] [address] [address] [address] Braxton Aly Urea nitrogen [Mass/Vol] 25.0 mg/dL Critically high 7.0-18.0 [facility] Comment on above: Performed By: #### B MP, BNP, LIPID #### [facility] [address] [address] [address] Braxton Aly Urea nitrogen/Creatinine [Mass ratio] 14.6 mg/mg [facility] Comment on above: Performed By: #### B MP, BNP, LIPID #### [facility] [address] [address] [address] Braxton Aly Basic Metabolic Panelon 12-25 Calcium [Mass/Vol] 8.0762531 mg/dL 8.5-10 .1 mg/dL [facility] Other CO2 [Moles/Vol] 31.00283633 mmol/L 21.0-3 2.0 mmol/L [facility] Other Creatinine [Mass/Vol] 1.67367044 mg/dL Critically high 0.70-1.30 mg/dL [facility] Other Potassium [Moles/Vol] 3.88946879 mmol/L Critically low 3.5-5.1 mmol/L [facility] Other Urea nitrogen [Mass/Vol] 15.5069961 mg/dL 7.0-18.0 mg/dL [facility] Other Basic Metabolic Panel see note [facility] Other Basic Metabolic Panel 141 mmol/L 136-14 5 mmol/L [facility] Other Basic Metabolic Panel 157 mg/dL Critically high 74-106 mg /dL [facility] Other Basic Metabolic Panel 52 mL/min/1.73m2 Critically low >=60 mL/min/1.73m 2 [facility] Other Basic Metabolic Panel >60 mL/min/1.73m2 > =60 mL/min/1.73m 2 [facility] Other Anion gap [Moles/Vol] 11.6 mmol/L Normal No rt [facility] Other Comment on above: Performed By: #### B MP #### [facility] [address] [place] [address] Dr. Braxton Aly Chloride [Moles/Vol] 101 mmol/L Normal 98-107 [facility] Other Comment on above: Performed By: #### B MP #### [facility] [address] [address] [address] Braxton Aly Urea nitrogen/Creatinine [Mass ratio] 11.0 mg/mg Normal [facility] Other Comment on above: Performed By: #### B MP #### [facility] [address] [place] [address] Dr. Braxton Aly PROF CHEM 8 (BAS METB)on Calcium [Mass/Vol] 8.8 mg/dL Normal 8.5-10.1 [facility] Comment on above: Performed By: #### B MP #### [facility] [address] [address] [address] Braxton Aly CO2 [Moles/Vol] 31.7 mmol/L Normal 21.0-32.0 [facility] Comment on above: Performed By: #### B MP #### [facility] [address] [place] [address] Dr. Braxton Aly Creatinine [Mass/Vol] 1.36 mg/dL Critically high 0.70-1.30 [facility] Comment on above: Performed By: #### B MP #### [facility] [address] [place], [place] [address] Dr. Braxton Aly EGFR-AF ETHIOPIAN >60 Normal >=60 [facility] Comment on above: Performed By: #### B MP #### [facility] [address] [place], [place] [address] Dr. Braxton Aly EGFR-NON AF ETHIOPIAN 52 mL/min/1.73m2 Critically low >=60 [facility] Comment on above: Performed By: #### B MP #### [facility] [address] [address] [address] Braxton Aly Glucose [Mass/Vol] 157 mg/dL Critically high 74-106 [facility] Comment on above: Performed By: #### B MP #### [facility] [address] [address] [address] Braxton Aly Potassium [Moles/Vol] 3.3 mmol/L Critically low 3.5-5.1 [facility] Comment on above: Performed By: #### B MP #### [facility] [address] [address] [address] Braxton Aly Sodium [Moles/Vol] 141 mmol/L Normal 136-145 [facility] Comment on above: Performed By: #### B MP #### [facility] [address] [address] [address] Braxton Aly Urea nitrogen [Mass/Vol] 15.0 mg/dL Normal 7.0-18.0 [facility] Comment on above: Performed By: #### B MP #### [facility] [address] [address] [address] Braxton Aly Office Visit (Cardiology)on 12-06-2022 [...] Recorded: 06Dec2022 08:23AM Heart Rate60, R Radial Vxhvrbsu516, RUE, Sitting Dnvmvgmcg45, RUE, Sitting Height5 ft 9 in Qfzqkf413 lb BMI Hifvltzrbr51.81 kg/m2 BSA Calculated2.51 Tobacco Useb) No PHQ-2 [...] a) No falls within the last year PB-Owmdskftxk-D [place] 250 DO Work Phone: Tobacco use status CPHS b) No CW-Ebzijavqrl-T [place] 250 DO Work Phone: BNPon 11-08-2022 Natriuretic peptide B (Bld) [Mass/Vol] 2323.0 pg/mL Critically high <=900.0 [facility] Comment on above: Performed By: #### B PHYSICAL PLANT MANAGER, BMP #### [facility] [address] [place] [address] Dr. Braxton Aly PROF CHEM 8 (BAS METB)on Anion gap [Moles/Vol] 7.5 mmol/L Normal [facility] Comment on above: Performed By: #### B PHYSICAL PLANT MANAGER, BMP #### [facility] [address] [place] [address] Dr. Braxton Aly Calcium [Mass/Vol] 8.8 mg/dL Normal 8.5-10.1 [facility] Comment on above: Performed By: #### B PHYSICAL PLANT MANAGER, BMP #### [facility] [address] [place] [address] Dr. Braxton Aly Chloride [Moles/Vol] 100 mmol/L Normal 98-107 [facility] Comment on above: Performed By: #### B PHYSICAL PLANT MANAGER, BMP #### [facility] [address] [place] [address] Dr. Braxton Aly CO2 [Moles/Vol] 37.5 mmol/L Critically high 21.0-32.0 [facility] Comment on above: Performed By: #### B PHYSICAL PLANT MANAGER, BMP #### [facility] [address] [address] [address] Braxton Aly Creatinine [Mass/Vol] 1.38 mg/dL Critically high 0.70-1.30 [facility] Comment on above: Performed By: #### B PHYSICAL PLANT MANAGER, BMP #### [facility] [address] [address] [address] Braxton Aly EGFR-AF ETHIOPIAN >60 Normal >=60 [facility] Comment on above: Performed By: #### B PHYSICAL PLANT MANAGER, BMP #### [facility] [address] [address] [address] Braxton Aly EGFR-NON AF ETHIOPIAN 51 mL/min/1.73m2 Critically low >=60 [facility] Comment on above: Performed By: #### B PHYSICAL PLANT MANAGER, BMP #### [facility] [address] [address] [address] Braxton Aly Glucose [Mass/Vol] 141 mg/dL Critically high 74-106 [facility] Comment on above: Performed By: #### B PHYSICAL PLANT MANAGER, BMP #### [facility] [address] [address] [address] Braxton Aly Potassium [Moles/Vol] 3.0 mmol/L Critically low 3.5-5.1 [facility] Comment on above: Performed By: #### B PHYSICAL PLANT MANAGER, BMP #### [facility] [address] [address] [address] Braxton Aly Sodium [Moles/Vol] 142 mmol/L Normal 136-145 [facility] Comment on above: Performed By: #### B PHYSICAL PLANT MANAGER, BMP #### [facility] [address] [address] [address] Braxton Aly Urea nitrogen [Mass/Vol] 16.0 mg/dL Normal 7.0-18.0 [facility] Comment on above: Performed By: #### B PHYSICAL PLANT MANAGER, BMP #### [facility] [address] [address] [address] Braxton Aly Urea nitrogen/Creatinine [Mass ratio] 11.6 mg/mg Normal [facility] Comment on above: Performed By: #### B PHYSICAL PLANT MANAGER, BMP #### [facility] [address] [address] [address] Braxton Aly XR CHEST 2 Von [...] ALEX DAWN Date: 2022-11-08 13:38 Normal [facility] Office Visit (Cardiology)on 04-12-2022 Follow-up visit Diagnoses/Problems [...] Recorded: 12Apr2022 01:22PM Heart Rate60, R Radial Surknpeg222, LUE, Sitting Mqrdoafrr95, LUE, Sitting Height5 ft 9 in Eerici976 lb BMI Xsafnvrgzu02.75 kg/m2 BSA Calculated2.46 Tobacco Useb) No PHQ-2 [...] . Signatures Electronically signed by : Rojas Knolwes MD; Apr 12 2022 2:25PM EST (Author) Normal [employer] Tobacco Screening.on 022 Adult depression screening assessment No [facility] [employer] 250 DO Work Phone: Fall risk assessment a) No falls within the last year [facility] [employer] 250 DO Work Phone: Tobacco use status CPHS b) No [facility] DO Work Phone: Echocardiogramon 03-18-[address], [address] [place] [address] TRANSTHORACIC ECHOCARDIOGRAM REPORT Patient Name: ROJAS GIBBS Reading Physician: [id number] Knowles MD Study Date: 03/18/2022 Referring Physician: Mel KNOWLES MRN/PID: [id number] PCP: Anibal Gonzales Accession/Order#: [id number] Department Location: 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 DO Work Phone: Tobacco use status CPHS b) No [facility] [employer] 250 DO Work Phone: ECG 12 lead ECGon 11-07-2021 ECG 12 lead ECG [address] [address] Electrocardiograph Report Signed Patient: Rojas Gibbs MR#: [id number] 2832 : 1955 Acct:[id number] Age/Sex: 66 / M ADM Date: 11/07/21 Loc: EL Room: Type: [facility] Attending Dr: Rojas Knowles MD Ordering Provider: [...] MUS Signed By Pardeep Green MD 2154 Normal [facility] ECG post procedureon ECG post procedure [address] [address] Electrocardiograph Report Signed Patient: Rojas Gibbs MR#: [id number] 2832 : 1955 Acct:[id number] Age/Sex: 66 / M ADM Date: 11/07/21 Loc: EL Room: Type: [facility] Attending Dr: Rojas Knowles MD Ordering Provider: [...] MUS Signed By Pardeep Green MD 2155 Normal [facility] Electrolyteson 11-07-2021 Chloride [Moles/Vol] 98 mmol/L Normal 95-114 [facility] Comment on above: Performed By: #### L YTES #### [facility] [address] [id number] [facility] CO2 [Moles/Vol] 31.8 mmol/L High 22.0-30.0 [facility] Comment on above: Result Comment: PERF ORMED BY: [facility] [address] [facility] [place] [address] PATHOLOGIST LEAD ASSEMBLER SARA GROSSMAN M.D. Performed By: #### L YTES #### [facility] [address] [id number] [facility] Potassium [Moles/Vol] 4.1 mmol/L Normal 3.5-5.1 [facility] Comment on above: Performed By: #### L YTES #### [facility] [address] [id number] [facility] Sodium [Moles/Vol] 138 mmol/L Normal 136-146 [facility] Comment on above: Performed By: #### L YTES #### [facility] [address] [id number] [facility] No Panel Informationon 11-07 31.8\S\31.8 above high threshold 22.0-30.0 [facility] 250 DO Work Phone: Comment on above: PERFORMED BY:[facility] [place] [place], [place] [phone] MEDICAL DIRECTORSARA GROSSMAN M.D. 98\S\98 Normal 95-114 [facility] 250 DO Work Phone: 4.1\S\4.1 Normal 3.5-5.1 [facility] [employer] 250 DO Work Phone: 138\S\138 Normal 136-146 [facility] 250 DO Work Phone: COVID-19 Antigenon 1 [...] its performance Kym Disclaimer characteristic determined by [employer] and Kym Disclaimer validated at [facility]. This Kym Disclaimer test has not [...] is terminated or revoked sooner. PERFORMED BY: [facility] [address] [place] [address] PATHOLOGIST LEAD ASSEMBLER SARA GROSSMAN M.D. Normal [facility] Comment on above: Performed By: #### C OVID-19 KYM, SOFIANEG #### [facility] [address] Laboratory - Microbiology an d Antimicrobial susceptibilityon 11-05-2021 SARS-CoV-2 (COVID-19) RNA NILAM+probe Ql (Unsp spec) -[facility] 250 DO Work Phone: No Panel Informationon 11-05 Negative Normal Negative -[facility] 250 DO Work Phone: Comment on above: This is a duplicate Kym SARS Antigen (ROMLE) result to be used for statistical tracking purpose only.PERFORMED BY:[facility] [facility], [place] [phone] MEDICAL DIRECTORSARA GROSSMAN M.D. Kym Ag Negativeon 11-05-20 21 Kym Ag Negative Negative Normal Negative [facility] Comment on above: Result Comment: This is a duplicate Kym SARS Antigen (ROMEL) result to be used for statistical tracking purpose only. PERFORMED BY: [facility] [address] [place] [address] PATHOLOGIST LEAD ASSEMBLER SARA GROSSMAN M.D. Performed By: #### C OVID-19 KYM, SOFIANEG #### [address] Amiodarone (Cordarone), Seru mon 09-24-2021 Amiodarone, Serum 586 ng/mL Low [id number] [facility] Comment on above: Order Comment: PT IS NON FASTING Performed By: #### B MP #### [address] #### AMIODARONE #### [facility] , Noramiodarone, Serum 478 ng/mL Normal . [facility] Comment on above: Order Comment: PT IS NON FASTING Result Comment: Note : To convert from ng/ml to ug/ml, divide the result by 1000. Reference range (amiodarone): 1.00-2.50 ug/mL. This test was developed and its performance characteristics determined by [employer]. It has not been cleared or approved by the Food and Drug Administration. Performed at: [employer] [address] [id number] Rn Flight: [facility], Phone: [phone] PERFORMED BY: [address] [place] [address] PATHOLOGIST LEAD ASSEMBLER SARA GROSSMAN M.D. Performed By: #### B MP #### [address] [place] [address] [place] #### AMIODARONE #### [facility] , Basic Metabolic Panelon 11-0 Calcium [Mass/Vol] 8.5 mg/dL Normal 8.2-10.2 [facility] Comment on above: Order Comment: PT IS NON FASTING Result Comment: PERF ORMED BY: [place] [address] PATHOLOGIST LEAD ASSEMBLER SARA GROSSMAN M.D. Performed By: #### B MP #### [facility] [address] [place] [address] #### AMIODARONE #### [facility] , Chloride [Moles/Vol] 100 mmol/L Normal 95-114 [facility] Comment on above: Order Comment: PT IS NON FASTING Performed By: #### B MP #### [facility] [address] [place] [address] #### AMIODARONE #### [facility] , CO2 [Moles/Vol] 31.6 mmol/L High 22.0-30.0 [facility] Comment on above: Order Comment: PT IS NON FASTING Performed By: #### B MP #### [facility] [address] [place] [address] #### AMIODARONE #### [facility] , Creatinine [Mass/Vol] 1.51 mg/dL High 0.64-1.27 [facility] Comment on above: Order Comment: PT IS NON FASTING Performed By: #### B MP #### [facility] [address] [place] [address] [place] #### AMIODARONE #### [facility] , Estimated GFR ( Yaima 56 Normal [facility] Comment on above: Order Comment: PT IS NON FASTING Result Comment: GFR estimated reference range: According to KDOQI guidelines, <60 ml/min/1.73m2 is sufficient to diagnose a patient with chronic kidney disease. Performed By: #### B MP #### [facility] [address] [place] [address] [place] #### AMIODARONE #### [facility] , Estimated GFR (Non- Am 46 Normal [facility] Comment on above: Order Comment: PT IS NON FASTING Performed By: #### B MP #### [place] [address] [place] #### AMIODARONE #### [facility] , Glucose [Mass/Vol] 124 mg/dL High 70-100 [facility] Comment on above: Order Comment: PT IS NON FASTING Result Comment: [place] Glucose Reference Range is dependent on time and content of last meal. Glucose of more than 200 mg/dL in a nonstressed, ambulatory subject supports the diagnosis of Diabetes Mellitus. ADA recommended reference range Performed By: #### B MP #### [place] [address] [place] #### AMIODARONE #### [facility] , Potassium [Moles/Vol] 4.2 mmol/L Normal 3.5-5.1 [facility] Comment on above: Order Comment: PT IS NON FASTING Performed By: #### B MP #### [address] #### AMIODARONE #### [facility] , Sodium [Moles/Vol] 141 mmol/L Normal 136-146 [facility] Comment on above: Order Comment: PT IS NON FASTING Performed By: #### B MP #### [place] [address] [place] #### AMIODARONE #### [facility] , Urea nitrogen [Mass/Vol] 20 mg/dL Normal 9-23 [facility] Comment on above: Order Comment: PT IS NON FASTING Performed By: #### B MP #### [place] [address] [place] #### AMIODARONE #### [facility] , IO EKG Electrocardiogram- 12 Leadon 09-24-2021 IO EKG Electrocardiogram- 12 Lead See Scanned Document [facility] 250 DO Work Phone: No Panel Informationon 09-24 8.5\S\8.5 Normal 8.2-10.2 [facility] 250 DO Work Phone: Comment on above: PERFORMED BY:[address] [address] [address] [place], [place] [phone] MEDICAL DIRECTORSARA GROSSMAN M.D. 31.6\S\31.6 above high threshold 22.0-30.0 [facility] 250 DO Work Phone: 100\S\100 Normal 95-114 [facility] 250 DO Work Phone: 4.2\S\4.2 Normal 3.5-5.1 [facility] 250 DO Work Phone: 141\S\141 Normal 136-146 [facility] 250 DO Work Phone: 56\S\56 Normal [facility] 250 DO Work Phone: Comment on above: GFR estimated refere nce range: According to KDOQI guidelines, <60 ml/min/1.73m2 is sufficient to diagnose a patient with chronic kidney disease. 46\S\46 Normal [facility] 250 DO Work Phone: 1.51\S\1.51 above high threshold 0.64-1.27 [facility] 250 DO Work Phone: 20\S\20 Normal 9-23 [facility] 250 DO Work Phone: 124\S\124 above high threshold 70-100 [facility] 250 DO Work Phone: Comment on above: Random Glucose Refer ence Range is dependent on time and content of last meal. Glucose of more than 200 mg/dL in a nonstressed, ambulatory subject supports the diagnosis of Diabetes Mellitus. ADA recommended reference range 478\S\478 Normal . [facility] [employer] DO Work Phone: Comment on above: Note: To convert fro m ng/ml to ug/ml, divide the result by 1000. Reference range (amiodarone): 1.00-2.50 ug/mL. This test was developed and its performance characteristics determined by [employer]. It has not been cleared or approved by the Food and Drug Administration. Performed at: [employer] [address] [place] [id number] Rn Flight: [facility], Phone: [phone] BY:[address] [phone] MEDICAL DIRECTORSARA GROSSMAN M.D. 586\S\586 below low threshold 0417-5211 [facility] [employer] DO Work Phone: Tobacco Screening.on 021 Fall risk assessment a) No falls within the last year [facility] [employer] DO Work Phone: Tobacco use status CPHS b) No [facility] [employer] DO Work Phone: ECG 12 lead ECGon 09-12-2021 ECG 12 lead ECG [facility] Main [place] [address] [place] [address] Electrocardiograph Report Signed Patient: Rojas Gibbs MR#: [id number] 2832 : 1955 Acct:[id number] Age/Sex: 66 / M ADM Date: 09/12/21 Loc: Room: Type: [facility] Attending Dr: Rojas Knowles MD Ordering Provider: [...] Signed By Bridger Headley MD [address] [facility] ECG post procedureon 021 ECG post procedure [facility] Main [place] [address] [place] [address] Electrocardiograph Report Signed Patient: Rojas Gibbs MR#: [id number] 2832 : 1955 Acct:[id number] Age/Sex: 66 / M ADM Date: 09/12/21 Loc: Room: Type: [facility] Attending Dr: Rojas Knowles MD Ordering Provider: [...] Signed By Bridger Headley MD [address] [facility] Electrolyteson 09-12-2021 Chloride [Moles/Vol] 100 mmol/L Normal 95-114 [facility] Comment on above: Performed By: #### L YTES #### [facility] [address] CO2 [Moles/Vol] 32.1 mmol/L High 22.0-30.0 [facility] Comment on above: Result Comment: PERF ORMED BY: [facility] [address] [place] [address] PATHOLOGIST LEAD ASSEMBLER SARA GROSSMAN M.D. Performed By: #### L YTES #### [facility] [address] Potassium [Moles/Vol] 4.5 mmol/L Normal 3.5-5.1 [facility] Comment on above: Performed By: #### L YTES #### [facility] [address] Sodium [Moles/Vol] 140 mmol/L Normal 136-146 [facility] Comment on above: Performed By: #### L YTES #### [facility] [address] [place] [address] No Panel Informationon 09-12 [facility] 250 DO Work Phone: 32.1\S\32.1 above high threshold 22.0-30.0 [facility] 250 DO Work Phone: Comment on above: PERFORMED BY:[facility]1111 [place], [place] [phone] MEDICAL DIRECTORSARA GROSSMAN M.D. 100\S\100 Normal 95-114 [facility] 250 DO Work Phone: 4.5\S\4.5 Normal 3.5-5.1 [facility] 250 DO Work Phone: 140\S\140 Normal 136-146 [facility] 250 DO Work Phone: COVID-19 FRMCon 09-10-2021 SARS-CoV-2 (COVID-19) RNA NILAM+probe Ql (Unsp spec) Negative Normal Negative [facility] Comment on above: Order Comment: Healt hcare Worker?: N Result Comment: Testing for SARS-CoV-2 by RT-PCR This test was developed and its performance characteristics determined by [employer] and validated at the [facility]. This test has not been FDA [...] is terminated or revoked sooner. PERFORMED BY: [place] [address] PATHOLOGIST LEAD ASSEMBLER SARA GROSSMAN M.D. Performed By: #### C OVID 19 [facility] #### [address] Vital Signs Date Time Vital Sign Value Performing Clinician Facility 07-08-2024 12:08040 Body height 172.72 cm [facility] 07-08-2024 12:080400 Body mass index (BMI) [Ratio] 48.8 kg/m2 [facility] 07-08-2024 12:08040 Body weight 145.71 kg [facility] 07-08-2024 12:08-0400 Diastolic blood pressure 76 mm[Hg] [facility] 07-08-2024 12:08-0400 Heart rate 142 /min [facility] 07-08-2024 12:080400 Respiratory rate 20 /min [facility] 07-08-2024 12:08-0400 Systolic blood pressure 114 mm[Hg] [facility] [facility] 06-24-[facility]24 09:05-0400 Body height 172.72 cm [facility] 06-24-2024 09:05-0400 Body mass index (BMI) [Ratio] 46.7 kg/m2 [facility] 06-24-2024 [id number] Body weight 139.3 kg [facility] 06-24-2024 09:05-0400 Diastolic blood pressure 72 mm[Hg] [facility] 06-24-2024 09:05-0400 Heart rate 116 /min [facility] 06-24-2024 09:05-0400 Respiratory rate 12 /min [facility] 06-24-2024 09:05-0400 Systolic blood pressure 111 mm[Hg] [facility] 06-14-2024 18:17-0400 Hourly Rounding Mbanefo OJUKWU [facility] 06-14-2024 18:17-0400 Promise to Return Mbanefo OJUKWU [facility] 06-14-2024 17:00-0400 Hourly Rounding Mbanefo OJUKWU [facility] 06-14-2024 17:00-0400 Promise to Return Mbanefo OJUKWU [facility] 06-14-2024 16:44-0400 Hourly Rounding Mbanefo OJUKWU [facility] 06-14-2024 16:44-0400 Promise to Return Mbanefo OJUKWU [facility] 06-14-2024 15:08-0400 Heart rate 97 /min Mbanefo OJUKWU [facility] 07-22-2024 15:08-0400 SaO2% (BldA) [Mass fraction] 96 % Mbanefo OJUKWU [facility] 06-14-2024 15:08-0400 Respiratory rate 16 /min Mbanefo OJUKWU [facility] 06-14-2024 15:08-0400 Diastolic blood pressure 64 mm[Hg] Mbanefo OJUKWU [facility] 06-14-2024 15:08-0400 Mean blood pressure 76 mm[Hg] Mbanefo OJUKWU [facility] 06-14-2024 15:08-0400 Systolic blood pressure 99 mm[Hg] Mbanefo OJUKWU [facility] 06-14-2024 15:07-0400 Body temperature 98.06 [degF] Mbanefo OJUKWU [facility] 06-14-2024 15:00-0400 Blood Pressure Location Mbanefo OJUKWU [facility] 06-14-2024 11:20-0400 Heart rate 102 /min Mbanefo OJUKWU [facility] 06-14-2024 11:20-0400 SaO2% (BldA) [Mass fraction] 97 % Mbanefo OJUKWU [facility] 06-14-2024 11:19-0400 Diastolic blood pressure 73 mm[Hg] Mbanefo OJUKWU [facility] 06-14-2024 11:19-0400 Mean blood pressure 82 mm[Hg] Mbanefo OJUKWU [facility] 06-14-2024 11:19-0400 Systolic blood pressure 102 mm[Hg] Mbanefo OJUKWU [facility] 06-14-2024 11:19-0400 Body temperature 97.88 [degF] Mbanefo OJUKWU [facility] 06-14-2024 11:00-0400 Heart rate 70 /min Mbanefo OJUKWU [facility] 06-14-2024 07:57-0400 Heart rate 69 /min Mbanefo OJUKWU [facility] 06-13-2024 23:20-0400 Body temperature 97.16 [degF] Mbanefo OJUKWU [facility] 06-13-2024 23:20-0400 Respiratory rate 18 /min Mbanefo OJUKWU [facility] 06-13-2024 19:00-0400 Mean blood pressure 78 mm[Hg] Mbanefo OJUKWU [facility] 06-13-2024 18:10-0400 Blood Pressure Location Mbanefo OJUKWU [facility] 06-13-2024 18:10-0400 Mean blood pressure 71 mm[Hg] Mbanefo OJUKWU [facility] 06-13-2024 18:05-0400 Blood Pressure Location Mbanefo OJUKWU [facility] 06-13-2024 18:05-0400 Mean blood pressure 75 mm[Hg] Mbanefo OJUKWU [facility] 06-13-2024 17:20-0400 Respiratory rate 17 /min Mbanefo OJUKWU [facility] 06-13-2024 13:20-0400 Respiratory rate 16 /min Mbanefo OJUKWU [facility] 06-13-2024 10:07-0400 Heart rate 150 /min Mbanefo OJUKWU [facility] 06-13-2024 08:57-0400 Heart rate 160 /min Mbanefo OJUKWU [facility] 06-13-2024 08:10-0400 Respiratory rate 18 /min Mbanefo OJUKWU [facility] 06-12-2024 19:29-0400 Body temperature 97.88 [degF] Mbanefo OJUKWU [facility] 06-12-2024 19:28-0400 Mean blood pressure 76 mm[Hg] Mbanefo OJUKWU [facility] 06-12-2024 19:00-0400 Respiratory rate 16 /min Mbanefo OJUKWU [facility] 06-12-2024 18:13-0400 Heart rate 84 /min Mbanefo OJUKWU [facility] 06-12-2024 14:16-0400 Heart rate 124 /min Mbanefo OJUKWU [facility] 06-12-2024 12:01-0400 Heart rate 93 /min Mbanefo OJUKWU [facility] 06-12-2024 11:50-0400 gluc 100 mg/dL Mbanefo OJUKWU [facility] 06-12-2024 11:50-0400 gluc Mbanefo OJUKWU [facility] 05-06-2024 11:02-0400 Body height 172.72 cm [facility] 05-06-2024 11:02-0400 Body mass index (BMI) [Ratio] 46 kg/m2 [facility] 05-06-2024 11:02-0400 Body weight 137.49 kg [facility] 05-06-2024 11:02-0400 Diastolic blood pressure 68 mm[Hg] [facility] 05-06-2024 11:02-0400 Heart rate 106 /min [facility] 05-06-2024 11:02-0400 Respiratory rate 16 /min [facility] 05-06-2024 11:02-0400 Systolic blood pressure 93 mm[Hg] [facility] 02-06-2024 11:12-0400 Body height 172.72 cm [facility] 02-06-2024 11:12-0400 Body mass index (BMI) [Ratio] 48.8 kg/m2 [facility] 02-06-2024 11:12-0400 Body weight 145.6 kg [facility] 02-06-2024 11:12-0400 Diastolic blood pressure 75 mm[Hg] [facility] 02-06-2024 11:12-0400 Heart rate 92 /min [facility] 02-06-2024 11:12-0400 Respiratory rate 16 /min [facility] 02-06-2024 11:12-0400 Systolic blood pressure 124 mm[Hg] [facility] 12-02-2023 10:36-0500 Body height 177.8 cm Rojas Knowles MD Work Phone: [facility] 12-02-2023 10:36-0500 Body mass index (BMI) [Ratio] 47.35 kg/m2 Rojas Knowles MD Work Phone: [facility] 12-02-2023 10:36-0500 Body weight 149.69 kg Rojas Knowles MD Work Phone: [facility] 01-09-2024 10:36-0500 Diastolic blood pressure 74 mm[Hg] Rojas Knowles MD Work Phone: [facility] 12-02-2023 10:36-0500 Heart rate 64 /min Rojas Knowles MD Work Phone: [facility] 12-02-2023 10:36-0500 Systolic blood pressure 112 mm[Hg] Rojas Knowles MD Work Phone: [facility] 07-08-2023 13:45-0400 Body height 172.72 cm Anibal Ball Other [employer] Other 07-08-2023 13:45-0400 Body mass index (BMI) [Ratio] 49.11 kg/m2 Anibal Ball Other [employer] Other 07-08-2023 13:45-0400 Body weight 146.51 kg Anibal Ball Other [employer] Other 07-08-2023 13:45-0400 Diastolic blood pressure 69 mm[Hg] Anibal Ball Other [employer] Other 07-08-2023 13:45-0400 Respiratory rate 20 /min Anibal Ball Other [employer] Other 07-08-2023 13:45-0400 Systolic blood pressure 93 mm[Hg] Anibal Ball Other [employer] Other 05-15-2023 10:18-0400 Body height 172.72 cm Anibal Ball Other [employer] Other 05-15-2023 10:18-0400 Body mass index (BMI) [Ratio] 50.02 kg/m2 Anibal Ball Other [employer] Other 05-15-2023 10:18-0400 Body weight 149.23 kg Anibal Ball Other [employer] Other 05-15-2023 10:18-0400 Diastolic blood pressure 75 mm[Hg] Anibal Ball Other [employer] Other 05-15-2023 10:18-0400 Systolic blood pressure 114 mm[Hg] Anibal Ball Other [employer] Other 04-07-2023 10:30-0400 Body height 172.72 cm Anibal Ball Other [employer] Other 04-07-2023 10:30-0400 Body mass index (BMI) [Ratio] 50.54 kg/m2 Anibal Ball Other [employer] Other 04-07-2023 10:30-0400 Body weight 150.78 kg Anibal Ball Other [employer] Other 04-07-2023 10:30-0400 Diastolic blood pressure 64 mm[Hg] Anibal Ball Other [employer] Other 04-07-2023 10:30-0400 Respiratory rate 12 /min Anibal Ball Other [employer] Other 04-07-2023 10:30-0400 Systolic blood pressure 91 mm[Hg] Anibal Ball Other [employer] Other 04-07-2023 09:30-0400 Body height 172.72 cm Anibal Ball Other [employer] Other 04-07-2023 09:30-0400 Body mass index (BMI) [Ratio] 50.54 kg/m2 Anibal Ball Other [employer] Other 04-07-2023 09:30-0400 Body weight 150.78 kg Anibal Ball Other [employer] Other 04-07-2023 09:30-0400 Diastolic blood pressure 64 mm[Hg] Anibal Ball Other [employer] Other 04-07-2023 09:30-0400 Respiratory rate 12 /min Anibal Ball Other [employer] Other 04-07-2023 09:30-0400 Systolic blood pressure 91 mm[Hg] Anibal Ball Other [employer] Other 01-06-2023 11:30-0500 Body height 172.72 cm Anibal Ball Other [employer] Other 01-06-2023 11:30-0500 Body mass index (BMI) [Ratio] 49.93 kg/m2 Anibal Ball Other [employer] Other 01-06-2023 11:30-0500 Body weight 148.96 kg Anibal Ball Other [employer] Other 01-06-2023 11:30-0500 Diastolic blood pressure 76 mm[Hg] Anibal Ball Other [employer] Other 01-06-2023 11:30-0500 Respiratory rate 16 /min Anibal Ball Other [employer] Other 01-06-2023 11:30-0500 Systolic blood pressure 122 mm[Hg] Anibal Ball Other [employer] Other 12-06-2022 08:23-0500 Body height 175.26 cm Anibal E Ball Work Phone: WB-Emxwvmzmjn-Mdprbx [place] 250 DO Work Phone: 12-06-2022 08:23-0500 Body mass index (BMI) [Ratio] 46.81 kg/m2 Anibal E Ball Work Phone: GW-Zpwfnnjgad-Xrujhp [place] [address] DO Work Phone: 12-06-2022 08:23-0500 Body surface area Derived from formula 2.51 m2 Anibal E Ball Work Phone: MI-Qkobxajlns-Epkwoa [place] 250 DO Work Phone: 12-06-2022 08:23-0500 Body weight 143.79 kg Anibal E Ball Work Phone: IZ-Gzprptzybb-Jyqxfr [place] 250 DO Work Phone: 12-06-2022 08:23-0500 Diastolic blood pressure 62 mm[Hg] Anibal E Ball Work Phone: PJ-Wcidluljqm-Zqedst [place] [address] DO Work Phone: 12-06-2022 08:23-0500 Heart rate 60 /min Anibal E Ball Work Phone: ZG-Nugjedfhds-Uzzasu [place] 250 DO Work Phone: 12-06-2022 08:23-0500 Systolic blood pressure 110 mm[Hg] Anibal E Ball Work Phone: BO-Hmxmftplrw-Mdadin [place] 250 DO Work Phone: 12-05-2022 11:30-0500 Body height 172.72 cm Anibal Ball Other [employer] Other 12-05-2022 11:30-0500 Body mass index (BMI) [Ratio] 48.32 kg/m2 Anibal Ball Other [employer] Other 12-05-2022 11:30-0500 Body weight 144.15 kg Anibal Ball Other [employer] Other 12-05-2022 11:30-0500 Diastolic blood pressure 72 mm[Hg] Anibal Ball Other [facility] [employer] Other 12-05-2022 11:30-0500 Respiratory rate 16 /min Anibal Ball Other [facility] [employer] Other 12-05-2022 11:30-0500 Systolic blood pressure 122 mm[Hg] Anibal Ball Other [facility] [employer] Other 04-12-2022 13:22-0400 Body height 175.26 cm Anibal E Ball Work Phone: [facility] [employer] 250 DO Work Phone: 04-12-2022 13:22-0400 Body mass index (BMI) [Ratio] 44.75 kg/m2 Anibal E Ball Work Phone: [facility] [employer] 250 DO Work Phone: 04-12-2022 13:22-0400 Body surface area Derived from formula 2.46 m2 Anibal E Ball Work Phone: [facility] [employer] 250 DO Work Phone: 04-12-2022 13:22-0400 Body weight 137.44 kg Anibal E Ball Work Phone: [facility] [employer] 250 DO Work Phone: 04-12-2022 13:22-0400 Diastolic blood pressure 70 mm[Hg] Anibal E Ball Work Phone: [facility] [employer] 250 DO Work Phone: 04-12-2022 13:22-0400 Heart rate 60 /min Anibal E Ball Work Phone: [facility] [employer]ush[employer] 250 DO Work Phone: 04-12-2022 13:22-0400 Systolic blood pressure 110 mm[Hg] Anibal E Ball Work Phone: [facility] [employer] 250 DO Work Phone: 03-18-2022 08:45-0400 60 1 Anibal E Ball Work Phone: [facility] [address] [place] Work Phone: Comment on above: [id number] 12-03-2021 11:02-0500 Body height 175.26 cm Anibal E Ball Work Phone: [facility] 250 DO Work Phone: 12-03-2021 11:02-0500 Body mass index (BMI) [Ratio] 45.04 kg/m2 Anibal E Ball Work Phone: [facility] 250 DO Work Phone: 12-03-2021 11:02-0500 Body surface area Derived from formula 2.47 m2 Anibal E Ball Work Phone: [facility] 250 DO Work Phone: 12-03-2021 11:02-0500 Body weight 138.35 kg Anibal E Ball Work Phone: [facility] 250 DO Work Phone: 12-03-2021 11:02-0500 Diastolic blood pressure 68 mm[Hg] Anibal E Ball Work Phone: [facility] 250 DO Work Phone: 12-03-2021 11:02-0500 Heart rate 91 /min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
[2024-07-19 12:38] LABS: BUN Creatinine Ratio 9.7; Calcium 8.9 mg/dL (8.5-10.1); Chloride 101 mmol/L (98-107); Estimated GFR (African America >60 (>=60); Estimated GFR (Non-African Ame >60 (>=60); Glucose 127 mg/dL (74-106); Potassium 4.2 mmol/L (3.5-5.1); Sodium 138 mmol/L (136-145)
[2024-07-19 12:45] LABS: Anion Gap 9.5; Carbon Dioxide 31.7 mmol/L (21.0-32.0)
[2024-07-19 14:39] LABS: Digoxin 0.6 ng/mL (0.9-2.0)
== END 2024-07-19 11:34 | disposition home or self-care (01) ==
LOC: LAB 11:34
PROVIDERS: PCP Internal Medicine; Visit Provider Internal Medicine
DX: I50.22 Chronic systolic (congestive) heart failure (principal); I48.19 Other persistent atrial fibrillation
CPT/HCPCS: 36415; 80048; 80162

== ENCOUNTER 2024-09-21 09:43 | Outpatient (OUT) | payer OTHER, SELFPAY ==
--- OUTSIDE RECORDS SUMMARY | 2024-09-21 09:57 | XMS_ITS | CCD ---
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 [facility] Eosinophils/100 WBC Auto (Bl d)on 06-08-2024 Eosinophils/100 WBC (Bld) 1.2 % 0.9-7.0 [facility] Erythrocyte distribution wid th Auto (RBC) [Ratio]on 06-08-2024 Erythrocyte distribution width (RBC) [Ratio] 15.1 % High 11.0-15.0 [facility] Hematocrit Auto (Bld) [Volum e fraction]on 06-08-2024 Hematocrit (Bld) [Volume fraction] 43.2 % 42.0-54.0 [facility] Hemoglobin [Mass/volume] in Bloodon 06-08-2024 Hemoglobin (Bld) [Mass/Vol] 13.2 g/dL Low 14.0-18.0 [facility] Iron binding capacity [Mass/ volume] in Serum or Plasmaon 06-08-2024 Iron binding capacity [Mass/Vol] 252.0 ug/dL 250.0-450.0 [facility] Iron saturation [Mass Fracti on] in Serum or Plasmaon 06-08-2024 Iron saturation [Mass fraction] 16.7 % [facility] Laboratory - Chemistry and C hemistry - challengeon 06-08-2024 Cobalamin (Vitamin B12) [Mass/Vol] 216.0 pg/mL 193.0-986.0 [facility] Ferritin [Mass/Vol] 268.0 ng/mL 26.0-388.0 [facility] Iron [Mass/Vol] 42.0 ug/dL Low 65.0-175.0 [facility] Laboratory - Hematology and Cell countson 06-08-2024 Immature granulocytes/100 WBC (Bld) 0.4 % 0.0-0.5 [facility] Leukocytes [#/volume] correc delmi for nucleated erythrocytes in Blood by Automated counon 06-08-2024 WBC corrected for nucl RBC Auto (Bld) [#/Vol] 10.3 10 3/uL 4.0-11.0 [facility] Lymphocytes Auto (Bld) [#/Vo l]on 06-08-2024 Lymphocytes (Bld) [#/Vol] 0.9 10 3/uL Low 1.2-3.8 [facility] Lymphocytes/100 WBC Auto (Bl d)on 06-08-2024 Lymphocytes/100 WBC (Bld) 9.1 % Low 20.5-60.0 [facility] MCH Auto (RBC) [Entitic mass ]on 06-08-2024 MCH (RBC) [Entitic mass] 28.7 pg 25.9-34.0 [facility] MCHC Auto (RBC) [Mass/Vol]on 06-08-2024 MCHC (RBC) [Mass/Vol] 30.6 g/dL 29.9-35.2 [facility] MCV Auto (RBC) [Entitic vol] on 06-08-2024 MCV (RBC) [Entitic vol] 93.9 fL 80.0-94.0 [facility] Monocytes Auto (Bld) [#/Vol] on 06-08-2024 Monocytes (Bld) [#/Vol] 0.6 10 3/uL 0.3-0.8 [facility] Monocytes/100 WBC Auto (Bld) on 06-08-2024 Monocytes/100 WBC (Bld) 5.8 % 1.7-12.0 [facility] Neutrophils Auto (Bld) [#/Vo l]on 06-08-2024 Neutrophils (Bld) [#/Vol] 8.6 10 3/uL High 1.4-6.5 [facility] Neutrophils/100 WBC Auto (Bl d)on 06-08-2024 Neutrophils/100 WBC (Bld) 82.9 % High 43.0-75.0 [facility] No Panel Informationon 06-08 Eosinophils # (Auto) 0.1 10 3/uL 0.0-0.7 [facility] Folate 4.80 ng/mL Low 8.60-58.90 [facility] Immature Granulocyte # (Auto) 0.04 10 3/uL High 0.00-0.03 [facility] Platelet mean volume Auto (B ld) [Entitic vol]on 06-08-2024 Platelet mean volume (Bld) [Entitic vol] 9.7 fL 9.5-13.5 [facility] Platelets Auto (Bld) [#/Vol] on 06-08-2024 Platelets (Bld) [#/Vol] 277 10 3/uL 150-450 [facility] RBC Auto (Bld) [#/Vol]on RBC (Bld) [#/Vol] 4.60 10 6/uL Low 4.70-6.10 [facility] Basophils Auto (Bld) [#/Vol] on 05-07-2024 Basophils (Bld) [#/Vol] 0.1 10 3/uL 0.0-0.1 [facility] Basophils/100 WBC Auto (Bld) on 05-07-2024 Basophils/100 WBC (Bld) 0.6 % 0.2-2.0 [facility] Cholesterol in LDL Calc [Mas s/Vol]on 05-07-2024 Cholesterol in LDL [Mass/Vol] 65.0 mg/dL [facility] Comment on above: <100 mg/dl [id number] 0-129 mg/dl NEAR OR ABOVE [id number] mg/dl BORDERLINE [id number] mg/dl HIGH>190 mg/dl VERY HIGH Cholesterol in VLDL Calc [Ma ss/Vol]on 05-07-2024 Cholesterol in VLDL [Mass/Vol] 17.6 mg/dL [facility] Eosinophils/100 WBC Auto (Bl d)on 05-07-2024 Eosinophils/100 WBC (Bld) 1.2 % 0.9-7.0 [facility] Erythrocyte distribution wid th Auto (RBC) [Ratio]on 05-07-2024 Erythrocyte distribution width (RBC) [Ratio] 14.8 % 11.0-15.0 [facility] Estimated glomerular filtrat ion rate (GFR) non- Americanon 05-07-2024 GFR/1.73 sq M.predicted among non-blacks MDRD (S/P/Bld) [Vol rate/Area] 50 mL/min/{1.73_m2} Low >=60 [facility] Globulin Calc (S) [Mass/Vol] on 05-07-2024 Globulin (S) [Mass/Vol] 4.5 g/dL [facility] Glucose mean value [Mass/vol ume] in Blood Estimated from glycated hemoglobinon 05-07-2024 Average glucose Estimated from glycated hemoglobin (Bld) [Mass/Vol] 140 mg/dL [facility] Hematocrit Auto (Bld) [Volum e fraction]on 05-07-2024 Hematocrit (Bld) [Volume fraction] 43.4 % 42.0-54.0 [facility] Hemoglobin [Mass/volume] in Bloodon 05-07-2024 Hemoglobin (Bld) [Mass/Vol] 12.9 g/dL Low 14.0-18.0 [facility] Laboratory - Chemistry and C hemistry - challengeon 05-07-2024 Albumin [Mass/Vol] 3.0 g/dL Low 3.4-5.0 [facility] ALP [Catalytic activity/Vol] 104 U/L 46-116 [facility] ALT [Catalytic activity/Vol] 14 U/L Low 16-63 [facility] AST [Catalytic activity/Vol] 12 U/L Low 15-37 [facility] Bilirubin [Mass/Vol] 1.1 mg/dL High 0.2-1.0 [facility] Calcium [Mass/Vol] 9.1 mg/dL 8.5-10.1 [facility] Chloride [Moles/Vol] 100 mmol/L 98-107 [facility] Cholesterol [Mass/Vol] 118 mg/dL <=200 [facility] Cholesterol in HDL [Mass/Vol] 36 mg/dL Low 40-60 [facility] Comment on above: > or =60 mg/dl - LOW CARDIOVASCULAR RISK<40 mg/dl - HIGH CARDIOVASCULAR RISK CO2 [Moles/Vol] 32.0 mmol/L 21.0-32.0 [facility] Creatinine [Mass/Vol] 1.41 mg/dL High 0.70-1.30 [facility] GFR/1.73 sq M.predicted MDRD (S/P/Bld) [Vol rate/Area] mL/min/{1.73_m2} >=60 [facility] Glucose [Mass/Vol] 107 mg/dL High 74-106 [facility] Potassium [Moles/Vol] 4.0 mmol/L 3.5-5.1 [facility] Protein [Mass/Vol] 7.5 g/dL 6.4-8.2 [facility] Sodium [Moles/Vol] 138 mmol/L 136-145 [facility] Triglyceride [Mass/Vol] 88 mg/dL <=150 [facility] Urea nitrogen [Mass/Vol] 16.0 mg/dL 7.0-18.0 [facility] Urea nitrogen/Creatinine [Mass ratio] 11.3 mg/mg [facility] Laboratory - Hematology and Cell countson 05-07-2024 HbA1c (Bld) [Mass fraction] 6.5 % High 4.5-6.2 [facility] Comment on above: ADA RECOMMENDED LIMI T 4.0 - 6.0ADA THERAPEUTIC TARGET < 7.0ACTION SUGGESTED> 7.0 Immature granulocytes/100 WBC (Bld) 0.3 % 0.0-0.5 [facility] Leukocytes [#/volume] correc delmi for nucleated erythrocytes in Blood by Automated counon 05-07-2024 WBC corrected for nucl RBC Auto (Bld) [#/Vol] 9.6 10 3/uL 4.0-11.0 [facility] Lymphocytes Auto (Bld) [#/Vo l]on 05-07-2024 Lymphocytes (Bld) [#/Vol] 1.2 10 3/uL 1.2-3.8 [facility] Lymphocytes/100 WBC Auto (Bl d)on 05-07-2024 Lymphocytes/100 WBC (Bld) 11.9 % Low 20.5-60.0 [facility] MCH Auto (RBC) [Entitic mass ]on 05-07-2024 MCH (RBC) [Entitic mass] 27.3 pg 25.9-34.0 [facility] MCHC Auto (RBC) [Mass/Vol]on 05-07-2024 MCHC (RBC) [Mass/Vol] 29.7 g/dL Low 29.9-35.2 [facility] MCV Auto (RBC) [Entitic vol] on 05-07-2024 MCV (RBC) [Entitic vol] 91.8 fL 80.0-94.0 [facility] Microalbumin [Mass/volume] i n Urineon 05-07-2024 Albumin DL <= 20 mg/L (U) [Mass/Vol] 21.2 mg/dL <=30.0 [facility] Monocytes Auto (Bld) [#/Vol] on 05-07-2024 Monocytes (Bld) [#/Vol] 0.7 10 3/uL 0.3-0.8 [facility] Monocytes/100 WBC Auto (Bld) on 05-07-2024 Monocytes/100 WBC (Bld) 6.9 % 1.7-12.0 [facility] Neutrophils Auto (Bld) [#/Vo l]on 05-07-2024 Neutrophils (Bld) [#/Vol] 7.6 10 3/uL High 1.4-6.5 [facility] Neutrophils/100 WBC Auto (Bl d)on 05-07-2024 Neutrophils/100 WBC (Bld) 79.1 % High 43.0-75.0 [facility] No Panel Informationon 05-07 Eosinophils # (Auto) 0.1 10 3/uL 0.0-0.7 [facility] Immature Granulocyte # (Auto) 0.03 10 3/uL 0.00-0.03 [facility] Prostate Specific Antigen Screen 0.25 ng/mL <=4.00 [facility] Platelet mean volume Auto (B ld) [Entitic vol]on 05-07-2024 Platelet mean volume (Bld) [Entitic vol] 9.6 fL 9.5-13.5 [facility] Platelets Auto (Bld) [#/Vol] on 05-07-2024 Platelets (Bld) [#/Vol] 334 10 3/uL 150-450 [facility] RBC Auto (Bld) [#/Vol]on RBC (Bld) [#/Vol] 4.73 10 6/uL 4.70-6.10 [facility] Serum or plasma albumin/glob ulin mass ratioon 05-07-2024 Albumin/Globulin [Mass ratio] 0.7 {ratio} [facility] Serum or plasma anion gap de terminationon 05-07-2024 Anion gap [Moles/Vol] 10.0 mmol/[facility] Serum or plasma total choles terol/high density lipoprotein (HDL) cholesterol mass christopher 05-07-2024 Cholesterol.total/Cho lesterol in HDL [Mass ratio] 3.3 {ratio} [facility] Comment on above: 3.3 - 4.4 LOW RISK4. 4 - 7.1 AVERAGE RISK7.1 - 11.0 MODERATE RISK>11.0 HIGH RISK No Panel Informationon 02-09 Clostridium difficile (PCR)(LAB) Negative NEGATIVE [facility] Miscellaneous Test Comment See comment [facility] Comment on above: Specimen Source: ST - Stool - Stool - 700.100 Stool Campylobacter Culture Res 1 See comment [facility] Comment on above: [facility], No Panel InformationOrdered By: Anibal Gonzales on 02-10-2024 E coli Shiga Toxin EIA [facility] Salmonella/Shigella Screen [facility] Basophils Auto (Bld) [#/Vol] on 02-09-2024 Basophils (Bld) [#/Vol] 0.1 10 3/uL 0.0-0.1 [facility] Basophils/100 WBC Auto (Bld) on 02-09-2024 Basophils/100 WBC (Bld) 0.6 % 0.2-2.0 [facility] Eosinophils/100 WBC Auto (Bl d)on 02-09-2024 Eosinophils/100 WBC (Bld) 1.1 % 0.9-7.0 [facility] Erythrocyte distribution wid th Auto (RBC) [Ratio]on 02-09-2024 Erythrocyte distribution width (RBC) [Ratio] 13.6 % 11.0-15.0 [facility] Estimated glomerular filtrat ion rate (GFR) non- Americanon 02-09-2024 GFR/1.73 sq M.predicted among non-blacks MDRD (S/P/Bld) [Vol rate/Area] mL/min/{1.73_m2} >=60 [facility] Globulin Calc (S) [Mass/Vol] on 02-09-2024 Globulin (S) [Mass/Vol] 4.1 g/dL [facility] Hematocrit Auto (Bld) [Volum e fraction]on 02-09-2024 Hematocrit (Bld) [Volume fraction] 40.9 % 42.0-54.0 [facility] Hemoglobin [Mass/volume] in Bloodon 02-09-2024 Hemoglobin (Bld) [Mass/Vol] 12.2 g/dL 14.0-18.0 [facility] Laboratory - Chemistry and C hemistry - challengeon 02-09-2024 Albumin [Mass/Vol] 2.8 g/dL 3.4-5.0 [facility] ALP [Catalytic activity/Vol] 107 U/L 46-116 [facility] ALT [Catalytic activity/Vol] 19 U/L 16-63 [facility] AST [Catalytic activity/Vol] 14 U/L 15-37 [facility] Bilirubin [Mass/Vol] 0.9 mg/dL 0.2-1.0 [facility] Calcium [Mass/Vol] 8.9 mg/dL 8.5-10.1 [facility] Chloride [Moles/Vol] 103 mmol/L 98-107 [facility] CO2 [Moles/Vol] 26.7 mmol/L 21.0-32.0 [facility] Creatinine [Mass/Vol] 1.07 mg/dL 0.70-1.30 [facility] GFR/1.73 sq M.predicted MDRD (S/P/Bld) [Vol rate/Area] mL/min/{1.73_m2} >=60 [facility] Glucose [Mass/Vol] 102 mg/dL 74-106 [facility] Potassium [Moles/Vol] 3.5 mmol/L 3.5-5.1 [facility] Protein [Mass/Vol] 6.9 g/dL 6.4-8.2 [facility] Sodium [Moles/Vol] 140 mmol/L 136-145 [facility] Urea nitrogen [Mass/Vol] 12.0 mg/dL 7.0-18.0 [facility] Urea nitrogen/Creatinine [Mass ratio] 11.2 mg/mg [facility] Laboratory - Hematology and Cell countson 02-09-2024 Immature granulocytes/100 WBC (Bld) 0.3 % 0.0-0.5 [facility] Leukocytes [#/volume] correc delmi for nucleated erythrocytes in Blood by Automated counon 02-09-2024 WBC corrected for nucl RBC Auto (Bld) [#/Vol] 10.9 10 3/uL 4.0-11.0 [facility] Lymphocytes Auto (Bld) [#/Vo l]on 02-09-2024 Lymphocytes (Bld) [#/Vol] 1.3 10 3/uL 1.2-3.8 [facility] Lymphocytes/100 WBC Auto (Bl d)on 02-09-2024 Lymphocytes/100 WBC (Bld) 11.7 % 20.5-60.0 [facility] MCH Auto (RBC) [Entitic mass ]on 02-09-2024 MCH (RBC) [Entitic mass] 28.4 pg 25.9-34.0 [facility] MCHC Auto (RBC) [Mass/Vol]on 02-09-2024 MCHC (RBC) [Mass/Vol] 29.8 g/dL 29.9-35.2 [facility] MCV Auto (RBC) [Entitic vol] on 02-09-2024 MCV (RBC) [Entitic vol] 95.3 fL 80.0-94.0 [facility] Monocytes Auto (Bld) [#/Vol] on 02-09-2024 Monocytes (Bld) [#/Vol] 0.9 10 3/uL 0.3-0.8 [facility] Monocytes/100 WBC Auto (Bld) on 02-09-2024 Monocytes/100 WBC (Bld) 8.1 % 1.7-12.0 [facility] Neutrophils Auto (Bld) [#/Vo l]on 02-09-2024 Neutrophils (Bld) [#/Vol] 8.5 10 3/uL 1.4-6.5 [facility] Neutrophils/100 WBC Auto (Bl d)on 02-09-2024 Neutrophils/100 WBC (Bld) 78.2 % 43.0-75.0 [facility] No Panel Informationon 02-08 C-Reactive Protein, Quantitative 2.52 mg/dL <=0.50 [facility] Eosinophils # (Auto) 0.1 10 3/uL 0.0-0.7 [facility] Immature Granulocyte # (Auto) 0.03 10 3/uL 0.00-0.03 [facility] Platelet mean volume Auto (B ld) [Entitic vol]on 02-09-2024 Platelet mean volume (Bld) [Entitic vol] 10.3 fL 9.5-13.5 [facility] Platelets Auto (Bld) [#/Vol] on 02-09-2024 Platelets (Bld) [#/Vol] 328 10 3/uL 150-450 [facility] RBC Auto (Bld) [#/Vol]on RBC (Bld) [#/Vol] 4.29 10 6/uL 4.70-6.10 [facility] Serum or plasma albumin/glob ulin mass ratioon 02-09-2024 Albumin/Globulin [Mass ratio] 0.7 {ratio} [facility] Serum or plasma anion gap de terminationon 02-09-2024 Anion gap [Moles/Vol] 13.8 mmol/L Fi [facility] B-Type Natriuretic Peptideon 04-08-2023 B-Type Natriuretic Peptide see note [employer] Other B-Type Natriuretic Peptide 3094.0 pg/ml Critically high <=900.0 pg/ml [employer] Other BNPon 04-08-2023 Natriuretic peptide B (Bld) [Mass/Vol] 3094.0 pg/mL Critically high <=900.0 [facility] Comment on above: Performed By: #### B MP, BNP, LIPID #### [facility] [address] [place] [address] Dr. Braxton Aly Basic Metabolic Panelon 03-24 Calcium [Mass/Vol] 8.8458112 mg/dL 8.5-10 .1 mg/dL [employer] Other CO2 [Moles/Vol] 34.95975656 mmol/L Critically high 21. 0-32.0 mmol/L [employer] Other Creatinine [Mass/Vol] 1.25560329 mg/dL Critically high 0.70-1.30 mg/dL [employer] Other Potassium [Moles/Vol] 4.44658814 mmol/L 3 .5-5.1 mmol/L [employer] Other Urea nitrogen [Mass/Vol] 25.0262675 mg/dL Critically high 7.0-18.0 mg/dL [employer] Other Basic Metabolic Panel 140 mmol/L 136-14 5 mmol/L [employer] Other Basic Metabolic Panel 148 mg/dL Critically high 74-106 mg /dL [employer] Other Basic Metabolic Panel 40 mL/min/1.73m2 Critically low >=60 mL/min/1.73m 2 [employer] Other Basic Metabolic Panel 49 mL/min/1.73m2 Critically low >=60 mL/min/1.73m 2 [employer] Other CBC AUTO DIFFon 04-08-2023 BASO # 0.1 103/ul Normal 0.0-0.1 [facility] Comment on above: Performed By: #### C BC #### [facility] [address] [place] [address] Dr. Braxton Aly Basophils/100 WBC (Bld) 0.6 % Normal 0.2-2.0 [facility] Comment on above: Performed By: #### C BC #### [facility] [address] [place] [address] Dr. Braxton Aly EO # 0.1 103/ul Normal 0.0-0.7 [facility] Comment on above: Performed By: #### C BC #### [facility] [address] [place] [address] Dr. Braxton Aly Eosinophils/100 WBC (Bld) 1.3 % Normal 0.9-7.0 [facility] Comment on above: Performed By: #### C BC #### [facility] [address] [place] [address] Dr. Braxton Aly Erythrocyte distribution width (RBC) [Ratio] 14.6 % Normal 11.0-15.0 [facility] Comment on above: Performed By: #### C BC #### [facility] [address] [place] [address] Dr. Braxton Aly Hematocrit (Bld) [Volume fraction] 44.2 % Normal 42.0-54.0 [facility] Comment on above: Performed By: #### C BC #### [facility] [address] [place] [address] Dr. Braxton Aly Hemoglobin (Bld) [Mass/Vol] 13.5 g/dL Critically low 14.0-18.0 [facility] Comment on above: Performed By: #### C BC #### [facility] [address] [place] [address] Dr. Braxton Aly IG # 0.03 10e3/ul Normal 0.00-0.03 [facility] Comment on above: Performed By: #### C BC #### [facility] [address] [place] [address] Dr. Braxton Aly IG % 0.3 % Normal 0.0-0.5 [facility] Comment on above: Performed By: #### C BC #### [facility] [address] [place] [address] Dr. Braxton Aly LYMPH # 1.3 103/ul Normal 1.2-3.8 [facility] Comment on above: Performed By: #### C BC #### [facility] [address] [place] [address] Dr. Braxton Aly Lymphocytes/100 WBC (Bld) 15.0 % Critically low 20.5-60.0 [facility] Comment on above: Performed By: #### C BC #### [facility] [address] [place] [address] Dr. Braxton Aly MANUAL DIFF REQ NO Normal [facility] Comment on above: Performed By: #### C BC #### [facility] [address] [address] [address] Braxton Aly MCH (RBC) [Entitic mass] 29.1 pg Normal 25.9-34.0 [facility] Comment on above: Performed By: #### C BC #### [facility] [address] [address] [address] Braxton Aly MCHC (RBC) [Mass/Vol] 30.5 g/dL Normal 29.9-35.2 [facility] Comment on above: Performed By: #### C BC #### [facility] [address] [address] [address] Braxton Aly MCV (RBC) [Entitic vol] 95.3 fL Critically high 80.0-94.0 [facility] Comment on above: Performed By: #### C BC #### [facility] [address] [place] [address] Dr. Braxton Aly MONO # 0.6 103/ul Normal 0.3-0.8 [facility] Comment on above: Performed By: #### C BC #### [facility] [address] [place] [address] Dr. Braxton Aly Monocytes/100 WBC (Bld) 6.7 % Normal 1.7-12.0 [facility] Comment on above: Performed By: #### C BC #### [facility] [address] [place] [address] Dr. Braxton Aly NEUT # 6.7 103/ul Critically high 1.4-6.5 [facility] Comment on above: Performed By: #### C BC #### [facility] [address] [place] [address] Dr. Braxton Aly Neutrophils/100 WBC (Bld) 76.1 % Critically high 43.0-75.0 [facility] Comment on above: Performed By: #### C BC #### [facility] [address] [place] [address] Dr. Braxton Aly Platelet mean volume (Bld) [Entitic vol] 9.4 fL Critically low 9.5-13.5 [facility] Comment on above: Performed By: #### C BC #### [facility] [address] [place], [place] [address] Dr. Braxton Aly PLT 272 103/ul Normal 150-450 [facility] Comment on above: Performed By: #### C BC #### [facility] [address] [address] [address] Braxton Aly RBC 4.64 106/ul Critically low 4.70-6.10 The [facility] Comment on above: Performed By: #### C BC #### [facility] [address] [address] [address] Braxton Aly WBC 8.8 103/ul Normal 4.0-11.0 [facility] Comment on above: Performed By: #### C BC #### [facility] [address] [address] [address] Braxton Aly Complete Blood Count and Dif diony 04-08-2023 Anisocytosis Ql (Bld) [facility] [employer] Other Basophilic stippling LM Ql (Bld) [facility] [employer] Other RBC morphology finding Nom (Bld) [facility] [employer] Other GLYCOHEMOGLOBIN A1Con 2022 ADA RECOMMENDATION SEE BELOW Normal [facility] Comment on above: Result Comment: ADA RECOMMENDED LIMIT 4.0 - 6.0 ADA THERAPEUTIC TARGET < 7.0 ACTION SUGGESTED > 7.0 Performed By: #### A 1C #### [facility] [address] [place] [address] Dr. Braxton Aly Glucose [Mass/Vol] 143 mg/dL Normal The [facility] Comment on above: Performed By: #### A 1C #### [facility] [address] [address] [address] Braxton Aly HbA1c (Bld) [Mass fraction] 6.6 % Critically high 4.5-6.2 [facility] Comment on above: Performed By: #### A 1C #### [facility] [address] [address] [address] Braxton Aly Hemoglobin A1C ([facility])on 04-08-2023 Hemoglobin A1C ([facility]) [employer] Other LIPID PROFILEon 04-08-2023 CHOL-HDL RATIO NORM SEE BELOW Normal [facility] Comment on above: Result Comment: 3.3 - 4.4 LOW RISK 4.4 - 7.1 AVERAGE RISK 7.1 - 11.0 MODERATE RISK >11.0 HIGH RISK Performed By: #### B MP, BNP, LIPID #### [facility] [address] [address] [address] Braxton Aly Cholesterol [Mass/Vol] 119 mg/dL <=200 mg/dL [facility] Comment on above: Performed By: #### B MP, BNP, LIPID #### [facility] [address] [place] [address] Dr. Braxton Aly Cholesterol in HDL [Mass/Vol] 36 mg/dL Critically low 40-60 mg/dL [facility] Comment on above: Performed By: #### B MP, BNP, LIPID #### [facility] [address] [address] [address] Braxton Aly Cholesterol in LDL [Mass/Vol] 67.8 mg/dL Normal [facility] Comment on above: Performed By: #### B MP, BNP, LIPID #### [facility] [address] [address] [address] Braxton Aly Cholesterol.total/Cho lesterol in HDL [Mass ratio] 3.3 {ratio} [facility] Comment on above: Performed By: #### B MP, BNP, LIPID #### [facility] [address] [address] [address] Braxton Aly HDL NORMAL > or = 60 mg/dl - LOW CARDIOVASCULAR RISK <40 mg/dl - HIGH CARDIOVASCULAR RISK Normal [facility] Comment on above: Performed By: #### B MP, BNP, LIPID #### [facility] [address] [place] [address] Dr. Braxton Aly LDL CALC NORMAL SEE BELOW Normal The [facility] Comment on above: Result Comment: <100 mg/dl OPTIMAL 100 - 129 mg/dl NEAR OR ABOVE OPTIMAL 130 - 159 mg/dl BORDERLINE HIGH 160 - 189 mg/dl HIGH >190 mg/dl VERY HIGH Performed By: #### B MP, BNP, LIPID #### [facility] [address] [address] [address] Braxton Aly Triglyceride [Mass/Vol] 76 mg/dL <=150 mg/dL [facility] Comment on above: Performed By: #### B MP, BNP, LIPID #### [facility] [address] [address] [address] Braxton Aly VLDL CALC 15.2 mg/dL Normal [facility] Comment on above: Performed By: #### B MP, BNP, LIPID #### [facility] [address] [address] [address] Braxton Aly Lipid Panelon 04-08-2023 Lipid Panel > or = 60 mg/dl - LOW CARDIOVASCULAR RISK <40 mg/dl - HIGH CARDIOVASCULAR RISK [facility] [employer] Other Lipid Panel SEE BELOW [employer] Other Lipid Panel 67.8 mg/dL [employer] Other Lipid Panel 15.2 mg/dL [facility] [employer] Other PROF CHEM 8 (BAS METB)on Anion gap [Moles/Vol] 9.4 mmol/L [facility] Comment on above: Performed By: #### B MP, BNP, LIPID #### [facility] [address] [address] [address] Braxton Aly Calcium [Mass/Vol] 8.9 mg/dL Normal 8.5-10.1 [facility] Comment on above: Performed By: #### B MP, BNP, LIPID #### [facility] [address] [address] [address] Braxton Aly Chloride [Moles/Vol] 100 mmol/L 98-107 mmol/L [facility] Comment on above: Performed By: #### B MP, BNP, LIPID #### [facility] [address] [address] [address] Braxton Aly CO2 [Moles/Vol] 34.7 mmol/L Critically high 21.0-32.0 [facility] Comment on above: Performed By: #### B MP, BNP, LIPID #### [facility] [address] [address] [address] Braxton Aly Creatinine [Mass/Vol] 1.71 mg/dL Critically high 0.70-1.30 [facility] Comment on above: Performed By: #### B MP, BNP, LIPID #### [facility] [address] [place] [address] Dr. Braxton Aly EGFR-AF ALGERIAN 49 mL/min/1.73m2 Critically low >=60 [facility] Comment on above: Performed By: #### B MP, BNP, LIPID #### [facility] [address] [place] [address] Dr. Braxton Aly EGFR-NON AF ALGERIAN 40 mL/min/1.73m2 Critically low >=60 [facility] Comment on above: Performed By: #### B MP, BNP, LIPID #### [facility] [address] [place] [address] Dr. Braxton Aly Glucose [Mass/Vol] 148 mg/dL Critically high 74-106 T [facility] Comment on above: Performed By: #### B MP, BNP, LIPID #### [facility] [address] [place] [address] Dr. Braxton Aly Potassium [Moles/Vol] 4.1 mmol/L Normal 3.5-5.1 [facility] Comment on above: Performed By: #### B MP, BNP, LIPID #### [facility] [address] [place] [address] Dr. Braxtno Aly Sodium [Moles/Vol] 140 mmol/L Normal 136-145 [facility] Comment on above: Performed By: #### B MP, BNP, LIPID #### [facility] [address] [place] [address] Dr. Braxton Aly Urea nitrogen [Mass/Vol] 25.0 mg/dL Critically high 7.0-18.0 [facility] Comment on above: Performed By: #### B MP, BNP, LIPID #### [facility] [address] [place] [address] Dr. Braxton Aly Urea nitrogen/Creatinine [Mass ratio] 14.6 mg/mg [facility] Comment on above: Performed By: #### B MP, BNP, LIPID #### [facility] [address] [address] [address] Braxton Aly Basic Metabolic Panelon 12-25 Calcium [Mass/Vol] 8.2311953 mg/dL 8.5-10 .1 mg/dL [employer] Other CO2 [Moles/Vol] 31.25683109 mmol/L 21.0-3 2.0 mmol/L [employer] Other Creatinine [Mass/Vol] 1.48599250 mg/dL Critically high 0.70-1.30 mg/dL [employer] Other Potassium [Moles/Vol] 3.26397403 mmol/L Critically low 3.5-5.1 mmol/L [employer] Other Urea nitrogen [Mass/Vol] 15.9401121 mg/dL 7.0-18.0 mg/dL [employer] Other Basic Metabolic Panel see note [employer] Other Basic Metabolic Panel 141 mmol/L 136-14 5 mmol/L [employer] Other Basic Metabolic Panel 157 mg/dL Critically high 74-106 mg /dL [employer] Other Basic Metabolic Panel 52 mL/min/1.73m2 Critically low >=60 mL/min/1.73m 2 [employer] Other Basic Metabolic Panel >60 mL/min/1.73m2 > =60 mL/min/1.73m 2 [employer] Other Anion gap [Moles/Vol] 11.6 mmol/L Normal No rt [employer] Other Comment on above: Performed By: #### B MP #### [facility] [address] [address] [address] Braxton Aly Chloride [Moles/Vol] 101 mmol/L Normal 98-107 [facility] [employer] Other Comment on above: Performed By: #### B MP #### [facility] [address] [address] [address] Braxton Aly Urea nitrogen/Creatinine [Mass ratio] 11.0 mg/mg Normal [facility] [employer] Other Comment on above: Performed By: #### B MP #### [facility] [address] [address] [address] Braxton Aly PROF CHEM 8 (BAS METB)on Calcium [Mass/Vol] 8.8 mg/dL Normal 8.5-10.1 [facility] Comment on above: Performed By: #### B MP #### [facility] [address] [place] [address] Dr. Braxton Aly CO2 [Moles/Vol] 31.7 mmol/L Normal 21.0-32.0 [facility] Comment on above: Performed By: #### B MP #### [facility] [address] [address] [address] Braxton Aly Creatinine [Mass/Vol] 1.36 mg/dL Critically high 0.70-1.30 [facility] Comment on above: Performed By: #### B MP #### [facility] [address] [address] [address] Braxton Aly EGFR-AF ALGERIAN >60 Normal >=60 [facility] Comment on above: Performed By: #### B MP #### [facility] [address] [address] [address] Braxton Aly EGFR-NON AF ALGERIAN 52 mL/min/1.73m2 Critically low >=60 [facility] Comment on above: Performed By: #### B MP #### [facility] [address] [address] [address] Braxton Aly Glucose [Mass/Vol] 157 mg/dL Critically high 74-106 [facility] Comment on above: Performed By: #### B MP #### [facility] [address] [place], [place] [address] Dr. Braxton Aly Potassium [Moles/Vol] 3.3 mmol/L Critically low 3.5-5.1 [facility] Comment on above: Performed By: #### B MP #### [facility] [address] [place], [place] [address] [address]. Braxton Aly Sodium [Moles/Vol] 141 mmol/L Normal 136-145 [facility] Comment on above: Performed By: #### B MP #### [facility] [address] [place], [place] [address] Dr. Braxton Aly Urea nitrogen [Mass/Vol] 15.0 mg/dL Normal 7.0-18.0 [facility] Comment on above: Performed By: #### B MP #### [facility] [address] [place], [place] [address] Dr. Braxton Aly Office Visit (Cardiology)on 12-06-2022 [...] Recorded: 06Dec2022 08:23AM Heart Rate60, R Radial Vksyskkj128, RUE, Sitting Hayuyrjrm37, RUE, Sitting Height5 ft 9 in Ytzcwm718 lb BMI Kagmepridq67.81 kg/m2 BSA Calculated2.51 Tobacco Useb) No PHQ-2 [...] Abdomen: abdomen (more content not included)... Normal ezzai - how [facility] [employer] Tobacco Screening.on 023 Adult depression screening assessment No MP-Cardiolo gy-S [place] 250 DO Work Phone: Fall risk assessment a) No falls within the last year IY-Lhtyrmgwrc-W [place] 250 DO Work Phone: Tobacco use status CP b) No LA-Dlakyvvipd-G [place] 250 DO Work Phone: BNPon 11-08-2022 Natriuretic peptide B (Bld) [Mass/Vol] 2323.0 pg/mL Critically high <=900.0 [facility] Comment on above: Performed By: #### B DIE STORAGE CLERK, BMP #### [facility] [address] [place] [address] Dr. Braxton Aly PROF CHEM 8 (BAS METB)on Anion gap [Moles/Vol] 7.5 mmol/L Normal [facility] Comment on above: Performed By: #### B DIE STORAGE CLERK, BMP #### [facility] [address] [place] [address] Dr. Braxton Aly Calcium [Mass/Vol] 8.8 mg/dL Normal 8.5-10.1 [facility] Comment on above: Performed By: #### B DIE STORAGE CLERK, BMP #### [facility] [address] [place] [address] Dr. Braxton Aly Chloride [Moles/Vol] 100 mmol/L Normal 98-107 [facility] Comment on above: Performed By: #### B DIE STORAGE CLERK, BMP #### [facility] [address] [place] [address] Dr. Braxton Aly CO2 [Moles/Vol] 37.5 mmol/L Critically high 21.0-32.0 [facility] Comment on above: Performed By: #### B DIE STORAGE CLERK, BMP #### [facility] [address] [place] [address] Dr. Braxton Aly Creatinine [Mass/Vol] 1.38 mg/dL Critically high 0.70-1.30 [facility] Comment on above: Performed By: #### B DIE STORAGE CLERK, BMP #### [facility] [address] [place] [address] Dr. Braxton Aly EGFR-AF ALGERIAN >60 Normal >=60 [facility] Comment on above: Performed By: #### B DIE STORAGE CLERK, BMP #### [facility] [address] [place] [address] Dr. Braxton Aly EGFR-NON AF ALGERIAN 51 mL/min/1.73m2 Critically low >=60 [facility] Comment on above: Performed By: #### B DIE STORAGE CLERK, BMP #### [facility] [address] [place] [address] [address] Braxton Aly Glucose [Mass/Vol] 141 mg/dL Critically high 74-106 T [facility] Comment on above: Performed By: #### B DIE STORAGE CLERK, BMP #### [facility] [address] [address] [address] Braxton Aly Potassium [Moles/Vol] 3.0 mmol/L Critically low 3.5-5.1 [facility] Comment on above: Performed By: #### B DIE STORAGE CLERK, BMP #### [facility] [address] [address] [address] Braxton Aly Sodium [Moles/Vol] 142 mmol/L Normal 136-145 [facility] Comment on above: Performed By: #### B DIE STORAGE CLERK, BMP #### [facility] [address] [address] [address] Braxton Aly Urea nitrogen [Mass/Vol] 16.0 mg/dL Normal 7.0-18.0 [facility] Comment on above: Performed By: #### B DIE STORAGE CLERK, BMP #### [facility] [address] [address] [address] Braxton Aly Urea nitrogen/Creatinine [Mass ratio] 11.6 mg/mg Normal [facility] Comment on above: Performed By: #### B DIE STORAGE CLERK, BMP #### [facility] [address] [address] [address] Bratxon Aly XR CHEST 2 Von 11-08-2022 XR [...] ALEX DAWN Date: 2022-11-08 13:38 Normal [facility] Office Visit (Cardiology)on 04-12-2022 Follow-up visit Diagnoses/Problems [...] Echo results. History of Present Illness [facility] [place] Patient returns in follow-up of problems as [...] negative for complaint. Vitals Vital Signs Recorded: [id number] 01:22PM Heart Rate60, R Radial Zfagoedh312, LUE, Sitting Rqctvfloa39, LUE, Sitting Height5 ft 9 in Zitxoa220 lb BMI Telmtybgud41.75 kg/m2 BSA Calculated2.46 Tobacco Useb) No PHQ-2 [...] Screening.on 022 Adult depression screening assessment No [facility] 250 DO Work Phone: Fall risk assessment a) No falls within the last year [facility] 250 DO Work Phone: Tobacco use status CPHS b) No [facility] 250 DO Work Phone: Echocardiogramon 03-18-[address], [address] [place] [address] TRANSTHORACIC ECHOCARDIOGRAM REPORT Patient Name: ORJAS GIBBS Reading Physician: [id number] Knowles MD Study Date: 03/18/2022 Referring Physician: Mel KNOWLES MRN/PID: [id number] PCP: Anibal Gonzales Accession/Order#: [id number] Department Location: [facility] Date of : 1955 Fellow: Gender: M Nurse: Admit Date: Ball Warper Tender: Makenna John [facility], T Height: 175.26 cm CC Report to: Weight: 138.35 kg Study Type: Echocardiogram BSA: 2.47 m2 Blood Pressure: 112 /70 mmHg Diagnosis/ICD: 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; 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 Indication: Diabetes, Dyspnea, HTN, Hyperlipidemia, Former Smoker, Morbid Obesity Procedure/CPT: Echo Complete w Full [id number] Study Detail: The following Echo studies were [...] 0.6 m/s (0.6-0.9m/s) PV Max P.3 mmHg [id number] Rojas Knowles MD Electronically signed on 03/18/2022 at 5:02:50 PM Final Normal [facility] Tobacco Screening.on 022 Fall risk assessment b) One or more fall s in the last year [facility] 250 DO Work Phone: Tobacco use status CPHS b) No [facility] 250 DO Work Phone: ECG 12 lead ECGon 11-07-2021 ECG 12 lead ECG [facility] [place] [address] Electrocardiograph Report Signed Patient: Rojas Gibbs MR#: [id number] : 1955 Acct:[id number] Age/Sex: 66 / M ADM Date: 11/07/21 Loc: Room: Type: [facility] Attending Dr: Rojas Knowles MD Ordering Provider: [...] MUS Signed By Pardeep Green MD 2154 [facility] ECG post procedureon ECG post procedure [facility] Main [place] [address] [place] [address] Electrocardiograph Report Signed Patient: Rojas Gibbs MR#: [id number] : 1955 Acct:[id number] Age/Sex: 66 / M ADM Date: 11/07/21 Loc: Room: Type: [facility] Attending Dr: Rojas Knowles MD Ordering Provider: [...] MUS Signed By Pardeep Green MD 2155 [facility] Electrolyteson 11-07-2021 Chloride [Moles/Vol] 98 mmol/L Normal 95-114 [facility] Comment on above: Performed By: #### L [facility] #### [address] CO2 [Moles/Vol] 31.8 mmol/L High 22.0-30.0 [facility] Comment on above: Result Comment: PERF ORMED BY: [facility] [address] [id number] PATHOLOGIST BURR MILL OPERATOR SARA GROSSMAN M.D. Performed By: #### L YTES #### [facility] [address] [id number] [facility] Potassium [Moles/Vol] 4.1 mmol/L Normal 3.5-5.1 [facility] Comment on above: Performed By: #### L YTES #### [facility] [address] Sodium [Moles/Vol] 138 mmol/L Normal 136-146 [facility] Comment on above: Performed By: #### L YTES #### [facility] [address] No Panel Informationon 11-07 31.8\S\31.8 above high threshold 22.0-30.0 [facility] 250 DO Work Phone: Comment on above: PERFORMED BY:[facility] [place], [place] [phone] MEDICAL DIRECTORSARA GROSSMAN M.D. 98\S\98 Normal 95-114 [facility] 250 DO Work Phone: 4.1\S\4.1 Normal 3.5-5.1 [facility] 250 DO Work Phone: 138\S\138 Normal 136-146 [facility] 250 DO Work Phone: COVID-19 Antigenon 1 [...] its performance Kym Disclaimer characteristic determined by [employer] and Kym Disclaimer validated at [facility]. This Kym Disclaimer test has not been [...] is terminated or revoked sooner. PERFORMED BY: [address] [place] [address] PATHOLOGIST BURR MILL OPERATOR SARA GROSSMAN M.D. Normal [facility] Comment on above: Performed By: #### C OVID-19 KYM, SOFIANEG #### [place] [id number] [facility] - Microbiology an d Antimicrobial susceptibilityon 11-05-2021 SARS-CoV-2 (COVID-19) RNA NILAM+probe Ql (Unsp spec) [facility] 250 DO Work Phone: No Panel Informationon 11-05 Negative Normal Negative [facility] 250 DO Work Phone: Comment on above: This is a duplicate Kym SARS Antigen (ROMEL) result to be used for statistical tracking purpose only.PERFORMED BY:[facility]111[facility] [place], [place] [phone] MEDICAL DIRECTORSARA GROSSMAN M.D. Kym Ag Negativeon 11-05-20 21 Kym Ag Negative Negative Normal Negative [facility] Comment on above: Result Comment: This is a duplicate K[employer] SARS Antigen (ROMEL) result to be used for statistical tracking purpose only. PERFORMED BY: [facility] [address] [place] [place] [address] PATHOLOGIST BURR MILL OPERATOR SARA GROSSMAN M.D. Performed By: #### C OVID-19 KYM, SOFIANEG #### [facility] [address] [place] [address] Amiodarone (Cordarone), Seru mon 09-24-2021 Amiodarone, Serum 586 ng/mL Low 7819-[address] [facility] Comment on above: Order Comment: PT IS NON FASTING Performed By: #### B MP #### [address] #### AMIODARONE #### [facility] , Noramiodarone, Serum 478 ng/mL Normal . [facility] Comment on above: Order Comment: PT IS NON FASTING Result Comment: Note : To convert from ng/ml to ug/ml, divide the result by 1000. Reference range (amiodarone): 1.00-2.50 ug/mL. This test was developed and its performance characteristics determined by [employer]. It has not been cleared or approved by the Food and Drug Administration. Performed at: [employer] [address] [id number] Machine Sign Writer: Adina Reis [facility], Phone: [phone] PERFORMED BY: [place] [address] PATHOLOGIST BURR MILL OPERATOR SARA GROSSMAN M.D. Performed By: #### B MP #### [address] #### AMIODARONE #### [facility] , Basic Metabolic Panelon 11-0 Calcium [Mass/Vol] 8.5 mg/dL Normal 8.2-10.2 [facility] Comment on above: Order Comment: PT IS NON FASTING Result Comment: PERF ORMED BY: [place] [address] PATHOLOGIST BURR MILL OPERATOR SARA GROSSMAN M.D. Performed By: #### B MP #### [place] [address] [place] #### AMIODARONE #### [facility] , Chloride [Moles/Vol] 100 mmol/L Normal 95-114 [facility] Comment on above: Order Comment: PT IS NON FASTING Performed By: #### B MP #### [facility] [address] [place] [address] [place] #### AMIODARONE #### [facility] , CO2 [Moles/Vol] 31.6 mmol/L High 22.0-30.0 [facility] Comment on above: Order Comment: PT IS NON FASTING Performed By: #### B MP #### [facility] [address] [place] [address] [place] #### AMIODARONE #### [facility] , Creatinine [Mass/Vol] 1.51 mg/dL High 0.64-1.27 [facility] Comment on above: Order Comment: PT IS NON FASTING Performed By: #### B MP #### [facility] [address] [place] [address] [place] #### AMIODARONE #### [facility] , Estimated GFR ( Yaima 56 [facility] Comment on above: Order Comment: PT IS NON FASTING Result Comment: GFR estimated reference range: According to KDOQI guidelines, <60 ml/min/1.73m2 is sufficient to diagnose a patient with chronic kidney disease. Performed By: #### B MP #### [facility] [address] [place] [address] [place] #### AMIODARONE #### [facility] , Estimated GFR (Non- Am 46 [facility] Comment on above: Order Comment: PT IS NON FASTING Performed By: #### B MP #### [facility] [address] [place] [address] [place] #### AMIODARONE #### [facility] , Glucose [Mass/Vol] 124 mg/dL High 70-100 [facility] Comment on above: Order Comment: PT IS NON FASTING Result Comment: [place] om Glucose Reference Range is dependent on time and content of last meal. Glucose of more than 200 mg/dL in a nonstressed, ambulatory subject supports the diagnosis of Diabetes Mellitus. ADA recommended reference range Performed By: #### B MP #### [facility] [address] [place] [address] [place] #### AMIODARONE #### [facility] , Potassium [Moles/Vol] 4.2 mmol/L Normal 3.5-5.1 [facility] Comment on above: Order Comment: PT IS NON FASTING Performed By: #### B MP #### [facility] [address] [place] [address] [place] #### AMIODARONE #### [facility] , Sodium [Moles/Vol] 141 mmol/L Normal 136-146 [facility] Comment on above: Order Comment: PT IS NON FASTING Performed By: #### B MP #### [facility] [address] [place] [address] [place] #### AMIODARONE #### [facility] , Urea nitrogen [Mass/Vol] 20 mg/dL Normal 9-23 [facility] Comment on above: Order Comment: PT IS NON FASTING Performed By: #### B MP #### [facility] [address] [place] [address] [place] #### AMIODARONE #### [facility] , [place] EKG Electrocardiogram- 12 Leadon 09-24-2021 IO EKG Electrocardiogram- 12 Lead See Scanned Document [facility]omew 250 DO Work Phone: No Panel Informationon 09-24 8.5\S\8.5 Normal 8.2-10.2 [facility] 250 DO Work Phone: Comment on above: PERFORMED BY:[address], [place] [id number] MEDICAL DIRECTORSARA GROSSMAN M.D. 31.6\S\31.6 above high threshold 22.0-30.0 [facility] 250 DO Work Phone: 100\S\100 Normal 95-114 [facility] Jose Guadalupe-Anusha 250 DO Work Phone: 4.2\S\4.2 Normal 3.5-5.1 [facility] Jose Guadalupe-Anusha 250 DO Work Phone: 141\S\141 Normal 136-146 [facility] Dewey 250 DO Work Phone: 56\S\56 Normal [facility] Dewey 250 DO Work Phone: Comment on above: GFR estimated refere nce range: According to KDOQI guidelines, <60 ml/min/1.73m2 is sufficient to diagnose a patient with chronic kidney disease. 46\S\46 Normal [facility] Dewey Carter DO Work Phone: 1.51\S\1.51 above high threshold 0.64-1.27 [facility] Dewey 250 DO Work Phone: 20\S\20 Normal 9-23 [facility]wey 250 DO Work Phone: 124\S\124 above high threshold 70-100 [facility] 250 DO Work Phone: Comment on above: Random Glucose Refer ence Range is dependent on time and content of last meal. Glucose of more than 200 mg/dL in a nonstressed, ambulatory subject supports the diagnosis of Diabetes Mellitus. ADA recommended reference range 478\S\478 Normal . [facility] 250 DO Work Phone: Comment on above: Note: To convert fro m ng/ml to ug/ml, divide the result by 1000. Reference range (amiodarone): 1.00-2.50 ug/mL. This test was developed and its performance characteristics determined by [employer]. It has not been cleared or approved by the Food and Drug Administration. Performed at: [employer] [address] [id number] Machine Sign Writer: Adina Reis [facility], Phone: [phone] BY:[address] [id number] MEDICAL DIRECTORSARA GROSSMAN M.D. 586\S\586 below low threshold [phone] [facility] 250 DO Work Phone: Tobacco Screening.on 021 Fall risk assessment a) No falls within the last year [facility] 250 DO Work Phone: Tobacco use status CPHS b) No [facility] 250 DO Work Phone: ECG 12 lead ECGon 09-12-2021 ECG 12 lead ECG [facility] Main [address] [address] Electrocardiograph Report Signed Patient: Rojas Gibbs MR#: [id number] : 1955 Acct:[id number] Age/Sex: 66 / M ADM Date: 09/12/21 Loc: Room: Type: [facility] Attending Dr: Rojas Knowles MD Ordering Provider: [...] By Bridger Headley MD 1 1012 Normal [facility] ECG post procedureon 021 ECG post procedure [facility] Main [address] [address] Electrocardiograph Report Signed Patient: Rojas Gibbs MR#: [id number] : 1955 Acct:[id number] Age/Sex: 66 / M ADM Date: 09/12/21 Loc: PO Room: Type: [facility] Attending Dr: Rojas Knowles MD Ordering Provider: [...] By Bridger Headley MD 1 0953 Normal [facility] Electrolyteson 09-12-2021 Chloride [Moles/Vol] 100 mmol/L Normal 95-114 [facility] Comment on above: Performed By: #### L JAYRO #### [facility] [address] CO2 [Moles/Vol] 32.1 mmol/L High 22.0-30.0 [facility] Comment on above: Result Comment: PERF ORMED BY: [place] [address] PATHOLOGIST BURR MILL OPERATOR SARA GROSSMAN M.D. Performed By: #### L YTES #### [facility] [address] Potassium [Moles/Vol] 4.5 mmol/L Normal 3.5-5.1 [facility] Comment on above: Performed By: #### L YTES #### [facility] [address] Sodium [Moles/Vol] 140 mmol/L Normal 136-146 [facility] Comment on above: Performed By: #### L YTES #### [facility] [address] [place] [id number] [place] No Panel Informationon 09-12 [facility] 250 DO Work Phone: 32.1\S\32.1 above high threshold 22.0-30.0 [facility] 250 DO Work Phone: Comment on above: PERFORMED BY:[facility] [place], [place] [phone] MEDICAL DIRECTORSARA GROSSMAN M.D. 100\S\100 Normal 95-114 [facility] 250 DO Work Phone: 4.5\S\4.5 Normal 3.5-5.1 [facility] 250 DO Work Phone: 140\S\140 Normal 136-146 [facility] 250 DO Work Phone: COVID-19 FRMCon 09-10-2021 SARS-CoV-2 (COVID-19) RNA NILAM+probe Ql (Unsp spec) Negative Normal Negative [facility] Comment on above: Order Comment: Healt hcare Worker?: N Result Comment: Testing for SARS-CoV-2 by RT-PCR This test was developed and its performance characteristics determined by [employer] and validated at the [facility]. This test has not been FDA cleared [...] is terminated or revoked sooner. PERFORMED BY: [facility] [address] [place] [id number] PATHOLOGIST BURR MILL OPERATOR SARA GROSSMAN M.D. Performed By: #### C OVID 19 [facility] #### [facility] [address] [place] [id number] [facility] Vital Signs Date Time Vital Sign Value Performing Clinician Facility 09-06-2024 11:11-0400 Body height 172.72 cm [facility] 09-06-2024 11:11-0400 Body mass index (BMI) [Ratio] 48.7 kg/m2 [facility] 09-06-2024 11:11-0400 Body weight 145.37 kg [facility] 09-06-2024 11:11-0400 Diastolic blood pressure 93 mm[Hg] [facility] 09-06-2024 11:11-0400 Heart rate 82 /min [facility] 09-06-2024 11:11-0400 Respiratory rate 12 /min [facility] 09-06-2024 11:11-0400 Systolic blood pressure 136 mm[Hg] [facility] 07-08-2024 12:08-0400 Body height 172.72 cm [facility] 07-08-2024 12:08-0400 Body mass index (BMI) [Ratio] 48.8 kg/m2 [facility] 07-08-2024 12:08-0400 Body weight 145.71 kg [facility] 07-08-2024 12:08-0400 Diastolic blood pressure 76 mm[Hg] [facility] 07-08-2024 12:08-0400 Heart rate 142 /min [facility] 07-08-2024 12:08-0400 Respiratory rate 20 /min [facility] 07-08-2024 12:08-0400 Systolic blood pressure 114 mm[Hg] [facility] 06-24-2024 09:05-0400 Body height 172.72 cm [facility] 06-24-2024 09:05-0400 Body mass index (BMI) [Ratio] 46.7 kg/m2 [facility] 06-24-2024 09:05-0400 Body weight 139.3 kg [facility] 06-24-2024 09:05-0400 Diastolic blood pressure 72 mm[Hg] [facility] 06-24-2024 09:05-0400 Heart rate 116 /min [facility] 06-24-2024 09:05-0400 Respiratory rate 12 /min [facility] 06-24-2024 09:05-0400 Systolic blood pressure 111 mm[Hg] [facility] 06-14-2024 18:17-0400 Hourly Rounding Mbanefo OJUKWU [facility] 06-14-2024 18:17-0400 Promise to Return Mbanefo OJUKWU [facility] 06-14-2024 17:00-0400 Hourly Rounding Mbanefo OJUKWU [facility] 06-14-2024 17:00-0400 Promise to Return Mbanefo OJUKWU [facility] 06-14-2024 16:44-0400 Hourly Rounding Mbanefo OJUKWU [facility] 06-14-2024 16:44-0400 Promise to Return Mbanefo OJUKWU [facility] 06-14-2024 15:08-0400 Heart rate 97 /min Mbanefo OJUKWU [facility] 06-14-2024 15:08-0400 SaO2% (BldA) [Mass fraction] 96 % Mbanefo OJUKWU [facility] 06-14-2024 15:08-0400 Respiratory rate 16 /min Mbanefo OJUKWU [facility] 06-14-2024 15:08-0400 Diastolic blood pressure 64 mm[Hg] Mbanefo OJUKWU [facility] 06-14-2024 15:08-0400 Mean blood pressure 76 mm[Hg] Mbanefo OJUKWU [facility] 06-14-2024 15:08-0400 Systolic blood pressure 99 mm[Hg] Mbanefo OJUKWU [facility] 06-14-2024 15:07-0400 Body temperature 98.06 [degF] Mbanefo OJUKWU [facility] 06-14-2024 15:00-0400 Blood Pressure Location Mbanefo OJUKWU [facility] 06-14-2024 11:20-0400 Heart rate 102 /min Mbanefo OJUKWU [facility] 06-14-2024 11:20-0400 SaO2% (BldA) [Mass fraction] 97 % Mbanefo OJUKWU [facility] 06-14-2024 11:19-0400 Diastolic blood pressure 73 mm[Hg] Mbanefo OJUKWU [facility] 06-14-2024 11:19-0400 Mean blood pressure 82 mm[Hg] Mbanefo OJUKWU [facility] 06-14-2024 11:19-0400 Systolic blood pressure 102 mm[Hg] Mbanefo OJUKWU [facility] 06-14-2024 11:19-0400 Body temperature 97.88 [degF] Mbanefo OJUKWU [facility] 06-14-2024 11:00-0400 Heart rate 70 /min Mbanefo OJUKWU [facility] 06-14-2024 07:57-0400 Heart rate 69 /min Mbanefo OJUKWU [facility] 06-13-2024 23:20-0400 Body temperature 97.16 [degF] Mbanefo OJUKWU [facility] 06-13-2024 23:20-0400 Respiratory rate 18 /min Mbanefo OJUKWU [facility] 06-13-2024 19:00-0400 Mean blood pressure 78 mm[Hg] Mbanefo OJUKWU [facility] 06-13-2024 18:10-0400 Blood Pressure Location Mbanefo OJUKWU [facility] 06-13-2024 18:10-0400 Mean blood pressure 71 mm[Hg] Mbanefo OJUKWU [facility] 06-13-2024 18:05-0400 Blood Pressure Location Mbanefo OJUKWU [facility] 06-13-2024 18:05-0400 Mean blood pressure 75 mm[Hg] Mbanefo OJUKWU [facility] 06-13-2024 17:20-0400 Respiratory rate 17 /min Mbanefo OJUKWU [facility] 06-13-2024 13:20-0400 Respiratory rate 16 /min Mbanefo OJUKWU [facility] 06-13-2024 10:07-0400 Heart rate 150 /min Mbanefo OJUKWU [facility] 06-13-2024 08:57-0400 Heart rate 160 /min Mbanefo OJUKWU [facility] 06-13-2024 08:10-0400 Respiratory rate 18 /min Mbanefo OJUKWU [facility] 06-12-2024 19:29-0400 Body temperature 97.88 [degF] Mbanefo OJUKWU [facility] 06-12-2024 19:28-0400 Mean blood pressure 76 mm[Hg] Mbanefo OJUKWU [facility] 06-12-2024 19:00-0400 Respiratory rate 16 /min Mbanefo OJUKWU [facility] 06-12-2024 18:13-0400 Heart rate 84 /min Mbanefo OJUKWU [facility] 06-12-2024 14:16-0400 Heart rate 124 /min Mbanefo OJUKWU [facility] 06-12-2024 12:01-0400 Heart rate 93 /min Mbanefo OJUKWU [facility] 06-12-2024 11:50-0400 gluc 100 mg/dL Mbanefo OJUKWU [facility] 06-12-2024 11:50-0400 gluc Mbanefo OJUKWU [facility] 05-06-2024 11:02-0400 Body height 172.72 cm [facility] 05-06-2024 11:02-0400 Body mass index (BMI) [Ratio] 46 kg/m2 [facility] 05-06-2024 11:02-0400 Body weight 137.49 kg [facility] 05-06-2024 11:02-0400 Diastolic blood pressure 68 mm[Hg] [facility] 05-06-2024 11:02-0400 Heart rate 106 /min [facility] 05-06-2024 11:02-0400 Respiratory rate 16 /min [facility] 05-06-2024 11:02-0400 Systolic blood pressure 93 mm[Hg] [facility] 02-06-2024 11:12-0400 Body height 172.72 cm [facility] 02-06-2024 11:12-0400 Body mass index (BMI) [Ratio] 48.8 kg/m2 [facility] 02-06-2024 11:12-0400 Body weight 145.6 kg [facility] 02-06-2024 11:12-0400 Diastolic blood pressure 75 mm[Hg] [facility] 02-06-2024 11:12-0400 Heart rate 92 /min [facility] 02-06-2024 11:12-0400 Respiratory rate 16 /min [facility] 02-06-2024 11:12-0400 Systolic blood pressure 124 mm[Hg] [facility] 12-02-2023 10:36-0500 Body height 177.8 cm Rojas Knowles MD Work Phone: [facility] 12-02-2023 10:36-0500 Body mass index (BMI) [Ratio] 47.35 kg/m2 Rojas Knowles MD Work Phone: [facility] 12-02-2023 10:36-0500 Body weight 149.69 kg Rojas Knowles MD Work Phone: [facility] 12-02-2023 10:36-0500 Diastolic blood pressure 74 mm[Hg] Rojas Knowles MD Work Phone: [facility] 12-02-2023 10:36-0500 Heart rate 64 /min Rojas Knowles MD Work Phone: [facility] 12-02-2023 10:36-0500 Systolic blood pressure 112 mm[Hg] Rojas Knowles MD Work Phone: [facility] 07-08-2023 13:45-0400 Body height 172.72 cm Anibal Ball Other [employer] Other 07-08-2023 13:45-0400 Body mass index (BMI) [Ratio] 49.11 kg/m2 Anibal Ball Other [employer] Other 07-08-2023 13:45-0400 Body weight 146.51 kg Anibal Ball Other [employer] Other 07-08-2023 13:45-0400 Diastolic blood pressure 69 mm[Hg] Anibal Ball Other [employer] Other 07-08-2023 13:45-0400 Respiratory rate 20 /min Anibal Ball Other [employer] Other 07-08-2023 13:45-0400 Systolic blood pressure 93 mm[Hg] Anibal Ball Other [employer] Other 05-15-2023 10:18-0400 Body height 172.72 cm Anibal Ball Other [employer] Other 05-15-2023 10:18-0400 Body mass index (BMI) [Ratio] 50.02 kg/m2 Anibal Ball Other [employer] Other 05-15-2023 10:18-0400 Body weight 149.23 kg Anibal Ball Other [employer] Other 05-15-2023 10:18-0400 Diastolic blood pressure 75 mm[Hg] Anibal Ball Other [employer] Other 05-15-2023 10:18-0400 Systolic blood pressure 114 mm[Hg] Anibal Ball Other [employer] Other 04-07-2023 10:30-0400 Body height 172.72 cm Anibal Ball Other [employer] Other 04-07-2023 10:30-0400 Body mass index (BMI) [Ratio] 50.54 kg/m2 Anibal Ball Other [employer] Other 04-07-2023 10:30-0400 Body weight 150.78 kg Anibal Ball Other [employer] Other 04-07-2023 10:30-0400 Diastolic blood pressure 64 mm[Hg] Anibal Ball Other [employer] Other 04-07-2023 10:30-0400 Respiratory rate 12 /min Anibal Ball Other [employer] Other 04-07-2023 10:30-0400 Systolic blood pressure 91 mm[Hg] Anibal Ball Other [employer] Other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
[2024-09-21 10:03] LABS: Basophils Absolute Auto 0.1 10^3/uL (0.0-0.1); Basophils Percent Auto 0.6 % (0.2-2.0); Eosinophils Absolute Auto 0.2 10^3/uL (0.0-0.7); Eosinophils Percent Auto 1.5 % (0.9-7.0); Hematocrit 41.5 % (42.0-54.0); Hemoglobin 12.3 g/dL (14.0-18.0); Immature Granulocytes Abs Auto 0.02 10^3/uL (0.00-0.03); Immature Granulocytes Pct Auto 0.2 % (0.0-0.5); Lymphocytes Percent Auto 9.7 % (20.5-60.0); Mean Corpuscular HGB Conc 29.6 g/dL (29.9-35.2); Mean Corpuscular Hemoglobin 28.1 pg (25.9-34.0); Mean Platelet Volume 8.9 fL (9.5-13.5); Monocytes Absolute Auto 0.6 10^3/uL (0.3-0.8); Monocytes Percent Auto 6.3 % (1.7-12.0); Neutrophils Absolute Auto 8.1 10^3/uL (1.4-6.5); Neutrophils Percent Auto 81.7 % (43.0-75.0); Platelet Count 323 10^3/uL (150-450); Red Blood Count 4.37 10^6/uL (4.70-6.10); Red Cell Distribution Width 15.9 % (11.0-15.0); White Blood Count 9.9 10^3/uL (4.0-11.0)
[2024-09-21 10:29] LABS: Percent Iron Saturation 12.8 %
[2024-09-21 10:30] LABS: Estimated Average Glucose 134 mg/dL; Glycohemoglobin A1C 6.3 % (4.5-6.2)
[2024-09-21 10:34] LABS: Alanine Aminotransferase 15 U/L (16-63); Albumin Globulin Ratio 0.7; Albumin Level 3.1 g/dL (3.4-5.0); Alkaline Phosphatase 83 U/L (46-116); Anion Gap 14.4; Aspartate Amino Transferase 16 U/L (15-37); BUN Creatinine Ratio 9.1; Bilirubin Total 0.7 mg/dL (0.2-1.0); Calcium 8.7 mg/dL (8.5-10.1); Carbon Dioxide 27.4 mmol/L (21.0-32.0); Chloride 103 mmol/L (98-107); Estimated GFR (African America >60 (>=60 mL/min/1.73m^2); Estimated GFR (Non-African Ame 59 (>=60 mL/min/1.73m^2); Globulin 4.3 g/dL; Glucose 155 mg/dL (74-106); Potassium 3.8 mmol/L (3.5-5.1); Sodium 141 mmol/L (136-145); Total Protein 7.4 g/dL (6.4-8.2)
[2024-09-21 10:48] LABS: Digoxin 0.7 ng/mL (0.9-2.0)
[2024-09-22 04:11] LABS: Vitamin B12 250 pg/mL (232-1245)
== END 2024-09-21 09:44 | disposition home or self-care (01) ==
LOC: LAB 09:45
PROVIDERS: PCP Internal Medicine; Visit Provider Internal Medicine
DX: D64.9 Anemia, unspecified (principal); I50.22 Chronic systolic (congestive) heart failure; N18.31 Chronic kidney disease, stage 3a; Z79.899 Other long term (current) drug therapy; E11.65 Type 2 diabetes mellitus with hyperglycemia
CPT/HCPCS: 36415; 80053; 80162; 82607; 82728; 83036; 83540; 83550; 85025

== ENCOUNTER 2024-09-28 09:48 | Outpatient (OUT) | payer OTHER, SELFPAY ==
--- OUTSIDE RECORDS SUMMARY | 2024-09-28 10:02 | XMS_ITS | CCD ---
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 Metabolic Panel 157 mg/dL Critically high 74-106 mg /dL [email or web address] Other Basic Metabolic Panel 52 mL/min/1.73m2 Critically low >=60 mL/min/1.73m 2 [email or web address] Other Basic Metabolic Panel >60 mL/min/1.73m2 > =60 mL/min/1.73m 2 [email or web address] Other Anion gap [Moles/Vol] 11.6 mmol/L Normal [facility] Other Comment on above: Performed By: #### B MP #### [facility] [address] [address] [address] Braxton Aly Chloride [Moles/Vol] 101 mmol/L Normal 98-107 [facility] [employer] Other Comment on above: Performed By: #### B MP #### [facility] [address] [address] [address] Braxton Aly Urea nitrogen/Creatinine [Mass ratio] 11.0 mg/mg Normal [facility] [employer] Other Comment on above: Performed By: #### B MP #### [facility] [address] [place] [address] Dr. Braxton Aly PROF CHEM 8 (BAS METB)on Calcium [Mass/Vol] 8.8 mg/dL Normal 8.5-10.1 [facility] Comment on above: Performed By: #### B MP #### [facility] [address] [place] [address] Dr. Braxton Aly CO2 [Moles/Vol] 31.7 mmol/L Normal 21.0-32.0 [facility] Comment on above: Performed By: #### B MP #### [facility] [address] [place] [address] Dr. Braxton Aly Creatinine [Mass/Vol] 1.36 mg/dL Critically high 0.70-1.30 [facility] Comment on above: Performed By: #### B MP #### [facility] [address] [place] [address] Dr. Braxton Ayl EGFR-AF CZECH >60 Normal >=60 [facility] Comment on above: Performed By: #### B MP #### [facility] [address] [place] [address] Dr. Braxton Aly EGFR-NON AF CZECH 52 mL/min/1.73m2 Critically low >=60 [facility] Comment on above: Performed By: #### B MP #### [facility] [address] [address] [address] Braxton Aly Glucose [Mass/Vol] 157 mg/dL Critically high 74-106 [facility] Comment on above: Performed By: #### B MP #### [facility] [address] [place], [place] [address] Dr. Braxton Aly Potassium [Moles/Vol] 3.3 mmol/L Critically low 3.5-5.1 [facility] Comment on above: Performed By: #### B MP #### [facility] [address] [address] [address] Braxton Aly Sodium [Moles/Vol] 141 mmol/L Normal 136-145 [facility] Comment on above: Performed By: #### B MP #### [facility] [address] [address] [address] Braxton Aly Urea nitrogen [Mass/Vol] 15.0 mg/dL Normal 7.0-18.0 [facility] Comment on above: Performed By: #### B MP #### [facility] [address] [address] [address] Braxton Aly Office Visit (Cardiology)on 12-06-2022 [...] Recorded: 06Dec2022 08:23AM Heart Rate60, R Radial Ljbxclsp679, RUE, Sitting Ymhvsmecy59, RUE, Sitting Height5 ft 9 in Isoxbr627 lb BMI Vcouyudefc31.81 kg/m2 BSA Calculated2.51 Tobacco Useb) No PHQ-2 [...] Abdomen: abdomen (more content not included)... Normal Occ[facility] Tobacco Screening.on 023 Adult depression screening assessment No MP-Cardiolo gy-S [place] 250 DO Work Phone: Fall risk assessment a) No falls within the last year UI-Dlprqvykhn-Z [place] 250 DO Work Phone: Tobacco use status CPHS b) No AI-Elinnmhasl-L [place] 250 DO Work Phone: BNPon 11-08-2022 Natriuretic peptide B (Bld) [Mass/Vol] 2323.0 pg/mL Critically high <=900.0 [facility] Comment on above: Performed By: #### B EDGING MACHINE SETTER, BMP #### [facility] [address] [place] [address] Dr. Braxton Aly PROF CHEM 8 (BAS METB)on Anion gap [Moles/Vol] 7.5 mmol/L Normal [facility] Comment on above: Performed By: #### B EDGING MACHINE SETTER, BMP #### [facility] [address] [place] [address] Dr. Braxton Aly Calcium [Mass/Vol] 8.8 mg/dL Normal 8.5-10.1 [facility] Comment on above: Performed By: #### B EDGING MACHINE SETTER, BMP #### [facility] [address] [place] [address] Dr. Braxton Aly Chloride [Moles/Vol] 100 mmol/L Normal 98-107 [facility] Comment on above: Performed By: #### B EDGING MACHINE SETTER, BMP #### [facility] [address] [place] [address] Dr. Braxton Aly CO2 [Moles/Vol] 37.5 mmol/L Critically high 21.0-32.0 [facility] Comment on above: Performed By: #### B EDGING MACHINE SETTER, BMP #### [facility] [address] [place] [address] Dr. Braxton Aly Creatinine [Mass/Vol] 1.38 mg/dL Critically high 0.70-1.30 [facility] Comment on above: Performed By: #### B EDGING MACHINE SETTER, BMP #### [facility] [address] [place] [address] Dr. Braxton Aly EGFR-AF CZECH >60 Normal >=60 [facility] Comment on above: Performed By: #### B EDGING MACHINE SETTER, BMP #### [facility] [address] [address] [address] Braxton Aly EGFR-NON AF CZECH 51 mL/min/1.73m2 Critically low >=60 [facility] Comment on above: Performed By: #### B EDGING MACHINE SETTER, BMP #### [facility] [address] [address] [address] Braxton Aly Glucose [Mass/Vol] 141 mg/dL Critically high 74-106 T [facility] Comment on above: Performed By: #### B EDGING MACHINE SETTER, BMP #### [facility] [address] [address] [address] Braxton Aly Potassium [Moles/Vol] 3.0 mmol/L Critically low 3.5-5.1 [facility] Comment on above: Performed By: #### B EDGING MACHINE SETTER, BMP #### [facility] [address] [address] [address] Braxton Aly Sodium [Moles/Vol] 142 mmol/L Normal 136-145 [facility] Comment on above: Performed By: #### B EDGING MACHINE SETTER, BMP #### [facility] [address] [address] [address] Braxton Aly Urea nitrogen [Mass/Vol] 16.0 mg/dL Normal 7.0-18.0 [facility] Comment on above: Performed By: #### B EDGING MACHINE SETTER, BMP #### [facility] [address] [address] [address] Braxton Aly Urea nitrogen/Creatinine [Mass ratio] 11.6 mg/mg Normal [facility] Comment on above: Performed By: #### B EDGING MACHINE SETTER, BMP #### [facility] [address] [address] [address] Braxton Aly XR CHEST 2 Von [...] ALEX DAWN Date: 2022-11-08 13:38 Normal [facility] Office Visit (Cardiology)on 04-12-2022 Follow-up visit Diagnoses/Problems [...] Weight Tips; Status:Complete - Retrospective Authorization; Done: [id number] Non-ischemic cardiomyopathy Changed: From Lisinopril 5 MG Oral Tablet TAKE 1 TABLET DAILY To Lisinopril 5 MG Oral Tablet TAKE 1/2 TABLET DAILY SocHx: Former smoker Tobacco Use Screening; Status:Complete; Done: [id number] Patient Instructions By signing my name below, [...] History of Present Illness attended cousins in [place] Patient returns in follow-up of problems as [...] Recorded: 12Apr2022 01:22PM Heart Rate60, R Radial Cbkfeivw675, LUE, Sitting Wqkahwqth05, LUE, Sitting Height5 ft 9 in Hfqsep308 lb BMI Ewijbbubua07.75 kg/m2 BSA Calculated2.46 Tobacco Useb) No PHQ-2 [...] Apr 12 2022 2:25PM EST (Author) Normal [employer] Tobacco Screening.on 022 Adult depression screening assessment No [facility] 250 DO Work Phone: Fall risk assessment a) No falls within the last year [facility] 250 DO Work Phone: Tobacco use status CPHS b) No [facility] 250 DO Work Phone: Echocardiogramon 03-18-[address], [place] [address] TRANSTHORACIC ECHOCARDIOGRAM REPORT Patient Name: ROJAS GIBBS Reading Physician: [id number] Rojas Knowles MD Study Date: 03/18/2022 Referring Physician: Mel KNOWLES MRN/PID: [id number] PCP: Anibal Gonzales Accession/Order#: [id number] Department Location: [facility] Date of : 1955 Fellow: Gender: M Nurse: Admit Date: Immunologist: Makenna John RDCS, T Height: 175.26 cm CC Report to: Weight: 138.35 kg Study Type: Echocardiogram BSA: 2.47 m2 Blood Pressure: 112 /70 mmHg Diagnosis/ICD: 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; 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 Indication: Diabetes, Dyspnea, HTN, Hyperlipidemia, Former Smoker, Morbid Obesity Procedure/CPT: Echo Complete w Full Doppler-07548 Study Detail: The following Echo studies were [...] 0.6 m/s (0.6-0.9m/s) PV Max P.3 mmHg [id number] Rojas Knowles MD Electronically signed on 03/18/2022 at 5:02:50 PM Final Normal [facility] Tobacco Screening.on 022 Fall risk assessment b) One or more fall s in the last year [facility] [employer] 250 DO Work Phone: Tobacco use status [facility] b) No [facility] 250 DO Work Phone: ECG 12 lead ECGon 11-07-2021 ECG 12 lead ECG [facility] Main [address] [address] Electrocardiograph Report Signed Patient: Rojas Gibbs MR#: [id number] : 1955 Acct:[id number] Age/Sex: 66 / M ADM Date: 11/07/21 Loc: Room: Type: [facility] Attending Dr: Rojas Knowles MD Ordering [...] MUS Signed By Pardeep Green MD 2154 [facility] ECG post procedureon ECG post procedure [facility] [place] [address] Electrocardiograph Report Signed Patient: Rojas Gibbs MR#: [id number] : 1955 Acct:[id number] Age/Sex: 66 / M ADM Date: 11/07/21 Loc: Room: Type: [facility] Attending Dr: Rojas Knowles MD Ordering [...] MUS Signed By Pardeep Green MD 2155 [facility] Electrolyteson 11-07-2021 Chloride [Moles/Vol] 98 mmol/L Normal 95-114 [facility] Comment on above: Performed By: #### L YTES #### [facility] [address] CO2 [Moles/Vol] 31.8 mmol/L High 22.0-30.0 [facility] Comment on above: Result Comment: PERF ORMED BY: [facility] [address] [id number] PATHOLOGIST REAL ESTATE FIRM MANAGER SARA GROSSMAN M.D. Performed By: #### L YTES #### [facility] [address] Potassium [Moles/Vol] 4.1 mmol/L Normal 3.5-5.1 [facility] Comment on above: Performed By: #### L YTES #### [facility] [address] Sodium [Moles/Vol] 138 mmol/L Normal 136-146 [facility] Comment on above: Performed By: #### L YTES #### [facility] [address] No Panel Informationon 11-07 31.8\S\31.8 above high threshold 22.0-30.0 [facility] 250 DO Work Phone: Comment on above: PERFORMED BY:[facility] [place], [place] [id number] MEDICAL DIRECTORSARA GROSSMAN M.D. 98\S\98 Normal 95-114 [facility] 250 DO Work Phone: 4.1\S\4.1 Normal 3.5-5.1 [facility] 250 DO Work Phone: 138\S\138 Normal 136-146 [facility] 250 DO Work Phone: COVID-19 Antigenon 1 [...] its performance Kym Disclaimer characteristic determined by [employer] and Kym Disclaimer validated at [facility]. This Kym Disclaimer test has not been [...] is terminated or revoked sooner. PERFORMED BY: [facility] [address] [place] [address] PATHOLOGIST REAL ESTATE FIRM MANAGER SARA GROSSMAN M.D. Normal [facility] Comment on above: Performed By: #### C OVID-19 KYM, SOFIANEG #### [facility] [address] [place] [address] [facility] - Microbiology an d Antimicrobial susceptibilityon 11-05-2021 SARS-CoV-2 (COVID-19) RNA NILAM+probe Ql (Unsp spec) [facility] 250 DO Work Phone: No Panel Informationon 11-[address] [facility] 250 DO Work Phone: Comment on above: This is a duplicate Kym SARS Antigen (ROMEL) result to be used for statistical tracking purpose only.PERFORMED BY:[facility] [place] [place], [place] [phone] MEDICAL DIRECTORSARA GROSSMAN M.D. Kym Ag Negativeon 11-05-20 21 Kym Ag Negative Negative Normal Negative [facility] Comment on above: Result Comment: This is a duplicate K[employer] SARS Antigen (ROMEL) result to be used for statistical tracking purpose only. PERFORMED BY: [place] [address] PATHOLOGIST REAL ESTATE FIRM MANAGER SARA GROSSMAN M.D. Performed By: #### C OVID-19 KYM, SOFIANEG #### [address] Amiodarone (Cordarone), Seru mon 09-24-2021 Amiodarone, Serum 586 ng/mL Low [id number] [facility] Comment on above: Order Comment: PT IS NON FASTING Performed By: #### B MP #### [address] #### AMIODARONE #### [facility] , Noramiodarone, Serum 478 ng/mL Normal . [facility] Comment on above: Order Comment: PT IS NON FASTING Result Comment: Note : To convert from ng/ml to ug/ml, divide the result by 1000. Reference range (amiodarone): 1.00-2.50 ug/mL. This test was developed and its performance characteristics determined by [facility]. It has not been cleared or approved by the Food and Drug Administration. Performed at: [facility] [address] [id number] Electrician Supervisor Airplane: Adina Reis [facility], Phone: [phone] PERFORMED BY: [place] [address] PATHOLOGIST REAL ESTATE FIRM MANAGER SARA GROSSMAN M.D. Performed By: #### B MP #### [address] #### AMIODARONE #### [facility] , Basic Metabolic Panelon 11- Calcium [Mass/Vol] 8.5 mg/dL Normal 8.2-10.2 [facility] Comment on above: Order Comment: PT IS NON FASTING Result Comment: PERF ORMED BY: [place] [address] PATHOLOGIST [employer] ESTATE FIRM MANAGER JIANLAN SUN M.D. Performed By: #### B MP #### [facility] [address] [place] [address] [place] #### AMIODARONE #### [facility] , Chloride [Moles/Vol] 100 mmol/L Normal 95-114 [facility] Comment on above: Order Comment: PT IS NON FASTING Performed By: #### B MP #### [facility] [address] [place] [address] [place] #### AMIODARONE #### [facility] , CO2 [Moles/Vol] 31.6 mmol/L High 22.0-30.0 [facility] Comment on above: Order Comment: PT IS NON FASTING Performed By: #### B MP #### [facility] [address] [place] [address] #### AMIODARONE #### [facility] , Creatinine [Mass/Vol] 1.51 mg/dL High 0.64-1.27 [facility] Comment on above: Order Comment: PT IS NON FASTING Performed By: #### B MP #### [facility] [address] [place] [address] #### AMIODARONE #### [facility] , Estimated GFR ( Yaima 56 [facility] Comment on above: Order Comment: PT IS NON FASTING Result Comment: GFR estimated reference range: According to KDOQI guidelines, <60 ml/min/1.73m2 is sufficient to diagnose a patient with chronic kidney disease. Performed By: #### B MP #### [facility] [address] [place] [address] [place] #### AMIODARONE #### [facility] , Estimated GFR (Non- Am 46 [facility] Comment on above: Order Comment: PT IS NON FASTING Performed By: #### B MP #### [facility] [address] [place] [address] [place] #### AMIODARONE #### [facility] , Glucose [Mass/Vol] 124 mg/dL High 70-100 [facility] Comment on above: Order Comment: PT IS NON FASTING Result Comment: [place] Glucose Reference Range is dependent on time and content of last meal. Glucose of more than 200 mg/dL in a nonstressed, ambulatory subject supports the diagnosis of Diabetes Mellitus. ADA recommended reference range Performed By: #### B MP #### [facility] [address] [place] [address] [place] #### AMIODARONE #### [facility] , Potassium [Moles/Vol] 4.2 mmol/L Normal 3.5-5.1 [facility] Comment on above: Order Comment: PT IS NON FASTING Performed By: #### B MP #### [facility] [address] [place] [address] [place] #### AMIODARONE #### [facility] , Sodium [Moles/Vol] 141 mmol/L Normal 136-146 [facility] Comment on above: Order Comment: PT IS NON FASTING Performed By: #### B MP #### [facility] [address] [place] [address] [place] #### AMIODARONE #### [facility] , Urea nitrogen [Mass/Vol] 20 mg/dL Normal 9-23 [facility] Comment on above: Order Comment: PT IS NON FASTING Performed By: #### B MP #### [facility] [address] [place] [address] [place] #### AMIODARONE #### [facility] , IO EKG Electrocardiogram- 12 Leadon 09-24-2021 IO EKG Electrocardiogram- 12 Lead See Scanned Document [facility] io Heart-Anusha 250 DO Work Phone: No Panel Informationon 09-24 8.5\S\8.5 Normal 8.2-10.2 [facility] Heart-Grainger 250 DO Work Phone: Comment on above: PERFORMED BY:[facility] [place], [place] [id number] MEDICAL DIRECTORSARA GROSSMAN M.D. 31.6\S\31.6 above high threshold 22.0-30.0 [facility] Work Phone: 100\S\100 Normal 95-114 [facility] Work Phone: 4.2\S\4.2 Normal 3.5-5.1 [facility] Work Phone: 141\S\141 Normal 136-146 [facility] Work Phone: 56\S\56 Normal [facility] Work Phone: Comment on above: GFR estimated refere nce range: According to KDOQI guidelines, <60 ml/min/1.73m2 is sufficient to diagnose a patient with chronic kidney disease. 46\S\46 Normal [facility] Work Phone: 1.51\S\1.51 above high threshold 0.64-1.27 [facility] Work Phone: 20\S\20 Normal 9-23 [facility] Work Phone: 124\S\124 above high threshold 70-100 [facility] Work Phone: Comment on above: Random Glucose Refer ence Range is dependent on time and content of last meal. Glucose of more than 200 mg/dL in a nonstressed, ambulatory subject supports the diagnosis of Diabetes Mellitus. ADA recommended reference range 478\S\478 Normal . [facility] Work Phone: Comment on above: Note: To convert fro m ng/ml to ug/ml, divide the result by 1000. Reference range (amiodarone): 1.00-2.50 ug/mL. This test was developed and its performance characteristics determined by [employer]. It has not been cleared or approved by the Food and Drug Administration. Performed at: [facility] [address] [place] [address] [id number] Electrician Supervisor [employer]plane: Adina Reis [facility], Phone: [phone] BY:[address] [id number] MEDICAL DIRECTORSARA GROSSMAN M.D. 586\S\586 below low threshold [id number] [facility] Heart-Anusha 250 DO Work Phone: Tobacco Screening.on 021 Fall risk assessment a) No falls within the last year [facility] Heart-Anusha 250 DO Work Phone: Tobacco use status CPHS b) No [facility] Heart-Grainger 250 DO Work Phone: ECG 12 lead ECGon 09-12-2021 ECG 12 lead ECG [facility] Main [place] [address] [place] [id number] Electrocardiograph Report Signed Patient: Rojas Gibbs MR#: [id number] : 1955 Acct:[id number] Age/Sex: 66 / M ADM Date: 09/12/21 Loc: Room: Type: [facility] Attending Dr: Rojas Knowles MD Ordering [...] By Bridger Headley MD 1 1012 Normal [facility] ECG post procedureon 021 ECG post procedure [facility] Main [place] [address] [place] [address] Electrocardiograph Report Signed Patient: Rojas Gibbs MR#: [id number] : 1955 Acct:[id number] Age/Sex: 66 / M ADM Date: 09/12/21 Loc: Room: Type: [facility] Attending Dr: Rojas Knowles MD Ordering [...] By Bridger Headley MD 1 0953 Normal [facility] Electrolyteson 09-12-2021 Chloride [Moles/Vol] 100 mmol/L Normal 95-114 [facility] Comment on above: Performed By: #### L YTES #### [address] CO2 [Moles/Vol] 32.1 mmol/L High 22.0-30.0 [facility] Comment on above: Result Comment: PERF ORMED BY: [place] [address] PATHOLOGIST [employer] FIRM MANAGER SARA GROSSMAN M.D. Performed By: #### L YTES #### [facility] [address] Potassium [Moles/Vol] 4.5 mmol/L Normal 3.5-5.1 [facility] Comment on above: Performed By: #### L YTES #### [facility] [address] Sodium [Moles/Vol] 140 mmol/L Normal 136-146 [facility] Comment on above: Performed By: #### L YTES #### [facility] [address] No Panel Informationon 09-12 [facility] 250 DO Work Phone: 32.1\S\32.1 above high threshold 22.0-30.0 [facility] 250 DO Work Phone: Comment on above: PERFORMED BY:[facility] [place] [address] [id number] MEDICAL DIRECTORSARA GROSSMAN M.D. 100\S\100 Normal 95-114 [facility] 250 DO Work Phone: 4.5\S\4.5 Normal 3.5-5.1 [facility] 250 DO Work Phone: 140\S\140 Normal 136-146 [facility] 250 DO Work Phone: COVID-19 FRMCon 09-10-2021 SARS-CoV-2 (COVID-19) RNA NILAM+probe Ql (Unsp spec) Negative Normal Negative [facility] Comment on above: Order Comment: Healt hcare Worker?: N Result Comment: Testing for SARS-CoV-2 by RT-PCR This test was developed and its performance characteristics determined by [employer] and validated at the [facility]. This test has not been FDA cleared [...] is terminated or revoked sooner. PERFORMED BY: [place] [address] PATHOLOGIST [employer]STATE FIRM MANAGER SARA GROSSMAN M.D. Performed By: #### C OVID 19 [facility] #### [address] Vital Signs Date Time Vital Sign Value Performing Clinician Facility 09-24-2024 09:53-0400 Body height 177.8 cm Bridger Headley MD Work Phone: [facility] 09-24-2024 09:53-0400 Body mass index (BMI) [Ratio] 45.34 kg/m2 Bridger Headley MD Work Phone: [facility] 09-24-2024 09:53-0400 Body weight 143.34 kg Bridger Headley MD Work Phone: [facility] 09-24-2024 09:53-0400 Diastolic blood pressure 74 mm[Hg] Bridger Headley MD Work Phone: [facility] 09-24-2024 09:53-0400 Heart rate 97 /min Bridger Headley MD Work Phone: [facility] 09-24-2024 09:53-0400 Systolic blood pressure 136 mm[Hg] Bridger Headley MD Work Phone: [facility] 09-06-2024 11:11-0400 Body height 172.72 cm [facility] 09-06-2024 11:11-0400 Body mass index (BMI) [Ratio] 48.7 kg/m2 [facility] 09-06-2024 11:11-0400 Body weight 145.37 kg [facility] 09-06-2024 11:11-0400 Diastolic blood pressure 93 mm[Hg] [facility] 09-06-2024 11:11-0400 Heart rate 82 /min [facility] 09-06-2024 11:11-0400 Respiratory rate 12 /min [facility] 09-06-2024 11:11-0400 Systolic blood pressure 136 mm[Hg] [facility] 07-08-2024 12:08-0400 Body height 172.72 cm [facility] 07-08-2024 12:08-0400 Body mass index (BMI) [Ratio] 48.8 kg/m2 [facility] 07-08-2024 12:08-0400 Body weight 145.71 kg [facility] 07-08-2024 12:08-0400 Diastolic blood pressure 76 mm[Hg] [facility] 07-08-2024 12:08-0400 Heart rate 142 /min [facility] 07-08-2024 12:08-0400 Respiratory rate 20 /min [facility] 07-08-2024 12:08-0400 Systolic blood pressure 114 mm[Hg] [facility] 06-24-2024 09:05-0400 Body height 172.72 cm [facility] 06-24-2024 09:05-0400 Body mass index (BMI) [Ratio] 46.7 kg/m2 [facility] 06-24-2024 09:05-0400 Body weight 139.3 kg [facility] 06-24-2024 09:05-0400 Diastolic blood pressure 72 mm[Hg] [facility] 06-24-2024 09:05-0400 Heart rate 116 /min [facility] 06-24-2024 09:05-0400 Respiratory rate 12 /min [facility] 06-24-2024 09:05-0400 Systolic blood pressure 111 mm[Hg] [facility] 06-14-2024 18:17-0400 Hourly Rounding Mbanefo OJUKWU [facility] 06-14-2024 18:17-0400 Promise to Return Mbanefo OJUKWU [facility] 06-14-2024 17:00-0400 Hourly Rounding Mbanefo OJUKWU [facility] 06-14-2024 17:00-0400 Promise to Return Mbanefo OJUKWU [facility] 06-14-2024 16:44-0400 Hourly Rounding Mbanefo OJUKWU [facility] 06-14-2024 16:44-0400 Promise to Return Mbanefo OJUKW[facility] 06-14-2024 15:08-0400 Heart rate 97 /min Mbanefo [facility] 06-14-2024 15:08-0400 SaO2% (BldA) [Mass fraction] 96 % Mbanefo [facility] 06-14-2024 15:08-0400 Respiratory rate 16 /min M[facility]efo [facility] 06-14-2024 15:08-0400 Diastolic blood pressure 64 mm[Hg] Mbanefo [facility] 06-14-2024 15:08-0400 Mean blood pressure 76 mm[Hg] M[facility]efo [facility] 06-14-2024 15:08-0400 Systolic blood pressure 99 mm[Hg] M[facility]efo [facility] 06-14-2024 15:07-0400 Body temperature 98.06 [degF] M[facility]efo [facility] 06-14-2024 15:00-0400 Blood Pressure Location Mbanefo [facility] 06-14-2024 11:20-0400 Heart rate 102 /min Mbanefo [facility] 06-14-2024 11:20-0400 SaO2% (BldA) [Mass fraction] 97 % Mbanefo [facility] 06-14-2024 11:19-0400 Diastolic blood pressure 73 mm[Hg] M[facility]efo [facility] 06-14-2024 11:19-0400 Mean blood pressure 82 mm[Hg] Mbanefo [facility] 06-14-2024 11:19-0400 Systolic blood pressure 102 mm[Hg] Mbanefo [facility] 06-14-2024 11:19-0400 Body temperature 97.88 [degF] Mbanefo [facility] 06-14-2024 11:00-0400 Heart rate 70 /min M[facility]efo [facility] 06-14-2024 07:57-0400 Heart rate 69 /min Mbanefo [facility] 06-13-2024 23:20-0400 Body temperature 97.16 [degF] Mbanefo [facility] 06-13-2024 23:20-0400 Respiratory rate 18 /min Mbanefo [facility] 06-13-2024 19:00-0400 Mean blood pressure 78 mm[Hg] Mbanefo [facility] 06-13-2024 18:10-0400 Blood Pressure Location Mbanefo [facility] 06-13-2024 18:10-0400 Mean blood pressure 71 mm[Hg] Mbanefo [facility] 06-13-2024 18:05-0400 Blood Pressure Location Mbanefo [facility] 06-13-2024 18:05-0400 Mean blood pressure 75 mm[Hg] [facility]efo [facility] 06-13-2024 17:20-0400 Respiratory rate 17 /min M[facility]efo [facility] 06-13-2024 13:20-0400 Respiratory rate 16 /min M[facility]efo [facility] 06-13-2024 10:07-0400 Heart rate 150 /min [facility]efo [facility] 06-13-2024 08:57-0400 Heart rate 160 /min [facility] 06-13-2024 08:10-0400 Respiratory rate 18 /min [facility] 06-12-2024 19:29-0400 Body temperature 97.88 [degF] [facility]efo [facility] 06-12-2024 19:28-0400 Mean blood pressure 76 mm[Hg] M[facility]efo [facility] 06-12-2024 19:00-0400 Respiratory rate 16 /min M[facility]efo [facility] 06-12-2024 18:13-0400 Heart rate 84 /min Mbanefo [facility] 06-12-2024 14:16-0400 Heart rate 124 /min Mbanefo [facility] 06-12-2024 12:01-0400 Heart rate 93 /min Mbanefo [facility] 06-12-2024 11:50-0400 gluc 100 mg/dL Mbanefo [facility] 06-12-2024 11:50-0400 gluc Mbanefo [facility] 05-06-2024 11:02-0400 Body height 172.72 cm [facility] 05-06-2024 11:02-0400 Body mass index (BMI) [Ratio] 46 kg/m2 [facility] 05-06-2024 11:02-0400 Body weight 137.49 kg [facility] 05-06-2024 11:02-0400 Diastolic blood pressure 68 mm[Hg] [facility] 05-06-2024 11:02-0400 Heart rate 106 /min [facility] 05-06-2024 11:02-0400 Respiratory rate 16 /min [facility] 05-06-2024 11:02-0400 Systolic blood pressure 93 mm[Hg] [facility] 02-06-2024 11:12-0400 Body height 172.72 cm [facility] 02-06-2024 11:12-0400 Body mass index (BMI) [Ratio] 48.8 kg/m2 [facility] 02-06-2024 11:12-0400 Body weight 145.6 kg [facility] 02-06-2024 11:12-0400 Diastolic blood pressure 75 mm[Hg] [facility] 02-06-2024 11:12-0400 Heart rate 92 /min [facility] 02-06-2024 11:12-0400 Respiratory rate 16 /min [facility] 02-06-2024 11:12-0400 Systolic blood pressure 124 mm[Hg] [facility] 12-02-2023 10:36-0500 Body height 177.8 cm Rojas Knowles MD Work Phone: [facility] 12-02-2023 10:36-0500 Body mass index (BMI) [Ratio] 47.35 kg/m2 Rojas Knowles MD Work Phone: [facility] 12-02-2023 10:36-0500 Body weight 149.69 kg Rojas Knowles MD Work Phone: [facility] 12-02-2023 10:36-0500 Diastolic blood pressure 74 mm[Hg] Rojas Knowles MD Work Phone: [facility] 12-02-2023 10:36-0500 Heart rate 64 /min Rojas Knowles MD Work Phone: [facility] 12-02-2023 10:36-0500 Systolic blood pressure 112 mm[Hg] Rojas Knowles MD Work Phone: [facility] 07-08-2023 13:45-0400 Body height 172.72 cm Anibal Nieves Other [email or web address] Other 07-08-2023 13:45-0400 Body mass index (BMI) [Ratio] 49.11 kg/m2 Anibal Nieves Other [email or web address] Other 07-08-2023 13:45-0400 Body weight 146.51 kg Anibal Ball Other [email or web address] Other 07-08-2023 13:45-0400 Diastolic blood pressure 69 mm[Hg] Anibal Ball Other [email or web address] Other 07-08-2023 13:45-0400 Respiratory rate 20 /min Anibal Ball Other [email or web address] Other 07-08-2023 13:45-0400 Systolic blood pressure 93 mm[Hg] Anibal Ball Other [email or web address] Other 05-15-2023 10:18-0400 Body height 172.72 cm Anibal Ball Other [email or web address] Other 05-15-2023 10:18-0400 Body mass index (BMI) [Ratio] 50.02 kg/m2 Anibal Ball Other [email or web address] Other 05-15-2023 10:18-0400 Body weight 149.23 kg Anibal Ball Other [email or web address] Other 05-15-2023 10:18-0400 Diastolic blood pressure 75 mm[Hg] Anibal Ball Other [email or web address] Other 05-15-2023 10:18-0400 Systolic blood pressure 114 mm[Hg] Anibal Ball Other [email or web address] Other 04-07-2023 10:30-0400 Body height 172.72 cm Anibal Ball Other [email or web address] Other 04-07-2023 10:30-0400 Body mass index (BMI) [Ratio] 50.54 kg/m2 Anibal Ball Other [email or web address] Other 04-07-2023 10:30-0400 Body weight 150.78 kg Anibal Ball Other [email or web address] Other 04-07-2023 10:30-0400 Diastolic blood pressure 64 mm[Hg] Anibal Ball Other [email or web address] Other 04-07-2023 10:30-0400 Respiratory rate 12 /min Anibal Ball Other [email or web address] Other 04-07-2023 10:30-0400 Systolic blood pressure 91 mm[Hg] Anibal Ball Other [email or web address] Other 04-07-2023 09:30-0400 Body height 172.72 cm Anibal Ball Other [email or web address] Other 04-07-2023 09:30-0400 Body mass index (BMI) [Ratio] 50.54 kg/m2 Anibal Ball Other [email or web address] Other 04-07-2023 09:30-0400 Body weight 150.78 kg Anibal Ball Other [email or web address] Other 04-07-2023 09:30-0400 Diastolic blood pressure 64 mm[Hg] Anibal Ball Other [email or web address] Other 04-07-2023 09:30-0400 Respiratory rate 12 /min Anibal Ball Other [email or web address] Other 04-07-2023 09:30-0400 Systolic blood pressure 91 mm[Hg] Anibal Ball Other [email or web address] Other 01-06-2023 11:30-0500 Body height 172.72 cm Anibal Ball Other [email or web address] Other 01-06-2023 11:30-0500 Body mass index (BMI) [Ratio] 49.93 kg/m2 Anibal Ball Other [email or web address] Other 01-06-2023 11:30-0500 Body weight 148.96 kg Anibal Ball Other [email or web address] Other 01-06-2023 11:30-0500 Diastolic blood pressure 76 mm[Hg] Anibal Ball Other [email or web address] Other 01-06-2023 11:30-0500 Respiratory rate 16 /min Anibal Ball Other [email or web address] Other 01-06-2023 11:30-0500 Systolic blood pressure 122 mm[Hg] Anibal Ball Other [email or web address] Other 12-06-2022 08:23-0500 Body height 175.26 cm Anibal E Ball Work Phone: ND-Nlkhrzxyns-Ykpomz ky 250 DO Work Phone: 12-06-2022 08:23-0500 Body mass index (BMI) [Ratio] 46.81 kg/m2 Anibal E Ball Work Phone: EY-Egeinbvrzc-Nkujnz ky 250 DO Work Phone: 12-06-2022 08:23-0500 Body surface area Derived from formula 2.51 m2 Anibal E Ball Work Phone: WL-Gacwvnkskm-Popccm [place] 250 DO Work Phone: 12-06-2022 08:23-0500 Body weight 143.79 kg Anibal E Ball Work Phone: AS-Rhesrhcydy-Gtfwhk ky 250 DO Work Phone: 12-06-2022 08:23-0500 Diastolic blood pressure 62 mm[Hg] Anibal E Ball Work Phone: WM-Vwktbynzep-Gpbwkp ky 250 DO Work Phone: 12-06-2022 08:23-0500 Heart rate 60 /min Anibal E Ball Work Phone: VV-Xrzocpersf-Sijkay [place] 250 DO Work Phone: 12-06-2022 08:23-0500 Systolic blood pressure 110 mm[Hg] Anibal E Ball Work Phone: TQ-Ubyidiunjk-Yoojlc ky 250 DO Work Phone: 12-05-2022 11:30-0500 Body height 172.72 cm Anibal Ball Other [email or web address] Other 12-05-2022 11:30-0500 Body mass index (BMI) [Ratio] 48.32 kg/m2 Anibal Ball Other [email or web address] Other 12-05-2022 11:30-0500 Body weight 144.15 kg Anibal Ball Other [email or web address] Other 12-05-2022 11:30-0500 Diastolic blood pressure 72 mm[Hg] Anibal Ball Other [email or web address] Other 12-05-2022 11:30-0500 Respiratory rate 16 /min Anibal Ball Other [email or web address] Other 12-05-2022 11:30-0500 Systolic blood pressure 122 mm[Hg] Anibal Ball Other [email or web address] Other 04-12-2022 13:22-0400 Body height 175.26 cm Anibal E Ball Work Phone: [facility] 250 DO Work Phone: 04-12-2022 13:22-0400 Body mass index (BMI) [Ratio] 44.75 kg/m2 Anibal Melendez Ball Work Phone: [facility]Grainger 250 DO Work Phone: 04-12-2022 13:22-0400 Body surface area Derived from formula 2.46 m2 Anibal Melendez Ball Work Phone: [facility] 250 DO Work Phone: 04-12-2022 13:22-0400 Body weight 137.44 kg Anibal Melendez Ball Work Phone: [facility] 250 DO Work Phone: 04-12-2022 13:22-0400 Diastolic blood pressure 70 mm[Hg] Anibal Melendez Ball Work Phone: [facility] 250 DO Work Phone: 04-12-2022 13:22-0400 Heart rate 60 /min Anibal Melendez Ball Work Phone: [facility] 250 DO Work Phone: 04-12-2022 13:22-0400 Systolic blood pressure 110 mm[Hg] Anibal Melendez Ball Work Phone: [facility] 250 DO Work Phone: 03-18-2022 08:45-0400 60 1 Anibal Melendez Ball Work Phone: [facility] 250A [place] Work Phone: Comment on above: [id number] 12-03-2021 11:02-0500 Body height 175.26 cm Anibal Melendez Ball Work Phone: [facility] 250 DO Work Phone: 12-03-2021 11:02-0500 Body mass index (BMI) [Ratio] 45.04 kg/m2 Anibal Mleendez Ball Work Phone: [facility] 250 DO Work Phone: 12-03-2021 11:02-0500 Body surface area Derived from formula 2.47 m2 Anibal E Ball Work Phone: [facility] 250 DO Work Phone: 12-03-2021 11:02-0500 Body weight 138.35 kg Anibal E Ball Work Phone: [facility] 250 DO Work Phone: 12-03-2021 11:02-0500 Diastolic blood pressure 68 mm[Hg] Anibal E Ball Work Phone: [facility] 250 DO Work Phone: 12-03-2021 11:02-0500 Heart rate 91 /min Anibal E Ball Work Phone: [facility] 250 DO Work Phone: 12-03-2021 11:02-0500 Systolic blood pressure 109 mm[Hg] Anibal E Ball Work Phone: [facility] 250 DO Work Phone: 09-24-2021 10:36-0400 Body height 175.26 cm Anibal E Ball Work Phone: [facility] 250 DO Work Phone: 09-24-2021 10:36-0400 Body mass index (BMI) [Ratio] 52.57 kg/m2 Anibal E Ball Work Phone: [facility] 250 DO Work Phone: 09-24-2021 10:36-0400 Body surface area Derived from formula 2.64 m2 Anibal E Ball Work Phone: [facility] 250 DO Work Phone: 09-24-2021 10:36-0400 Body weight 161.48 kg Anibal E Ball Work Phone: [facility] 250 DO Work Phone: 09-24-2021 10:36-0400 Diastolic blood pressure 70 mm[Hg] Anibal Gonzales Work Phone: [facility] 250 DO Work Phone: 09-24-2021 10:36-0400 Heart rate 130 /min Anibal Gonzales Work Phone: [facility] 250 DO Work Phone: 09-24-2021 10:36-0400 Systolic blood pressure 104 mm[Hg] Anibal Gonzales Work Phone: [facility] 250 DO Work Phone: Encounters Encounter Date Encounter Type Care Provider Facility Start: 09-24-2024 End: 09-24-2024 Office outpatient visit 25 minutes Bridger Headley MD Work Phone: [facility] Comment on above: Syncope and collapse (Primary Dx); Chronic atrial fibrillation (Multi); Atypical atrial flutter (Multi); Non-ischemic cardiomyopathy (Multi); Primary hypertension; Mixed hyperlipidemia; KOFI on CPAP; BMI 45.0-49.9, adult (Multi); Former smoker; History of bloody stools Start: 09-24-2024 End: 09-24-2024 [facility] Ambulatory Start: 09-06-2024 End: 09-06-2024 ambulatory [facility] Work Phone: Start: 09-06-2024 End: 09-06-2024 Patient encounter procedure [facility] Physician [facility] Work Phone: Start: 07-19-2024 Non-patient / Non-visit [facility]ician [facility] Work Phone: Start: 07-08-2024 End: 07-08-2024 [facility] Work Phone: Start: 07-08-2024 End: 07-08-2024 Patient encounter procedure [facility] Physician [facility] Work Phone: Start: 06-28-2024 End: 06-28-2024 ambulatory MONOGRAM MAKER Gisell Madison Facility:[facility] Start: 06-28-2024 End: 06-28-2024 Patient encounter procedure Gisell Madison [facility] Start: 06-24-2024 End: 06-24-2024 ambulatory [facility] Work Phone: Start: 06-24-2024 End: 06-24-2024 Patient encounter procedure [facility] Work Phone: Start: 06-21-2024 Non-patient / Non-visit [facility] Work Phone: Start: 06-17-2024 Non-patient / Non-visit [facility] Work Phone: Start: 06-12-2024 End: 06-14-2024 ambulatory Zully FIGUEROA Facility:[facility] Start: 06-12-2024 Emergency department patient visit Vaughn Rojas Facility:[facility] Start: 06-12-2024 End: 06-14[facility] Start: 06-08-2024 Non-patient / Non-visit [facility] Work Phone: Start: 05-07-2024 Non-patient / Non-visit [facility] Physician [facility] Work Phone: Start: 05-06-2024 End: 05-06-2024 ambulatory [facility] Work Phone: Start: 05-06-2024 End: 05-06-2024 Patient encounter procedure [facility] Work Phone: Start: 02-10-2024 Non-patient / Non-visit [facility] Physician [facility] Work Phone: Start: 02-09-2024 Non-patient / Non-visit [facility] Work Phone: Start: 02-06-2024 End: 02-06-2024 ambulatory [facility] Work Phone: Start: 02-06-2024 End: 02-06-2024 Patient encounter procedure [facility] Work Phone: Start: 12-11-2023 End: 12-11-2023 ambulatory Anibal Gonzales Other [facility] [facility] Other Start: 12-11-2023 Telephone encounter Anibal JONES G [facility] Start: 12-02-2023 End: 12-02-2023 Office outpatient visit 25 minutes Rojas Knowles MD Work Phone: [facility] Comment on above: Non-ischemic cardiom yopathy (CMS/HCC) (Primary Dx); Paroxysmal atrial fibrillation (CMS/HCC); Primary hypertension; Mixed hyperlipidemia Start: 12-02-2023 End: 12-02-2023 [facility]ulatory [facility] Start: 09-04-2023 End: 09-04-2023 ambulatory Anibal Gonzales Other [facility] Other Start: 09-04-2023 Telephone encounter Anibal JONES G [facility] Start: 07-09-2023 Rx Renewal Anibal London l Work Phone: [facility] 250 DO Work Phone: Start: 07-08-2023 End: 07-08-2023 ambulatory Anibal Gonzales Other [employer] Other Start: 07-08-2023 Office outpatient vi sit 25 minutes Anibal Gonzales FPG [facility] Start: 06-06-2023 End: 06-06-2023 ambulatory Anibal Gonzales Other [facility] Other Start: 06-06-2023 Telephone encounter Anibal Gonzales FP [facility] Start: 05-15-2023 End: 05-15-2023 ambulatory Anibal Gonzales Other [email or web address] Other Start: 05-15-2023 Telephone encounter Anibal JONES [facility] Start: 05-07-2023 End: 05-07-2023 ambulatory Anibal Gonzales Other [email or web address] Other Start: 05-07-2023 Telephone encounter Anibal JONES [facility] Start: 04-25-2023 End: 04-25-2023 ambulatory Anibal Gonzales Other [email or web address] Other Start: 04-25-2023 Telephone encounter Anibal JONES [facility] Start: 04-24-[address] ANIBAL GONZALES [facility] ty:H1 Start: 04-08-2023 End: 04-09-[address] ANIBAL GONZALES Facility:H1 Start: 04-07-2023 End: 04-07-2023 ambulatory Anibal Gonzales Other [email or web address] Other Start: 04-07-2023 Patient encounter procedure [facility] Start: 02-24-2023 End: 02-24-2023 ambulatory Anibal Gonzales Other [email or web address] Other Start: 02-24-2023 Telephone encounter Anibal JONES [facility] Start: 02-11-2023 End: 02-11-2023 ambulatory Anibal Nieves Other [email or web address] Other Start: 02-11-2023 Telephone encounter Anibal JONES [facility] Start: 01-10-2023 Telephone encounter Anibal [facility]ieves JONES [facility] Start: 01-10-2023 End: 01-11-[address] ANIBAL GONZALES [email or web address] Other Start: 01-08-2023 End: 01-08-2023 ambulatory Anibal Gonzales Other [email or web address] Other Start: 01-08-2023 Telephone encounter Anibal JONES G [facility] Start: 01-06-2023 End: 01-06-2023 ambulatory Anibal Gonzales Other [email or web address] Other Start: 01-06-2023 Office outpatient vi sit 25 minutes Anibal Nieves [facility] Start: 12-25-2022 End: 12-25-2022 ambulatory Anibal Gonzales Other [email or web address] Other Start: 12-25-2022 [facility] Start: 12-06-2022 ambulatory Rojas Knowles II Facility: Start: 12-06-2022 Office outpatient vi sit 25 minutes Anibal Gonzales Work Phone: [facility] 250 DO Work Phone: Start: 12-05-2022 End: 12-05-2022 ambulatory Anibal Gonzales Other [email or web address] Other Start: 12-05-2022 Office outpatient vi sit 25 minutes Anibal Gonzales [facility] Start: 12-03-2022 End: 12-03-2022 ambulatory Anibal Nieves Other [email or web address] Other Start: 12-03-2022 Telephone encounter [facility] Start: 11-08-2022 End: 11-09-[address] ANIBAL GONZALES Facility:H1 Start: 08-07-2022 Rx Renewal Anibal Melendez Bal l Work Phone: [facility] 250 DO Work Phone: Start: 04-12-2022 Office outpatient vi sit 25 minutes Anibal Gonzales Work Phone: [facility] 250 DO Work Phone: Start: 04-12-2022 ambulatory Anibal Gonzales Fa cility: Start: 03-18-2022 Patient encounter procedure Anibal Gonzales Work Phone: [facility] [address] [place] Work Phone: Start: 12-03-2021 Office outpatient vi sit 25 minutes Anibal Gonzales Work Phone: [facility] 250 DO Work Phone: Start: 11-07-2021 Chart Update Anibal felder Work Phone: [facility] 250 DO Work Phone: Start: 10-05-2021 Chart Update Anibal felder Work Phone: [facility] 250 DO Work Phone: Start: 09-24-2021 Chart Update Anibal felder Work Phone: [facility] 250 DO Work Phone: Start: 09-24-2021 Patient encounter procedure Anibal Gonzales Work Phone: [facility] 250 DO Work Phone: Start: 09-14-2021 Chart Update Rojas campuzano MD Work Phone: [facility] 250 DO Work Phone: Start: 09-13-2021 Chart Update Rojas campuzano MD Work Phone: [facility] 250 DO Work Phone: Procedures Date Procedure Procedure Detail Performing Clinician Start: 09-24-2024 Ecg routine ecg w/le ast 12 lds w/i&r Bridger Headley MD Work Phone: Start: 02-10-2024 E coli Shiga Toxin EIA Start: 02-10-2024 Salmonella/Shigella Screen Start: 04-08-2023 End: 04-08-[address] ANIBAL GONZALES Comment on above: Performed By: #### P [facility] #### [facility] [address] [place] [address] Dr. Braxton Aly Start: 03-18-2022 Echocardiography Benjam in E [facility] Work Phone: Appendectomy Anibal E [facility] Work Phone: Arthroplasty of knee Benjami n E [facility] Work Phone: Cardioversion Anibal felder Work Phone: Cataract surgery Anibal E [facility] Work Phone: Colonoscopy Anibal E [facility] Work Phone: Comment on above: 2020; Tonsillectomy Anibal felder Work Phone: Plan of Treatment Date Care Activity Detail Author Start: 04-27-2025 End: 04-27-2025 Patient encounter procedure 04/27/2025 1:30 PM EDT Office Visit [facility] [address] [place] [address] Bridger Headley MD [address] [place] [address] [facility] Start: 12-14-2024 End: 12-14-2024 Patient encounter procedure 12/14/2024 10:40 AM EST Office Visit [facility] [address] [place] [address] Rojas Knowles MD [address] [place] [address] [facility] Start: 07-25-2024 COVID-19 Vaccine ( season) COVID-19 Vaccine ( season) [facility] Start: 07-25-2024 Influenza vaccination Influenza Vaccine (#1) [facility] Start: 12-02-2023 FUV, Provider: Rojas Knowles, Status: Pen, Time: 10:40 AM FUV, Provider: Rojas Knowles, Status: Pen, Time: 10:40 AM [facility] 250 DO Work Phone: Start: 09-01-2023 Influenza vaccination Influenza Vaccine (#1) [facility] Start: 11-29-2022 FUV, Provider: Rojas Knowles, Status: Pen, Time: 2:40 PM FUV, Provider: Rojas Knowles, Status: Pen, Time: 2:40 PM -[facility] 250 DO Work Phone: Start: 04-12-2022 FUV, Provider: Rojas Knowles, Status: Pen, Time: 1:30 PM FUV, Provider: Rojas Knowles, Status: Pen, Time: 1:30 PM [facility] 250 DO Work Phone: Start: 12-03-2021 FUV, Provider: Rojas Knowles, Status: Pen, Time: 11:20 AM FUV, Provider: Rojas Knowles, Status: Pen, Time: 11:20 AM [facility] 250 DO Work Phone: Start: 11-05-2021 FUV, Provider: Rojas Knowles, Status: Pen, Time: 8:00 AM FUV, Provider: Rojas Knowles, Status: Pen, Time: 8:00 AM [facility] 250 DO Work Phone: Start: 09-24-2021 FUV, Provider: Rojas Knowles, Status: Pen, Time: 10:20 AM FUV, Provider: Rojas Knowles, Status: Pen, Time: 10:20 AM -[facility] 250 DO Work Phone: Start: 06-07-2021 COVID-19 Vaccine (2 - Booster for Sandor series) COVID-19 Vaccine (2 - Booster for Sandor series) [facility] Start: 2020 Abdominal aortic aneurysm screening Abdominal Aortic Aneurysm (AAA) Screening [facility] Start: 2015 RSV High Risk: (Elderly (60+) or Population) (1 - Risk 60-74 years 1-dose series) RSV High Risk: (Elderly (60+) or Population) (1 - Risk 60-74 years 1-dose series) [facility] Start: 2005 Zoster Vaccines (1 of 2) Zoster Vaccines (1 of 2) [facility] Start: 1977 DTaP/Tdap/Td Vaccines (1 - Tdap) DTaP/Tdap/Td Vaccines (1 - Tdap) [facility] Start: 1974 Urine screening for protein Diabetes: Urine Protein Screening [facility] Start: 1973 Hepatitis C screening Hepatitis C Screening [facility] Start: 1965 Diabetic foot examination Diabetes: Foot Exam [facility] Start: 1965 Glaucoma screening Diabetes: Retinopathy Screening [facility] Start: 1961 Pneumococcal Vaccine: 65+ Years (1 - PCV) Pneumococcal Vaccine: 65+ Years (1 - PCV) [facility] Start: 1961 Pneumococcal Vaccine: 65+ Years (1 of 2 - PCV) Pneumococcal Vaccine: 65+ Years (1 of 2 - PCV) [facility] Start: 1955 Hemoglobin A1c measurement Diabetes: Hemoglobin A1C [facility] Start: 1955 Lipid panel Lipid Panel [facility] Start: 1955 Medicare Annual Wellness Visit Medicare Annual Wellness Visit (AWV) [facility] Start: 1955 Screening for malignant neoplasm of colon [facility] Bacteria identified in Stool by Culture [facility] Comprehensive metabo lic 1999 panel - Serum or Plasma [facility] Comprehensive metabo lic 1999 panel - Serum or Plasma [facility] Comprehensive metabo lic 1999 panel - Serum or Plasma [facility] Comprehensive metabo lic 1999 panel - Serum or Plasma [facility] Microalbumin [Mass/volume] in Urine [facility] Immunizations Immunization Date Immunization Notes Care Provider Fa cility 04-18-2021 COVID-19 Vaccine Brad ssen - Documentation Purposes Only Anibal Gonzales Other [facility] 04-12-2021 Sandor COVID-19 Vac cine 0.5 ML Intramuscular Suspension Anibal Gonzales Work Phone: -[facility] [place] [facility] 250 DO Work Phone: Comment on above: Series: Payers Date Payer Category Payer Unknown [id number] 2022 Medicare (Managed Care) [facility] [id number] 2022 Unknown 2021 Unknown [id number] 1959 Medicare [id number] 1955 Unknown [id number] [id number]. 2.356 1955 Unknown [id number] 2.16.840.1.407248.3.579. 2.356 1955 Unknown [id number] 2.16.840.1.300576.3.579. 2.593 1955 Unknown [id number] 2.16.840.1.499348.3.579. 2.593 1955 Unknown [id number] 2.16.840.1.458611.3.579. 2.593 1955 Unknown [id number] 2.16.840.1.650175.3.579. 2.593 1955 Unknown [id number] 2.16.840.1.659103.3.579. 2.727 1955 Unknown [id number] 2.16.840.1.437333.3.579. 2.727 1955 Unknown [id number] 2.16.840.1.759717.3.579. 2.727 1955 Unknown [id number] 2.16.840.1.814640.3.579. 2.727 1955 Unknown [id number] 2.16.840.1.702834.3.579. 2.727 1955 Unknown [id number] 2.16.840.1.796815.3.579. 2.727 1955 Unknown [id number] 2.16.840.1.901715.3.579. 2.1244 1955 Unknown [id number] 2.16.840.1.720661.3.579. 2.1244 Self-pay Self Pay [id number] Unknown [id number] Unknown [facility] [id number] Social History Date Type Detail Facility Start: 12-02-2023 End: 09-24-2024 No alcohol use No alcohol use [facility] 250 DO Work Phone: Comment on above: quit smoking approx 40 years ago; soda; Start: 12-02-2023 End: 09-24-2024 Sex Assigned At [facility] Start: 12-02-2023 End: 06-12-2024 Tobacco smoking status NHIS Ex-smoker [facility] History of tobacco use Current smoker [facility] Work Phone: History of tobacco use Cigarette Smoker [facility] Work Phone: Start: 12-02-2023 Tobacco use and exposure Smokeless tobacco non-user [facility] Work Phone: Start: 12-02-2023 Alcohol intake Ex-drinker (finding) [facility] Work Phone: Start: 1955 Sex Assigned At Not on file [facility] Work Phone: Start: 11-22-2023 End: 09-24-2024 Exposure to SARS-CoV-2 (event) Not sure [facility] Start: 02-04-2024 [facility] (finding) [facility] Start: 1955 Sex Assigned At Male F [facility] Start: 09-24-2024 Alcoholic beverage intake Lifetime non-drinker (finding) [facility] Work Phone: Functional Status Date Assessment Result Facility 06-12-2024 Functional Status No [facility] 06-12-2024 Functional Status [facility] Clinical Notes 09-12-2021 to 09-24-2024 Bridger Headley MD - 09/24/2024 10:00 AM EDTPatient InstructionsAttachments Note Date & Type Note Facility 09-24-2024 History of Present illness Narrative Subjective Rojas Gibbs is a 69 y.o. male Chief Complaint Follow-up HPI Patient is here for follow-up. I saw him in the hospital for consultation for syncope. He is a former patient of Dr. Knowles. His workup including echocardiogram showed preserved LV systolic function. His Holter monitor showed he is in A-fib with heart rate appears to be on the higher range. He was started on digoxin. Since he was discharged she had several complaints. First issue is his been having intermittent bright blood per rectum. He had several falls and had been complaining of cough. He think it could be related to digoxin. Patient is morbidly obese. He had no recurrence of his syncope. Assessment 1. Syncopal episode. Workup benign including Holter monitor echocardiogram. No recurrence 2. Chronic atrial fibrillation/flutter heart rate was in the higher range but improved since we added digoxin 3. Patient reports some intermittent cough that he attributed to digoxin 4. Long-term anticoagulation appears to have episode of bright blood per rectum 5. History of nonischemic cardiomyopathy improved recent echo showed normal LV systolic function 6. Morbid obesity 7. Obstructive sleep apnea 8. Intermittent episode of bright blood per rectum 9. Recurrent fall Plan 1. I advised the patient to continue to restrict his salt intake 2. I told him it is unlikely that digoxin causing the cough but I given the permission to hold digoxin for 2 weeks to see if there is any improvement 3. I discussed with him Watchman device considering his recurrent fall and I advised him that considering that and concerning his GI bleed Watchman device is an attractive option 4. I counseled him regarding losing weight, exercise and dietary modification and advised him to consider GLP-1 medication to address his weight 5. Follow-up in 6 months with an EKG Review of Systems Constitutional: Positive for malaise/fatigue. Cardiovascular: Positive for leg swelling. Respiratory: Positive for cough. All other systems reviewed and are negative. Vitals: 09/24/24 0953 BP: 136/74 BP Location: Left arm Patient Position: Sitting Pulse: 97 Weight: 143 kg (316 lb) Height: 1.778 m (5' 10 ) EKG done in office today Objective Physical Exam Constitutional: Appearance: Normal appearance. HENT: Nose: Nose normal. Neck: Vascular: No carotid bruit. Cardiovascular: Rate and Rhythm: Normal rate. Rhythm irregularly irregular. Pulses: Normal pulses. Heart sounds: Murmur heard. Systolic murmur is present with a grade of 1/6. Comments: Trace edema Pulmonary: Effort: Pulmonary effort is normal. Abdominal: General: Bowel sounds are normal. Palpations: Abdomen is soft. Musculoskeletal: General: Normal range of motion. Cervical back: Normal range of motion. Right lower leg: No edema. Left lower leg: No edema. Skin: General: Skin is warm and dry. Neurological: General: No focal deficit present. Mental Status: He is alert. Psychiatric: Mood and Affect: Mood normal. Behavior: Behavior normal. Thought Content: Thought content normal. Judgment: Judgment normal. Allergies Patient has no known allergies. Current Medications Current Outpatient Medications: allopurinol (Zyloprim) 300 mg tablet, Take 1 tablet (300 mg) by mouth once daily., Disp: , Rfl: apixaban (Eliquis) 5 mg tablet, Take 1 tablet (5 mg) by mouth 2 times a day., Disp: 180 tablet, Rfl: 3 atorvastatin (Lipitor) 20 mg tablet, Take 1 tablet (20 mg) by mouth once daily at bedtime., Disp: 90 tablet, Rfl: 3 digoxin (Lanoxin) 125 MCG tablet, Take 1 tablet (125 mcg) by mouth once daily at bedtime., Disp: , Rfl: metoprolol succinate XL (Toprol-XL) 200 mg 24 hr tablet, 1 tablet (200 mg) once daily., Disp: , Rfl: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
[2024-09-29 04:16] LABS: Immunoglobulin A, Qn 258 mg/dL (61-437)
[2024-09-29 15:10] LABS: t-Transglutaminase (tTG) IgA <2 U/mL (0-3)
== END 2024-09-28 09:49 | disposition home or self-care (01) ==
LOC: LAB 09:51
PROVIDERS: PCP Internal Medicine; Visit Provider Internal Medicine
DX: R19.7 Diarrhea, unspecified (principal)
CPT/HCPCS: 36415; 82784; 86364

== ENCOUNTER 2024-12-23 09:39 | Outpatient (OUT) | payer OTHER, SELFPAY ==
--- OUTSIDE RECORDS SUMMARY | 2024-12-23 09:59 | XMS_ITS | CCD ---
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 Neutrophils/100 WBC Auto (Bl d)on 02-09-2024 Neutrophils/100 WBC (Bld) 78.2 % 43.0-75.0 [facility] No Panel Informationon 02-08 C-Reactive Protein, Quantitative 2.52 mg/dL <=0.50 [facility] Eosinophils # (Auto) 0.1 10 3/uL 0.0-0.7 [facility] Immature Granulocyte # (Auto) 0.03 10 3/uL 0.00-0.03 [facility] Platelet mean volume Auto (B ld) [Entitic vol]on 02-09-2024 Platelet mean volume (Bld) [Entitic vol] 10.3 fL 9.5-13.5 [facility] Platelets Auto (Bld) [#/Vol] on 02-09-2024 Platelets (Bld) [#/Vol] 328 10 3/uL 150-450 [facility] RBC Auto (Bld) [#/Vol]on RBC (Bld) [#/Vol] 4.29 10 6/uL 4.70-6.10 [facility] Serum or plasma albumin/glob ulin mass ratioon 02-09-2024 Albumin/Globulin [Mass ratio] 0.7 {ratio} [facility] Serum or plasma anion gap de terminationon 02-09-2024 Anion gap [Moles/Vol] 13.8 mmol/L [facility] B-Type Natriuretic Peptideon 04-08-2023 B-Type Natriuretic Peptide see note [employer] Other B-Type Natriuretic Peptide 3094.0 pg/ml Critically high <=900.0 pg/ml [employer] Other BNPon 04-08-2023 Natriuretic peptide B (Bld) [Mass/Vol] 3094.0 pg/mL Critically high <=900.0 [facility] Comment on above: Performed By: #### B MP, BNP, LIPID #### [facility] [address] [place] [address] Dr. Braxton Aly Basic Metabolic Panelon 03-24 Calcium [Mass/Vol] 8.7923107 mg/dL 8.5-10 .1 mg/dL [employer] Other CO2 [Moles/Vol] 34.45169691 mmol/L Critically high 21. 0-32.0 mmol/L [employer] Other Creatinine [Mass/Vol] 1.47037886 mg/dL Critically high 0.70-1.30 mg/dL [employer] Other Potassium [Moles/Vol] 4.07567811 mmol/L 3 .5-5.1 mmol/L [employer] Other Urea nitrogen [Mass/Vol] 25.6068078 mg/dL Critically high 7.0-18.0 mg/dL [employer] Other Basic Metabolic Panel 140 mmol/L 136-14 5 mmol/L [employer] Other Basic Metabolic Panel 148 mg/dL Critically high 74-106 mg /dL [employer] Other Basic Metabolic Panel 40 mL/min/1.73m2 Critically low >=60 mL/min/1.73m 2 [employer] Other Basic Metabolic Panel 49 mL/min/1.73m2 Critically low >=60 mL/min/1.73m 2 [employer] Other CBC AUTO DIFFon 04-08-2023 BASO # 0.1 103/ul Normal 0.0-0.1 [facility] Comment on above: Performed By: #### C BC #### [facility] [address] [address] [address] Braxton Aly Basophils/100 WBC (Bld) 0.6 % Normal 0.2-2.0 [facility] Comment on above: Performed By: #### C BC #### [facility] [address] [address] [address] Braxton Aly EO # 0.1 103/ul Normal 0.0-0.7 [facility] Comment on above: Performed By: #### C BC #### [facility] [address] [address] [address] Braxton Aly Eosinophils/100 WBC (Bld) 1.3 % Normal 0.9-7.0 [facility] Comment on above: Performed By: #### C BC #### [facility] [address] [address] [address] Braxton Aly Erythrocyte distribution width (RBC) [Ratio] 14.6 % Normal 11.0-15.0 [facility] Comment on above: Performed By: #### C BC #### [facility] [address] [place] [address] Dr. Braxton Aly Hematocrit (Bld) [Volume fraction] 44.2 % Normal 42.0-54.0 [facility] Comment on above: Performed By: #### C BC #### [facility] [address] [address] [address] Braxton Aly Hemoglobin (Bld) [Mass/Vol] 13.5 g/dL Critically low 14.0-18.0 [facility] Comment on above: Performed By: #### C BC #### [facility] [address] [address] [address] Braxton Aly IG # 0.03 10e3/ul Normal 0.00-0.03 [facility] Comment on above: Performed By: #### C BC #### [facility] [address] [place] [address] Dr. Braxton Aly IG % 0.3 % Normal 0.0-0.5 [facility] Comment on above: Performed By: #### C BC #### [facility] [address] [place] [address] Dr. Braxton Aly LYMPH # 1.3 103/ul Normal 1.2-3.8 [facility] Comment on above: Performed By: #### C BC #### [facility] [address] [place] [address] Dr. Braxton Aly Lymphocytes/100 WBC (Bld) 15.0 % Critically low 20.5-60.0 [facility] Comment on above: Performed By: #### C BC #### [facility] [address] [place] [address] Dr. Braxton Aly MANUAL DIFF REQ NO Normal [facility] Comment on above: Performed By: #### C BC #### [facility] [address] [place] [address] Dr. Braxton Aly MCH (RBC) [Entitic mass] 29.1 pg Normal 25.9-34.0 [facility] Comment on above: Performed By: #### C BC #### [facility] [address] [place] [address] Dr. Braxton Aly MCHC (RBC) [Mass/Vol] 30.5 g/dL Normal 29.9-35.2 [facility] Comment on above: Performed By: #### C BC #### [facility] [address] [place] [address] Dr. Braxton Aly MCV (RBC) [Entitic vol] 95.3 fL Critically high 80.0-94.0 [facility] Comment on above: Performed By: #### C BC #### [facility] [address] [place] [address] Dr. Braxton Aly MONO # 0.6 103/ul Normal 0.3-0.8 [facility] Comment on above: Performed By: #### C BC #### [facility] [address] [address] [address] Braxton Aly Monocytes/100 WBC (Bld) 6.7 % Normal 1.7-12.0 [facility] Comment on above: Performed By: #### C BC #### [facility] [address] [address] [address] Braxton Aly NEUT # 6.7 103/ul Critically high 1.4-6.[address] [facility] Comment on above: Performed By: #### C BC #### [facility] [address] [address] [address] Braxton Aly Neutrophils/100 WBC (Bld) 76.1 % Critically high 43.0-75.0 [facility] Comment on above: Performed By: #### C BC #### [facility] [address] [place] [address] Dr. Braxton Aly Platelet mean volume (Bld) [Entitic vol] 9.4 fL Critically low 9.5-13.5 [facility] Comment on above: Performed By: #### C BC #### [facility] [address] [address] [address] Braxton Aly PLT 272 103/ul Normal 150-450 [facility] Comment on above: Performed By: #### C BC #### [facility] [address] [address] [address] Braxton Aly RBC 4.64 106/ul Critically low 4.70-6.[address] [facility] Comment on above: Performed By: #### C BC #### [facility] [address] [address] [address] Braxton Aly WBC 8.8 103/ul Normal 4.0-11.0 [facility] Comment on above: Performed By: #### C BC #### [facility] [address] [place] [address] Dr. Braxton Aly Complete Blood Count and Dif diony 04-08-2023 Anisocytosis Ql (Bld) [employer] Other Basophilic stippling LM Ql (Bld) [employer] Other RBC morphology finding Nom (Bld) [employer] [facility] [employer] Other GLYCOHEMOGLOBIN A1Con 2022 ADA RECOMMENDATION SEE BELOW Normal [facility] Comment on above: Result Comment: ADA RECOMMENDED LIMIT 4.0 - 6.0 ADA THERAPEUTIC TARGET < 7.0 ACTION SUGGESTED > 7.0 Performed By: #### A 1C #### [facility] [address] [place] [address] Dr. Braxton Aly Glucose [Mass/Vol] 143 mg/dL Normal [facility] Comment on above: Performed By: #### A 1C #### [facility] [address] [place] [address] Dr. Braxton Aly HbA1c (Bld) [Mass fraction] 6.6 % Critically high 4.5-6.2 [facility] Comment on above: Performed By: #### A 1C #### [facility] [address] [place] [address] Dr. Braxton Aly Hemoglobin A1C ([facility])on 0 04-08-2023 Hemoglobin A1C ([facility]) [facility] [employer] Other LIPID PROFILEon 04-08-2023 CHOL-HDL RATIO NORM SEE BELOW Normal [facility] Comment on above: Result Comment: 3.3 - 4.4 LOW RISK 4.4 - 7.1 AVERAGE RISK 7.1 - 11.0 MODERATE RISK >11.0 HIGH RISK Performed By: #### B MP, BNP, LIPID #### [facility] [address] [place] [address] Dr. Braxton Aly Cholesterol [Mass/Vol] 119 mg/dL <=200 mg/dL [facility] Comment on above: Performed By: #### B MP, BNP, LIPID #### [facility] [address] [place] [address] Dr. Braxton Aly Cholesterol in HDL [Mass/Vol] 36 mg/dL Critically low 40-60 mg/dL [facility] Comment on above: Performed By: #### B MP, BNP, LIPID #### [facility] [address] [place] [address] Dr. Braxton Aly Cholesterol in LDL [Mass/Vol] 67.8 mg/dL Normal [facility] Comment on above: Performed By: #### B MP, BNP, LIPID #### [facility] [address] [address] [address] Braxton Aly Cholesterol.total/Cho lesterol in HDL [Mass ratio] 3.3 {ratio} [facility] Comment on above: Performed By: #### B MP, BNP, LIPID #### [facility] [address] [address] [address] Braxton Aly HDL NORMAL > or = 60 mg/dl - LOW CARDIOVASCULAR RISK <40 mg/dl - HIGH CARDIOVASCULAR RISK Normal [facility] Comment on above: Performed By: #### B MP, BNP, LIPID #### [facility] [address] [place] [address] Dr. Braxton Aly LDL CALC NORMAL SEE BELOW Normal [facility] Comment on above: Result Comment: <100 mg/dl OPTIMAL 100 - 129 mg/dl NEAR OR ABOVE OPTIMAL 130 - 159 mg/dl BORDERLINE HIGH 160 - 189 mg/dl HIGH >190 mg/dl VERY HIGH Performed By: #### B MP, BNP, LIPID #### [facility] [address] [place] [address] Dr. Braxton Aly Triglyceride [Mass/Vol] 76 mg/dL <=150 mg/dL [facility] Comment on above: Performed By: #### B MP, BNP, LIPID #### [facility] [address] [place] [address] Dr. Braxton Aly VLDL CALC 15.2 mg/dL Normal [facility] Comment on above: Performed By: #### B MP, BNP, LIPID #### [facility] [address] [address] [address] Braxton Aly Lipid Panelon 04-08-2023 Lipid Panel > or = 60 mg/dl - LOW CARDIOVASCULAR RISK <40 mg/dl - HIGH CARDIOVASCULAR RISK [employer] Other Lipid Panel SEE BELOW [employer] Other Lipid Panel 67.8 mg/dL [employer] Other Lipid Panel 15.2 mg/dL [employer] Other PROF CHEM 8 (BAS METB)on Anion gap [Moles/Vol] 9.4 mmol/L [facility] Comment on above: Performed By: #### B MP, BNP, LIPID #### [facility] [address] [place] [address] Dr. Braxton Aly Calcium [Mass/Vol] 8.9 mg/dL Normal 8.5-10.1 [facility] Comment on above: Performed By: #### B MP, BNP, LIPID #### [facility] [address] [place] [address] Dr. Braxton Aly Chloride [Moles/Vol] 100 mmol/L 98-107 mmol/L [facility] Comment on above: Performed By: #### B MP, BNP, LIPID #### [facility] [address] [place] [address] Dr. Braxton Aly CO2 [Moles/Vol] 34.7 mmol/L Critically high 21.0-32.0 [facility] Comment on above: Performed By: #### B MP, BNP, LIPID #### [facility] [address] [place] [address] Dr. Braxton Aly Creatinine [Mass/Vol] 1.71 mg/dL Critically high 0.70-1.30 [facility] Comment on above: Performed By: #### B MP, BNP, LIPID #### [facility] [address] [place] [address] Dr. Braxton Aly EGFR-AF DUTCH 49 mL/min/1.73m2 Critically low >=60 [facility] Comment on above: Performed By: #### B MP, BNP, LIPID #### [facility] [address] [place] [address] Dr. Braxton Aly EGFR-NON AF DUTCH 40 mL/min/1.73m2 Critically low >=60 [facility] Comment on above: Performed By: #### B MP, BNP, LIPID #### [facility] [address] [place] [address] Dr. Braxton Aly Glucose [Mass/Vol] 148 mg/dL Critically high 74-106 [facility] Comment on above: Performed By: #### B MP, BNP, LIPID #### [facility] [address] [address] [address] Braxton Aly Potassium [Moles/Vol] 4.1 mmol/L Normal 3.5-5.1 [facility] Comment on above: Performed By: #### B MP, BNP, LIPID #### [facility] [address] [address] [address] Braxton Aly Sodium [Moles/Vol] 140 mmol/L Normal 136-145 [facility] Comment on above: Performed By: #### B MP, BNP, LIPID #### [facility] [address] [address] [address] Braxton Aly Urea nitrogen [Mass/Vol] 25.0 mg/dL Critically high 7.0-18.0 [facility] Comment on above: Performed By: #### B MP, BNP, LIPID #### [facility] [address] [place] [address] Dr. Braxton Aly Urea nitrogen/Creatinine [Mass ratio] 14.6 mg/mg [facility] Comment on above: Performed By: #### B MP, BNP, LIPID #### [facility] [address] [place] [address] Dr. Braxton Aly Basic Metabolic Panelon 12-25 Calcium [Mass/Vol] 8.2696199 mg/dL 8.5-10 .1 mg/dL [employer] Other CO2 [Moles/Vol] 31.49980900 mmol/L 21.0-3 2.0 mmol/L [employer] Other Creatinine [Mass/Vol] 1.43238254 mg/dL Critically high 0.70-1.30 mg/dL [employer] Other Potassium [Moles/Vol] 3.67354202 mmol/L Critically low 3.5-5.1 mmol/L [employer] Other Urea nitrogen [Mass/Vol] 15.5587021 mg/dL 7.0-18.0 mg/dL [facility] [employer] Other Basic Metabolic Panel see note [facility] [employer] Other Basic Metabolic Panel 141 mmol/L 136-14 5 mmol/L [facility] [employer] Other Basic Metabolic Panel 157 mg/dL Critically high 74-106 mg /dL [facility] [employer] Other Basic Metabolic Panel 52 mL/min/1.73m2 Critically low >=60 mL/min/1.73m 2 [facility] [employer] Other Basic Metabolic Panel >60 mL/min/1.73m2 > =60 mL/min/1.73m 2 [facility] [employer] Other Anion gap [Moles/Vol] 11.6 mmol/L Normal No [facility] [employer] Other Comment on above: Performed By: #### B MP #### [facility] [address] [address] [address] Braxton Aly Chloride [Moles/Vol] 101 mmol/L Normal 98-107 [facility] [employer] Other Comment on above: Performed By: #### B MP #### [facility] [address] [address] [address] Braxton Aly Urea nitrogen/Creatinine [Mass ratio] 11.0 mg/mg Normal [facility] [employer] Other Comment on above: Performed By: #### B MP #### [facility] [address] [address] [address] Braxton Aly PROF CHEM 8 (BAS METB)on Calcium [Mass/Vol] 8.8 mg/dL Normal 8.5-10.1 [facility] Comment on above: Performed By: #### B MP #### [facility] [address] [address] [address] Braxton Aly CO2 [Moles/Vol] 31.7 mmol/L Normal 21.0-32.0 [facility] Comment on above: Performed By: #### B MP #### [facility] [address] [address] [address] Braxton Aly Creatinine [Mass/Vol] 1.36 mg/dL Critically high 0.70-1.30 [facility] Comment on above: Performed By: #### B MP #### [facility] [address] [address] [address] Braxton lAy EGFR-AF DUTCH >60 Normal >=60 [facility] Comment on above: Performed By: #### B MP #### [facility] [address] [address] [address] Braxton Aly EGFR-NON AF DUTCH 52 mL/min/1.73m2 Critically low >=60 [facility] Comment on above: Performed By: #### B MP #### [facility] [address] [address] [address] Braxton Aly Glucose [Mass/Vol] 157 mg/dL Critically high 74-106 [facility] Comment on above: Performed By: #### B MP #### [facility] [address] [address] [address] Braxton Aly Potassium [Moles/Vol] 3.3 mmol/L Critically low 3.5-5.1 [facility] Comment on above: Performed By: #### B MP #### [facility] [address] [address] [address] Braxton Aly Sodium [Moles/Vol] 141 mmol/L Normal 136-145 [facility] Comment on above: Performed By: #### B MP #### [facility] [id number] Braxton Aly Urea nitrogen [Mass/Vol] 15.0 mg/dL Normal 7.0-18.0 [facility] Comment on above: Performed By: #### B MP #### [facility] [id number] Braxton Aly Office Visit (Cardiology)on 12-06-2022 [...] Recorded: 06Dec2022 08:23AM Heart Rate60, R Radial [id number], RUE, Sitting [id number], RUE, Sitting Height5 ft 9 in Nzywop531 lb BMI Dykkzsjafs53.81 kg/m2 BSA Calculated2.51 Tobacco Useb) No PHQ-2 [...] a) No falls within the last year [id number] [place] [address] DO Work Phone: Tobacco use status [facility] b) No [facility]Lhfejwfrob-[facility] [place] [address] DO Work Phone: BNPon 11-08-2022 Natriuretic peptide B (Bld) [Mass/Vol] 2323.0 pg/mL Critically high <=900.0 [facility] Comment on above: Performed By: #### B COMMUNICATION PROFESSOR, BMP #### [facility] [address] [place] [address] Dr. Braxton Aly PROF CHEM 8 (BAS METB)on Anion gap [Moles/Vol] 7.5 mmol/L Normal [facility] Comment on above: Performed By: #### B COMMUNICATION PROFESSOR, BMP #### [facility] [address] [address] [address] Braxton Aly Calcium [Mass/Vol] 8.8 mg/dL Normal 8.5-10.1 [facility] Comment on above: Performed By: #### B COMMUNICATION PROFESSOR, BMP #### [facility] [address] [place] [address] Dr. Braxton Aly Chloride [Moles/Vol] 100 mmol/L Normal 98-107 [facility] Comment on above: Performed By: #### B COMMUNICATION PROFESSOR, BMP #### [facility] [address] [address] [address] Braxton Aly CO2 [Moles/Vol] 37.5 mmol/L Critically high 21.0-32.0 [facility] Comment on above: Performed By: #### B COMMUNICATION PROFESSOR, BMP #### [facility] [address] [address] [address] Braxton Aly Creatinine [Mass/Vol] 1.38 mg/dL Critically high 0.70-1.30 [facility] Comment on above: Performed By: #### B COMMUNICATION PROFESSOR, BMP #### [facility] [address] [address] [address] Braxton Aly EGFR-AF DUTCH >60 Normal >=60 [facility] Comment on above: Performed By: #### B COMMUNICATION PROFESSOR, BMP #### [facility] [address] [address] [address] Braxton Aly EGFR-NON AF DUTCH 51 mL/min/1.73m2 Critically low >=60 [facility] Comment on above: Performed By: #### B COMMUNICATION PROFESSOR, BMP #### [facility] [address] [address] [address] Braxton Aly Glucose [Mass/Vol] 141 mg/dL Critically high 74-106 [facility] Comment on above: Performed By: #### B COMMUNICATION PROFESSOR, BMP #### [facility] [address] [address] [address] Braxton Aly Potassium [Moles/Vol] 3.0 mmol/L Critically low 3.5-5.1 [facility] Comment on above: Performed By: #### B COMMUNICATION PROFESSOR, BMP #### [facility] [address] [address] [address] Braxton Aly Sodium [Moles/Vol] 142 mmol/L Normal 136-145 [facility] Comment on above: Performed By: #### B COMMUNICATION PROFESSOR, BMP #### [facility] [address] [address] [address] Braxton Aly Urea nitrogen [Mass/Vol] 16.0 mg/dL Normal 7.0-18.0 [facility] Comment on above: Performed By: #### B COMMUNICATION PROFESSOR, BMP #### [facility] [address] [place], [place] [address] Dr. Braxton Aly Urea nitrogen/Creatinine [Mass ratio] 11.6 mg/mg Normal [facility] Comment on above: Performed By: #### B COMMUNICATION PROFESSOR, BMP #### [facility] [address] [place], [place] [address] Dr. Braxton Aly XR CHEST 2 Von [...] ALEX DAWN Date: 2022-11-08 13:38 Normal [facility] Office Visit (Cardiology)on 04-12-2022 Follow-up visit [...] History of Present Illness attended cousins in [place] Patient returns in follow-up of problems as [...] Recorded: 12Apr2022 01:22PM Heart Rate60, R Radial Sszsvcnh452, LUE, Sitting Eybzoufcg01, LUE, Sitting Height5 ft 9 in Daqmwo025 lb BMI Ilmmfsqexu54.75 kg/m2 BSA Calculated2.46 Tobacco Useb) No PHQ-2 [...] Apr 12 2022 2:25PM EST (Author) Normal [facility] Tobacco Screening.on 022 Adult depression screening assessment No [facility] 250 DO Work Phone: Fall risk assessment a) No falls within the last year [facility] 250 DO Work Phone: Tobacco use status CPHS b) No [facility] 250 DO Work Phone: Echocardiogramon 03-18-2022 Echocardiography [facility] [address], [address], [place] [address] TRANSTHORACIC ECHOCARDIOGRAM REPORT Patient Name: ROJAS GIBBS Reading Physician: [id number] Knowles MD Study Date: 03/18/2022 Referring Physician: [id number] KNOWLES MRN/PID: [id number] PCP: Anibal Gonzales Accession/Order#: [id number] Department Location: [facility] Date of : 1955 Fellow: Gender: M Nurse: Admit Date: Crushing Machine Operator: Makenna John RDCS, RVT Height: 175.26 cm CC Report to: Weight: 138.35 kg Study Type: Echocardiogram BSA: 2.47 m2 Blood Pressure: 112 /70 mmHg Diagnosis/ICD: 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 Tobacco Screening.on 022 Fall risk assessment b) One or more fall s in the last year [facility] Heart[facility] 250 DO Work Phone: Tobacco use status CPHS b) No [facility] 250 DO Work Phone: No Panel Informationon 11-07 31.8\S\31.8 above high threshold 22.0-30.0 [facility] Dewey 250 DO Work Phone: Comment on above: PERFORMED BY:[facility] [place], [place] [id number] MEDICAL DIRECTORSARA GROSSMAN M.D. 98\S\98 Normal 95-114 [facility] Jose GuadalupeAnusha Carter DO Work Phone: 4.1\S\4.1 Normal 3.5-5.1 [facility] Work Phone: 138\S\138 Normal 136-146 [facility] Work Phone: Laboratory - Microbiology an d Antimicrobial susceptibilityon 11-05-2021 SARS-CoV-2 (COVID-19) RNA NILAM+probe Ql (Unsp spec) [facility] [place] 250 DO Work Phone: No Panel Informationon 11-05 Negative Normal Negative [facility] Work Phone: Comment on above: This is a duplicate Josiane SARS Antigen (ROMEL) result to be used for statistical tracking purpose only.PERFORMED BY:[facility] [place], [place] [id number] MEDICAL DIRECTORSARA GROSSMAN M.D. IO EKG Electrocardiogram- 12 Leadon 09-24-2021 IO EKG Electrocardiogram- 12 Lead See Scanned Document [facility] io [facility] 250 DO Work Phone: No Panel Informationon 09-24 8.5\S\8.5 Normal 8.2-10.2 [facility] Work Phone: Comment on above: PERFORMED BY:[facility] [place], [place] [phone] MEDICAL DIRECTORSARA GROSSMAN M.D. 31.6\S\31.6 above high threshold 22.0-30.0 [facility] 250 DO Work Phone: 100\S\100 Normal 95-114 [facility] 250 DO Work Phone: 4.2\S\4.2 Normal 3.5-5.1 [facility] 250 DO Work Phone: 141\S\141 Normal 136-146 [facility] 250 DO Work Phone: 56\S\56 Normal [facility] Work Phone: Comment on above: GFR estimated refere nce range: According to KDOQI guidelines, <60 ml/min/1.73m2 is sufficient to diagnose a patient with chronic kidney disease. 46\S\[address] [facility] 250 DO Work Phone: 1.51\S\1.51 above high threshold 0.64-1.27 [facility] 250 DO Work Phone: 20\S\20 Normal 9-23 [facility] 250 DO Work Phone: 124\S\124 above high threshold 70-100 [facility] 250 DO Work Phone: Comment on above: Random Glucose Refer ence Range is dependent on time and content of last meal. Glucose of more than 200 mg/dL in a nonstressed, ambulatory subject supports the diagnosis of Diabetes Mellitus. ADA recommended reference range 478\S\[address] [facility] 250 DO Work Phone: Comment on above: Note: To convert fro m ng/ml to ug/ml, divide the result by 1000. Reference range (amiodarone): 1.00-2.50 ug/mL. This test was developed and its performance characteristics determined by [facility]. It has not been cleared or approved by the Food and Drug Administration. Performed at: [facility] [address] [id number] Answering Service Telephone Operator: Adina Reis [facility], Phone: [phone] BY:[address] [address] [address] [place], [place] [phone] MEDICAL DIRECTORSARA GROSSMAN M.D. 586\S\586 below low threshold [id number] [facility] 250 DO Work Phone: Tobacco Screening.on 021 Fall risk assessment a) No falls within the last year [facility] 250 DO Work Phone: Tobacco use status CPHS b) No [facility] 250 DO Work Phone: No Panel Informationon 09-12 [facility] 250 DO Work Phone: 32.1\S\32.1 above high threshold 22.0-30.0 [facility] 250 DO Work Phone: Comment on above: PERFORMED BY:[place] [address] [address] [place] [phone] MEDICAL DIRECTORSARA GROSSMAN M.D. 100\S\100 Normal 95-114 [facility] 250 DO Work Phone: 4.5\S\4.5 Normal 3.5-5.1 [facility] 250 DO Work Phone: 140\S\140 Normal 136-146 [facility] 250 DO Work Phone: Vital Signs Date Time Vital Sign Value Performing Clinician Facility 12-08-2024 10:41-0500 Body height 175.26 cm Anibal Ball DO Work Phone: [facility] 12-08-2024 10:41-0500 Body mass index (BMI) [Ratio] 45.8 kg/m2 Anibal Ball DO Work Phone: [facility] 12-08-2024 10:41-0500 Body weight 140.61 kg Anibal Ball DO Work Phone: [facility] 12-08-2024 10:41-0500 Diastolic blood pressure 85 mm[Hg] Anibal Ball DO Work Phone: [facility] 12-08-2024 10:41-0500 Heart rate 92 /min Anibal Ball DO Work Phone: [facility] 12-08-2024 10:41-0500 Respiratory rate 12 /min Anibal Ball DO Work Phone: [facility] 12-08-2024 10:41-0500 SaO2% (BldA) [Mass fraction] 97 % Anibal Ball DO Work Phone: [facility] 12-08-2024 10:41-0500 Systolic blood pressure 126 mm[Hg] Anibal Ball DO Work Phone: [facility] 11-19-2024 10:20-0500 Diastolic blood pressure 72 mm[Hg] Anibal Ball DO Work Phone: [facility] 11-19-2024 10:20-0500 Heart rate 100 /min Anibal Ball DO Work Phone: [facility] 11-19-2024 10:20-0500 Respiratory rate 20 /min Anibal Ball DO Work Phone: [facility] 11-19-2024 10:20-0500 SaO2% (BldA) [Mass fraction] 98 % Anibal Ball DO Work Phone: [facility] 11-19-2024 10:20-0500 Systolic blood pressure 115 mm[Hg] Anibal Ball DO Work Phone: [facility] 11-19-2024 08:19-0500 Body height 175.26 cm Anibal Ball DO Work Phone: [facility] 11-19-2024 08:190500 Body weight 133.81 kg Anibal Ball DO Work Phone: [facility] 09-24-2024 09:53-0400 Body height 177.8 cm Bridger Headley MD Work Phone: [facility] 09-24-2024 09:53-0400 Body mass index (BMI) [Ratio] 45.34 kg/m2 Bridger Headley MD Work Phone: [facility] 09-24-2024 09:53-0400 Body weight 143.34 kg Bridger Headley MD Work Phone: [facility] 09-24-2024 09:53-0400 Diastolic blood pressure 74 mm[Hg] Bridger Headley MD Work Phone: [facility] 09-24-2024 09:53-0400 Heart rate 97 /min Bridger Headley MD Work Phone: [facility] 09-24-2024 09:53-0400 Systolic blood pressure 136 mm[Hg] Bridger Headley MD Work Phone: [facility] 09-06-2024 11:11-0400 Body height 172.72 cm [facility] 09-06-2024 11:11-0400 Body mass index (BMI) [Ratio] 48.7 kg/m2 [facility] 09-06-2024 11:11-0400 Body weight 145.37 kg [facility] 09-06-2024 11:11-0400 Diastolic blood pressure 93 mm[Hg] [facility] 09-06-2024 11:11-0400 Heart rate 82 /min [facility] 09-06-2024 11:11-0400 Respiratory rate 12 /min [facility] 09-06-2024 11:11-0400 Systolic blood pressure 136 mm[Hg] [facility] 07-08-2024 12:08-0400 Body height 172.72 cm [facility] 07-08-2024 12:08-0400 Body mass index (BMI) [Ratio] 48.8 kg/m2 [facility] 07-08-2024 12:08-0400 Body weight 145.71 kg [facility] 07-08-2024 12:08-0400 Diastolic blood pressure 76 mm[Hg] [facility] 07-08-2024 12:08-0400 Heart rate 142 /min [facility] 07-08-2024 12:08-0400 Respiratory rate 20 /min [facility] 07-08-2024 12:08-0400 Systolic blood pressure 114 mm[Hg] [facility] 06-24-2024 09:05-0400 Body height 172.72 cm [facility] 06-24-2024 09:05-0400 Body mass index (BMI) [Ratio] 46.7 kg/m2 [facility] 06-24-2024 09:05-0400 Body weight 139.3 kg [facility] 06-24-2024 09:05-0400 Diastolic blood pressure 72 mm[Hg] [facility] 06-24-2024 09:05-0400 Heart rate 116 /min [facility] 06-24-2024 09:05-0400 Respiratory rate 12 /min [facility] 06-24-2024 09:05-0400 Systolic blood pressure 111 mm[Hg] [facility] 06-14-2024 18:17-0400 Hourly Rounding Mbanefo OJUKWU [facility] 06-14-2024 18:17-0400 Promise to Return Mbanefo OJUKWU [facility] 06-14-2024 17:00-0400 Hourly Rounding Mbanefo OJUKWU [facility] 06-14-2024 17:00-0400 Promise to Return Mbanefo OJUKWU [facility] 06-14-2024 16:44-0400 Hourly Rounding Mbanefo OJUKWU [facility] 06-14-2024 16:44-0400 Promise to Return Mbanefo OJUKWU [facility] 06-14-2024 15:08-0400 Heart rate 97 /min Mbanefo OJUKWU [facility] 06-14-2024 15:08-0400 SaO2% (BldA) [Mass fraction] 96 % Mbanefo OJUKWU [facility] 06-14-2024 15:08-0400 Respiratory rate 16 /min Mbanefo OJUKWU [facility] 06-14-2024 15:08-0400 Diastolic blood pressure 64 mm[Hg] Mbanefo OJUKWU [facility] 06-14-2024 15:08-0400 Mean blood pressure 76 mm[Hg] Mbanefo OJUKWU [facility] 06-14-2024 15:08-0400 Systolic blood pressure 99 mm[Hg] Mbanefo OJUKWU [facility] 06-14-2024 15:07-0400 Body temperature 98.06 [degF] Mbanefo OJUKWU [facility] 06-14-2024 15:00-0400 Blood Pressure Location Mbanefo OJUKWU [facility] 06-14-2024 11:20-0400 Heart rate 102 /min Mbanefo OJUKWU [facility] 06-14-2024 11:20-0400 SaO2% (BldA) [Mass fraction] 97 % Mbanefo OJUKWU [facility] 06-14-2024 11:19-0400 Diastolic blood pressure 73 mm[Hg] Mbanefo OJUKWU [facility] 06-14-2024 11:19-0400 Mean blood pressure 82 mm[Hg] Mbanefo OJUKWU [facility] 06-14-2024 11:19-0400 Systolic blood pressure 102 mm[Hg] Mbanefo OJUKWU [facility] 06-14-2024 11:19-0400 Body temperature 97.88 [degF] Mbanefo OJUKWU [facility] 06-14-2024 11:00-0400 Heart rate 70 /min Mbanefo OJUKWU [facility] 06-14-2024 07:57-0400 Heart rate 69 /min Mbanefo OJUKWU [facility] 06-13-2024 23:20-0400 Body temperature 97.16 [degF] Mbanefo OJUKWU [facility] 06-13-2024 23:20-0400 Respiratory rate 18 /min Mbanefo OJUKWU [facility] 06-13-2024 19:00-0400 Mean blood pressure 78 mm[Hg] Mbanefo OJUKWU [facility] 06-13-2024 18:10-0400 Blood Pressure Location Mbanefo OJUKWU [facility] 06-13-2024 18:10-0400 Mean blood pressure 71 mm[Hg] Mbanefo OJUKWU [facility] 06-13-2024 18:05-0400 Blood Pressure Location Mbanefo OJUKWU [facility] 06-13-2024 18:05-0400 Mean blood pressure 75 mm[Hg] Mbanefo OJUKWU [facility] 06-13-2024 17:20-0400 Respiratory rate 17 /min Mbanefo OJUKWU [facility] 06-13-2024 13:20-0400 Respiratory rate 16 /min Mbanefo OJUKWU [facility] 06-13-2024 10:07-0400 Heart rate 150 /min Mbanefo OJUKWU [facility] 06-13-2024 08:57-0400 Heart rate 160 /min Mbanefo OJUKWU [facility] 06-13-2024 08:10-0400 Respiratory rate 18 /min Mbanefo OJUKWU [facility] 06-12-2024 19:29-0400 Body temperature 97.88 [degF] Mbanefo OJUKWU [facility] 06-12-2024 19:28-0400 Mean blood pressure 76 mm[Hg] Mbanefo OJUKWU [facility] 06-12-2024 19:00-0400 Respiratory rate 16 /min Mbanefo OJUKWU [facility] 06-12-2024 18:13-0400 Heart rate 84 /min Mbanefo OJUKWU [facility] 06-12-2024 14:16-0400 Heart rate 124 /min Mbanefo OLUCRETIAKWU [facility] 06-12-2024 12:01-0400 Heart rate 93 /min Mbanefo OLUCRETIAKWU [facility] 06-12-2024 11:50-0400 gluc 100 mg/dL Mbanefo OLUCRETIAKWU [facility] 06-12-2024 11:50-0400 gluc Qianefo OLUCRETIAKWU [facility] 05-06-2024 11:02-0400 Body height 172.72 cm [facility] 05-06-2024 11:02-0400 Body mass index (BMI) [Ratio] 46 kg/m2 [facility] 05-06-2024 11:02-0400 Body weight 137.49 kg [facility] 05-06-2024 11:02-0400 Diastolic blood pressure 68 mm[Hg] [facility] 05-06-2024 11:02-0400 Heart rate 106 /min [facility] 05-06-2024 11:02-0400 Respiratory rate 16 /min [facility] 05-06-2024 11:02-0400 Systolic blood pressure 93 mm[Hg] [facility] 02-06-2024 11:12-0400 Body height 172.72 cm [facility] 02-06-2024 11:12-0400 Body mass index (BMI) [Ratio] 48.8 kg/m2 [facility] 02-06-2024 11:12-0400 Body weight 145.6 kg [facility] 02-06-2024 11:12-0400 Diastolic blood pressure 75 mm[Hg] [facility] 02-06-2024 11:12-0400 Heart rate 92 /min [facility] 02-06-2024 11:12-0400 Respiratory rate 16 /min [facility] 02-06-2024 11:12-0400 Systolic blood pressure 124 mm[Hg] [facility] 12-02-2023 10:36-0500 Body height 177.8 cm Rojas Knowles MD Work Phone: [facility] 12-02-2023 10:36-0500 Body mass index (BMI) [Ratio] 47.35 kg/m2 Rojas Knowles MD Work Phone: [facility] 12-02-2023 10:36-0500 Body weight 149.69 kg Rojas Knowles MD Work Phone: [facility] 12-02-2023 10:36-0500 Diastolic blood pressure 74 mm[Hg] Rojas Knowles MD Work Phone: [facility] 12-02-2023 10:36-0500 Heart rate 64 /min Rojas Knowles MD Work Phone: [facility] 12-02-2023 10:36-0500 Systolic blood pressure 112 mm[Hg] Rojas Knowles MD Work Phone: [facility] 07-08-2023 13:45-0400 Body height 172.72 cm Anibal Ball Other [employer] Other 07-08-2023 13:45-0400 Body mass index (BMI) [Ratio] 49.11 kg/m2 Anibal Ball Other [employer] Other 07-08-2023 13:45-0400 Body weight 146.51 kg Anibal Ball Other [employer] Other 07-08-2023 13:45-0400 Diastolic blood pressure 69 mm[Hg] Anibal Ball Other [employer] Other 07-08-2023 13:45-0400 Respiratory rate 20 /min Anibal Ball Other [employer] Other 08-15-2023 13:45-0400 Systolic blood pressure 93 mm[Hg] Anibal Ball Other [employer] Other 05-15-2023 10:18-0400 Body height 172.72 cm Anibal Ball Other [employer] Other 05-15-2023 10:18-0400 Body mass index (BMI) [Ratio] 50.02 kg/m2 Anibal Ball Other [employer] Other 05-15-2023 10:18-0400 Body weight 149.23 kg Anibal Ball Other [employer] Other 05-15-2023 10:18-0400 Diastolic blood pressure 75 mm[Hg] Anibal Ball Other [employer] Other 05-15-2023 10:18-0400 Systolic blood pressure 114 mm[Hg] Anibal Ball Other [employer] Other 04-07-2023 10:30-0400 Body height 172.72 cm Anibal Ball Other [employer] Other 04-07-2023 10:30-0400 Body mass index (BMI) [Ratio] 50.54 kg/m2 Anibal Ball Other [employer] Other 04-07-2023 10:30-0400 Body weight 150.78 kg Anibal Ball Other [employer] Other 04-07-2023 10:30-0400 Diastolic blood pressure 64 mm[Hg] Anibal Ball Other [employer] Other 04-07-2023 10:30-0400 Respiratory rate 12 /min Anibal Ball Other [employer] Other 04-07-2023 10:30-0400 Systolic blood pressure 91 mm[Hg] Anibal Ball Other [employer] Other 04-07-2023 09:30-0400 Body height 172.72 cm Anibal Ball Other [employer] Other 04-07-2023 09:30-0400 Body mass index (BMI) [Ratio] 50.54 kg/m2 Anibal Ball Other [employer] Other 04-07-2023 09:30-0400 Body weight 150.78 kg Anibal Ball Other [employer] Other 04-07-2023 09:30-0400 Diastolic blood pressure 64 mm[Hg] Anibal Ball Other [employer] Other 04-07-2023 09:30-0400 Respiratory rate 12 /min Anibal Ball Other [employer] Other 04-07-2023 09:30-0400 Systolic blood pressure 91 mm[Hg] Anibal Ball Other [employer] Other 01-06-2023 11:30-0500 Body height 172.72 cm Anibal Ball Other [employer] Other 01-06-2023 11:30-0500 Body mass index (BMI) [Ratio] 49.93 kg/m2 Anibal Ball Other [employer] Other 01-06-2023 11:30-0500 Body weight 148.96 kg Anibal Ball Other [employer] Other 01-06-2023 11:30-0500 Diastolic blood pressure 76 mm[Hg] Anibal Ball Other [employer] Other 01-06-2023 11:30-0500 Respiratory rate 16 /min Anibal Ball Other [facility] [employer] Other 01-06-2023 11:30-0500 Systolic blood pressure 122 mm[Hg] Anibal Ball Other [facility] [employer] Other 12-06-2022 08:23-0500 Body height 175.26 cm Anibal E Ball Work Phone: [facility]Rktizwydlz-P[facility]ful [place] 250 DO Work Phone: 12-06-2022 08:23-0500 Body mass index (BMI) [Ratio] 46.81 kg/m2 Anibal E Ball Work Phone: [facility]-Xrsyfmqfgk-Cwpyos [place] 250 DO Work Phone: 12-06-2022 08:23-0500 Body surface area Derived from formula 2.51 m2 Anibal E Ball Work Phone: XT-Rlttxxsmnm-Setsfl [place] 250 DO Work Phone: 12-06-2022 08:23-0500 Body weight 143.79 kg Anibal E Ball Work Phone: RD-Wsibthunns-Thraqc [place] 250 DO Work Phone: 12-06-2022 08:23-0500 Diastolic blood pressure 62 mm[Hg] Anibal E Ball Work Phone: WJ-Rbhpxijyql-Dbszlw [place] 250 DO Work Phone: 12-06-2022 08:23-0500 Heart rate 60 /min Anibal E Ball Work Phone: [place]-Ezmmwerufk-Urhaau [place] 250 DO Work Phone: 12-06-2022 08:23-0500 Systolic blood pressure 110 mm[Hg] Anibal E Ball Work Phone: IE-Gbaqxzsgnj-Adzmun [place] 250 DO Work Phone: 12-05-2022 11:30-0500 Body height 172.72 cm Anibal Ball Other [facility] [employer] Other 12-05-2022 11:30-0500 Body mass index (BMI) [Ratio] 48.32 kg/m2 Anibal Ball Other [employer] Other 12-05-2022 11:30-0500 Body weight 144.15 kg Anibal Ball Other [employer] Other 12-05-2022 11:30-0500 Diastolic blood pressure 72 mm[Hg] Anibal Ball Other [facility] [employer] Other 12-05-2022 11:30-0500 Respiratory rate 16 /min Anibal Ball Other [employer] Other 12-05-2022 11:30-0500 Systolic blood pressure 122 mm[Hg] Anibal Ball Other [facility] [employer] Other 04-12-2022 13:22-0400 Body height 175.26 cm Anibal E Ball Work Phone: [facility] [employer] 250 DO Work Phone: 04-12-2022 13:22-0400 Body mass index (BMI) [Ratio] 44.75 kg/m2 Anibal E Ball Work Phone: [facility] [employer] 250 DO Work Phone: 04-12-2022 13:22-0400 Body surface area Derived from formula 2.46 m2 Anibal E Ball Work Phone: [facility] [employer] 250 DO Work Phone: 04-12-2022 13:22-0400 Body weight 137.44 kg Anibal E Ball Work Phone: [facility] [employer] 250 DO Work Phone: 04-12-2022 13:22-0400 Diastolic blood pressure 70 mm[Hg] Anibal Melendez Ball Work Phone: [facility] DO Work Phone: 04-12-2022 13:22-0400 Heart rate 60 /min Anibal Melendez Ball Work Phone: [facility] DO Work Phone: 04-12-2022 13:22-0400 Systolic blood pressure 110 mm[Hg] Anibal Melendez Ball Work Phone: [facility] DO Work Phone: 03-18-2022 08:45-0400 60 1 Anibal Melendez Ball Work Phone: [facility] [place] Work Phone: Comment on above: [id number] 12-03-2021 11:02-0500 Body height 175.26 cm Anibal Melendez Ball Work Phone: [facility] DO Work Phone: 12-03-2021 11:02-0500 Body mass index (BMI) [Ratio] 45.04 kg/m2 Anibal Melendez Ball Work Phone: [facility] DO Work Phone: 12-03-2021 11:02-0500 Body surface area Derived from formula 2.47 m2 Anibal Melendez Ball Work Phone: [facility] DO Work Phone: 12-03-2021 11:02-0500 Body weight 138.35 kg Anibal Melendez Ball Work Phone: [facility] DO Work Phone: 12-03-2021 11:02-0500 Diastolic blood pressure 68 mm[Hg] Anibal Melendez Ball Work Phone: [facility] DO Work Phone: 12-03-2021 11:02-0500 Heart rate 91 /min Anibal Melendez Ball Work Phone: [facility] DO Work Phone: 12-03-2021 11:02-0500 Systolic blood pressure 109 mm[Hg] Anibal Melendez Ball Work Phone: [facility] DO Work Phone: 09-24-2021 10:36-0400 Body height 175.26 cm Anibal Melendez Ball Work Phone: [facility] DO Work Phone: 09-24-2021 10:36-0400 Body mass index (BMI) [Ratio] 52.57 kg/m2 Anibal Melendez Ball Work Phone: [facility] [place] DO Work Phone: 09-24-2021 10:36-0400 Body surface area Derived from formula 2.64 m2 Anibal Melendez Ball Work Phone: [facility] DO Work Phone: 09-24-2021 10:36-0400 Body weight 161.48 kg Anibal Melendez Ball Work Phone: [facility] DO Work Phone: 09-24-2021 10:36-0400 Diastolic blood pressure 70 mm[Hg] Anibal Melendez Ball Work Phone: [facility] DO Work Phone: 09-24-2021 10:36-0400 Heart rate 130 /min Anibal Melendez Ball Work Phone: [facility] DO Work Phone: 09-24-2021 10:36-0400 Systolic blood pressure 104 mm[Hg] Anibal Melendez Ball Work Phone: [facility] DO Work Phone: Encounters Encounter Date Encounter Type Care Provider Facility Start: 12-08-2024 End: 12-08-2024 ambulatory Anibal Gonzales DO Work Phone: [facility] Work Phone: Start: 12-08-2024 End: 12-08-2024 Patient encounter procedure Anibal Gonzales DO Work Phone: [facility] Physician [facility] Work Phone: Start: 11-19-2024 Non-patient / Non-visit Benjam in Ball DO Work Phone: [facility] Physician [facility] Work Phone: Start: 11-19-2024 End: 11-19-2024 Admission to same day surgery center Anibal Gonzales DO Work Phone: [facility] Work Phone: Start: 11-19-2024 End: 11-19-2024 ambulatory Anibal Gonzales Facility:[facility] Start: 09-28-2024 Non-patient / Non-visit Benjam in Nieves DO Work Phone: [facility] Physician [facility] Work Phone: Start: 09-24-2024 End: 09-24-2024 Office outpatient visit 25 minutes Bridger Headley MD Work Phone: [facility] Comment on above: Syncope and collapse (Primary Dx); Chronic atrial fibrillation (Multi); Atypical atrial flutter (Multi); Non-ischemic cardiomyopathy (Multi); Primary hypertension; Mixed hyperlipidemia; KOFI on CPAP; BMI 45.0-49.9, adult (Multi); Former smoker; History of bloody stools Start: 09-24-2024 End: 09-24-2024 ambulatory [facility] Amb[facility] Start: 09-21-2024 Non-patient / Non-visit Benjam in Ball DO Work Phone: [facility] Physician [facility] Work Phone: Start: 09-06-2024 End: 09-06-2024 ambulatory [facility] Work Phone: Start: 09-06-2024 End: 09-06-2024 Patient encounter procedure [facility] Physician [facility] Work Phone: Start: 07-19-2024 Non-patient / Non-visit [facility] Physician [facility] Work Phone: Start: 07-08-2024 End: 07-08-2024 ambulatory [facility] Work Phone: Start: 07-08-2024 End: 07-08-2024 Patient encounter procedure [facility] Physician [facility] Work Phone: Start: 06-28-2024 End: 06-28-2024 ambulatory [facility] Gisell Madison Facility:[facility] Start: 06-28-2024 End: 06-28-2024 Patient encounter procedure Gisell Madison [facility] Start: 06-24-2024 End: 06-24-2024 ambulatory [facility] Work Phone: Start: 06-24-2024 End: 06-24-2024 Patient encounter procedure [facility] Work Phone: Start: 06-21-2024 Non-patient / Non-visit [facility] Physician [facility] Work Phone: Start: 06-17-2024 Non-patient / Non-visit [facility] Physician [facility] Work Phone: Start: 06-12-2024 End: 06-14-2024 ambulatory Zully FIGUEROA Facility:[facility] Start: 06-12-2024 Emergency department patient visit Vaughn Rojas Facility:[facility] Start: 06-12-2024 End: 06-14-2024 [facility]ation [facility] CAROLINA [facility] Start: 06-08-2024 Non-patient / Non-visit [facility] Work Phone: Start: 05-07-2024 Non-patient / Non-visit [facility] Work Phone: Start: 05-06-2024 End: 05-06-2024 ambulatory [facility] Work Phone: Start: 05-06-2024 End: 05-06-2024 Patient encounter procedure [facility] Physician [facility] Work Phone: Start: 02-10-2024 Non-patient / Non-visit [facility] Work Phone: Start: 02-09-2024 Non-patient / Non-visit [facility] Work Phone: Start: 02-06-2024 End: 02-06-2024 ambulatory [facility] Work Phone: Start: 02-06-2024 End: 02-06-2024 Patient encounter procedure [facility] Work Phone: Start: 12-11-2023 End: 12-11-2023 ambulatory Anibal Gonzales Other [employer] Other Start: 12-11-2023 Telephone encounter Anibal Gonzales [facility] Start: 12-02-2023 End: 12-02-2023 Office outpatient visit 25 minutes Rojas Knowles MD Work Phone: [facility] Comment on above: Non-ischemic cardiom yopathy (CMS/HCC) (Primary Dx); Paroxysmal atrial fibrillation (CMS/HCC); Primary hypertension; Mixed hyperlipidemia Start: 12-02-2023 End: 12-02-2023 ambulatory ROJAS KNOWLES [facility] Ambulatory Start: 09-04-2023 End: 09-04-2023 ambulatory Anibal Gonzales Other [employer] [employer] Other Start: 09-04-2023 Telephone encounter Anibal Gonzales [facility] Start: 07-09-2023 Rx Renewal Anibal London l Work Phone: [facility] DO Work Phone: Start: 07-08-2023 End: 07-08-2023 ambulatory Anibal Gonzales Other [employer] Other Start: 07-08-2023 Office outpatient vi sit 25 minutes Anibal Gonzales [facility] Start: 06-06-2023 End: 06-06-2023 ambulatory Anibal Gonzales Other [employer] Other Start: 06-06-2023 Telephone encounter Anibal Gonzales [facility] Start: 05-15-2023 End: 05-15-2023 ambulatory Anibal Gonzales Other [employer] Other Start: 05-15-2023 Telephone encounter Anibal Gonzales [facility] Start: 05-07-2023 End: 05-07-2023 ambulatory Anibal Gonzales Other [employer] Other Start: 05-07-2023 Telephone encounter Anibal Gonzales [facility] Start: 04-25-2023 End: 04-25-2023 ambulatory Anibal Gonzales Other [employer] Other Start: 04-25-2023 Telephone encounter Anibal JONES [facility] Start: 04-24-[address] ANIBAL GONZALES Facili ty:[facility] Start: 04-08-2023 End: 04-09-[address] ANIBAL GONZALES Facility:[facility] Start: 04-07-2023 End: 04-07-2023 ambulatory Anibal Gonzales Other [employer] Other Start: 04-07-2023 Patient encounter procedure Anibal Gonzales [facility] Start: 02-24-2023 End: 02-24-2023 ambulatory Anibal Gonzales Other [employer] Other Start: 02-24-2023 Telephone encounter Anibal JONES [facility] Start: 02-11-2023 End: 02-11-2023 ambulatory Anibal Gonzales Other [employer] Other Start: 02-11-2023 Telephone encounter Anibal JONES [facility] Start: 01-10-2023 Telephone encounter Anibal Gonzales ROBERT [facility] Start: 01-10-2023 End: 01-11-[address] ANIBAL GONZALES [employer] [employer] Other Start: 01-08-2023 End: 01-08-2023 ambulatory Anibal Gonzales Other [employer] Other Start: 01-08-2023 Telephone encounter [facility] Start: 01-06-2023 End: 01-06-2023 ambulatory Anibal Gonzales Other [employer] Other Start: 01-06-2023 Office outpatient vi sit 25 minutes Anibal Gonzales [facility] Start: 12-25-2022 End: 12-25-2022 ambulatory Anibal Gonzales Other [employer] Other Start: 12-25-2022 Telephone encounter Anibal JONES [facility] Start: 12-06-2022 [facility] Start: 12-06-2022 Office outpatient vi sit 25 minutes Anibal Melendez Ball Work Phone: [id number] 250 DO Work Phone: Start: 12-05-2022 End: 12-05-2022 ambulatory Anibal Gonzales Other [employer] Other Start: 12-05-2022 Office outpatient vi sit 25 minutes Anibal Gonzales [facility] Start: 12-03-2022 End: 12-03-2022 ambulatory Anibal Gonzales Other [employer] Other Start: 12-03-2022 Telephone encounter [facility] Start: 11-08-2022 End: 11-09-[address] ANIBAL GONZALES Facility:[facility] Start: 08-07-2022 Rx Renewal Anibal felder Work Phone: [facility] DO Work Phone: Start: 04-12-2022 Office outpatient vi sit 25 minutes Anibal Gonzales Work Phone: [facility] DO Work Phone: Start: 04-12-2022 ambulatory Anibal Gonzales Fa cility: Start: 03-18-2022 Patient encounter procedure Anibal Gonzales Work Phone: [facility] [place] Work Phone: Start: 12-03-2021 Office outpatient vi sit 25 minutes Anibal Gonzales Work Phone: [facility] DO Work Phone: Start: 11-07-2021 Chart Update Anibal felder Work Phone: [facility] DO Work Phone: Start: 10-05-2021 Chart Update Anibal felder Work Phone: [facility] DO Work Phone: Start: 09-24-2021 Chart Update Anibal felder Work Phone: [facility] DO Work Phone: Start: 09-24-2021 Patient encounter procedure Anibal Gonzales Work Phone: [facility] DO Work Phone: Start: 09-14-2021 Chart Update Rojas campuzano MD Work Phone: [facility] DO Work Phone: Start: 09-13-2021 Chart Update Rojas campuzano MD Work Phone: [facility] DO Work Phone: Procedures Date Procedure Procedure Detail Performing Clinician Start: 11-19-2024 Esophagogastroduodenoscopy Anibal Gonzales DO Work Phone: Start: 09-24-2024 Ecg routine ecg w/least 12 lds w/i&r Bridger Headley MD Work Phone: Start: 02-10-2024 E coli Shiga Toxin EIA Start: 02-10-2024 Salmonella/Shigella Screen Start: 04-08-2023 End: 04-08-[address] ANIBAL GONZALES Comment on above: Performed By: #### PSASC #### [facility] [address] [place] [address] Dr. Braxton Aly Start: 03-18-2022 Echocardiography Anibal Gonzales Work Phone: Appendectomy Anibal Gonzales Work Phone: Arthroplasty of knee Benjra campuzano E Ball Work Phone: Cardioversion Anibal E Bal l Work Phone: Cataract surgery Anibal E Ball Work Phone: Colonoscopy Anibal E Ball Work Phone: Comment on above: 2020; Tonsillectomy Anibal Melendez Bal l Work Phone: Plan of Treatment Date Care Activity Detail Author Start: 04-27-2025 End: 04-27-2025 Patient encounter procedure 04/27/2025 1:30 PM EDT Office Visit [address] [place] [address] Bridger Headley MD [address] [facility] [address] [place] [address] [facility] Start: 12-14-2024 End: 12-14-2024 Patient encounter procedure 12/14/2024 10:40 AM EST Office Visit [address] [place] [address] Rojas Knowles MD [address] [facility] [address] [place] [address] [facility] Start: 11-19-2024 [facility] Start: 07-25-2024 COVID-19 Vaccine ( season) COVID-19 Vaccine ( season) [facility] Start: 07-25-2024 Influenza vaccination Influenza Vaccine (#1) [facility] Start: 12-02-2023 FUV, Provider: Rojas Knowles, Status: Pen, Time: 10:40 AM FUV, Provider: Rojas Knowles, Status: Pen, Time: 10:40 AM [id number] 250 DO Work Phone: Start: 07-25-2023 Influenza vaccination Influenza Vaccine (#1) [facility] Start: 11-29-2022 FUV, Provider: Rojas Knowles, Status: Pen, Time: 2:40 PM FUV, Provider: Rojas Knowles, Status: Pen, Time: 2:40 PM -[facility] DO Work Phone: Start: 04-12-2022 FUV, Provider: Rojas Knowles, Status: Pen, Time: 1:30 PM FUV, Provider: Rojas Knowles, Status: Pen, Time: 1:[address] [facility] DO Work Phone: Start: 12-03-2021 FUV, Provider: Rojas Knowles, Status: Pen, Time: 11:20 AM FUV, Provider: Rojas Knowles, Status: Pen, Time: 11:[address] [facility] DO Work Phone: Start: 11-05-2021 FUV, Provider: Rojas Knowles, Status: Pen, Time: 8:00 AM FUV, Provider: Rojas Knowles, Status: Pen, Time: 8:[address] [facility] DO Work Phone: Start: 09-24-2021 FUV, Provider: Rojas Knowles, Status: Pen, Time: 10:20 AM FUV, Provider: Rojas Knowles, Status: Deandre, Time: 10:20 AM -[facility] DO Work Phone: Start: 06-07-2021 COVID-19 Vaccine (2 - Booster for Sandor series) COVID-19 Vaccine (2 - Booster for Sandor series) [facility] Start: 2020 Abdominal aortic aneurysm screening Abdominal Aortic Aneurysm (AAA) Screening [facility] Start: 2015 RSV High Risk: (Elderly (60+) or Population) (1 - Risk 60-74 years 1-dose series) RSV High Risk: (Elderly (60+) or Population) (1 - Risk 60-74 years 1-dose series) [facility] Start: 2005 Zoster Vaccines (1 of 2) Zoster Vaccines (1 of 2) [facility] Start: 1977 DTaP/Tdap/Td Vaccines (1 - Tdap) DTaP/Tdap/Td Vaccines (1 - Tdap) [facility] Start: 1974 Urine screening for protein Diabetes: Urine Protein Screening [facility] Start: 1973 Hepatitis C screening Hepatitis C Screening [facility] Start: 1965 Diabetic foot examination Diabetes: Foot Exam [facility] Start: 1965 Glaucoma screening Diabetes: Retinopathy Screening [facility] Start: 1961 Pneumococcal Vaccine: 65+ Years (1 - PCV) Pneumococcal Vaccine: 65+ Years (1 - PCV) [facility] Start: 1961 Pneumococcal Vaccine: 65+ Years (1 of 2 - PCV) Pneumococcal Vaccine: 65+ Years (1 of 2 - PCV) [facility] Start: 1955 Hemoglobin A1c measurement Diabetes: Hemoglobin A1C [facility] Start: 1955 Lipid panel Lipid Panel [facility] Start: 1955 Medicare Annual Wellness Visit Medicare Annual Wellness Visit (AWV) [facility] Start: 1955 Screening for malignant neoplasm of colon [facility] Bacteria identified in Stool by Culture [facility] Comprehensive metabo lic 1999 panel - Serum or Plasma [facility] Comprehensive metabo lic 1999 panel - Serum or Plasma [facility] Comprehensive metabo lic 1999 panel - Serum or Plasma [facility] Comprehensive metabo lic 1999 panel - Serum or Plasma [facility] Microalbumin [Mass/volume] in Urine [facility] Patient Education Gastritis ED Hemorrhoids ED Know your Meds [facility] Work Phone: [facility] Immunizations Immunization Date Immunization Notes Care Provider Fa cili 04-18-2021 COVID-19 Vaccine Brad ssen - Documentation Purposes Only Anibal Gonzales Other [facility] 04-12-2021 Sandor COVID-19 Vac cine 0.5 ML Intramuscular Suspension Anibal Gonzales Work Phone: -[facility] DO Work Phone: Comment on above: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 Status Negro [...] Attending Provider Active Start: May 07, 2024 [employer] Relationship Specialty Start Date End Date [place]ibal [place] [address] PCP - General Internal Medicine 12/02/23 Team Status: Active Member Role Status Dates Anibal Nieves Primary Care Provide r, Attending Provider Active Start: September 21, 2024 Team Status: Active Member Role Status Dates Anibal Gonzales DO Primary Care Provide r, Attending Provider Active Start: September 28, 2024 Team Status: Inactive Member Role Status Dates Anibal Gonzales DO Primary Care Provider Active Start: November 19, 2024 End: November 19, 2024 Sheyla Ramey MD Attending Provider Active Start: November 19, 2024 End: November 19, 2024 Team Status: Active Member Role Status Dates Anibal Gonzales DO Primary Care Provider Active Start: November 19, 2024 Sheyla Ramey MD Attending Provider, Other Provider Active Start: November 19, 2024 Team Status: Inactive Member Role Status Dates Anibal Nieves DO Primary Care Provide r, Attending Provider Active Start: December 08, 2024 End: December 08, 2024 Goals (unrecognized section and content) [...] BE BASED ON THE PRIMARY CLINICAL RECORDS. [employer] [facility]. provides no warranty or guarantee of the accuracy or completeness of information in this document.
[2024-12-23 10:11] LABS: Basophils Absolute Auto 0.1 10^3/uL (0.0-0.1); Basophils Percent Auto 0.5 % (0.2-2.0); Eosinophils Absolute Auto 0.1 10^3/uL (0.0-0.7); Eosinophils Percent Auto 0.9 % (0.9-7.0); Hemoglobin 12.3 g/dL (14.0-18.0); Immature Granulocytes Abs Auto 0.04 10^3/uL (0.00-0.03); Immature Granulocytes Pct Auto 0.3 % (0.0-0.5); Lymphocytes Absolute Auto 0.9 10^3/uL (1.2-3.8); Lymphocytes Percent Auto 7.5 % (20.5-60.0); Mean Corpuscular HGB Conc 29.3 g/dL (29.9-35.2); Mean Corpuscular Hemoglobin 26.5 pg (25.9-34.0); Mean Corpuscular Volume 90.3 fL (80.0-94.0); Monocytes Absolute Auto 0.9 10^3/uL (0.3-0.8); Monocytes Percent Auto 7.8 % (1.7-12.0); Platelet Count 292 10^3/uL (150-450); Red Blood Count 4.65 10^6/uL (4.70-6.10); Red Cell Distribution Width 16.2 % (11.0-15.0); White Blood Count 12.1 10^3/uL (4.0-11.0)
[2024-12-23 10:50] LABS: Anion Gap 8.7; BUN Creatinine Ratio 14.8; Calcium 8.6 mg/dL (8.5-10.1); Carbon Dioxide 30.1 mmol/L (21.0-32.0); Chloride 103 mmol/L (98-107); Estimated GFR (African America >60 (>=60 mL/min/1.73m^2); Estimated GFR (Non-African Ame >60 (>=60 mL/min/1.73m^2); Glucose 108 mg/dL (74-106); Potassium 3.8 mmol/L (3.5-5.1); Sodium 138 mmol/L (136-145)
[2024-12-23 12:55] LABS: Percent Iron Saturation 11.2 %
[2024-12-24 04:07] LABS: Vitamin B12 449 pg/mL (232-1245)
== END 2024-12-23 09:40 | disposition home or self-care (01) ==
LOC: LAB 09:40
PROVIDERS: PCP Internal Medicine; Visit Provider Internal Medicine
DX: D53.9 Nutritional anemia, unspecified (principal); E11.65 Type 2 diabetes mellitus with hyperglycemia; I50.22 Chronic systolic (congestive) heart failure; N18.31 Chronic kidney disease, stage 3a
CPT/HCPCS: 36415; 80048; 82607; 82728; 82746; 83540; 83550; 85025

== ENCOUNTER 2025-02-08 09:20 | Outpatient (OUT) | payer OTHER, SELFPAY ==
--- OUTSIDE RECORDS SUMMARY | 2025-02-08 09:28 | XMS_ITS | CCD ---
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 Auto (Bl d)on 06-08-2024 Lymphocytes/100 WBC (Bld) 9.1 % Low 20.5-60.0 [facility] MCH Auto (RBC) [Entitic mass ]on 06-08-2024 MCH (RBC) [Entitic mass] 28.7 pg 25.9-34.0 [facility] MCHC Auto (RBC) [Mass/Vol]on 06-08-2024 MCHC (RBC) [Mass/Vol] 30.6 g/dL 29.9-35.[address] [facility] MCV Auto (RBC) [Entitic vol] on 06-08-2024 MCV (RBC) [Entitic vol] 93.9 fL 80.0-94.0 [facility] [place] Monocytes Auto (Bld) [#/Vol] on 06-08-2024 Monocytes (Bld) [#/Vol] 0.6 10 3/uL 0.3-0.8 [facility] Monocytes/100 WBC Auto (Bld) on 06-08-2024 Monocytes/100 WBC (Bld) 5.8 % 1.7-12.0 [facility] [place] Neutrophils Auto (Bld) [#/Vo l]on 06-08-2024 Neutrophils (Bld) [#/Vol] 8.6 10 3/uL High 1.4-6.5 [facility] [place] Neutrophils/100 WBC Auto (Bl d)on 06-08-2024 Neutrophils/100 WBC (Bld) 82.9 % High 43.0-75.0 [facility] [place] No Panel Informationon 06-08 Eosinophils # (Auto) 0.1 10 3/uL 0.0-0.[address] [facility] Folate 4.80 ng/mL Low 8.60-58.90 [facility] [place] Immature Granulocyte # (Auto) 0.04 10 3/uL High 0.00-0.03 [facility] Platelet mean volume Auto (B ld) [Entitic vol]on 06-08-2024 Platelet mean volume (Bld) [Entitic vol] 9.7 fL 9.5-13.5 [facility] [place] Platelets Auto (Bld) [#/Vol] on 06-08-2024 Platelets (Bld) [#/Vol] 277 10 3/uL 150-450 [facility] [place] RBC Auto (Bld) [#/Vol]on RBC (Bld) [#/Vol] 4.60 10 6/uL Low 4.70-6.10 [facility] Basophils Auto (Bld) [#/Vol] on 05-07-2024 Basophils (Bld) [#/Vol] 0.1 10 3/uL 0.0-0.1 [facility] [place] Basophils/100 WBC Auto (Bld) on 05-07-2024 Basophils/100 WBC (Bld) 0.6 % 0.2-2.0 [facility] Cholesterol in LDL Calc [Mas s/Vol]on 05-07-2024 Cholesterol in LDL [Mass/Vol] 65.0 mg/dL [facility] [place] Comment on above: <100 mg/dl [id number] 0-129 mg/dl NEAR OR ABOVE [id number] mg/dl BORDERLINE [id number] mg/dl HIGH>190 mg/dl VERY HIGH Cholesterol in VLDL Calc [Ma ss/Vol]on 05-07-2024 Cholesterol in VLDL [Mass/Vol] 17.6 mg/dL [facility] [place] Eosinophils/100 WBC Auto (Bl d)on 05-07-2024 Eosinophils/100 WBC (Bld) 1.2 % 0.9-7.0 [facility] [place] Erythrocyte distribution wid th Auto (RBC) [Ratio]on 05-07-2024 Erythrocyte distribution width (RBC) [Ratio] 14.8 % 11.0-15.0 [facility] [place] Estimated glomerular filtrat ion rate (GFR) non- Americanon 05-07-2024 GFR/1.73 sq M.predicted among non-blacks MDRD (S/P/Bld) [Vol rate/Area] 50 mL/min/{1.73_m2} Low >=60 [facility] [place] Globulin Calc (S) [Mass/Vol] on 05-07-2024 Globulin (S) [Mass/Vol] 4.5 g/dL [facility] Glucose mean value [Mass/vol ume] in Blood Estimated from glycated hemoglobinon 05-07-2024 Average glucose Estimated from glycated hemoglobin (Bld) [Mass/Vol] 140 mg/dL [facility] [place] Hematocrit Auto (Bld) [Volum e fraction]on 05-07-2024 Hematocrit (Bld) [Volume fraction] 43.4 % 42.0-54.0 [facility] [place] Hemoglobin [Mass/volume] in Bloodon 05-07-2024 Hemoglobin (Bld) [Mass/Vol] 12.9 g/dL Low 14.0-18.0 [facility] [place] Laboratory - Chemistry and C hemistry - challengeon 05-07-2024 Albumin [Mass/Vol] 3.0 g/dL Low 3.4-5.0 [facility] ALP [Catalytic activity/Vol] 104 U/L 46-116 [facility] [place] ALT [Catalytic activity/Vol] 14 U/L Low 16-63 [facility] AST [Catalytic activity/Vol] 12 U/L Low 15-37 [facility] [place] Bilirubin [Mass/Vol] 1.1 mg/dL High 0.2-1.0 [facility] Calcium [Mass/Vol] 9.1 mg/dL 8.5-10.1 [facility] Chloride [Moles/Vol] 100 mmol/L 98-107 [facility] Cholesterol [Mass/Vol] 118 mg/dL <=200 [facility] [place] Cholesterol in HDL [Mass/Vol] 36 mg/dL Low 40-60 [facility] [place] Comment on above: > or =60 mg/dl - LOW CARDIOVASCULAR RISK<40 mg/dl - HIGH CARDIOVASCULAR RISK CO2 [Moles/Vol] 32.0 mmol/L 21.0-32.0 [facility] Creatinine [Mass/Vol] 1.41 mg/dL High 0.70-1.[address] [facility] GFR/1.73 sq M.predicted MDRD (S/P/Bld) [Vol rate/Area] mL/min/{1.73_m2} >=60 [facility] [place] Glucose [Mass/Vol] 107 mg/dL High 74-106 [facility] Potassium [Moles/Vol] 4.0 mmol/L 3.5-5.[address] [facility] Protein [Mass/Vol] 7.5 g/dL 6.4-8.2 [facility] Sodium [Moles/Vol] 138 mmol/L 136-145 [facility] Triglyceride [Mass/Vol] 88 mg/dL <=150 [facility] [place] Urea nitrogen [Mass/Vol] 16.0 mg/dL 7.0-18.0 [facility] Urea nitrogen/Creatinine [Mass ratio] 11.3 mg/mg [facility] [place] Laboratory - Hematology and Cell countson 05-07-2024 HbA1c (Bld) [Mass fraction] 6.5 % High 4.5-6.2 [facility] [place] Comment on above: ADA RECOMMENDED LIMI T 4.0 - 6.0ADA THERAPEUTIC TARGET < 7.0ACTION SUGGESTED> 7.0 Immature granulocytes/100 WBC (Bld) 0.3 % 0.0-0.5 [facility] [place] Leukocytes [#/volume] correc delmi for nucleated erythrocytes in Blood by Automated counon 05-07-2024 WBC corrected for nucl RBC Auto (Bld) [#/Vol] 9.6 10 3/uL 4.0-11.0 [facility] Lymphocytes Auto (Bld) [#/Vo l]on 05-07-2024 Lymphocytes (Bld) [#/Vol] 1.2 10 3/uL 1.2-3.8 [facility] Lymphocytes/100 WBC Auto (Bl d)on 05-07-2024 Lymphocytes/100 WBC (Bld) 11.9 % Low 20.5-60.0 [facility] MCH Auto (RBC) [Entitic mass ]on 05-07-2024 MCH (RBC) [Entitic mass] 27.3 pg 25.9-34.0 [facility] MCHC Auto (RBC) [Mass/Vol]on 05-07-2024 MCHC (RBC) [Mass/Vol] 29.7 g/dL Low 29.9-35.[address] [facility] MCV Auto (RBC) [Entitic vol] on 05-07-2024 MCV (RBC) [Entitic vol] 91.8 fL 80.0-94.0 [facility] [place] Microalbumin [Mass/volume] i n Urineon 05-07-2024 Albumin DL <= 20 mg/L (U) [Mass/Vol] 21.2 mg/dL <=30.0 [facility] Monocytes Auto (Bld) [#/Vol] on 05-07-2024 Monocytes (Bld) [#/Vol] 0.7 10 3/uL 0.3-0.8 [facility] Monocytes/100 WBC Auto (Bld) on 05-07-2024 Monocytes/100 WBC (Bld) 6.9 % 1.7-12.0 [facility] Neutrophils Auto (Bld) [#/Vo l]on 05-07-2024 Neutrophils (Bld) [#/Vol] 7.6 10 3/uL High 1.4-6.5 [facility] Neutrophils/100 WBC Auto (Bl d)on 05-07-2024 Neutrophils/100 WBC (Bld) 79.1 % High 43.0-75.0 [facility] [place] No Panel Informationon 05-07 Eosinophils # (Auto) 0.1 10 3/uL 0.0-0.[address] [facility] Immature Granulocyte # (Auto) 0.03 10 3/uL 0.00-0.03 [facility] [place] Prostate Specific Antigen Screen 0.25 ng/mL <=4.00 [facility] Platelet mean volume Auto (B ld) [Entitic vol]on 05-07-2024 Platelet mean volume (Bld) [Entitic vol] 9.6 fL 9.5-13.5 [facility] [place] Platelets Auto (Bld) [#/Vol] on 05-07-2024 Platelets (Bld) [#/Vol] 334 10 3/uL 150-450 [facility] RBC Auto (Bld) [#/Vol]on RBC (Bld) [#/Vol] 4.73 10 6/uL 4.70-6.10 [facility] Serum or plasma albumin/glob ulin mass ratioon 05-07-2024 Albumin/Globulin [Mass ratio] 0.7 {ratio} [facility] Serum or plasma anion gap de terminationon 05-07-2024 Anion gap [Moles/Vol] 10.0 [facility] Serum or plasma total choles terol/high density lipoprotein (HDL) cholesterol mass christopher 05-07-2024 Cholesterol.total/Cho lesterol in HDL [Mass ratio] 3.3 {ratio} [facility] [place] Comment on above: 3.3 - 4.4 LOW RISK4. 4 - 7.1 AVERAGE RISK7.1 - 11.0 MODERATE RISK>11.0 HIGH RISK No Panel Informationon 02-09 Clostridium difficile (PCR)(LAB) Negative NEGATIVE [facility] [place] Miscellaneous Test Comment See comment [facility] Comment on above: Specimen Source: ST - Stool - Stool - 700.100 Stool Campylobacter Culture Res 1 See comment [facility] Comment on above: [facility], No Panel InformationOrdered By: Anibal Pickett on 02-10-2024 E coli Shiga Toxin EIA [facility] Salmonella/Shigella Screen [facility] Basophils Auto (Bld) [#/Vol] on 02-09-2024 Basophils (Bld) [#/Vol] 0.1 10 3/uL 0.0-0.1 [facility] Basophils/100 WBC Auto (Bld) on 02-09-2024 Basophils/100 WBC (Bld) 0.6 % 0.2-2.0 [facility] Eosinophils/100 WBC Auto (Bl d)on 02-09-2024 Eosinophils/100 WBC (Bld) 1.1 % 0.9-7.0 [facility] [place] Erythrocyte distribution wid th Auto (RBC) [Ratio]on 02-09-2024 Erythrocyte distribution width (RBC) [Ratio] 13.6 % 11.0-15.0 [facility] Estimated glomerular filtrat ion rate (GFR) non- Americanon 02-09-2024 GFR/1.73 sq M.predicted among non-blacks MDRD (S/P/Bld) [Vol rate/Area] mL/min/{1.73_m2} >=60 [facility] [place] Globulin Calc (S) [Mass/Vol] on 02-09-2024 Globulin (S) [Mass/Vol] 4.1 g/dL [facility] Hematocrit Auto (Bld) [Volum e fraction]on 02-09-2024 Hematocrit (Bld) [Volume fraction] 40.9 % 42.0-54.0 [facility] Hemoglobin [Mass/volume] in Bloodon 02-09-2024 Hemoglobin (Bld) [Mass/Vol] 12.2 g/dL 14.0-18.0 [facility] [place] Laboratory - Chemistry and C hemistry - challengeon 02-09-2024 Albumin [Mass/Vol] 2.8 g/dL 3.4-5.0 [facility] ALP [Catalytic activity/Vol] 107 U/L 46-116 [facility] ALT [Catalytic activity/Vol] 19 U/L 16-63 [facility] AST [Catalytic activity/Vol] 14 U/L 15-37 [facility] Bilirubin [Mass/Vol] 0.9 mg/dL 0.2-1.0 [facility] Calcium [Mass/Vol] 8.9 mg/dL 8.5-10.1 [facility] Chloride [Moles/Vol] 103 mmol/L 98-107 [facility] CO2 [Moles/Vol] 26.7 mmol/L 21.0-32.0 [facility] Creatinine [Mass/Vol] 1.07 mg/dL 0.70-1.[address] [facility] GFR/1.73 sq M.predicted MDRD (S/P/Bld) [Vol rate/Area] mL/min/{1.73_m2} >=60 [facility] [place] Glucose [Mass/Vol] 102 mg/dL 74-106 [facility] Potassium [Moles/Vol] 3.5 mmol/L 3.5-5.[address] [facility] Protein [Mass/Vol] 6.9 g/dL 6.4-8.2 [facility] Sodium [Moles/Vol] 140 mmol/L 136-145 [facility] Urea nitrogen [Mass/Vol] 12.0 mg/dL 7.0-18.0 [facility] [place] Urea nitrogen/Creatinine [Mass ratio] 11.2 mg/mg [facility] [place] Laboratory - Hematology and Cell countson 02-09-2024 Immature granulocytes/100 WBC (Bld) 0.3 % 0.0-0.5 [facility] [place] Leukocytes [#/volume] correc delmi for nucleated erythrocytes in Blood by Automated counon 02-09-2024 WBC corrected for nucl RBC Auto (Bld) [#/Vol] 10.9 10 3/uL 4.0-11.0 [facility] Lymphocytes Auto (Bld) [#/Vo l]on 02-09-2024 Lymphocytes (Bld) [#/Vol] 1.3 10 3/uL 1.2-3.8 [facility] Lymphocytes/100 WBC Auto (Bl d)on 02-09-2024 Lymphocytes/100 WBC (Bld) 11.7 % 20.5-60.0 [facility] MCH Auto (RBC) [Entitic mass ]on 02-09-2024 MCH (RBC) [Entitic mass] 28.4 pg 25.9-34.0 [facility] MCHC Auto (RBC) [Mass/Vol]on 02-09-2024 MCHC (RBC) [Mass/Vol] 29.8 g/dL 29.9-35.[address] [facility] MCV Auto (RBC) [Entitic vol] on 02-09-2024 MCV (RBC) [Entitic vol] 95.3 fL 80.0-94.0 [facility] [place] Monocytes Auto (Bld) [#/Vol] on 02-09-2024 Monocytes (Bld) [#/Vol] 0.9 10 3/uL 0.3-0.8 [facility] Monocytes/100 WBC Auto (Bld) on 02-09-2024 Monocytes/100 WBC (Bld) 8.1 % 1.7-12.0 [facility] Neutrophils Auto (Bld) [#/Vo l]on 02-09-2024 Neutrophils (Bld) [#/Vol] 8.5 10 3/uL 1.4-6.5 [facility] Neutrophils/100 WBC Auto (Bl d)on 02-09-2024 Neutrophils/100 WBC (Bld) 78.2 % 43.0-75.0 [facility] [place] No Panel Informationon 02-08 C-Reactive Protein, Quantitative 2.52 mg/dL <=0.50 [facility] [place] Eosinophils # (Auto) 0.1 10 3/uL 0.0-0.[address] [facility] Immature Granulocyte # (Auto) 0.03 10 3/uL 0.00-0.03 [facility] [place] Platelet mean volume Auto (B ld) [Entitic vol]on 02-09-2024 Platelet mean volume (Bld) [Entitic vol] 10.3 fL 9.5-13.5 [facility] Platelets Auto (Bld) [#/Vol] on 02-09-2024 Platelets (Bld) [#/Vol] 328 10 3/uL 150-450 [facility] RBC Auto (Bld) [#/Vol]on RBC (Bld) [#/Vol] 4.29 10 6/uL 4.70-6.10 [facility] Serum or plasma albumin/glob ulin mass ratioon 02-09-2024 Albumin/Globulin [Mass ratio] 0.7 {ratio} [facility] Serum or plasma anion gap de terminationon 02-09-2024 Anion gap [Moles/Vol] 13.8 mmol/L Fi [facility] B-Type Natriuretic Peptideon 04-08-2023 B-Type Natriuretic Peptide see note [employer] Other B-Type Natriuretic Peptide 3094.0 pg/ml Critically high <=900.0 pg/ml [employer] Other BNPon 04-08-2023 Natriuretic peptide B (Bld) [Mass/Vol] 3094.0 pg/mL Critically high <=900.0 [facility] Comment on above: Performed By: #### B MP, BNP, LIPID #### [facility] [address] [address] [address] Braxton Aly Basic Metabolic Panelon 03-24 Calcium [Mass/Vol] 8.0204675 mg/dL 8.5-10 .1 mg/dL [employer] Other CO2 [Moles/Vol] 34.21636241 mmol/L Critically high 21. 0-32.0 mmol/L [employer] Other Creatinine [Mass/Vol] 1.26059254 mg/dL Critically high 0.70-1.30 mg/dL [employer] Other Potassium [Moles/Vol] 4.75092726 mmol/L 3 .5-5.1 mmol/L [employer] Other Urea nitrogen [Mass/Vol] 25.4766232 mg/dL Critically high 7.0-18.0 mg/dL [employer] Other Basic Metabolic Panel 140 mmol/L 136-14 5 mmol/L [employer] Other Basic Metabolic Panel 148 mg/dL Critically high 74-106 mg /dL [employer] Other Basic Metabolic Panel 40 mL/min/1.73m2 Critically low >=60 mL/min/1.73m 2 [employer] Other Basic Metabolic Panel 49 mL/min/1.73m2 Critically low >=60 mL/min/1.73m 2 [employer] Other CBC AUTO DIFFon 04-08-2023 BASO # 0.1 103/ul Normal 0.0-0.1 [facility] Comment on above: Performed By: #### C BC #### [facility] [address], [place] [address] Dr. Braxton Aly Basophils/100 WBC (Bld) 0.6 % Normal 0.2-2.0 [facility] Comment on above: Performed By: #### C BC #### [facility] [address] [place] [address] Dr. Braxton Aly EO # 0.1 103/ul Normal 0.0-0.7 [facility] Comment on above: Performed By: #### C BC #### [facility] [address] [place] [address] Dr. Braxton Aly Eosinophils/100 WBC (Bld) 1.3 % Normal 0.9-7.0 [facility] Comment on above: Performed By: #### C BC #### [facility] [address] [place] [address] Dr. Braxton Aly Erythrocyte distribution width (RBC) [Ratio] 14.6 % Normal 11.0-15.0 [facility] Comment on above: Performed By: #### C BC #### [facility] [address] [place] [address] Dr. Braxton Aly Hematocrit (Bld) [Volume fraction] 44.2 % Normal 42.0-54.0 [facility] Comment on above: Performed By: #### C BC #### [facility] [address] [place] [address] Dr. Braxton Aly Hemoglobin (Bld) [Mass/Vol] 13.5 g/dL Critically low 14.0-18.0 [facility] Comment on above: Performed By: #### C BC #### [facility] [address] [place] [address] Dr. Braxton Aly IG # 0.03 10e3/ul Normal 0.00-0.03 [facility] Comment on above: Performed By: #### C BC #### [facility] [address] [place] [address] Dr. Braxton Aly IG % 0.3 % Normal 0.0-0.5 [facility] Comment on above: Performed By: #### C BC #### [facility] [address] [place] [address] Dr. Braxton Aly LYMPH # 1.3 103/ul Normal 1.2-3.8 [facility] Comment on above: Performed By: #### C BC #### [facility] [address] [address] [address] Braxton Aly Lymphocytes/100 WBC (Bld) 15.0 % Critically low 20.5-60.0 [facility] Comment on above: Performed By: #### C BC #### [facility] [address] [address] [address] Braxton Aly MANUAL DIFF REQ NO Normal [facility] Comment on above: Performed By: #### C BC #### [facility] [address] [place] [address] Dr. Braxton Aly MCH (RBC) [Entitic mass] 29.1 pg Normal 25.9-34.0 [facility] Comment on above: Performed By: #### C BC #### [facility] [address] [place] [address] Dr. Braxton Aly MCHC (RBC) [Mass/Vol] 30.5 g/dL Normal 29.9-35.2 [facility] Comment on above: Performed By: #### C BC #### [facility] [address] [place] [address] Dr. Braxton Aly MCV (RBC) [Entitic vol] 95.3 fL Critically high 80.0-94.0 [facility] Comment on above: Performed By: #### C BC #### [facility] [address] [place] [address] Dr. Braxton Aly MONO # 0.6 103/ul Normal 0.3-0.8 [facility] Comment on above: Performed By: #### C BC #### [facility] [address] [place] [address] Dr. Braxton Aly Monocytes/100 WBC (Bld) 6.7 % Normal 1.7-12.0 [facility] Comment on above: Performed By: #### C BC #### [facility] [address] [place] [address] Dr. Braxton Aly NEUT # 6.7 103/ul Critically high 1.4-6.5 [facility] Comment on above: Performed By: #### C BC #### [facility] [address] [address] [address] Braxton Aly Neutrophils/100 WBC (Bld) 76.1 % Critically high 43.0-75.0 [facility] Comment on above: Performed By: #### C BC #### [facility] [address] [address] [address] Braxton Aly Platelet mean volume (Bld) [Entitic vol] 9.4 fL Critically low 9.5-13.5 [facility] Comment on above: Performed By: #### C BC #### [facility] [address] [address] [address] Braxton Aly PLT 272 103/ul Normal 150-450 [facility] Comment on above: Performed By: #### C BC #### [facility] [address] [address] [address] Braxton Aly RBC 4.64 106/ul Critically low 4.70-6.10 [facility] Comment on above: Performed By: #### C BC #### [facility] [address] [address] [address] Braxton Aly WBC 8.8 103/ul Normal 4.0-11.0 [facility] Comment on above: Performed By: #### C BC #### [facility] [address] [address] [address] Braxton Aly Complete Blood Count and Dif diony 04-08-2023 Anisocytosis Ql (Bld) [facility] [employer] Other Basophilic stippling LM Ql (Bld) [facility] [employer] Other RBC morphology finding Nom (Bld) [facility] [employer] Other GLYCOHEMOGLOBIN A1Con 2022 ADA RECOMMENDATION SEE BELOW Normal [facility] Comment on above: Result Comment: ADA RECOMMENDED LIMIT 4.0 - 6.0 ADA THERAPEUTIC TARGET < 7.0 ACTION SUGGESTED > 7.0 Performed By: #### A 1C #### [facility] [address] [address] [address] Braxton Aly Glucose [Mass/Vol] 143 mg/dL Normal [facility] Comment on above: Performed By: #### A 1C #### [facility] [address] [address] [address] Braxton Aly HbA1c (Bld) [Mass fraction] 6.6 % Critically high 4.5-6.2 [facility] Comment on above: Performed By: #### A 1C #### [facility] [address] [address] [address] Braxton Aly Hemoglobin A1C ([facility])on 0 04-08-2023 Hemoglobin A1C ([facility]) [employer] Other LIPID PROFILEon 04-08-2023 CHOL-HDL RATIO NORM SEE BELOW Normal [facility] Comment on above: Result Comment: 3.3 - 4.4 LOW RISK 4.4 - 7.1 AVERAGE RISK 7.1 - 11.0 MODERATE RISK >11.0 HIGH RISK Performed By: #### B MP, BNP, LIPID #### [facility] [address] [address] [address] Braxton Aly Cholesterol [Mass/Vol] 119 mg/dL <=200 mg/dL [facility] Comment on above: Performed By: #### B MP, BNP, LIPID #### [facility] [address] [address] [address] Braxton Aly Cholesterol in HDL [Mass/Vol] 36 mg/dL Critically low 40-60 mg/dL [facility] Comment on above: Performed By: #### B MP, BNP, LIPID #### [facility] [address] [address] [address] Braxton Aly Cholesterol in LDL [Mass/Vol] 67.8 mg/dL Normal [facility] Comment on above: Performed By: #### B MP, BNP, LIPID #### [facility] [address] [place] [address] Dr. Braxton Aly Cholesterol.total/Cho lesterol in HDL [Mass ratio] 3.3 {ratio} [facility] Comment on above: Performed By: #### B MP, BNP, LIPID #### [facility] [address] [place] [address] Dr. Braxton Aly HDL NORMAL > or = 60 mg/dl - LOW CARDIOVASCULAR RISK <40 mg/dl - HIGH CARDIOVASCULAR RISK Normal [facility] Comment on above: Performed By: #### B MP, BNP, LIPID #### [facility] [address], [place] [address] Dr. Braxton Aly LDL CALC NORMAL SEE BELOW Normal [facility] Comment on above: Result Comment: <100 mg/dl OPTIMAL 100 - 129 mg/dl NEAR OR ABOVE OPTIMAL 130 - 159 mg/dl BORDERLINE HIGH 160 - 189 mg/dl HIGH >190 mg/dl VERY HIGH Performed By: #### B MP, BNP, LIPID #### [facility] [address] [address] [address] Braxton Aly Triglyceride [Mass/Vol] 76 mg/dL <=150 mg/dL [facility] Comment on above: Performed By: #### B MP, BNP, LIPID #### [facility] [address] [address] [address] Braxton Aly VLDL CALC 15.2 mg/dL Normal [facility] Comment on above: Performed By: #### B MP, BNP, LIPID #### [facility] [address] [address] [address] Braxton Aly Lipid Panelon 04-08-2023 Lipid Panel > or = 60 mg/dl - LOW CARDIOVASCULAR RISK <40 mg/dl - HIGH CARDIOVASCULAR RISK [employer] Other Lipid Panel SEE BELOW [employer] Other Lipid Panel 67.8 mg/dL [employer] Other Lipid Panel 15.2 mg/dL [employer] Other PROF CHEM 8 (BAS METB)on Anion gap [Moles/Vol] 9.4 mmol/L [facility] Comment on above: Performed By: #### B MP, BNP, LIPID #### [facility] [address] [address] [address] Braxton Aly Calcium [Mass/Vol] 8.9 mg/dL Normal 8.5-10.1 [facility] Comment on above: Performed By: #### B MP, BNP, LIPID #### [facility] [address] [place] [address] Dr. Braxton Aly Chloride [Moles/Vol] 100 mmol/L 98-107 mmol/L [facility] Comment on above: Performed By: #### B MP, BNP, LIPID #### [facility] [address] [place] [address] Dr. Braxton Aly CO2 [Moles/Vol] 34.7 mmol/L Critically high 21.0-32.0 [facility] Comment on above: Performed By: #### B MP, BNP, LIPID #### [facility] [address] [place] [address] Dr. Braxton Aly Creatinine [Mass/Vol] 1.71 mg/dL Critically high 0.70-1.30 [facility] Comment on above: Performed By: #### B MP, BNP, LIPID #### [facility] [address] [place] [address] Dr. Braxton Aly EGFR-AF CITIZEN [place] 49 mL/min/1.73m2 Critically low >=60 [facility] Comment on above: Performed By: #### B MP, BNP, LIPID #### [facility] [address] [place] [address] Dr. Braxton Aly EGFR-NON AF CITIZEN OF [place] 40 mL/min/1.73m2 Critically low >=60 [facility] Comment on above: Performed By: #### B MP, BNP, LIPID #### [facility] [address] [place] [address] Dr. Braxton Aly Glucose [Mass/Vol] 148 mg/dL Critically high 74-106 T [facility] Comment on above: Performed By: #### B MP, BNP, LIPID #### [facility] [address] [place] [address] Dr. Braxton Aly Potassium [Moles/Vol] 4.1 mmol/L Normal 3.5-5.1 [facility] Comment on above: Performed By: #### B MP, BNP, LIPID #### [facility] [address] [place] [address] Dr. Braxton Aly Sodium [Moles/Vol] 140 mmol/L Normal 136-145 [facility] Comment on above: Performed By: #### B MP, BNP, LIPID #### [facility] [address] [address] [address] Braxton Aly Urea nitrogen [Mass/Vol] 25.0 mg/dL Critically high 7.0-18.0 [facility] Comment on above: Performed By: #### B MP, BNP, LIPID #### [facility] [address] [address] [address] Braxton Aly Urea nitrogen/Creatinine [Mass ratio] 14.6 mg/mg [facility] Comment on above: Performed By: #### B MP, BNP, LIPID #### [facility] [address] [address] [address] Braxton Aly Basic Metabolic Panelon 12-25 Calcium [Mass/Vol] 8.7556724 mg/dL 8.5-10 .1 mg/dL [employer] Other CO2 [Moles/Vol] 31.87043028 mmol/L 21.0-3 2.0 mmol/L [employer] Other Creatinine [Mass/Vol] 1.67384274 mg/dL Critically high 0.70-1.30 mg/dL [employer] Other Potassium [Moles/Vol] 3.73860030 mmol/L Critically low 3.5-5.1 mmol/L [employer] Other Urea nitrogen [Mass/Vol] 15.6281993 mg/dL 7.0-18.0 mg/dL [employer] Other Basic Metabolic Panel see note Nor [employer] Other Basic Metabolic Panel 141 mmol/L 136-14 5 mmol/L [employer] Other Basic Metabolic Panel 157 mg/dL Critically high 74-106 mg /dL [employer] Other Basic Metabolic Panel 52 mL/min/1.73m2 Critically low >=60 mL/min/1.73m 2 [employer] Other Basic Metabolic Panel >60 mL/min/1.73m2 > =60 mL/min/1.73m 2 [employer] Other Anion gap [Moles/Vol] 11.6 mmol/L Normal No [facility] [employer] Other Comment on above: Performed By: #### B MP #### [facility] [address] [place] [address] Dr. Braxton Aly Chloride [Moles/Vol] 101 mmol/L Normal 98-107 [facility] [employer] Other Comment on above: Performed By: #### B MP #### [facility] [address] [place] [address] Dr. Braxton Aly Urea nitrogen/Creatinine [Mass ratio] 11.0 mg/mg Normal [facility] [employer] Other Comment on above: Performed By: #### B MP #### [facility] [address] [place] [address] Dr. Braxton Aly PROF CHEM 8 (BAS METB)on Calcium [Mass/Vol] 8.8 mg/dL Normal 8.5-10.1 [facility] Comment on above: Performed By: #### B MP #### [facility] [address] [place] [address] Dr. Braxton Aly CO2 [Moles/Vol] 31.7 mmol/L Normal 21.0-32.0 [facility] Comment on above: Performed By: #### B MP #### [facility] [address] [place] [address] Dr. Braxton Aly Creatinine [Mass/Vol] 1.36 mg/dL Critically high 0.70-1.30 [facility] Comment on above: Performed By: #### B MP #### [facility] [address] [place] [address] Dr. Braxton Aly EGFR-AF CITIZEN [place] >60 Normal >=60 The [facility] Comment on above: Performed By: #### B MP #### [facility] [address], [place] [address] Dr. Braxton Aly EGFR-NON AF CITIZEN OF [place] 52 mL/min/1.73m2 Critically low >=60 [facility] Comment on above: Performed By: #### B MP #### [facility] [address], [place] [address] Dr. Braxton Aly Glucose [Mass/Vol] 157 mg/dL Critically high 74-106 T [facility] Comment on above: Performed By: #### B MP #### [facility] [address], [place] [address] Dr. Braxton Aly Potassium [Moles/Vol] 3.3 mmol/L Critically low 3.5-5.1 [facility] Comment on above: Performed By: #### B MP #### [facility] [address], [place] [address] Dr. Braxton Aly Sodium [Moles/Vol] 141 mmol/L Normal 136-145 [facility] Comment on above: Performed By: #### B MP #### [facility] [address], [place] [address] Dr. Braxton Aly Urea nitrogen [Mass/Vol] 15.0 mg/dL Normal 7.0-18.0 [facility] Comment on above: Performed By: #### B MP #### [facility] [address], [place] [address] Dr. Braxton Aly Office Visit (Cardiology)on 12-06-2022 [...] Recorded: 06Dec2022 08:23AM Heart Rate60, R Radial Uklmqntj132, RUE, Sitting Ocztovigm24, RUE, Sitting Height5 ft 9 in Mkpspm330 lb BMI Woaovxytjm43.81 kg/m2 BSA Calculated2.51 Tobacco Useb) No PHQ-2 [...] Abdomen: abdomen (more content not included)... Normal [facility] Tobacco Screening.on 023 Adult depression screening assessment No MP-Cardiolo gy-S [place] 250 DO Work Phone: Fall risk assessment a) No falls within the last year UP-Rrnrhaqpxo-J [place] 250 DO Work Phone: Tobacco use status CPHS b) No DG-Nxlipyhqcq-L [place] 250 DO Work Phone: BNPon 11-08-2022 Natriuretic peptide B (Bld) [Mass/Vol] 2323.0 pg/mL Critically high <=900.0 [facility] Comment on above: Performed By: #### B FORGE HEATER, BMP #### [facility] [address] [place] [address] Dr. Braxton Aly PROF CHEM 8 (BAS METB)on Anion gap [Moles/Vol] 7.5 mmol/L Normal [facility] Comment on above: Performed By: #### B FORGE HEATER, BMP #### [facility] [address] [place] [address] Dr. Braxton Aly Calcium [Mass/Vol] 8.8 mg/dL Normal 8.5-10.1 [facility] Comment on above: Performed By: #### B FORGE HEATER, BMP #### [facility] [address] [place] [address] Dr. Braxton Aly Chloride [Moles/Vol] 100 mmol/L Normal 98-107 [facility] Comment on above: Performed By: #### B FORGE HEATER, BMP #### [facility] [address] [place] [address] Dr. Braxton Aly CO2 [Moles/Vol] 37.5 mmol/L Critically high 21.0-32.0 [facility] Comment on above: Performed By: #### B FORGE HEATER, BMP #### [facility] [address] [place] [address] Dr. Braxton Aly Creatinine [Mass/Vol] 1.38 mg/dL Critically high 0.70-1.30 [facility] Comment on above: Performed By: #### B FORGE HEATER, BMP #### [facility] [address] [address] [address] Braxton Aly EGFR-AF CITIZEN [place] >60 Normal >=60 [facility] Comment on above: Performed By: #### B FORGE HEATER, BMP #### [facility] [address] [address] [address] Braxton Aly EGFR-NON AF CITIZEN [place] 51 mL/min/1.73m2 Critically low >=60 [facility] Comment on above: Performed By: #### B FORGE HEATER, BMP #### [facility] [address] [address] [address] Braxton Aly Glucose [Mass/Vol] 141 mg/dL Critically high 74-106 [facility] Comment on above: Performed By: #### B FORGE HEATER, BMP #### [facility] [address] [place] [address] Dr. Braxton Aly Potassium [Moles/Vol] 3.0 mmol/L Critically low 3.5-5.1 [facility] Comment on above: Performed By: #### B FORGE HEATER, BMP #### [facility] [address] [address] [address] Braxton Aly Sodium [Moles/Vol] 142 mmol/L Normal 136-145 [facility] Comment on above: Performed By: #### B FORGE HEATER, BMP #### [facility] [address] [place] [address] Dr. Braxton Aly Urea nitrogen [Mass/Vol] 16.0 mg/dL Normal 7.0-18.0 [facility] Comment on above: Performed By: #### B FORGE HEATER, BMP #### [facility] [address] [place] [address] Dr. Braxton Aly Urea nitrogen/Creatinine [Mass ratio] 11.6 mg/mg Normal [facility] Comment on above: Performed By: #### B FORGE HEATER, BMP #### [facility] [address] [place] [address] Dr. Braxton Aly XR CHEST 2 Von [...] ALEX DAWN Date: 2022-11-08 13:38 Normal [facility] Office Visit (Cardiology)on 04-12-2022 Follow-up visit [...] Former smoker Tobacco Use Screening; Status:Complete; Done: [id number] Patient Instructions By signing my name below, [...] History of Present Illness attended cousins in [place] Patient returns in follow-up of problems as [...] Recorded: 12Apr2022 01:22PM Heart Rate60, R Radial Dodhsytv479, LUE, Sitting Wgszjpiwl15, LUE, Sitting Height5 ft 9 in Pjxafw117 lb BMI Wdkgktwexb68.75 kg/m2 BSA Calculated2.46 Tobacco Useb) No PHQ-2 [...] . Signatures Electronically signed by : Rojas Sam MD; Apr 12 2022 2:25PM EST (Author) Normal [facility] Tobacco Screening.on 022 Adult depression screening assessment No [facility] 250 DO Work Phone: Fall risk assessment a) No falls within the last year [facility] 250 DO Work Phone: Tobacco use status [facility] b) No [facility] 250 DO Work Phone: Echocardiogramon 03-18-[address], [address] [place] [address] TRANSTHORACIC ECHOCARDIOGRAM REPORT Patient Name: ROJAS Virgen Physician: [id number] Sam MD Study Date: 03/18/2022 Referring Physician: Mel SAM MRN/PID: [id number] PCP: Anibal Pickett Accession/Order#: [id number] Department Location: [facility] Date of : 1955 Fellow: Gender: M Nurse: Admit Date: Braid Pattern Setter: Makenna John RDCS, RVT Height: 175.26 cm CC Report to: Weight: 138.35 kg Study Type: Echocardiogram BSA: 2.47 m2 Blood Pressure: 112 /70 mmHg Diagnosis/ICD: 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; 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 Indication: Diabetes, Dyspnea, HTN, Hyperlipidemia, Former Smoker, Morbid Obesity Procedure/CPT: Echo Complete w Full [id number] Study Detail: The following Echo studies were [...] 0.6 m/s (0.6-0.9m/s) PV Max P.3 mmHg [id number] Rojas Sam MD Electronically signed on 03/18/2022 at 5:02:50 PM Final Normal [facility] Tobacco Screening.on 022 Fall risk assessment b) One or more fall s in the last year [facility] 250 DO Work Phone: Tobacco use status CPHS b) No [facility] 250 DO Work Phone: No Panel Informationon 11-07 31.8\S\31.8 above high threshold 22.0-30.0 [facility] 250 DO Work Phone: Comment on above: PERFORMED BY:[address] [place], [place] [id number] MEDICAL DIRECTORSARA GROSSMAN M.D. 98\S\98 Normal 95-114 [facility] Work Phone: 4.1\S\4.1 Normal 3.5-5.1 [facility] Work Phone: 138\S\138 Normal 136-146 [facility] DO Work Phone: Laboratory - Microbiology an d Antimicrobial susceptibilityon 11-05-2021 SARS-CoV-2 (COVID-19) RNA NILAM+probe Ql (Unsp spec) [facility] DO Work Phone: No Panel Informationon 11-05 Negative Normal Negative [facility] DO Work Phone: Comment on above: This is a duplicate Josiane SARS Antigen (ROMEL) result to be used for statistical tracking purpose only.PERFORMED BY:[facility] [place], [place] [id number] MEDICAL DIRECTORSARA GROSSMAN M.D. IO EKG Electrocardiogram- 12 Leadon 09-24-2021 IO EKG Electrocardiogram- 12 Lead See Scanned Document [facility] Carter DO Work Phone: No Panel Informationon 09-24 8.5\S\8.5 Normal 8.2-10.2 [facility] DO Work Phone: Comment on above: PERFORMED BY:[facility] [place], [place] [id number] MEDICAL ALEX GROSSMAN M.D. 31.6\S\31.6 above high threshold 22.0-30.0 [facility] DO Work Phone: 100\S\100 Normal 95-114 [facility] DO Work Phone: 4.2\S\4.2 Normal 3.5-5.1 [facility] 250 DO Work Phone: 141\S\141 Normal 136-146 [facility] 250 DO Work Phone: 56\S\56 Normal [facility] 250 DO Work Phone: Comment on above: GFR estimated refere nce range: According to KDOQI guidelines, <60 ml/min/1.73m2 is sufficient to diagnose a patient with chronic kidney disease. 46\S\46 Normal [facility] 250 DO Work Phone: 1.51\S\1.51 above high threshold 0.64-1.27 [facility] Work Phone: 20\S\20 Normal 9-23 [facility] Work Phone: 124\S\124 above high threshold 70-100 [facility] 250 DO Work Phone: Comment on above: Random Glucose Refer ence Range is dependent on time and content of last meal. Glucose of more than 200 mg/dL in a nonstressed, ambulatory subject supports the diagnosis of Diabetes Mellitus. ADA recommended reference range 478\S\478 Normal . [facility] 250 DO Work Phone: Comment on above: Note: To convert fro m ng/ml to ug/ml, divide the result by 1000. Reference range (amiodarone): 1.00-2.50 ug/mL. This test was developed and its performance characteristics determined by [employer]. It has not been cleared or approved by the Food and Drug Administration. Performed at: [facility] [address] [id number] [employer]asuring Optician: Adina Reis [facility], Phone: [phone] BY:[address] [place], [place] [id number] MEDICAL DIRECTORSARA GROSSMAN M.D. 586\S\586 below low threshold [id number] [facility] 250 DO Work Phone: Tobacco Screening.on 021 Fall risk assessment a) No falls within the last year [facility] 250 DO Work Phone: Tobacco use status CP b) No [facility] 250 DO Work Phone: No Panel Informationon 09-12 [facility] 250 DO Work Phone: 32.1\S\32.1 above high threshold 22.0-30.0 [facility] 250 DO Work Phone: Comment on above: PERFORMED BY:[address] [place], [place] [id number] MEDICAL DIRECTORSARA GROSSMAN M.D. 100\S\100 Normal 95-114 [facility] 250 DO Work Phone: 4.5\S\4.5 Normal 3.5-5.1 [facility] 250 DO Work Phone: 140\S\140 Normal 136-146 [facility] 250 DO Work Phone: Vital Signs Date Time Vital Sign Value Performing Clinician Facility 02-02-2025 14:31-0400 Body height 175.26 cm Anibal Ball DO Work Phone: [facility] [place] 02-02-2025 14:31-0400 Body mass index (BMI) [Ratio] 45.4 kg/m2 Anibal Ball DO Work Phone: [facility] [place] 02-02-2025 14:31-0400 Body weight 139.7 kg Anibal Ball DO Work Phone: [facility] [place] 02-02-2025 14:31-0400 Diastolic blood pressure 94 mm[Hg] Anibal Ball DO Work Phone: [facility] [place] 02-02-2025 14:31-0400 Heart rate 156 /min Anibal Ball DO Work Phone: [facility] [place] 02-02-2025 14:31-0400 Respiratory rate 12 /min Anibal Ball DO Work Phone: [facility] [place] 02-02-2025 14:31-0400 SaO2% (BldA) [Mass fraction] 97 % Anibal Ball DO Work Phone: [facility] [place] 02-02-2025 14:31-0400 Systolic blood pressure 126 mm[Hg] Anibal Ball DO Work Phone: [facility] [place] 01-04-2025 09:35-0500 Body height 175.26 cm Anibal Ball DO Work Phone: [facility] [place] 01-04-2025 09:35-0500 Body mass index (BMI) [Ratio] 45 kg/m2 Anibal Ball DO Work Phone: [facility] [place] 01-04-2025 09:35-0500 Body weight 138.34 kg Anibal Ball DO Work Phone: [facility] [place] 01-04-2025 09:35-0500 Diastolic blood pressure 80 mm[Hg] Anibal Ball DO Work Phone: [facility] [place] 01-04-2025 09:35-0500 Heart rate 112 /min Anibal Ball DO Work Phone: [facility] [place] 01-04-2025 09:35-0500 Systolic blood pressure 146 mm[Hg] Anibal Ball DO Work Phone: [facility] [place] 12-08-2024 10:41-0500 Body height 175.26 cm Anibal Ball DO Work Phone: [facility] [place] 12-08-2024 10:41-0500 Body mass index (BMI) [Ratio] 45.8 kg/m2 Anibal Ball DO Work Phone: [facility] [place] 12-08-2024 10:41-0500 Body weight 140.61 kg Anibal Ball DO Work Phone: [facility] [place] 12-08-2024 10:41-0500 Diastolic blood pressure 85 mm[Hg] Anibal Ball DO Work Phone: [facility] [place] 12-08-2024 10:41-0500 Heart rate 92 /min Anibal Ball DO Work Phone: [facility] [place] 12-08-2024 10:41-0500 Respiratory rate 12 /min Anibal Ball DO Work Phone: [facility] [place] 12-08-2024 10:41-0500 SaO2% (BldA) [Mass fraction] 97 % Anibal Ball DO Work Phone: [facility] [place] 12-08-2024 10:41-0500 Systolic blood pressure 126 mm[Hg] Anibal Ball DO Work Phone: [facility] [place] 11-19-2024 10:20-0500 Diastolic blood pressure 72 mm[Hg] Anibal Ball DO Work Phone: [facility] [place] 11-19-2024 10:20-0500 Heart rate 100 /min Anibal Ball DO Work Phone: [facility] [place] 11-19-2024 10:20-0500 Respiratory rate 20 /min Anibal Ball DO Work Phone: [facility] [place] 11-19-2024 10:20-0500 SaO2% (BldA) [Mass fraction] 98 % Anibal Ball DO Work Phone: [facility] [place] 11-19-2024 10:20-0500 Systolic blood pressure 115 mm[Hg] Anibal Ball DO Work Phone: [facility] [place] 11-19-2024 08:19-0500 Body height 175.26 cm Anibal Ball DO Work Phone: [facility] [place] 11-19-2024 08:19-0500 Body weight 133.81 kg Anibal Ball DO Work Phone: [facility] [place] 09-24-2024 09:53-0400 Body height 177.8 cm Bridger Weinberg MD Work Phone: [facility] 09-24-2024 09:53-0400 Body mass index (BMI) [Ratio] 45.34 kg/m2 Bridger Weinberg MD Work Phone: [facility] 09-24-2024 09:53-0400 Body weight 143.34 kg Bridger Weinberg MD Work Phone: [facility] 09-24-2024 09:53-0400 Diastolic blood pressure 74 mm[Hg] Bridger Weinberg MD Work Phone: [facility] 09-24-2024 09:53-0400 Heart rate 97 /min Bridger Weinberg MD Work Phone: [facility] 09-24-2024 09:53-0400 Systolic blood pressure 136 mm[Hg] Bridger Weinberg MD Work Phone: [facility] 09-06-2024 11:11-0400 Body height 172.72 cm [facility] 09-06-2024 11:11-0400 Body mass index (BMI) [Ratio] 48.7 kg/m2 [facility] [place] 09-06-2024 11:11-0400 Body weight 145.37 kg [facility] 09-06-2024 11:11-0400 Diastolic blood pressure 93 mm[Hg] [facility] 09-06-2024 11:11-0400 Heart rate 82 /min [facility] 09-06-2024 11:11-0400 Respiratory rate 12 /min [facility] 09-06-2024 11:11-0400 Systolic blood pressure 136 mm[Hg] [facility] 07-08-2024 12:08-0400 Body height 172.72 cm [facility] 07-08-2024 12:08-0400 Body mass index (BMI) [Ratio] 48.8 kg/m2 [facility] 07-08-2024 12:08-0400 Body weight 145.71 kg [facility] 07-08-2024 12:08-0400 Diastolic blood pressure 76 mm[Hg] [facility] 07-08-2024 12:08-0400 Heart rate 142 /min [facility] 07-08-2024 12:08-0400 Respiratory rate 20 /min [facility] 07-08-2024 12:08-0400 Systolic blood pressure 114 mm[Hg] [facility] 06-24-2024 09:05-0400 Body height 172.72 cm [facility] 06-24-2024 09:05-0400 Body mass index (BMI) [Ratio] 46.7 kg/m2 [facility] 06-24-2024 09:05-0400 Body weight 139.3 kg [facility] 06-24-2024 09:05-0400 Diastolic blood pressure 72 mm[Hg] [facility] 06-24-2024 09:05-0400 Heart rate 116 /min [facility] 06-24-2024 09:05-0400 Respiratory rate 12 /min [facility] 06-24-2024 09:05-0400 Systolic blood pressure 111 mm[Hg] [facility] 06-14-2024 18:17-0400 Hourly Rounding Mbanefo OJUKWU [facility] 06-14-2024 18:17-0400 Promise to Return Mbanefo OJUKWU [facility] 06-14-2024 17:00-0400 Hourly Rounding Mbanefo OJUKWU [facility] 06-14-2024 17:00-0400 Promise to Return Mbanefo OJUKWU [facility] 06-14-2024 16:44-0400 Hourly Rounding Mbanefo OJUKWU [facility] 06-14-2024 16:44-0400 Promise to Return Mbanefo OJUKWU [facility] 06-14-2024 15:08-0400 Heart rate 97 /min Mbanefo OJUKWU [facility] 06-14-2024 15:08-0400 SaO2% (BldA) [Mass fraction] 96 % Mbanefo OJUKWU [facility] 06-14-2024 15:08-0400 Respiratory rate 16 /min Mbanefo OJUKWU [facility] 06-14-2024 15:08-0400 Diastolic blood pressure 64 mm[Hg] Mbanefo OJUKWU [facility] 06-14-2024 15:08-0400 Mean blood pressure 76 mm[Hg] Mbanefo OJUKWU [facility] 06-14-2024 15:08-0400 Systolic blood pressure 99 mm[Hg] Mbanefo OJUKWU [facility] 06-14-2024 15:07-0400 Body temperature 98.06 [degF] Mbanefo OJUKWU [facility] 06-14-2024 15:00-0400 Blood Pressure Location Mbanefo OJUKWU [facility] 06-14-2024 11:20-0400 Heart rate 102 /min Mbanefo OJUKWU [facility] 06-14-2024 11:20-0400 SaO2% (BldA) [Mass fraction] 97 % Mbanefo OJUKWU [facility] 06-14-2024 11:19-0400 Diastolic blood pressure 73 mm[Hg] Mbanefo OJUKWU [facility] 06-14-2024 11:19-0400 Mean blood pressure 82 mm[Hg] Mbanefo OJUKWU [facility] 06-14-2024 11:19-0400 Systolic blood pressure 102 mm[Hg] Mbanefo OJUKWU [facility] 06-14-2024 11:19-0400 Body temperature 97.88 [degF] Mbanefo OJUKWU [facility] 06-14-2024 11:00-0400 Heart rate 70 /min Mbanefo OJUKWU [facility] 06-14-2024 07:57-0400 Heart rate 69 /min Mbanefo OJUKWU [facility] 06-13-2024 23:20-0400 Body temperature 97.16 [degF] Mbanefo OJUKWU [facility] 06-13-2024 23:20-0400 Respiratory rate 18 /min Mbanefo OJUKWU [facility] 06-13-2024 19:00-0400 Mean blood pressure 78 mm[Hg] Mbanefo OJUKWU [facility] 06-13-2024 18:10-0400 Blood Pressure Location Mbanefo OJUKWU [facility] 06-13-2024 18:10-0400 Mean blood pressure 71 mm[Hg] Mbanefo OJUKWU [facility] 06-13-2024 18:05-0400 Blood Pressure Location Mbanefo OJUKWU [facility] 06-13-2024 18:05-0400 Mean blood pressure 75 mm[Hg] Mbanefo OJUKWU [facility] 06-13-2024 17:20-0400 Respiratory rate 17 /min Mbanefo OJUKWU [facility] 06-13-2024 13:20-0400 Respiratory rate 16 /min Mbanefo OJUKWU [facility] 06-13-2024 10:07-0400 Heart rate 150 /min Mbanefo OJUKWU [facility] 06-13-2024 08:57-0400 Heart rate 160 /min Mbanefo OJUKWU [facility] 06-13-2024 08:10-0400 Respiratory rate 18 /min Mbanefo OJUKWU [facility] 06-12-2024 19:29-0400 Body temperature 97.88 [degF] Mbanefo OJUKWU [facility] 06-12-2024 19:28-0400 Mean blood pressure 76 mm[Hg] Mbanefo OJUKWU [facility] 06-12-2024 19:00-0400 Respiratory rate 16 /min Mbanefo OJUKWU [facility] 06-12-2024 18:13-0400 Heart rate 84 /min Mbanefo OJUKWU [facility] 06-12-2024 14:16-0400 Heart rate 124 /min Mbanefo OJUKWU [facility] 06-12-2024 12:01-0400 Heart rate 93 /min Mbanefo OJUKWU [facility] 06-12-2024 11:50-0400 gluc 100 mg/dL Zully MENDOZAKWU [facility] 06-12-2024 11:50-0400 gluc Zully LOPEZWU [facility] 05-06-2024 11:02-0400 Body height 172.72 cm [facility] 05-06-2024 11:02-0400 Body mass index (BMI) [Ratio] 46 kg/m2 [facility] 05-06-2024 11:02-0400 Body weight 137.49 kg [facility] 05-06-2024 11:02-0400 Diastolic blood pressure 68 mm[Hg] [facility] 05-06-2024 11:02-0400 Heart rate 106 /min [facility] 05-06-2024 11:02-0400 Respiratory rate 16 /min [facility] 05-06-2024 11:02-0400 Systolic blood pressure 93 mm[Hg] [facility] 02-06-2024 11:12-0400 Body height 172.72 cm [facility] 02-06-2024 11:12-0400 Body mass index (BMI) [Ratio] 48.8 kg/m2 [facility] 02-06-2024 11:12-0400 Body weight 145.6 kg [facility] 02-06-2024 11:12-0400 Diastolic blood pressure 75 mm[Hg] [facility] 02-06-2024 11:12-0400 Heart rate 92 /min [facility] 02-06-2024 11:12-0400 Respiratory rate 16 /min [facility] 02-06-2024 11:12-0400 Systolic blood pressure 124 mm[Hg] [facility] 12-02-2023 10:36-0500 Body height 177.8 cm Rojas Sam MD Work Phone: [facility] 12-02-2023 10:36-0500 Body mass index (BMI) [Ratio] 47.35 kg/m2 Rojas Sam MD Work Phone: [facility] 12-02-2023 10:36-0500 Body weight 149.69 kg Rojas Sam MD Work Phone: [facility] 12-02-2023 10:36-0500 Diastolic blood pressure 74 mm[Hg] Rojas Sam MD Work Phone: [facility] 12-02-2023 10:36-0500 Heart rate 64 /min Rojas Sam MD Work Phone: [facility] 12-02-2023 10:36-0500 Systolic blood pressure 112 mm[Hg] Rojas Sam MD Work Phone: [facility] 07-08-2023 13:45-0400 Body height 172.72 cm Anibal Ball Other [employer] Other 07-08-2023 13:45-0400 Body mass index (BMI) [Ratio] 49.11 kg/m2 Anibal Ball Other [employer] Other 07-08-2023 13:45-0400 Body weight 146.51 kg Anibal Ball Other [employer] Other 07-08-2023 13:45-0400 Diastolic blood pressure 69 mm[Hg] Anibal Ball Other [employer] Other 07-08-2023 13:45-0400 Respiratory rate 20 /min Anibal Ball Other [employer] Other 07-08-2023 13:45-0400 Systolic blood pressure 93 mm[Hg] Anibal Ball Other [employer] Other 05-15-2023 10:18-0400 Body height 172.72 cm Anibal Ball Other [employer] Other 05-15-2023 10:18-0400 Body mass index (BMI) [Ratio] 50.02 kg/m2 Anibal Ball Other [employer] Other 05-15-2023 10:18-0400 Body weight 149.23 kg Anibal Ball Other [employer] Other 05-15-2023 10:18-0400 Diastolic blood pressure 75 mm[Hg] Anibal Ball Other [employer] Other 05-15-2023 10:18-0400 Systolic blood pressure 114 mm[Hg] Anibal Ball Other [employer] Other 04-07-2023 10:30-0400 Body height 172.72 cm Anibal Ball Other [employer] Other 04-07-2023 10:30-0400 Body mass index (BMI) [Ratio] 50.54 kg/m2 Anibal Ball Other [employer] Other 04-07-2023 10:30-0400 Body weight 150.78 kg Anibal Ball Other [employer] Other 04-07-2023 10:30-0400 Diastolic blood pressure 64 mm[Hg] Anibal Ball Other [employer] Other 04-07-2023 10:30-0400 Respiratory rate 12 /min Anibal Ball Other [employer] Other 04-07-2023 10:30-0400 Systolic blood pressure 91 mm[Hg] Anibal Ball Other [employer] Other 04-07-2023 09:30-0400 Body height 172.72 cm Anibal Ball Other [employer] Other 04-07-2023 09:30-0400 Body mass index (BMI) [Ratio] 50.54 kg/m2 Anibal Ball Other [employer] Other 04-07-2023 09:30-0400 Body weight 150.78 kg Anibal Ball Other [employer] Other 04-07-2023 09:30-0400 Diastolic blood pressure 64 mm[Hg] Anibal Ball Other [employer] Other 04-07-2023 09:30-0400 Respiratory rate 12 /min Anibal Ball Other [employer] Other 04-07-2023 09:30-0400 Systolic blood pressure 91 mm[Hg] Anibal Ball Other [employer] Other 01-06-2023 11:30-0500 Body height 172.72 cm Anibal Ball Other [employer] Other 01-06-2023 11:30-0500 Body mass index (BMI) [Ratio] 49.93 kg/m2 Anibal Ball Other [employer] Other 01-06-2023 11:30-0500 Body weight 148.96 kg Anibal Ball Other [employer] Other 01-06-2023 11:30-0500 Diastolic blood pressure 76 mm[Hg] Anibal Ball Other [employer] Other 01-06-2023 11:30-0500 Respiratory rate 16 /min Anibal Ball Other [employer] Other 01-06-2023 11:30-0500 Systolic blood pressure 122 mm[Hg] Anibal Ball Other [employer] Other 12-06-2022 08:23-0500 Body height 175.26 cm Anibal E Ball Work Phone: OS-Ajdokswcqq-Qjjezg [place] 250 DO Work Phone: 12-06-2022 08:23-0500 Body mass index (BMI) [Ratio] 46.81 kg/m2 Anibal E Ball Work Phone: BN-Tiemnffiho-Vcjmgd [place] 250 DO Work Phone: 12-06-2022 08:23-0500 Body surface area Derived from formula 2.51 m2 Anibal E Ball Work Phone: MJ-Bwrjzmcqvu-Xvdxcl [place] 250 DO Work Phone: 12-06-2022 08:23-0500 Body weight 143.79 kg Anibal E Ball Work Phone: BG-Simjabzeey-Glakhu [place] 250 DO Work Phone: 12-06-2022 08:23-0500 Diastolic blood pressure 62 mm[Hg] Anibal E Ball Work Phone: HH-Ebxcwtewxu-Siwhkt [place] 250 DO Work Phone: 12-06-2022 08:23-0500 Heart rate 60 /min Anibal E Ball Work Phone: WO-Jcu[place]-Hklitr [place] 250 DO Work Phone: 12-06-2022 08:23-0500 Systolic blood pressure 110 mm[Hg] Anibal E Ball Work Phone: RU-Jkoanjmitv-Vhvggl [place] 250 DO Work Phone: 12-05-2022 11:30-0500 Body height 172.72 cm Anibal Ball Other [employer] Other 12-05-2022 11:30-0500 Body mass index (BMI) [Ratio] 48.32 kg/m2 Anibal Ball Other [employer] Other 12-05-2022 11:30-0500 Body weight 144.15 kg Anibal Ball Other [facility] [employer] Other 12-05-2022 11:30-0500 Diastolic blood pressure 72 mm[Hg] Anibal Ball Other [facility] [employer] Other 12-05-2022 11:30-0500 Respiratory rate 16 /min Anibal Ball Other [facility] [employer] Other 12-05-2022 11:30-0500 Systolic blood pressure 122 mm[Hg] Anibal Ball Other [facility] [employer] Other 04-12-2022 13:22-0400 Body height 175.26 cm Anibal E Ball Work Phone: [facility]ian-Anusha 250 DO Work Phone: 04-12-2022 13:22-0400 Body mass index (BMI) [Ratio] 44.75 kg/m2 Anibal E Ball Work Phone: [facility] 250 DO Work Phone: 04-12-2022 13:22-0400 Body surface area Derived from formula 2.46 m2 Anibal E Ball Work Phone: [facility] 250 DO Work Phone: 04-12-2022 13:22-0400 Body weight 137.44 kg Anibal E Ball Work Phone: [facility] 250 DO Work Phone: 04-12-2022 13:22-0400 Diastolic blood pressure 70 mm[Hg] Anibal E Ball Work Phone: [facility] [facility] DO Work Phone: 04-12-2022 13:22-0400 Heart rate 60 /min Anibal E Ball Work Phone: [facility] [facility] DO Work Phone: 04-12-2022 13:22-0400 Systolic blood pressure 110 mm[Hg] Anibal E Ball Work Phone: [facility] [facility] DO Work Phone: 03-18-2022 08:45-0400 60 1 Anibal E Ball Work Phone: [facility] [facility] [place] Work Phone: Comment on above: [id number] 12-03-2021 11:02-0500 Body height 175.26 cm Anibal E Ball Work Phone: [facility] 250 DO Work Phone: 12-03-2021 11:02-0500 Body mass index (BMI) [Ratio] 45.04 kg/m2 Anibal E Ball Work Phone: [facility] 250 DO Work Phone: 12-03-2021 11:02-0500 Body surface area Derived from formula 2.47 m2 Anibal E Ball Work Phone: [facility] 250 DO Work Phone: 12-03-2021 11:02-0500 Body weight 138.35 kg Anibal E Ball Work Phone: [facility] 250 DO Work Phone: 12-03-2021 11:02-0500 Diastolic blood pressure 68 mm[Hg] Anibal E Ball Work Phone: [facility] 250 DO Work Phone: 12-03-2021 11:02-0500 Heart rate 91 /min Anibal E Ball Work Phone: [facility] 250 DO Work Phone: 12-03-2021 11:02-0500 Systolic blood pressure 109 mm[Hg] Anibal E Ball Work Phone: [facility] 250 DO Work Phone: 09-24-2021 10:36-0400 Body height 175.26 cm Anibal Melendez Ball Work Phone: [facility] 250 DO Work Phone: 09-24-2021 10:36-0400 Body mass index (BMI) [Ratio] 52.57 kg/m2 Anibal Melendez Ball Work Phone: [facility] 250 DO Work Phone: 09-24-2021 10:36-0400 Body surface area Derived from formula 2.64 m2 Anibal Melendez Ball Work Phone: [facility] [facility] DO Work Phone: 09-24-2021 10:36-0400 Body weight 161.48 kg Anibal Al Ball Work Phone: [facility] [facility] DO Work Phone: 09-24-2021 10:36-0400 Diastolic blood pressure 70 mm[Hg] Anibal Melendez Ball Work Phone: [facility] 250 DO Work Phone: 09-24-2021 10:36-0400 Heart rate 130 /min Anibal Melendez Ball Work Phone: [facility] [facility] DO Work Phone: 09-24-2021 10:36-0400 Systolic blood pressure 104 mm[Hg] Anibal Al Ball Work Phone: [facility] [facility] DO Work Phone: Encounters Encounter Date Encounter Type Care Provider Facility Start: 02-02-2025 End: 02-02-2025 ambulatory Anibal Ball DO Work Phone: [facility] Work Phone: Start: 02-02-2025 End: 02-02-2025 Patient encounter procedure Anibal Ball DO Work Phone: [facility] Work Phone: Start: 01-04-2025 End: 01-04-2025 ambulatory Anibal Ball DO Work Phone: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
[2025-02-08 09:37] LABS: Basophils Absolute Auto 0.1 10^3/uL (0.0-0.1); Basophils Percent Auto 0.4 % (0.2-2.0); Eosinophils Absolute Auto 0.1 10^3/uL (0.0-0.7); Eosinophils Percent Auto 0.4 % (0.9-7.0); Hematocrit 44.3 % (42.0-54.0); Hemoglobin 12.8 g/dL (14.0-18.0); Immature Granulocytes Abs Auto 0.08 10^3/uL (0.00-0.03); Immature Granulocytes Pct Auto 0.6 % (0.0-0.5); Lymphocytes Absolute Auto 1.5 10^3/uL (1.2-3.8); Lymphocytes Percent Auto 10.4 % (20.5-60.0); Mean Corpuscular Hemoglobin 25.9 pg (25.9-34.0); Mean Corpuscular Volume 89.5 fL (80.0-94.0); Monocytes Absolute Auto 0.7 10^3/uL (0.3-0.8); Monocytes Percent Auto 5.1 % (1.7-12.0); Neutrophils Absolute Auto 11.9 10^3/uL (1.4-6.5); Neutrophils Percent Auto 83.1 % (43.0-75.0); Platelet Count 343 10^3/uL (150-450); Red Blood Count 4.95 10^6/uL (4.70-6.10); Red Cell Distribution Width 16.1 % (11.0-15.0); White Blood Count 14.3 10^3/uL (4.0-11.0)
[2025-02-08 09:54] LABS: Anion Gap 6.7; BUN Creatinine Ratio 17.1; Calcium 9.2 mg/dL (8.5-10.1); Carbon Dioxide 35.7 mmol/L (21.0-32.0); Chloride 99 mmol/L (98-107); Estimated GFR (African America >60 (>=60 mL/min/1.73m^2); Estimated GFR (Non-African Ame 58 (>=60 mL/min/1.73m^2); Glucose 146 mg/dL (74-106); Potassium 3.4 mmol/L (3.5-5.1); Sodium 138 mmol/L (136-145)
[2025-02-08 10:10] LABS: Mean Corpuscular HGB Conc 28.9 g/dL (29.9-35.2)
== END 2025-02-08 09:21 | disposition home or self-care (01) ==
LOC: LAB 09:23
PROVIDERS: PCP Internal Medicine; Visit Provider Internal Medicine
DX: I50.32 Chronic diastolic (congestive) heart failure (principal); D53.9 Nutritional anemia, unspecified
CPT/HCPCS: 36415; 80048; 85025

== ENCOUNTER 2025-04-13 12:25 | Outpatient (RCR) | payer OTHER, SELFPAY | END 2025-04-22 15:34 | disposition home or self-care (01) | LOC: MM 12:25 | PROVIDERS: PCP Internal Medicine; Visit Provider Internal Medicine | DX: Z51.81 Encounter for therapeutic drug level monitoring (principal); Z79.01 Long term (current) use of anticoagulants; I48.20 Chronic atrial fibrillation, unspecified | CPT/HCPCS: 85610; G0463 ==

== ENCOUNTER 2025-04-15 09:15 | Outpatient (OUT) | payer OTHER, SELFPAY ==
--- OUTSIDE RECORDS SUMMARY | 2024-11-19 09:04 | XMS_ITS ---
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 [id number] [place] [address]Aia: (HP) [facility] 06/28/2024 CHEYANNE EDMONDS: [facility] ([facility]) Primary Insurance:MEDICAREPol icy Number: [id number] Date:[id number] [address]IF: [address] [facility] [facility] 06/12/2024 CHEYANNE RODRIGUEZB: [place] STTel: (HP) Primary Insurance:MEDICAREPol icy Number: [id number] Date:[id number] [address]WA: [address] CHEYANNE [facility] 06/12/2024 CHEYANNE RODRIGUEZB: [place] STTel: (HP) Primary Insurance:MEDICAREPol icy Number: [id number] Date:[id number] [address]NN: 6[address] [facility] 06/12/2024 CHEYANNE RODRIGUEZB: [place] STTel: (HP) Primary Insurance:MEDICAREPol icy Number: [id number] Date:[id number] [address]KD: [address] [facility] 06/12/2024 CHEYANNE RODRIGUEZB: [place] STTel: (HP) Primary Insurance:[facility] Insurance CompanyPolicy Number: [id number] Date:2024-05-24 [facility] Secondary Insurance:MEDICAREPol icy Number: [id number] Date:[id number]SetotG[address] [address]UJ: 6[address] [facility] 06/12/2024 CHEYANNE RODRIGUEZB: [place] STTel: (HP) Primary Insurance:MEDICAREPol icy Number: [id number] Date:[id number], [place] [address]IZ: [address] CHEYANNE SHELL [facility]
--- OUTSIDE RECORDS SUMMARY | 2025-04-15 09:21 | XMS_ITS | Encounter Summary ---
Author Organization [facility] Address [address] [place] [address] Phone Care Team Providers Care Switchboard Installer Name Role Phone Anibal [place] DO Primary Care Provider [phone] Encounter Details Date Type Department Care Team (Late st Contact Info) Description 06/13/2024 Scanned Document [facility] [address] [place] [id number] Scanning, Generic Provider Social History Tobacco Use Types Packs/Day Years Used Date Smoking Tobacco: Former Cigarettes Smokeless Tobacco: Never Alcohol Use Standard Drinks/Week Comments Not Currently 0 (1 standard drink = 0.6 oz pur e alcohol) Sex and Gender Information Value Date Recorded Sex Assigned at Not on file Legal Sex Male 3:43 AM EST Gender Identity Not on file Sexual Orientation Not on file documented as of this encounter Plan of Treatment Upcoming Encounters Date Type Department Care Team (Late st Contact Info) Description 04/27/2025 1:30 PM EDT Office Visit [place] [id number] [facility] [address] [place] [address] Yohana Headley MD [address] [facility] 2, [place] [address] [place], [place] [id number] documented as of this encounter Visit Diagnoses Not on filedocumented in this encounter Additional Health Concerns Assessment Noted Time A fall risk assessment has been complete d for the patient 12/02/2023 10:36 AM EST documented as of this encounter Care Teams Switchboard Installer Relationship Specialty Start Date End Date Anibal [place] DO [address] [place] [address] PCP - General Internal Medicine 12/02/23 documented as of this encounter
--- OUTSIDE RECORDS SUMMARY | 2025-04-15 09:21 | XMS_ITS | Clinical Summary ---
Author Organization [facility] Address [address] [place] [address] Phone Care Team Providers Care Roving Technician Name Role Phone Anibal Gonzales Primary Care Provider [phone] Allergies No known active allergies Medications allopurinol (Zyloprim) 300 mg tablet Take 1 tablet (300 mg) by mouth once daily. Active atorvastatin (Lipitor) 20 mg tabletIndications:M ixed hyperlipidemia Take 1 tablet (20 mg) by mouth once daily at bedtime. 90 tablet 3 4 Active apixaban (Eliquis) 5 mg tabletIndications:P aroxysmal atrial fibrillation (Multi) Take 1 tablet (5 mg) by mouth 2 times a day. 180 tablet 3 4 Active digoxin (Lanoxin) 125 MCG tablet Take 1 tablet (125 mcg) by mouth once daily at bedtime. 4 Active metoprolol succinate XL (Toprol-XL) 200 mg 24 hr tablet 1 tablet (200 mg) once daily. 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 11/12/2023 Type 2 diabetes mellitus 11/12/2023 Resolved Problems Problem Noted Date Diagnosed Date Resolved Date Paroxysmal atrial fibrillation (Multi) 11/12/2023 09/24/2024 Immunizations Immunization Administration Dates Next Due Sandor SARS-CoV-2 Vaccination 04/12/2021 Family History Medical History Relation Name Comments Heart failure Mother malignant neoplasm Mother Relation Name Status Comments Mother Social History Tobacco Use Types Packs/Day Years Used Date Smoking Tobacco: Former Cigarettes Smokeless Tobacco: Never Alcohol Use Standard Drinks/Week Comments Never 0 (1 standard drink = 0.6 oz pur e alcohol) Sex and Gender Information Value Date Recorded Sex Assigned at Not on file Legal Sex Male 3:43 AM EST Gender Identity Not on file Sexual Orientation Not on file Last Filed Vital Signs Vital Sign Reading Time Taken Comments Blood Pressure 136/74 09/24/2024 9:53 AM EDT Pulse 97 09/24/2024 9:53 AM EDT Temperature - - Respiratory Rate - - Oxygen Saturation - - Inhaled Oxygen Concentration - - Weight 143 kg (316 lb) 09/24/2024 9:53 AM EDT Height 177.8 cm (5' 10 ) 09/24/2024 9:53 AM EDT Body Mass Index 45.34 09/24/2024 9:53 AM EDT Plan of Treatment Upcoming Encounters Date Type Department Care Team (Late st Contact Info) Description 04/27/2025 1:30 PM EDT Office Visit [facility] [address] [phone] Yohana Headley MD 703 [facility], [facility] 250 [place] [address] Health Maintenance Due Date Last Done Comments CT Colonography 1955 Colonoscopy 1955 Colorectal Cancer Screening 1955 Creatinine Level 1955 Diabetes: Hemoglobin A1C 1955 Diabetes: Urine Protein Screening 1955 FIT-DNA (Cologuard) 1955 FIT 1955 Lipid Panel 1955 Medicare Annual Wellness Vis it (AWV) 1955 Potassium Level 1955 Sigmoidoscopy 1955 Diabetes: Retinopathy Screening 1965 Hepatitis C Screening 1973 Pneumococcal Vaccine (1 of 2 - PCV) 1974 DTaP/Tdap/Td Vaccines (1 - Tdap) 1977 Zoster Vaccines (1 of 2) 2005 RSV High Risk: (Elderly (60+ ) or Population) (1 - Risk 60-74 years 1-dose series) 2015 Abdominal Aortic Aneurysm (AAA) Screening 2020 COVID-19 Vaccine (2 - 2023-2 5 season) 2024 04/12/2021 Echocardiogram 06/14/2025 06/14/2024, 03/18/2022, 03/18/2022 Influenza Vaccine (Season Ended) 2025 HIB Vaccines Aged Out No longer eligi ble based on patient's age to complete this topic HPV Vaccines Aged Out No longer eligi ble based on patient's age to complete this topic Hepatitis A Vaccines Aged Out No long er eligible based on patient's age to complete this topic Hepatitis B Vaccines Aged Out No long er eligible based on patient's age to complete this topic IPV Vaccines Aged Out No longer eligi ble based on patient's age to complete this topic Meningococcal Vaccine Aged Out No trevor sandeep eligible based on patient's age to complete this topic Rotavirus Vaccines Aged Out No longer eligible based on patient's age to complete this topic Procedures Procedure Name Priority Date/Time Associated Diagnosis Comments ECHOCARDIOGRAM 06/14/2024 from Last 3 Months or Most Recently Relevant to Health Maintenance Results * Echocardiogram (06/14/2024) Narrative 06/14/2024 Ordered by an unspecified provider. Generic Provider Scanning CV ECHO PROCEDURES Fin al Result from Last 3 Months or Most Recently Relevant to Health Maintenance Insurance [employer] [facility] Care Teams Roving Technician Relationship Specialty Start Date End Date Anibal Gonzales DO [address] [place] [address] PCP - General Internal Medicine 12/02/23
--- OUTSIDE RECORDS SUMMARY | 2025-04-15 09:21 | XMS_ITS | Clinical Summary ---
Author Organization [facility] Address [address] [place] [address] Care Team Providers Care Weed Burner Name Role Phone Anibal Gonzales DO Primary Care Provider [phone] Allergies No known active allergies Medications allopurinol (Zyloprim) 300 MG tablet Take 300 mg by mouth in the morning. 04/03/2023 Active Eliquis 5 MG tablet Take 5 mg by mouth in the morning and 5 mg before bedtime. 04/03/2023 Active atorvastatin (Lipitor) 20 MG tablet Take 20 mg by mouth in the morning. 04/03/2023 Active furosemide (Lasix) 20 MG tablet Take 20 mg by mouth in the morning and 20 mg before bedtime. 04/03/2023 Active ketorolac (Acular) 0.5 % ophthalmic solution INSTILL 1 DROP INTO AFFECTED EYE TWICE A DAY 04/10/2023 Active lisinopril 10 MG tablet Take 10 mg by mouth in the morning. 02/05/2023 Active losartan (Cozaar) 50 MG tablet Take 50 mg by mouth in the morning. 04/03/2023 Active metoprolol succinate XL (Toprol-XL) 50 MG 24 hr tablet Take 50 mg by mouth in the morning. 04/03/2023 Active ofloxacin (Ocuflox) 0.3 % ophthalmic solution INSTILL 1 DROP INTO AFFECTED EYE FIVE TIMES A DAY 04/10/2023 Active potassium chloride CR (Klor-Con) 10 MEQ ER tablet Take 10 mEq by mouth in the morning. with food. 04/03/2023 Active spironolactone (Aldactone) 25 MG tablet Take 25 mg by mouth in the morning. 04/03/2023 Active Active Problems Problem Noted Date Diagnosed Date Pseudophakia 04/25/2023 Encounters Date Type Department Care Team Description 03/31/2025 Travel 03/30/2025 Travel 03/29/2025 Travel 03/28/2025 Travel 03/16/2025 Travel from Last 3 Months Social History Tobacco Use Types Packs/Day Years Used Date Smoking Tobacco: Former Cigarettes Tobacco Cessation:Counseling Given: Not Answered Sex and Gender Information Value Date Recorded Sex Assigned at Not on file Legal Sex Male 11:13 AM EDT Gender Identity Not on file Sexual Orientation Not on file Plan of Treatment Upcoming Encounters Date Type Department Care Team (Late st Contact Info) Description 04/22/2025 10:15 AM EDT Consult [facility] 703 [facility] 150 [place] [phone] Yoni Siu, DO 703 [facility] 150 [place] [address] Health Maintenance Due Date Last Done Comments CT Colonography 1955 Colonoscopy 1955 Colorectal Cancer Screening 1955 FIT-DNA 1955 FIT 1955 FOBT 1955 Sigmoidoscopy 1955 Pneumococcal Vaccine: 65+ Years (1 of - PCV) 005 Influenza Vaccine (Season Ended) 2025 Insurance [employer] Care Teams Weed Burner Relationship Specialty Start Date End Date Anibal Gonzales DO [address] [place] [address] PCP - General Internal Medicine 03/16/25
--- OUTSIDE RECORDS SUMMARY | 2025-04-15 09:21 | XMS_ITS | Encounter Summary ---
Author Organization [facility] Address [address] [place] [address] Phone Care Team Providers Care Reconciling Clerk Name Role Phone Anibal Gonzales DO Primary Care Provider [phone] Encounter Details Date Type Department Care Team (Late st Contact Info) Description 09/21/2024 Scanned Document [facility] [address] [place] [phone] Scanning, Generic Provider Social History Tobacco Use [...] on file Sexual Orientation Not on file COVID-19 Exposure Response Date Recorded In the last 10 days, have yo u been in contact with someone who was confirmed or suspected to have Coronavirus/COVID-19? No / Unsure 09/24/2024 9:42 AM EDT documented as of this encounter Plan of Treatment Upcoming Encounters Date Type Department Care Team (Late st Contact Info) Description 04/27/2025 1:30 PM EDT Office Visit [place] [id number] [facility] 250 [place] [address] Yohana Headley MD 703 [facility] 2, [facility] [address] [place], [place] [phone] documented as of this encounter Visit Diagnoses Not on filedocumented in this encounter Additional Health Concerns Assessment Noted Time A fall risk assessment has been complete d for the patient 12/02/2023 10:36 AM EST documented as of this encounter Care Teams Reconciling Clerk Relationship Specialty Start Date End Date Anibal Gonzales DO [address] [place] [address] PCP - General Internal Medicine 12/02/23 documented as of this encounter
--- OUTSIDE RECORDS SUMMARY | 2025-04-15 09:21 | XMS_ITS | Encounter Summary ---
Author Organization [facility] Address [address] [place] [address] Phone Care Team Providers Care Tax Adjuster Name Role Phone Anibal Gonzales DO Primary Care Provider [phone] Anibal Gonzales DO Primary Care Provider [phone] Encounter Details Date Type Department Care Team (Late st Contact Info) Description 03/14/2022 Orders Only [facility] [address] [place] [address] Conversion, Onbase Social History Tobacco Use Types Packs/Day Years Used Date Smoking Tobacco: Never Assessed Sex and Gender Information Value Date Recorded Sex Assigned at Not on file Legal Sex Male 3:43 AM EST Gender Identity Not on file Sexual Orientation Not on file documented as of this encounter Plan of Treatment Upcoming Encounters Date Type Department Care Team (Late st Contact Info) Description 04/27/2025 1:30 PM EDT Office Visit [facility] [address] [address] Yohana Headley MD 703 [facility] 2, [place] [address] [place], [place] [phone] Scheduled Orders Name Type Priority Associated Diagnoses Orde r Schedule OUTSIDE LAB SCAN Lab Ordered: 03/14/2022 documented as of this encounter Visit Diagnoses Not on filedocumented in this encounter Care Teams Tax Adjuster Relationship Specialty Start Date End Date Anibal Gonzales DO PCP - General 09/24/21 12/01/23 Anibal Gonzales DO [address] [place] [address] PCP - General Internal Medicine 12/02/23 documented as of this encounter
--- OUTSIDE RECORDS SUMMARY | 2025-04-15 09:21 | XMS_ITS | Encounter Summary ---
Author Organization [facility] Address [address] [place] [address] Phone Care Team Providers Care Home Hospice Rn Name Role Phone Anibal Gonzales DO Primary Care Provider [phone] Anibal Goznales DO Primary Care Provider Encounter Details Date Type Department Care Team (Late st Contact Info) Description 08/08/2021 Orders Only [facility] [address] [place] [address] Conversion, Onbase Social History Tobacco Use Types [...] Description 04/27/2025 1:30 PM EDT Office Visit [facility] [address] [address] Yohana Headley MD 703 [facility] 2, [address] [place], [place] [phone] Scheduled Orders Name Type Priority Associated Diagnoses Orde r Schedule OUTSIDE LAB SCAN Lab Ordered: 08/08/2021 documented as of this encounter Visit Diagnoses Not on filedocumented in this encounter Care Teams Home Hospice Rn Relationship Specialty Start Date End Date Anibal Gonzales DO PCP - General 09/24/21 12/01/23 Anibal Gonzales DO [address] [place] [address] PCP - General Internal Medicine 12/02/23 documented as of this encounter
--- OUTSIDE RECORDS SUMMARY | 2025-04-15 09:21 | XMS_ITS | Encounter Summary ---
Author Organization [facility] Address [address] [place] [address] Phone Care Team Providers Care Marketing Content Specialist Name Role Phone Anibal Gonzales DO Primary Care Provider [phone] Anibal Gonzales DO Primary Care Provider [phone] Encounter Details Date Type Department Care Team (Late st Contact Info) Description 11/08/2022 Orders Only [facility] [address] Virtual [place] [address] Conversion, Onbase Social History Tobacco Use Types [...] Description 04/27/2025 1:30 PM EDT Office Visit [facility] [address] [address] Yohana Headley MD 703 [facility] 2, [address] [place], [place] [phone] Scheduled Orders Name Type Priority Associated Diagnoses Orde r Schedule OUTSIDE LAB SCAN Lab Ordered: 11/08/2022 documented as of this encounter Visit Diagnoses Not on filedocumented in this encounter Care Teams Marketing Content Specialist Relationship Specialty Start Date End Date Anibal Gonzales DO PCP - General 09/24/21 12/01/23 Anibal Gonzales DO [address] [place] [address] PCP - General Internal Medicine 12/02/23 documented as of this encounter
--- OUTSIDE RECORDS SUMMARY | 2025-04-15 09:21 | XMS_ITS | Encounter Summary ---
Author Organization [facility] Address [address] [place] [address] Phone Care Team Providers Care Sand Screener Operator Name Role Phone Anibal Gonzales DO Primary Care Provider [phone] Encounter Details Date Type Department Care Team (Late st Contact Info) Description 07/19/2024 Scanned Document [facility] [address] [place] [phone] Scanning, Generic Provider Social History Tobacco Use [...] Description 04/27/2025 1:30 PM EDT Office Visit [facility] 703 [facility] [address] [place] [address] Yohana Headley MD 703 [facility] 2, [place] [place], [place] [phone] documented as of this encounter Procedures Procedure Name Priority Date/Time Associated Diagnosis Comments OUTSIDE LAB SCAN 07/19/2024 documented in this encounter Results * OUTSIDE LAB SCAN (07/19/2024) Narrative 07/19/2024 Ordered by an unspecified provider. us Generic Provider Scanning OUTSIDE SCAN Final Result documented in this encounter Visit Diagnoses Not on filedocumented in this encounter Additional Health Concerns Assessment Noted Time A fall risk assessment has been complete d for the patient 12/02/2023 10:36 AM EST documented as of this encounter Care Teams Sand Screener Operator Relationship Specialty Start Date End Date Anibal Gonzales DO [address] [place] [address] PCP - General Internal Medicine 12/02/23 documented as of this encounter
--- OUTSIDE RECORDS SUMMARY | 2025-04-15 09:21 | XMS_ITS | Encounter Summary ---
Author Organization [facility] Address [address] [place] [address] Phone Care Team Providers Care Exam Proctor Name Role Phone Anibal Gonzales DO Primary Care Provider [phone] Encounter Details Date Type Department Care Team (Late st Contact Info) Description 06/14/2024 Scanned Document [facility] [address] [place] [phone] Scanning, Generic Provider Social History Tobacco Use [...] Office Visit [facility] 703 [facility] [address] [place] [address] Yohana Headley MD 703 [facility] 2, [address] [place], [place] [phone] documented as of this encounter Procedures Procedure Name Priority Date/Time Associated Diagnosis Comments ECHOCARDIOGRAM 06/14/2024 documented in this encounter Results * Echocardiogram (06/14/2024) Narrative 06/14/2024 Ordered by an unspecified provider. us Generic Provider Scanning CV ECHO PROCEDURES Fin al Result documented in this encounter Visit Diagnoses Not on filedocumented in this encounter Additional Health Concerns Assessment Noted Time A fall risk assessment has been complete d for the patient 12/02/2023 10:36 AM EST documented as of this encounter Care Teams Exam Proctor Relationship Specialty Start Date End Date Anibal Gonzales DO [address] [place] [address] PCP - General Internal Medicine 12/02/23 documented as of this encounter
--- OUTSIDE RECORDS SUMMARY | 2025-04-15 09:21 | XMS_ITS | Referral Summary ---
Author Organization [facility] Address [address] [place] [address] Care Team Providers Care Incident Response Consultant Name Role Phone Unavailable Primary Care Provider Unavailabl e Social History Tobacco Use Types Packs/Day Years Used Date Smoking Tobacco: Never Assessed [place] Safety & Environment Answer Date Rec orded Fear of Current or Ex-Partner Not on file Emotionally Abused Not on file 01/15/2024 Physically Abused Not on file 01/15/2024 Sexually Abused Not on file 01/15/2024 Physically or Sexually Abused Not on file Sex and Gender Information Value Date Recorded Sex Assigned at Not on file Gender Identity Not on file Sexual Orientation Not on file Plan of Treatment Not on file
--- OUTSIDE RECORDS SUMMARY | 2025-04-15 09:21 | XMS_ITS | Clinical Summary ---
Author Organization [facility] Address [address] [place] [address] Care Team Providers Care Yardage Tufting Machine Operator Name Role Phone Unavailable Primary Care Provider [...]
--- OUTSIDE RECORDS SUMMARY | 2025-04-15 09:21 | XMS_ITS | Encounter Summary ---
Author Organization [facility] Address [address] [place] [address] Phone Care Team Providers Care Upholsterer Outside Name Role Phone Anibal Gonzales DO Primary Care Provider [phone] Encounter Details Date Type Department Care Team (Late st Contact Info) Description 06/21/2024 Scanned Document [place] [address] [place] [phone] Scanning, Generic Provider Social History Tobacco Use [...] Description 04/27/2025 1:30 PM EDT Office Visit [place] [address] [address] Yohana Headley MD 703 [facility] 2, [address] [place] [address] Scheduled Orders Name Type Priority Associated Diagnoses Orde r Schedule Ultrasound- OnBase Scan Imaging O rdered: 06/21/2024 documented as of this encounter Visit Diagnoses Not on filedocumented in this encounter Additional Health Concerns Assessment Noted Time A fall risk assessment has been complete d for the patient 12/02/2023 10:36 AM EST documented as of this encounter Care Teams Upholsterer Outside Relationship Specialty Start Date End Date Anibal Gonzales DO [address] [place] [address] PCP - General Internal Medicine 12/02/23 documented as of this encounter
[2025-04-15 10:21] LABS: Estimated Average Glucose 151 mg/dL; Glycohemoglobin A1C 6.9 % (4.5-6.2)
[2025-04-15 11:23] LABS: Creatinine Urine Random 46.22 mg/dL (20.00-300.00); Microalbum Creatinine Ratio Ur 32.4 mg/g (0.0-29.9); Microalbumin Urine Random 1.5 mg/dL (<=30.0)
== END 2025-04-15 09:16 | disposition home or self-care (01) ==
LOC: LAB 09:20
PROVIDERS: PCP Internal Medicine
DX: E11.69 Type 2 diabetes mellitus with other specified complication (principal)
CPT/HCPCS: 36415; 82043; 82570; 83036

== ENCOUNTER 2025-04-24 08:09 | Outpatient (RCR) | payer OTHER, SELFPAY | END 2025-05-19 14:57 | disposition home or self-care (01) | LOC: MM 08:09 | PROVIDERS: PCP Internal Medicine; Visit Provider Internal Medicine | DX: Z51.81 Encounter for therapeutic drug level monitoring (principal); Z79.01 Long term (current) use of anticoagulants; I48.20 Chronic atrial fibrillation, unspecified | CPT/HCPCS: 85610; G0463 ==

== ENCOUNTER 2025-04-29 10:58 | Outpatient (OUT) | payer OTHER, SELFPAY ==
--- OUTSIDE RECORDS SUMMARY | 2025-04-22 10:15 | XMS_ITS | Encounter Summary ---
Author Organization [facility] Address [address] [place] [address] Care Team Providers Care Ecg Technician Name Role Phone Anibal Gonzales DO Primary Care Provider [phone] Reason for Referral * Consultation (Routine) - Authorized Specialty Diagnoses / Procedures Referred By Contac t Referred To Contact Colorectal Surgery Diagnoses Hemorrhage of anus and rectum Other hemorrhoids Procedures MI OFFICE/OUTPATIENT NEW HIGH MDM 60 MINUTES Yoni Siu DO [address] [address] Phone: tel: [place]: [place] [address] [place] [address] Phone: tel: fax: Referral ID Status Reason Start Date Expiration Date Visits Requested Visits Authorized [id number] Authorized Specialty Services Required 04/22/2025 10/19/2025 1 1 Reason for Visit * Reason Comments Hemorrhoid consult Tired of the constan t bleeding. Been going on for over a year now. * Consultation (Routine) - Closed Specialty Diagnoses / Procedures Referred By Contac t Referred To Contact General Surgery Diagnoses Hemorrhage of anus and rectum Other hemorrhoids Procedures MI OFFICE/OUTPATIENT NEW HIGH MDM 60 MINUTES Pierce Fatima MD Phone: tel: fax: [facility] [address] [address] Phone: tel: fax: Referral ID Status Reason Start Date Expiration Date V isits Requested Visits Authorized [id number] Closed Specialty Services Required 03/02/2025 08/29/2025 1 1 Encounter Details Date Type Department Care Team (Late st Contact Info) Description 04/22/2025 10:15 AM EDT Consult [facility] 703 [facility] [address] [place] [id number] Yoni Siu DO 703 [facility] [address] [place] [address] Hemorrhage of anus and rectum; Other hemorrhoids Social History Tobacco Use Types Packs/Day Years Used Date Smoking Tobacco: Former Cigarettes Smokeless Tobacco: Never Tobacco Cessation:Counseling Given: Not Answered Alcohol Use Standard Drinks/Week Comments Not Currently 0 (1 standard drink = 0.6 oz pur e alcohol) Sex and Gender Information Value Date Recorded Sex Assigned at Not on file Legal Sex Male 11:13 AM EDT Gender Identity Not on file Sexual Orientation Not on file documented as of this encounter Last Filed Vital Signs Vital Sign Reading Time Taken Comments Blood Pressure - - Pulse - - Temperature - - Respiratory Rate - - Oxygen Saturation - - Inhaled Oxygen Concentration - - Weight 139 kg (306 lb) 04/22/2025 10:16 AM EDT Height 175.3 cm (5' 9 ) 04/22/2025 10:16 AM EDT Body Mass Index 45.19 04/22/2025 10:16 AM EDT documented in this encounter Progress Notes * Yoni Siu DO - 04/22/2025 10:15 AM EDT Images from the original note were not included. Rojas Gibbs 1955 Rojas Gibbs is a 69 y.o. male presents with chief complaint of Hemorrhoid consult (Tired of the constant bleeding. Been going on for over a year now.) HPI: HPI Rojas states for over 1 year he has been having rectal bleeding that ranges from a little to a lot of blood. He can have rectal bleeding at any time and needs to use a pad all the time. He was on Eliquis but is now on Warfarin. He has never has any rectal surgery. He had an EGD & Colonoscopy last year with polypectomy that were benign. SUBJECTIVE: MEDICATIONS: ALLERGIES Current Outpatient Medications Medication Instructions allopurinol (ZYLOPRIM) 300 mg, Daily atorvastatin (LIPITOR) 20 mg, Daily furosemide (LASIX) 20 mg, 2 times daily ketorolac (Acular) 0.5 % ophthalmic solution lisinopril 10 mg, Daily losartan (COZAAR) 50 mg, Daily metoprolol succinate XL (TOPROL-XL) 50 mg, Daily ofloxacin (Ocuflox) 0.3 % ophthalmic solution potassium chloride CR (Klor-Con) 10 MEQ ER tablet 10 mEq, Daily spironolactone (ALDACTONE) 25 mg, Daily warfarin (Coumadin) 5 MG tablet TAKE 1 TABLET ORALLY DAILY INSTRUCTED BY MEDICATION MANAGEMENT CLINIC No Known Allergies PAST MEDICAL HISTORY: SOCIAL HISTORY SURGICAL HISTORY: Past Medical History: Diagnosis Date Atrial fib/flutter, transient (CMS/HCC) Cataract Coronary artery disease (CAD) excluded Gout Hypercholesteremia (CMS/HCC) Hypertension (CMS/HCC) Social History Tobacco Use Smoking status: Former Types: Cigarettes Smokeless tobacco: Never Substance Use Topics Alcohol use: Not Currently Drug use: Not Currently Types: Marijuana Past Surgical History: Procedure Laterality Date APPENDECTOMY CATARACT EXTRACTION COLONOSCOPY 2023 w/ polypectomy KNEE SURGERY TONSILLECTOMY FAMILY HISTORY Family History Problem Relation Name Age of Onset Breast cancer Neg Hx Colon cancer Neg Hx Ovarian cancer Neg Hx Pancreatic cancer Neg Hx REVIEW OF SYMPTOMS: Review of Systems Constitutional: Negative for activity change. HENT: Negative for hearing loss and voice change. Respiratory: Positive for shortness of breath. Cardiovascular: Negative for chest pain. Gastrointestinal: Positive for anal bleeding and blood in stool. Negative for abdominal distention,diarrhea, nausea, rectal pain and vomiting. Neurological: Negative for dizziness, seizures and headaches. Psychiatric/Behavioral: Negative. All other systems reviewed and are negative. Hematological: Bruises/bleeds easily. OBJECTIVE: Visit Vitals Ht 5' 9 Wt 306 lb BMI 45.19 kg/m?? Smoking Status Former BSA 2.6 m?? Physical Exam Genitourinary: Comments: External anal area appeared normal, some stool noted in the anal area. Digital rectal exam was performed, slight decrease in sphincter tone, no masses palpated, prostrate was smooth. A rigid sigmoidoscope was inserted and advanced to 10 cm, friable mucosa was noted with oozing from several areas, no definite hemorrhoid was seen, due to patients body habitus exam was limited and difficult . ASSESSMENT AND PLAN: Assessment/Plan Diagnoses and all orders for this visit: Hemorrhage of anus and rectum - Ambulatory referral to General Surgery - Ambulatory referral to Colorectal Surgery; Future Other hemorrhoids - Ambulatory referral to General Surgery - Ambulatory referral to Colorectal Surgery; Future Rojas states he had a colonoscopy last year with benign polyps removed. He is on Warfarin for A. Fib and has ruiz rectal bleeding sometimes reported to be a significant amount. Exam was difficultdue to his body habitus but I was able to see circumferential friable mucosa. I was not comfortablewith the exam and feel he needs to be referred to colorectal surgery. I will place the request and see him PRN documented in this encounter Plan of Treatment Scheduled Referrals Name Type Priority Associated Diagnoses Orde r Schedule Ambulatory referral to Colorectal Surgery Outpatient Referral Routine Hemorrhage of anus and rectum Other hemorrhoids Expected: 04/22/2025 (Approximate), Expires: 10/23/2025 documented as of this encounter Visit Diagnoses Diagnosis Hemorrhage of anus and rectum Hemorrhage of rectum and anus Other hemorrhoids documented in this encounter Care Teams Ecg Technician Relationship Specialty Start Date End Date Anibal Gonzales DO [address] [place] [address] PCP - General Internal Medicine 03/16/25 documented as of this encounter
--- OUTSIDE RECORDS SUMMARY | 2025-04-27 13:30 | XMS_ITS | Encounter Summary ---
Author Organization [facility] Address [address] [place] [address] Phone Care Team Providers Care Fish Drier Name Role Phone Anibal Gonzales Primary Care Provider [phone] Reason for Referral * Imaging (Routine) - Authorized Specialty Diagnoses / Procedures Referred By Contac t Referred To Contact Radiology Diagnoses Cough, unspecified type Procedures XR chest 2 views Yohana Headley MD [facility], [address] [address] Phone: tel: fax: Referral ID Status Reason Start Date Expiration Date Visits Requested Visits Authorized [id number] Authorized Perform Procedure 04/27/2025 04/27/2026 1 1 * Cardiovascular (Routine) - Authorized Specialty Diagnoses / Procedures Referred By Contac t Referred To Contact Diagnoses Atypical atrial flutter Procedures ECG 12 Lead Yohana Headley MD [address], [address] [address] Phone: tel: fax: Referral ID Status Reason Start Date Expiration Date V isits Requested Visits Authorized [id number] Authorized 04/27/2025 04/27/2026 1 1 * Consultation (Routine) - Authorized Specialty Diagnoses / Procedures Referred By Contac t Referred To Contact Cardiology Diagnoses Non-ischemic cardiomyopathy (Multi) Procedures Follow Up In Cardiology Yohana Headley MD [address], [facility] [address] [place] [address] Phone: tel: fax: Yohana Headley MD [address] [place] [address] Phone: tel: fax: Referral ID Status Reason Start Date Expiration Date V isits Requested Visits Authorized [id number] Authorized 04/27/2025 04/27/2026 1 1 Reason for Visit * Reason Comments Follow-up 6 month follow up fo r Syncope and collapse * Consultation (Routine) - Authorized Specialty Diagnoses / Procedures Referred By Contac t Referred To Contact Cardiology Diagnoses Non-ischemic cardiomyopathy (Multi) Procedures Follow Up In Cardiology Yohana Headley MD [address] [place] [address] Phone: tel: fax: Yohana Headley MD [address] [place] [address] Phone: tel: fax: Referral ID Status Reason Start Date Expiration Date V isits Requested Visits Authorized [id number] Authorized 09/24/2024 09/24/2025 1 1 Encounter Details Date Type Department Care Team (Latest Contact Info) Description 04/27/2025 1:30 PM EDT Office Visit [facility] [address] [address] Yohana Headley MD [address] [place] [address] Syncope and collapse (Primary Dx); Non-ischemic cardiomyopathy (Multi); Primary hypertension; Mixed hyperlipidemia; Chronic atrial fibrillation (Multi); Atypical atrial flutter; Anticoagulated; Cough, unspecified type; Former smoker; BMI 40.0-44.9, adult (Multi) Social History Tobacco Use Types Packs/Day Years [...] suspected to have Coronavirus/COVID-19? No / Unsure 04/27/2025 1:19 PM EDT documented as of this encounter Last Filed Vital Signs Vital Sign Reading Time Taken Comments Blood Pressure 100/70 04/27/2025 1:28 PM EDT Pulse 85 04/27/2025 1:28 PM EDT Temperature - - Respiratory Rate - - Oxygen Saturation - - Inhaled Oxygen Concentration - - Weight 140 kg (308 lb) 04/27/2025 1:28 PM EDT Height 177.8 cm (5' 10 ) 04/27/2025 1:28 PM EDT Body Mass Index 44.19 04/27/2025 1:28 PM EDT documented in this encounter Patient Instructions * Patient Instructions* Breanna Scruggs LPN - 04/27/2025 1:30 PM EDT Please bring all medicines, vitamins, and herbal supplements with you when you come to the office. Prescriptions will not be filled unless you are compliant with your follow up appointments or have a follow up appointment scheduled as per instruction of your physician. Refills should be requested at the time of your visit. BMI was above normal measurement. Current weight: 140 kg (308 lb) Weight change since last visit (-) denotes wt loss -8 lbs Weight loss needed to achieve BMI 25: 134.1 Lbs Weight loss needed to achieve BMI 30: 99.4 Lbs Provided instructions on dietary changes Provided instructions on exercise. Claritin 10mg one tablet daily for two weeks. * Attachments The following attachments cannot be sent through Care Everywhere. * Diet and health ([place]) documented in this encounter Progress Notes * Yohana Headley MD - 04/27/2025 1:30 PM EDT Chief Complaint Patient presents with Follow-up 6 month follow up for Syncope and collapse Subjective Rojas Gibbs is a 69 y.o. male HPI Patient is here for follow-up to management for previous evaluation for syncopal episode, chronic atrial fibrillation/flutter, long-term anticoagulation and obesity. Since last time I saw him his only complaint is cough. Last time I saw him he was concerned that it is digoxin and we did digoxin however then it made no difference. He denies chest pain, lightheadedness, dizziness or syncope. There is no recurrence of his previously evaluated syncopal episode. His recent lab work noted and reviewed with him. He was switched to Coumadin for cost reason. Assessment 1. Previous evaluation for syncopal episode. Workup benign including Holter monitor echocardiogram.No recurrence 2. Chronic atrial fibrillation/flutter heart rate has been well-controlled with metoprolol and digoxin 3. Patient continues to complain of cough. Did not get better last time I saw him he was concerned that digoxin causing him that. We did a digoxin holiday with no benefit so he is back on it 4. Long-term anticoagulation. He was switched recently to Coumadin for cost reason no complication.No bleeding 5. History of nonischemic cardiomyopathy improved recent echo showed normal LV systolic function 6. Morbid obesity with mild weight loss 7. Obstructive sleep apnea 8. Intermittent episode of bright blood per rectum 9. Increased risk of fall Plan 1. I advised the patient to continue to restrict his salt intake 2. I told him it is unlikely that vacation is causing his cough. I suggested a trial of Claritin once daily for 2 weeks and I also advised him to have a chest x-ray 3. I discussed with him Watchman device considering his recurrent fall and I advised him that considering that and concerning his GI bleed Watchman device is an attractive option but he want to deferfor now 4. I counseled him regarding losing weight, exercise and dietary modification and advised him to consider GLP-1 medication to address his weight 5. Follow-up in 6 months Review of Systems All other systems reviewed and are negative. Vitals: 04/27/25 1328 BP: 100/70 BP Location: Left arm Patient Position: Sitting Pulse: 85 Weight: 140 kg (308 lb) Height: 1.778 m (5' 10 ) EKG done in office today Objective Physical Exam Constitutional: Appearance: Normal appearance. HENT: Nose: Nose normal. Neck: Vascular: No carotid bruit. Cardiovascular: Rate and Rhythm: Normal rate. Rhythm irregularly irregular. Pulses: Normal pulses. Heart sounds: Normal heart [...] no known allergies. Current Medications Current Outpatient Medications Medication Instructions allopurinol (Zyloprim) 300 mg tablet 1 tablet, Daily atorvastatin (LIPITOR) 20 mg, oral, Nightly digoxin (LANOXIN) 125 mcg, Nightly metoprolol succinate XL (TOPROL-XL) 200 mg, Daily warfarin (Coumadin) 5 mg tablet TAKE 1 TABLET BY MOUTH EVERY DAY DIRECTED BY THE COUMADIN CLINIC Assessment/Plan 1. Syncope and collapse 2. Non-ischemic cardiomyopathy (Multi) Follow Up In Cardiology 3. Primary hypertension 4. Mixed hyperlipidemia 5. Chronic atrial fibrillation (Multi) 6. Atypical atrial flutter 7. Anticoagulated 8. Cough, unspecified type 9. Former smoker 10. BMI 40.0-44.9, adult (Multi) Scribe Attestation By signing my name below, Breanna Ravi LPN, Scribe attest that this documentation has been [...] discussion and plan. documented in this encounter Plan of Treatment Upcoming Encounters Date Type Department Care Team (Late st Contact Info) Description 12/08/2025 3:40 PM EST Office Visit [facility] [address] [place] [address] Yohana Headley MD [address], [address] [place] [address] Scheduled Orders Name Type Priority Associated Diagnoses Orde r Schedule XR chest 2 views Imaging Routine Cough, unspecified type Expected: 04/27/2025 (Approximate), Expires: 04/27/2026 documented as of this encounter Procedures Procedure Name Priority Date/Time Associated Diagnosis Comments ECG 12-LEAD Routine 04/27/2025 1:30 PM EDT Atypical atrial flutter documented in this encounter Results * ECG 12 Lead (04/27/2025 1:30 PM EDT) Narrative CPACS - 04/27/2025 2:12 PM EDT Atrial fibrillation with controlled rate us Yohana Headley MD ECG ORDERABLES Final Resu lt CPACS documented in this encounter Visit Diagnoses Diagnosis Syncope and collapse- Primary Non-ischemic cardiomyopathy (Multi) Other primary cardiomyopathies Primary hypertension Unspecified essential hypertension Mixed hyperlipidemia Chronic atrial fibrillation (Multi) Atrial fibrillation Atypical atrial flutter Anticoagulated Encounter for long-term (current) use of anticoagulants Cough, unspecified type Former smoker Personal history of tobacco use, presenting hazards to health BMI 40.0-44.9, adult (Multi) documented in this encounter Additional Health Concerns Assessment Noted Time A fall risk assessment has been complete d for the patient 04/27/2025 1:29 PM EDT documented as of this encounter Care Teams Fish Drier Relationship Specialty Start Date End Date Anibal Gonzales DO [address] [place] [address] PCP - General Internal Medicine 12/02/23 documented as of this encounter
--- OUTSIDE RECORDS SUMMARY | 2025-04-29 11:05 | XMS_ITS | Encounter Summary ---
Author Organization [facility] Address [address] [place] [address] Phone Care Team Providers Care Advanced Manufacturing Engineer Name Role Phone Anibal Gonzales DO Primary Care Provider [phone] Encounter Details Date Type Department Care Team (Late st Contact Info) Description 06/13/2024 Scanned Document [facility] [address] [place] [phone] Scanning, Generic Provider Social History Tobacco Use [...] Description 12/08/2025 3:40 PM EST Office Visit [facility] [address] [address] Yohana Headley MD 703 [facility] 2, [address] [place], [place] [id number] documented as of this encounter Visit Diagnoses Not on filedocumented in this encounter Additional Health Concerns Assessment Noted Time A fall risk assessment has been complete d for the patient 12/02/2023 10:36 AM EST documented as of this encounter Care Teams Advanced Manufacturing Engineer Relationship Specialty Start Date End Date Anibal Gonzales DO [address] [place] [address] PCP - General Internal Medicine 12/02/23 documented as of this encounter
--- OUTSIDE RECORDS SUMMARY | 2025-04-29 11:05 | XMS_ITS | Encounter Summary ---
Author Organization [facility] Address [address] [place] [address] Phone Care Team Providers Care Records Section Supervisor Name Role Phone Anibal Gonzales DO Primary Care Provider [phone] Encounter Details Date Type Department Care Team (Late st Contact Info) Description 07/19/2024 Scanned Document [facility] [address] [place] [phone] Scanning, Generic Provider Social History Tobacco Use [...] Description 12/08/2025 3:40 PM EST Office Visit [facility] 703 [facility] [address] [place] [address] Yohana Headley MD 703 [facility] 2, [address] [place], [place] [id number] documented as of this encounter Procedures Procedure [...] documented as of this encounter Care Teams Records Section Supervisor Relationship Specialty Start Date End Date Anibal Gonzales DO [address] [place] [address] PCP - General Internal Medicine 12/02/23 documented as of this encounter
--- OUTSIDE RECORDS SUMMARY | 2025-04-29 11:05 | XMS_ITS | Referral Summary ---
Author Organization [facility] Address [address] [place] [address] Care Team Providers Care Physiological Chemist Name Role Phone Unavailable Primary Care Provider [...]
--- OUTSIDE RECORDS SUMMARY | 2025-04-29 11:05 | XMS_ITS | Encounter Summary ---
Author Organization [facility] Address [address] [place] [address] Phone Care Team Providers Care Ship Carpenter Name Role Phone Anibal Gonzales DO Primary Care Provider [phone] Anibal Gonzales DO Primary Care Provider [phone] Encounter Details Date Type Department Care Team (Late st Contact Info) Description 08/08/2021 Orders Only [facility] [address] [place] [address] Conversion, Onbase Social History Tobacco Use Types [...] Description 12/08/2025 3:40 PM EST Office Visit [facility] [address] [address] Yohana Headley MD [address] [employer] [address], [facility] [address] [place], [place] [phone] Scheduled Orders Name Type Priority Associated Diagnoses Orde r Schedule OUTSIDE LAB SCAN Lab Ordered: 08/08/2021 documented as of this encounter Visit Diagnoses Not on filedocumented in this encounter Care Teams Ship Carpenter Relationship Specialty Start Date End Date Anibal Gonzales DO PCP - General 09/24/21 12/01/23 Anibal Gonzales DO [facility] [place] [address] PCP - General Internal Medicine 12/02/23 documented as of this encounter
--- OUTSIDE RECORDS SUMMARY | 2025-04-29 11:05 | XMS_ITS | Encounter Summary ---
Author Organization [facility] Address [address] [place] [address] Phone Care Team Providers Care Emergency Nurse Name Role Phone Anibal Gonzales DO Primary Care Provider Encounter Details Date Type Department Care Team (Late st Contact Info) Description 04/15/2025 Scanned Document [facility] [address] [place] [phone] Scanning, Generic Provider Social History Tobacco Use [...] Description 12/08/2025 3:40 PM EST Office Visit [facility] 703 [facility] [address] [place] [address] Yohana Headley MD 703 [facility] [address], [address] [place] [address] documented as of this encounter Visit Diagnoses Not on filedocumented in this encounter Additional Health Concerns Assessment Noted Time A fall risk assessment has been complete d for the patient 09/24/2024 9:56 AM EDT documented as of this encounter Care Teams Emergency Nurse Relationship Specialty Start Date End Date Anibal Gonzales DO [address] [place] [address] PCP - General Internal Medicine 12/02/23 documented as of this encounter
--- OUTSIDE RECORDS SUMMARY | 2025-04-29 11:05 | XMS_ITS | Encounter Summary ---
Author Organization [facility] Address [address] [place] [address] Phone Care Team Providers Care Silver Cleaner Name Role Phone Anibal Gonzales DO Primary Care Provider [phone] Encounter Details Date Type Department Care Team (Late st Contact Info) Description 02/08/2025 Scanned Document [facility] [address] [place] [phone] Scanning, Generic Provider Social History Tobacco Use [...] Description 12/08/2025 3:40 PM EST Office Visit [facility] 703 [facility] [address] [place] [address] Yohana Headley MD 703 [facility] [address], [address] [place] [address] documented as of this encounter Visit Diagnoses Not on filedocumented in this encounter Additional Health Concerns Assessment Noted Time A fall risk assessment has been complete d for the patient 09/24/2024 9:56 AM EDT documented as of this encounter Care Teams Silver Cleaner Relationship Specialty Start Date End Date Anibal Gonzales DO [address] [place] [address] PCP - General Internal Medicine 12/02/23 documented as of this encounter
--- OUTSIDE RECORDS SUMMARY | 2025-04-29 11:05 | XMS_ITS | Clinical Summary ---
Author Organization [facility] Address [address] [place] [address] Care Team Providers Care Beet Worker Name Role Phone Anibal Gonzales DO Primary Care Provider [phone] Allergies No known active allergies Medications allopurinol (Zyloprim) 300 MG tablet Take 300 mg by mouth Daily 04/03/20 23 Active atorvastatin (Lipitor) 20 MG tablet Take 20 mg by mouth Daily 04/03/20 23 Active furosemide (Lasix) 20 MG tablet Take 20 mg by mouth in the morning and 20 mg before bedtime. 04/03/20 23 Active ketorolac (Acular) 0.5 % ophthalmic solution 04/10/20 23 Active lisinopril 10 MG tablet Take 10 mg by mouth Daily 02/06/20 23 Active losartan (Cozaar) 50 MG tablet Take 50 mg by mouth Daily 04/03/20 23 Active metoprolol succinate XL (Toprol-XL) 50 MG 24 hr tablet Take 50 mg by mouth Daily 04/03/20 23 Active ofloxacin (Ocuflox) 0.3 % ophthalmic solution 04/10/20 23 Active potassium chloride CR (Klor-Con) 10 MEQ ER tablet Take 10 mEq by mouth Daily with food 04/03/20 23 Active spironolactone (Aldactone) 25 MG tablet Take 25 mg by mouth Daily 04/03/20 23 Active warfarin (Coumadin) 5 MG tablet TAKE 1 TABLET ORALLY DAILY INSTRUCTED BY MEDICATION MANAGEMENT CLINIC 04/04/20 25 Active Eliquis 5 MG tablet Take 5 mg by mouth in the morning and 5 mg before bedtime. 04/03/20 23 025 Discontinued Active Problems Problem Noted Date Diagnosed Date Hemorrhage of anus and rectum 04/22/2025 Other hemorrhoids 04/22/2025 Pseudophakia 04/25/2023 Encounters Date Type Department Care Team Description 04/22/2025 10:15 AM EDT Consult [facility] [address] [place] [address] Yoni Siu, DO Hemorrhage of anus and rectum; Other hemorrhoids 04/22/2025 Travel 04/19/2025 Travel 03/31/2025 Travel 03/30/2025 Travel 03/29/2025 Travel 03/28/2025 Travel 03/16/2025 Travel from Last 3 Months Family History Medical History Relation Name Comments Breast cancer Neg Hx Colon cancer Neg Hx Ovarian cancer Neg Hx Pancreatic cancer Neg Hx Relation Name Status Comments Brother 0 - brothers Father Mother Sister Alive 1 Social History Tobacco Use Types Packs/Day Years [...] Mass Index 45.19 04/22/2025 10:16 AM EDT Plan of Treatment Health Maintenance Due Date Last Done Comments CT Colonography 1955 Colonoscopy 1955 Colorectal Cancer Screening 1955 FIT-DNA 1955 FIT 1955 FOBT 1955 Sigmoidoscopy 1955 Pneumococcal Vaccine: 65+ Years (1 of 1 - PCV) 005 Influenza Vaccine (Season Ended) 2025 Insurance [employer] Care Teams Beet Worker Relationship Specialty Start Date End Date Anibal Gonzales DO [address] [place] [address] PCP - General Internal Medicine 03/16/25
--- OUTSIDE RECORDS SUMMARY | 2025-04-29 11:05 | XMS_ITS | Encounter Summary ---
Author Organization [facility] Address [address] [place] [address] Care Team Providers Care Biophysics Professor Name Role Phone Anibal Gonzales DO Primary Care Provider [phone] Encounter Details Date Type Department Care Team (Latest Contact Info) Description 04/19/2025 Travel Social History Tobacco Use Types Packs/Day Years Used Date Smoking Tobacco: Former Cigarettes Sex and Gender Information Value Date Recorded Sex Assigned at Not on file Legal Sex Male 11:13 AM EDT Gender Identity Not on file Sexual Orientation Not on file documented as of this encounter Plan of Treatment Not on file documented as of this encounter Visit Diagnoses Not on filedocumented in this encounter Care Teams Biophysics Professor Relationship Specialty Start Date End Date Anibal Gonzales DO [address] [place] [address] PCP - General Internal Medicine 03/16/25 documented as of this encounter
--- OUTSIDE RECORDS SUMMARY | 2025-04-29 11:05 | XMS_ITS | Encounter Summary ---
Author Organization [facility] Address [address] [place] [address] Phone Care Team Providers Care Precision Thread Grinder Operator Name Role Phone Anibal Gonzales DO Primary Care Provider [phone] Encounter Details Date Type Department Care Team (Latest Contact Info) Description 04/27/2025 Travel Social History Tobacco Use Types Packs/Day [...] PM EDT documented as of this encounter Plan of Treatment Upcoming Encounters Date Type Department Care Team (Late st Contact Info) Description 12/08/2025 3:40 PM EST Office Visit [facility] [address] [address] Yohana Headley MD 703 [facility] 2, [address] [place] [address] documented as of this encounter Visit Diagnoses Not on filedocumented in this encounter Additional Health Concerns Assessment Noted Time A fall risk assessment has been complete d for the patient 04/27/2025 1:29 PM EDT documented as of this encounter Care Teams Precision Thread Grinder Operator Relationship Specialty Start Date End Date Anibal Gonzales DO [address] [place] [address] PCP - General Internal Medicine 12/02/23 documented as of this encounter
--- OUTSIDE RECORDS SUMMARY | 2025-04-29 11:05 | XMS_ITS | Encounter Summary ---
Author Organization [facility] Address [address] [place] [address] Care Team Providers Care News Correspondent Name Role Phone Anibal Gonzales DO Primary Care Provider [phone] Encounter Details Date Type Department Care Team (Latest Contact Info) Description 04/22/2025 Travel Social History Tobacco Use Types Packs/Day [...] on filedocumented in this encounter Care Teams News Correspondent Relationship Specialty Start Date End Date Anibal Gonzales DO [address] [place] [address] PCP - General Internal Medicine 03/16/25 documented as of this encounter
--- OUTSIDE RECORDS SUMMARY | 2025-04-29 11:05 | XMS_ITS | Encounter Summary ---
Author Organization [facility] Address [address] [place] [address] Phone Care Team Providers Care Digital Media Designer Name Role Phone Anibal Gonzales DO Primary Care Provider [phone] Anibal Gonzales DO Primary Care Provider [phone] Encounter Details Date Type Department Care Team (Late st Contact Info) Description 11/08/2022 Orders Only [facility] [address] [place] [address] Conversion, Onbase Social History Tobacco Use Types [...] Description 12/08/2025 3:40 PM EST Office Visit [facility] [address] [address] Yohana Headley MD [address] [facility] 2, [facility] [address] [place], [place] [phone] Scheduled Orders Name Type Priority Associated Diagnoses Orde r Schedule OUTSIDE LAB SCAN Lab Ordered: 11/08/2022 documented as of this encounter Visit Diagnoses Not on filedocumented in this encounter Care Teams Digital Media Designer Relationship Specialty Start Date End Date Anibal Gonzales DO PCP - General 09/24/21 12/01/23 Anibal Gonzales DO [facility] [place] [address] PCP - General Internal Medicine 12/02/23 documented as of this encounter
--- OUTSIDE RECORDS SUMMARY | 2025-04-29 11:05 | XMS_ITS | Encounter Summary ---
Author Organization [facility] Address [address] [place] [address] Phone Care Team Providers Care Hadoop Analyst Name Role Phone Anibal Gonzales DO Primary Care Provider [phone] Encounter Details Date Type Department Care Team (Late st Contact Info) Description 09/21/2024 Scanned Document [facility] [address] [place] [address] Scanning, Generic Provider Social History Tobacco Use [...] Description 12/08/2025 3:40 PM EST Office Visit [facility] 703 [facility] [address] [place] [address] Yohana Headley MD 703 [facility] 2, [address] [place], [place] [phone] documented as of this encounter Visit Diagnoses Not on filedocumented in this encounter Additional Health Concerns Assessment Noted Time A fall risk assessment has been complete d for the patient 12/02/2023 10:36 AM EST documented as of this encounter Care Teams Hadoop Analyst Relationship Specialty Start Date End Date Anibal Gonzales DO [address] [place] [address] PCP - General Internal Medicine 12/02/23 documented as of this encounter
--- OUTSIDE RECORDS SUMMARY | 2025-04-29 11:05 | XMS_ITS | Encounter Summary ---
Author Organization [facility] Address [address] [place] [address] Phone Care Team Providers Care Equipment Sales Specialist Name Role Phone Anibal Gonzales DO Primary Care Provider Anibal Gonzales DO Primary Care Provider [phone] Encounter Details Date Type Department Care Team (Late st Contact Info) Description 09/10/2021 Orders Only [facility] [address] [place] [address] Conversion, Onbase Social History Tobacco Use Types [...] Description 12/08/2025 3:40 PM EST Office Visit [facility] [address] [address] Yohana Headley MD 703 [facility] 2, [facility] [address] [place], [place] [phone] Scheduled Orders Name Type Priority Associated Diagnoses Orde r Schedule OUTSIDE LAB SCAN Lab Ordered: 09/10/2021 documented as of this encounter Visit Diagnoses Not on filedocumented in this encounter Care Teams Equipment Sales Specialist Relationship Specialty Start Date End Date Anibal Gonzales DO PCP - General 09/24/21 12/01/23 Anibal Gonzales DO [facility] [place] [address] PCP - General Internal Medicine 12/02/23 documented as of this encounter
--- OUTSIDE RECORDS SUMMARY | 2025-04-29 11:05 | XMS_ITS | Clinical Summary ---
Author Organization [facility] Address [address] [place] [address] Phone Care Team Providers Care Stone And Concrete Washer Name Role Phone Anibal Gonzales Primary Care Provider [phone] Allergies No known active allergies Medications allopurinol (Zyloprim) 300 mg tablet Take 1 tablet (300 mg) by mouth once daily. Active atorvastatin (Lipitor) 20 mg tabletIndications: Mixed hyperlipidemia Take 1 tablet (20 mg) by mouth once daily at bedtime. 90 tablet 3 4 Active digoxin (Lanoxin) 125 MCG tablet Take 1 tablet (125 mcg) by mouth once daily at bedtime. 4 Active metoprolol succinate XL (Toprol-XL) 200 mg 24 hr tablet 1 tablet (200 mg) once daily. 4 Active warfarin (Coumadin) 5 mg tablet TAKE 1 TABLET BY MOUTH EVERY DAY DIRECTED BY THE COUMADIN CLINIC 5 Active apixaban (Eliquis) 5 mg tabletIndications: Paroxysmal atrial fibrillation (Multi) Take 1 tablet (5 mg) by mouth 2 times a day. 180 tablet 3 4 025 Discontin ued(Cost of medicatio n) Active Problems Problem Noted Date Diagnosed Date Cough 04/27/2025 Syncope and collapse 09/24/2024 BMI 40.0-44.9, adult (Multi) 09/24/2024 Chronic atrial fibrillation (Multi) 09/24/2024 Atypical atrial flutter 09/24/2024 Anticoagulated 09/24/2024 Former smoker 09/24/2024 History of bloody stools 09/24/2024 BPH (benign prostatic hyperplasia) 11/12/2023 Hyperlipidemia 11/12/2023 Hypertension 11/12/2023 Non-ischemic cardiomyopathy (Multi) 11/12/2023 KOFI on CPAP 11/12/2023 Type 2 diabetes mellitus 11/12/2023 Resolved Problems Problem Noted Date Diagnosed Date Resolved Date Paroxysmal atrial fibrillation (Multi) 11/12/2023 09/24/2024 Encounters Date Type Department Care Team Description 04/27/2025 1:30 PM EDT Office Visit [place] [address] [address] Yohana Headley MD Syncope and collapse (Primary Dx); Non-ischemic cardiomyopathy (Multi); Primary hypertension; Mixed hyperlipidemia; Chronic atrial fibrillation (Multi); Atypical atrial flutter; Anticoagulated; Cough, unspecified type; Former smoker; BMI 40.0-44.9, adult (Multi) 04/27/2025 Travel 04/15/[address] [facility] [address] [place] [address] Scanning, Generic Provider 02/08/[address] [facility] [address] [place] [address] Scanning, Generic Provider from Last 3 Months Immunizations Immunization Administration Dates Next Due Sandor [...] No / Unsure 04/27/2025 1:19 PM EDT Last Filed Vital Signs Vital Sign Reading [...] Mass Index 44.19 04/27/2025 1:28 PM EDT Plan of Treatment Upcoming Encounters Date Type Department Care Team (Late st Contact Info) Description 12/08/2025 3:40 PM EST Office Visit [facility] 703 [facility] [address] [place] [address] Yohana Headley MD 703 [facility] [address], [address] [place] [address] Health Maintenance Due Date Last Done Comments [...] 04/27/2025 1:30 PM EDT Atypical atrial flutter ECHOCARDIOGRAM 06/14/2024 from Last 3 Months or Most Recently Relevant to Health Maintenance Results * ECG 12 Lead (04/27/2025 1:30 PM EDT) Narrative CPACS - 04/27/2025 2:12 PM EDT Atrial fibrillation with controlled rate us Yohana Headley MD ECG ORDERABLES Final Resu lt CPACS * Echocardiogram (06/14/2024) Narrative 06/14/2024 Ordered by an unspecified provider. us Generic Provider Scanning CV ECHO PROCEDURES Fin al Result from Last 3 Months or Most Recently Relevant to Health Maintenance Insurance Painting With A Twist Painting With A Twist Care Teams Stone And Concrete Washer Relationship Specialty Start Date End Date Anibal Gonzales DO [address] [place] [address] PCP - General Internal Medicine 12/02/23
--- OUTSIDE RECORDS SUMMARY | 2025-04-29 11:05 | XMS_ITS | Clinical Summary ---
Author Organization [facility] Address [address] [place] [address] Care Team Providers Care Lead Man Over All Dies In Pattern Shop Name Role Phone Unavailable Primary Care Provider [...]
--- OUTSIDE RECORDS SUMMARY | 2025-04-29 11:05 | XMS_ITS | Encounter Summary ---
Author Organization [facility] Address [address] [place] [address] Phone Care Team Providers Care Rag Washer Name Role Phone Anibal Gonzales DO Primary Care Provider [phone] Anibal Gonzales DO Primary Care Provider [phone] Encounter Details Date Type Department Care Team (Late st Contact Info) Description 03/14/2022 Orders Only [facility] [address] [place] [address] Conversion, Onbase Social History Tobacco Use Types [...] Description 12/08/2025 3:40 PM EST Office Visit [facility] [address] [address] Yohana Headley MD 703 [facility] 2, [facility] [address] [place], [place] [phone] Scheduled Orders Name Type Priority Associated Diagnoses Orde r Schedule OUTSIDE LAB SCAN Lab Ordered: 03/14/2022 documented as of this encounter Visit Diagnoses Not on filedocumented in this encounter Care Teams Rag Washer Relationship Specialty Start Date End Date Anibal Gonzales DO PCP - General 09/24/21 12/01/23 Anibal Gonzales DO [facility] [place] [address] PCP - General Internal Medicine 12/02/23 documented as of this encounter
--- OUTSIDE RECORDS SUMMARY | 2025-04-29 11:05 | XMS_ITS | Encounter Summary ---
Author Organization [facility] Address [address] [place] [address] Phone Care Team Providers Care Data Sciences Director Name Role Phone Anibal Gonzales DO Primary Care Provider [phone] Encounter Details Date Type Department Care Team (Late st Contact Info) Description 06/14/2024 Scanned Document [facility] [address] [place] [address] Scanning, Generic Provider Social History Tobacco Use [...] Description 12/08/2025 3:40 PM EST Office Visit [facility] 703 [facility] [address] [place] [address] Yohana Headley MD 703 [facility] 2, [address] [place], [place] [address] documented as of this encounter Procedures Procedure [...] documented as of this encounter Care Teams Data Sciences Director Relationship Specialty Start Date End Date Anibal Gonzales DO [address] [place] [place] [address] PCP - General Internal Medicine 12/02/23 documented as of this encounter
--- OUTSIDE RECORDS SUMMARY | 2025-04-29 11:05 | XMS_ITS | Encounter Summary ---
Author Organization [facility] Address [address] [place] [address] Phone Care Team Providers Care Tanning Drum Operator Name Role Phone Anibal Gonzales DO Primary Care Provider [phone] Encounter Details Date Type Department Care Team (Late st Contact Info) Description 06/21/2024 Scanned Document [facility] [address] [place] [phone] Scanning, Generic Provider Social History Tobacco Use [...] Description 12/08/2025 3:40 PM EST Office Visit [facility] [address] [address] Yohana Headley MD [address] [facility] 2, [address] [place], [place] [phone] Scheduled Orders Name Type Priority Associated Diagnoses Orde r Schedule Ultrasound- OnBase Scan Imaging O rdered: 06/21/2024 documented as of this encounter Visit Diagnoses Not on filedocumented in this encounter Additional Health Concerns Assessment Noted Time A fall risk assessment has been complete d for the patient 12/02/2023 10:36 AM EST documented as of this encounter Care Teams Tanning Drum Operator Relationship Specialty Start Date End Date Anibal Gonzales DO [address] [place] [address] PCP - General Internal Medicine 12/02/23 documented as of this encounter
--- NOTE | 2025-04-29 11:07 | XR_ITS ---
The [address] [address] Patient Name: CHEYANNE FLORES MRN: [id number] date: 1955 Sex: M Assigned Patient Location: RAD Current Patient Location: [facility] Accession/Order Number: [id number] Exam Date: 04/29/2025 11:22 Report Date: 04/29/2025 11:24 At the request of: BRIDGER WEINBERG Procedure: XR chest 2V PA AND LATERAL CHEST: CLINICAL HISTORY: Cough for the past month. History of tobacco use. 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 Minimal chronic pleural parenchymal change is seen at the lateral right lung base. There is no developing consolidation, effusion or pneumothorax. The cardiac, hilar and mediastinal silhouettes are stable. There is no vascular congestion. The visualized bony thorax is intact. Degenerative changes are present at the spine. XR/XR chest 2V IMPRESSION: NO ACUTE CARDIOPULMONARY ABNORMALITY. Impression dictated by: Shana Saenz M.D. 04/29/2025 11:24 AM Dictation Location: [place] [address] Electronically authenticated by: [id number] Date: 04/29/2025 11:24
== END 2025-04-29 10:59 | disposition home or self-care (01) ==
LOC: RAD 11:01
PROVIDERS: PCP Internal Medicine; Visit Provider Internal Medicine Cardiovascular Disease
DX: R05.9 Cough, unspecified (principal)
CPT/HCPCS: 71046

== ENCOUNTER 2025-05-17 14:21 | Outpatient (OUT) | payer OTHER, SELFPAY ==
[2025-05-17 15:08] LABS: Basophils Absolute Auto 0.1 10^3/uL (0.0-0.1); Basophils Percent Auto 0.5 % (0.2-2.0); Eosinophils Absolute Auto 0.1 10^3/uL (0.0-0.7); Hematocrit 35.4 % (42.0-54.0); Hemoglobin 10.7 g/dL (14.0-18.0); Immature Granulocytes Abs Auto 0.06 10^3/uL (0.00-0.03); Immature Granulocytes Pct Auto 0.5 % (0.0-0.5); Lymphocytes Absolute Auto 1.2 10^3/uL (1.2-3.8); Lymphocytes Percent Auto 9.9 % (20.5-60.0); Mean Corpuscular HGB Conc 30.2 g/dL (29.9-35.2); Mean Corpuscular Hemoglobin 27.1 pg (25.9-34.0); Mean Corpuscular Volume 89.6 fL (80.0-94.0); Mean Platelet Volume 9.1 fL (9.5-13.5); Monocytes Absolute Auto 0.9 10^3/uL (0.3-0.8); Monocytes Percent Auto 7.4 % (1.7-12.0); Neutrophils Absolute Auto 9.7 10^3/uL (1.4-6.5); Neutrophils Percent Auto 80.7 % (43.0-75.0); Platelet Count 385 10^3/uL (150-450); Red Blood Count 3.95 10^6/uL (4.70-6.10); Red Cell Distribution Width 16.2 % (11.0-15.0)
[2025-05-17 15:26] LABS: Alanine Aminotransferase 16 U/L (16-63); Albumin Globulin Ratio 0.7; Albumin Level 2.9 g/dL (3.4-5.0); Alkaline Phosphatase 75 U/L (46-116); Aspartate Amino Transferase 14 U/L (15-37); BUN Creatinine Ratio 11.6; Bilirubin Total 0.6 mg/dL (0.2-1.0); Carbon Dioxide 31.3 mmol/L (21.0-32.0); Chloride 103 mmol/L (98-107); Chol HDL Ratio 3.8; Cholesterol 139 mg/dL (<=200); Estimated GFR (African America >60 (>=60 mL/min/1.73m^2); Estimated GFR (Non-African Ame 55 (>=60 mL/min/1.73m^2); Globulin 4.1 g/dL; Glucose 146 mg/dL (74-106); HDL Cholesterol 37 mg/dL (40-60); Potassium 3.3 mmol/L (3.5-5.1); Sodium 143 mmol/L (136-145); Triglycerides 201 mg/dL (<=150); VLDL CHOLESTEROL 40.2 mg/dL
[2025-05-17 15:55] LABS: Prostate Specific Antigen Scrn 0.52 ng/mL (<=4.00)
== END 2025-05-17 14:22 | disposition home or self-care (01) ==
LOC: LAB 14:24
PROVIDERS: PCP Internal Medicine; Visit Provider Internal Medicine
DX: E78.01 Familial hypercholesterolemia (principal); Z12.5 Encounter for screening for malignant neoplasm of prostate; E11.65 Type 2 diabetes mellitus with hyperglycemia; N18.31 Chronic kidney disease, stage 3a; K62.5 Hemorrhage of anus and rectum; Z51.81 Encounter for therapeutic drug level monitoring; Z79.01 Long term (current) use of anticoagulants; I48.20 Chronic atrial fibrillation, unspecified
CPT/HCPCS: 36415; 80053; 80061; 85025; 85610; G0103; G0463

== ENCOUNTER 2025-05-24 02:32 | Outpatient (RCR) | payer OTHER, SELFPAY | END 2025-06-23 16:56 | disposition home or self-care (01) | LOC: MM 02:32 | PROVIDERS: PCP Internal Medicine; Visit Provider Internal Medicine | DX: Z51.81 Encounter for therapeutic drug level monitoring (principal); Z79.01 Long term (current) use of anticoagulants; I48.20 Chronic atrial fibrillation, unspecified | CPT/HCPCS: 85610; G0463 ==

== ENCOUNTER 2025-06-24 00:24 | Outpatient (RCR) | payer OTHER, SELFPAY | END 2025-07-21 13:15 | disposition home or self-care (01) | LOC: MM 00:24 | PROVIDERS: PCP Internal Medicine; Visit Provider Internal Medicine | DX: Z51.81 Encounter for therapeutic drug level monitoring (principal); Z79.01 Long term (current) use of anticoagulants; I48.20 Chronic atrial fibrillation, unspecified | CPT/HCPCS: 85610; G0463 ==

== ENCOUNTER 2025-07-25 02:58 | Outpatient (RCR) | payer OTHER, SELFPAY | END 2025-08-23 15:48 | disposition home or self-care (01) | LOC: MM 02:58 | PROVIDERS: PCP Internal Medicine; Visit Provider Internal Medicine | DX: Z51.81 Encounter for therapeutic drug level monitoring (principal); Z79.01 Long term (current) use of anticoagulants; I48.20 Chronic atrial fibrillation, unspecified | CPT/HCPCS: 85610; G0463 ==

== ENCOUNTER 2025-08-24 04:36 | Outpatient (RCR) | payer OTHER, SELFPAY | END 2025-09-23 23:59 | disposition home or self-care (01) | LOC: MM 04:36 | PROVIDERS: PCP Internal Medicine; Visit Provider Internal Medicine | DX: Z51.81 Encounter for therapeutic drug level monitoring (principal); Z79.01 Long term (current) use of anticoagulants; I48.20 Chronic atrial fibrillation, unspecified | CPT/HCPCS: 85610; G0463 ==

== ENCOUNTER 2025-09-24 | Outpatient (RCR) | payer OTHER, SELFPAY | END 2025-10-23 23:59 | disposition home or self-care (01) | LOC: MM | PROVIDERS: PCP Internal Medicine; Visit Provider Internal Medicine | DX: Z51.81 Encounter for therapeutic drug level monitoring (principal); Z79.01 Long term (current) use of anticoagulants; I48.20 Chronic atrial fibrillation, unspecified | CPT/HCPCS: 85610; G0463 ==

== ENCOUNTER 2025-10-24 11:47 | Outpatient (RCR) | payer OTHER, SELFPAY | END 2025-11-23 12:52 | disposition home or self-care (01) | LOC: MM 11:47 | PROVIDERS: PCP Internal Medicine; Visit Provider Internal Medicine | DX: Z51.81 Encounter for therapeutic drug level monitoring (principal); Z79.01 Long term (current) use of anticoagulants; I48.20 Chronic atrial fibrillation, unspecified ==